=== PATIENT | male | born 1965 | race Caucasian/White ===

== ENCOUNTER 2016-07-26 15:34 | Emergency (ER) | payer OTHER ==
[~2016-07-26] VITALS: Ht 180.3 cm; Wt 83.9 kg
[~2016-07-26 15:34] MED LIST: ASPIRIN EC325 M2 PO; AUGMENTIN 875 M1 TAB PO; CLOPIDOGREL75 MG PO; FLEXERIL10 MG PO; LEVEMIR100 UNIT/1 SC; LIDODERM1 EACH EXT; METFORMIN HCL500 MG PO; MIRALAX119 GM PO; MOTRIN800 MG PO; NICOTINE PATCH1 EAC3 TOP; NOVOLOG100 UNIT/2 SC; OXACILLIN2 GM/50 M1 IV; PERCOCET 5-3251 EACH PO; SENNA PLUS TAB1 EACH PO; TRAMADOL50 MG PO
--- NOTE | 2016-07-26 17:06 | ED GI/GU/ABDOMINAL COMPLAINT ---
History of Present Illness General Chief Complaint: Abdominal Pain/Flank Pain Stated Complaint: "IM HAVING PAINS IN MY LEFT SIDE" Source: patient, family, old records Exam Limitations: no limitations Allergies Coded Allergies: NO KNOWN ALLERGIES (08/09/15) Reconcile Medications Aspirin (Ecotrin*) 325 MG TABLET. 1 TAB PO DAILY HEART/BLOOD (Reported) Ciprofloxacin HCl (Cipro) 500 MG TABLET 1 TAB PO BID PYELO Duloxetine HCl 30 MG CAPSULE.DR 2 CAP PO DAILY NERVE PAIN (Reported) Gabapentin 300 MG CAPSULE 1 CAP PO TID NERVE PAIN (Reported) Insulin Aspart (Novolog) 100 UNIT/1 ML VIAL 0 SC TIDAC/HS DIABTES BEFORE MEALS Blood Insulin Sugar Units <80 0 81-150 4 151-200 6 201-250 8 251-300 10 301-350 12 351-400 14 >400 16 AND Call Doctor AT BEDTIME Blood Insulin Sugar Units <80 0 81-100 0 101-200 0 201-250 0 251-300 3 301-350 4 351-400 5 >400 6 AND Call Doctor Insulin Detemir (Levemir) 100 UNIT/1 ML VIAL 12 UNITS SC BID DIABETES FOLLOW UP WITH DR. AREVALO Oxycodone HCl/Acetaminophen (Percocet 5-325 MG Tablet) 5 MG-325 MG TABLET 1 TAB PO BID PRN BREAKTHROUGH PAIN Triage Note: PT STATES HE HAS PAIN IN HIS LEFT FLANK AREA THAT RADIATES INTO HIS GROIN SINCE WEDNESDAY. Triage Nurses Notes Reviewed? yes Onset: Abrupt Duration: day(s): (3), constant Timing: recent history Quality/Severity: aching, cramping Severity Numbers: 5 Location: left flank Radiation: LLQ Activities at Onset: none Prior Abdominal Problems: similar symptoms No Modifying Factors: none Associated Symptoms: DENIES HPI: This is a 50-year-old male with history of type 2 diabetes SD with cardiac stents in 2009 and recent admission in January of 2016 with left-sided pyelonephritis with perinephric abscess bacteremia requiring drainage and a PICC line presents to the emergency room today complaining of sudden onset for the past 3 days left flank pain that rates the left lower quadrant. He denies any urinary symptoms no dysuria urgency frequency. No nausea no vomiting no change in his bowel movements, denies any fevers or chills. He is not taken anything for his symptoms. The patient denies any penile or scrotal pain there is no pain radiating down his legs no numbness or tingling. (EUGENIA PATEL) Vital Signs & Intake/Output Vital Signs & Intake/Output Vital Signs Date Time Temp Pulse Resp B/P Pulse O2 O2 Flow FiO2 Ox Delivery Rate 07/26 1907 97.6 07/26 1844 84 144/66 07/26 1549 97.4 89 16 138/79 97 Room Air Past History Travel History Traveled to [place] past 21 day No Medical History Any Pertinent Medical History? see below for history Neurological: NONE EENT: NONE Cardiovascular: CAD (status post stents), myocardial infarction Respiratory: NONE Gastrointestinal: NONE Hepatic: NONE Renal: RENAL ABSCESS PYELONEPRHTIS Musculoskeletal: osteoarthritis, CARPAL TUNNEL L SIDE RIB FX rotator cuff injury Psychiatric: NONE Endocrine: diabetes Blood Disorders: NONE Cancer(s): NONE Other Medical Hx: had lower uti with dysuria and frequency treated 4 weeks ago with antibiotic by [place] doctor History of MRSA: No History of VRE: No History of CDIFF: No Surgical History Surgical History: rotator cuff surgery status post balloon angioplasty left leg Psychosocial History Who do you live with Spouse What is your primary language Indian Tobacco Use: Current Daily Use Daily Tobacco Use Amount/Type: => 5 Cigarettes daily ETOH Use: occasional use Illicit Drug Use: denies illicit drug use Family History Hx Contributory? No (EUGENIA PATEL) Review of Systems Review of Systems Constitutional: Reports: see HPI. All Other Systems: Reviewed and Negative Comments Review of systems: See HPI, All other systems negative. Constitutional, no chills no fever, no malaise HEENT: No visual changes no sore throat no congestion, no ear pain Cardiovascular: No chest pain , no palpitation , Skin, no rashes, no change in skin Respiratory: No dyspnea no cough no sputum GI: No nausea no vomiting, no diarrhea, : No dysuria Muscle skeletal: No joint pain, no back pain, no neck pain, Neurologic: No numbness no headache Psych: No stress Heme/endocrine: No bruising no bleeding Immunology: No lymphadenopathy (EUGENIA PATEL) Physical Exam Physical Exam General Appearance: well developed/nourished, no apparent distress, alert, awake Gastrointestinal: normal bowel sounds, soft, non-tender Comments: Well-developed well-nourished person in no acute distress HEENT: Normal EENT exam; PERRL, EOMI, HEAD is atraumatic. moist mucous membranes. Neck: Supple, normal range of motion Back: Nontender. Full range of motion Cardiovascular: Regular rate and rhythms no murmurs rubs Respiratory: No respiratory distress. Patient speaking in full complete sentences. Breath sounds clear to auscultation bilaterally: NO W/R/R Abdomen: Soft, nontender nondistended, no appreciable organomegaly. Normal bowel sounds. No rebound/guarding, No ascites. Extremity: No edema, full range of motion of extremities, Neuro: Alert oriented x3, motor sensory normal Skin: No appreciable rash on exposed skin, skin is warm and dry. Psych: Mood and affect is normal, memory and judgment is normal. Core Measures ACS in differential dx? No Severe Sepsis Present: No Septic Shock Present: No (AMY ALVA,EUGENIA) Progress Differential Diagnosis: bowel obstruction, diverticulitis, inflamm bowel dis, pancreatitis, peptic ulcer, PUD/GERD, perforated viscous, pyelonephritis, SBO, ureterolithiasis, urinary retention, urethritis, UTI/pyelo Diagnostic Imaging: Viewed by Me: CT Scan. Discussed w/RAD: CT Scan. Radiology Impression: PATIENT: THOM JAIME PRESENT AGE: 50 PATIENT ACCOUNT NO: [id number] : 65 LOCATION: [facility] ORDERING PHYSICIAN: EUGENIA ALVA SERVICE DATE: 07/26/16 EXAM TYPE: CAT - CT ABD & PELVIS W IV CONTRAST EXAMINATION: CT ABDOMEN AND PELVIS WITH CONTRAST CLINICAL INFORMATION: Left flank pain. History of renal abscess. COMPARISON: CT abdomen and pelvis 02/05/[address] abdomen 01/27/2016. TECHNIQUE: Multidetector volumetric imaging was performed of the abdomen and pelvis before and after the IV administration of 95 mL of Optiray 320 intravenous contrast. Sagittal and coronal reformatted images were obtained on the technologist's workstation. DLP: 564 mGy-cm. FINDINGS: LUNG BASES: Dependent parenchymal changes bilaterally. LIVER, GALLBLADDER, AND BILIARY TREE: The liver is normal in size, shape, and attenuation. No focal hepatic lesion. Slight biliary ductal prominence which is favored to be within normal limits status post cholecystectomy. Cholecystectomy clips. PANCREAS: Unremarkable. SPLEEN: Unremarkable. ADRENAL GLANDS: Unremarkable. KIDNEYS AND URETERS: No significant perinephric stranding. Bilateral nephrograms are symmetric without hydronephrosis. No convincing pyelonephritis. No renal or ureteral calculi. No suspicious renal mass. No discrete renal abscess. BLADDER: Unremarkable. GASTROINTESTINAL TRACT: Bowel gas pattern is nonobstructive. No evidence of acute bowel inflammation. The appendix is normal. ABDOMINAL WALL: Small umbilical hernia which contains a portion of small bowel; no evidence of local inflammatory change or obstruction. LYMPH NODES: No pathologically enlarged lymph nodes demonstrated. VASCULAR: Scattered atherosclerotic disease. PELVIC VISCERA: Beam hardening artifact from left hip arthroplasty limits optimal evaluation of the pelvis. No free pelvic fluid. Prostate gland and seminal vesicles appear unremarkable. OSSEOUS STRUCTURES: The prosthetic left femoral head is well situated within the acetabular component. Question granuloma formation within the proximal left femur along the lateral aspect of the femoral component (coronal image 69/107). Mild heterotopic ossification about the left hip. Moderate degenerative changes of the right hip with prominent hypertrophic changes. IMPRESSION: 1. No hydronephrosis or CT evidence of pyelonephritis. No renal or ureteral calculi demonstrated. No significant perinephric stranding. 2. No evidence of acute bowel pathology. Small umbilical hernia contains a short segment of nonobstructed small bowel. 3. Mild biliary ductal prominence is suspected to be within normal limits status post cholecystectomy. 4. Question of granuloma formation along the lateral aspect of the left femoral prosthetic component. Please correlate for any clinical symptoms of hardware complication. Moderate degenerative changes at the right hip. DICTATED BY: TYESHA AMBRIZ MD DATE/TIME DICTATED:07/26/161827 MANNEQUIN SANDER AND FINISHER:RADHA DATE/TIME TRANSCRIBED:07/26/161827 CONFIDENTIAL, DO NOT COPY WITHOUT APPROPRIATE AUTHORIZATION. <Electronically signed in Other Vendor System> SIGNED BY: TYESHA AMBRIZ MD 07/26/16 1847 Initial ED EKG: none (EUGENIA PATEL) Plan of Care: Orders Procedure Date/time Status Add-on Test (ER Only) 07/26 1852 Active BLOOD CULTURE 07/26 1831 Active CULTURE,URINE 07/26 1721 Active URINALYSIS 07/26 1706 Complete LIPASE 07/26 170 Complete COMPREHENSIVE METABOLIC PANEL 07/26 1706 Complete CBC WITHOUT DIFFERENTIAL 07/26 170 Complete AMYLASE 07/26 170 Complete Laboratory Tests 07/26/16 1721: Anion Gap 13, Estimated GFR > 60, BUN/Creatinine Ratio 20.0, Glucose 129 H, Calcium 9.6, Total Bilirubin 0.4, AST 14 L, ALT 28, Alkaline Phosphatase 95, Total Protein 7.7, Albumin 4.4, Globulin 3.3, Albumin/Globulin Ratio 1.3, Amylase 35, Lipase 83, CBC w Diff NO MAN DIFF REQ, RBC 4.78, MCV 92.6, MCH 31.2 H, RDW 13.3, MPV 9.6, Gran % 65.4, Lymphocytes % 24.6, Monocytes % 6.4, Eosinophils % 3.3, Basophils % 0.3, Absolute Granulocytes 8.5 H, Absolute Lymphocytes 3.2, Absolute Monocytes 0.8 H, Absolute Eosinophils 0.4, Absolute Basophils 0, PUBS MCHC 33.7, Urinalysis LIGHT H, Urine Color YEL, Urine Clarity CLEAR, Urine pH 6.0, Ur Specific [place] 1.025, Urine Protein TRACE H, Urine Ketones TRACE H, Urine Nitrite NEG, Urine Bilirubin NEG, Urine Urobilinogen 0.2 , Ur Leukocyte Esterase NEG, Ur Microscopic SEDIMENT EXAMINED, Urine RBC 1-3, Urine WBC 3-5 H, Ur Epithelial Cells FEW, Urine Mucus MOD H, Urine Hemoglobin TRACE-INTACT H, Urine Glucose NEG Microbiology 07/26 1830 BLOOD: Blood Culture - RECD 07/26 183 BLOOD: Blood Culture - RECD 07/26 1721 URINE ROUT: Urine Culture - RECD Labs ordered old records reviewed, patient medicated with morphine 6 mg IV IV fluids CAT scan ordered case discussed with Dr. Segovia I discussed with the patient at length all of his lab results today pending CAT scan Please and CAT scan reviewed with Dr. Segovia. Patient medicated with Rocephin 1 g IV, pt is nontoxic appearing, afebrile. as I discussed with family need for close follow-up with his primary care physician tomorrow morning, if he is unable to be seen there advised that he return for repeat checkup, advised he return immediately at anytime sooner however he has worsening pain fever chills. Patient will be sent home with Cipro and Percocet patient clinically appears well he reports his symptoms have improved with the morphine. I answered all her questions they feel comfortable to splint. (AMY ALVA,EUGENIA) Departure Departure Time of Disposition: 1902 Disposition: HOME OR SELF CARE Condition: Stable Clinical Impression Primary Impression: Flank pain Referrals: ADETOLA MD,GADIEL Rodriguez (PCP/Family) Additional Instructions: FOLLOW UP WITH YOUR PMD TOMORROW MORNING FOR REPEAT EVALUATION TOMORROW, IF UNABLE TO BE SEEN COME BACK TO THE EMERGENCY ROOM. RETURN AT ANYTIME SOONER IF SYMPTOMS IF WORSEN, YOU DEVELOP FEVER, CHILLS, NAUSEA VOMITING OR ANY OTHER CONCERNS. CIPRO AND PERCOCET DIRECTED, THESE WERE SENT TO [facility]. Departure Forms: Customer Survey General Discharge Information Prescriptions: Current Visit Scripts Ciprofloxacin HCl (Cipro) 1 TAB PO BID #14 TAB Oxycodone HCl/Acetaminophen (Percocet 5-325 MG Tablet) 1 TAB PO BID PRN BREAKTHROUGH PAIN #12 TAB (EUGENIA PATEL) PA/WATER SYSTEMS ENGINEER Co-Sign Statement Statement: ED Attending supervision documentation- [] I saw and evaluated the patient. I have also reviewed all the pertinent lab results and diagnostic results. I agree with the findings and the plan of care as documented in the PA's/WATER SYSTEMS ENGINEER's documentation. [X] I have reviewed the ED Record and agree with the PA's/WATER SYSTEMS ENGINEER's documentation. Patient will be medicated with Rocephin here in the emergency department. We will recommend that the patient follow up with his primary care physician tomorrow or return to the emergency department for reevaluation. [] Additions or exceptions (if any) to the PAs/WATER SYSTEMS ENGINEER's note and plan are summarized below: [] (CANDACE SIMONS,NICO Owens) ED Attending Observation Initial Observation Note: I have seen and personally examined THOM JAIME on 07/26/16 at 1901. I agree with the current emergency department documentation. The disposition (admission or discharge) is uncertain at this time, he needs a period of observation for the following reason(s): The ED Nurse caring for this patient has been personally informed as to what the patient is being observed for. (EUGENIA PATEL)
[2016-07-26] MEDS ORDERED: DULOXETINE HCL30 MG PO (17:21)
[2016-07-26] MEDS ORDERED: GABAPENTIN300 M2 PO (17:21)
[2016-07-26 17:40] LABS: ABSOLUTE BASOPHIL COUNT 0 /CUMM (0.0-0.2); ABSOLUTE EOSINOPHIL COUNT 0.4 /CUMM (0.0-0.7); ABSOLUTE GRANULOCYTE CT 8.5 /CUMM (1.4-6.5); ABSOLUTE LYMPH COUNT 3.2 /CUMM (1.2-3.4); ABSOLUTE MONOCYTE COUNT 0.8 /CUMM (0.10-0.60); BASOPHIL % 0.3 % (0.0-2.0); EOSINOPHIL % 3.3 % (0-5); GRANULOCYTE % 65.4 % (42.2-75.2); HEMATOCRIT 44.3 % (42-52); MEAN CORPUSCULAR HGB 31.2 PG (27.0-31.0); MEAN CORPUSCULAR HGB CONC 33.7 G/DL (33.0-37.0); MEAN CORPUSCULAR VOLUME 92.6 FL (80.0-94.0); MEAN PLATELET VOLUME 9.6 FL (7.4-10.4); PLATELET COUNT 192 /CUMM (130-400); RBC DISTRIBUTION WIDTH 13.3 % (11.5-14.5); RED BLOOD CELL CT 4.78 /CUMM (4.70-6.10)
[2016-07-26 18:44] VITALS: BP 144/66
--- NOTE | 2016-07-26 18:47 | CT SCAN REPORT ---
EXAMINATION: CT ABDOMEN AND PELVIS WITH CONTRAST CLINICAL INFORMATION: Left flank pain. History of renal abscess. COMPARISON: CT abdomen and pelvis 02/05/[address] abdomen 01/27/2016. TECHNIQUE: Multidetector volumetric imaging was performed of the abdomen and pelvis before and after the IV administration of 95 mL of Optiray 320 intravenous contrast. Sagittal and coronal reformatted images were obtained on the technologist's workstation. DLP: 564 mGy-cm. FINDINGS: LUNG BASES: Dependent parenchymal changes bilaterally. LIVER, GALLBLADDER, AND BILIARY TREE: The liver is normal in size, shape, and attenuation. No focal hepatic lesion. Slight biliary ductal prominence which is favored to be within normal limits status post cholecystectomy. Cholecystectomy clips. PANCREAS: Unremarkable. SPLEEN: Unremarkable. ADRENAL GLANDS: Unremarkable. KIDNEYS AND URETERS: No significant perinephric stranding. Bilateral nephrograms are symmetric without hydronephrosis. No convincing pyelonephritis. No renal or ureteral calculi. No suspicious renal mass. No discrete renal abscess. BLADDER: Unremarkable. GASTROINTESTINAL TRACT: Bowel gas pattern is nonobstructive. No evidence of acute bowel inflammation. The appendix is normal. ABDOMINAL WALL: Small umbilical hernia which contains a portion of small bowel; no evidence of local inflammatory change or obstruction. LYMPH NODES: No pathologically enlarged lymph nodes demonstrated. VASCULAR: Scattered atherosclerotic disease. PELVIC VISCERA: Beam hardening artifact from left hip arthroplasty limits optimal evaluation of the pelvis. No free pelvic fluid. Prostate gland and seminal vesicles appear unremarkable. OSSEOUS STRUCTURES: The prosthetic left femoral head is well situated within the acetabular component. Question granuloma formation within the proximal left femur along the lateral aspect of the femoral component (coronal image 69/107). Mild heterotopic ossification about the left hip. Moderate degenerative changes of the right hip with prominent hypertrophic changes. IMPRESSION: 1. No hydronephrosis or CT evidence of pyelonephritis. No renal or ureteral calculi demonstrated. No significant perinephric stranding. 2. No evidence of acute bowel pathology. Small umbilical hernia contains a short segment of nonobstructed small bowel. 3. Mild biliary ductal prominence is suspected to be within normal limits status post cholecystectomy. 4. Question of granuloma formation along the lateral aspect of the left femoral prosthetic component. Please correlate for any clinical symptoms of hardware complication. Moderate degenerative changes at the right hip.
[2016-07-26] MEDS ORDERED: PERCOCET 5-3251 EACH PO ×2 (19:07→20:37)
[2016-07-26] MEDS ORDERED: CIPRO500 M1 PO ×2 (19:07→20:37)
[2016-07-27] MEDS ORDERED: CYCLOBENZAPRINE5 M2 PO (21:01)
== END 2016-07-26 19:23 ==
LOC: ERH 15:34
PROVIDERS: Physician Assistant Medical
DX: R10.32 Left lower quadrant pain (principal)
CPT/HCPCS: 74177; 81001; 87040; 87086; 96374; 96375; J0696

== ENCOUNTER 2016-07-27 18:49 | Emergency (ER) | payer OTHER ==
[~2016-07-27] VITALS: Ht 180.3 cm; Wt 83.9 kg
[~2016-07-27 18:49] MED LIST changes: +CIPRO500 M1 PO; +DULOXETINE HCL30 MG PO; +GABAPENTIN300 M2 PO
--- NOTE | 2016-07-27 19:59 | ED GI/GU/ABDOMINAL COMPLAINT ---
History of Present Illness General Chief Complaint: Abdominal Pain/Flank Pain Stated Complaint: LEFT SIDED FLANK PAIN Source: patient, family, old records Exam Limitations: no limitations Vital Signs & Intake/Output Vital Signs & Intake/Output Vital Signs Date Time Temp Pulse Resp B/P Pulse O2 O2 Flow FiO2 Ox Delivery Rate 07/27 2104 97.9 72 18 132/78 99 Room Air 07/27 1910 97.5 79 18 143/81 100 Room Air Allergies Coded Allergies: NO KNOWN ALLERGIES (08/09/15) Reconcile Medications Aspirin (Ecotrin*) 325 MG TABLET.DR 1 TAB PO DAILY HEART/BLOOD (Reported) Ciprofloxacin HCl (Cipro) 500 MG TABLET 1 TAB PO BID PYELO Cyclobenzaprine HCl 5 MG TABLET 1 TAB PO TIDPRN PRN pain Duloxetine HCl 30 MG CAPSULE.DR 2 CAP PO DAILY NERVE PAIN (Reported) Gabapentin 300 MG CAPSULE 1 CAP PO TID NERVE PAIN (Reported) Insulin Aspart (Novolog) 100 UNIT/1 ML VIAL 0 SC TIDAC/HS DIABTES BEFORE MEALS Blood Insulin Sugar Units <80 0 81-150 4 151-200 6 201-250 8 251-300 10 301-350 12 351-400 14 >400 16 AND Call Doctor AT BEDTIME Blood Insulin Sugar Units <80 0 81-100 0 101-200 0 201-250 0 251-300 3 301-350 4 351-400 5 >400 6 AND Call Doctor Insulin Detemir (Levemir) 100 UNIT/1 ML VIAL 12 UNITS SC BID DIABETES FOLLOW UP WITH DR. AREVALO Oxycodone HCl/Acetaminophen (Percocet 5-325 MG Tablet) 5 MG-325 MG TABLET 1 TAB PO TID PRN PAIN Triage Note: PT RETURNS TO ED FOR "BLOOD CHECK" WAS SEEN HERE LAST NIGHT FOR LEFT SIDE/LEFT FLANK PAIN. "THEY TOLD ME TO COME BACK IF I COULDN'T FOLLOW UP WITH MY DOCTOR" STATES WBC'S WERE ELEVATED YESTERDAY "THEY WANT TO CHECK IT AGAIN" TOOK PERCOCET LAST NIGHT, LAST TODAY AT 1 PM "IT DIDN'T HELP" DENIES NAUSEA Triage Nurses Notes Reviewed? yes HPI: Is a 50-year-old male who read presents to emergency room for evaluation after being seen here last night with left-sided back pain. His history is significant for type 2 diabetes cardiac stents and was recently admitted over the summer for left-sided pyelonephritis that led to a perinephric abscess and bacteremia. The patient had unremarkable workup last night however sent home with Percocet and Cipro which she's been taking. His last dose of Percocet was at 1 PM this afternoon. He states that the pain persists. There is no numbness or tingling or pain down his legs no abdominal pain nausea vomiting or diarrhea. He denies any fevers or chills. The pain is aching constant nonradiating despite taking the Percocet. No numbness or tingling no penile or scrotal pain. Past History Travel History Traveled to [place] past 21 day No Medical History Any Pertinent Medical History? see below for history Neurological: NONE EENT: NONE Cardiovascular: CAD (status post stents), myocardial infarction Respiratory: NONE Gastrointestinal: NONE Hepatic: NONE Renal: RENAL ABSCESS PYELONEPRHTIS Musculoskeletal: osteoarthritis, CARPAL TUNNEL L SIDE RIB FX rotator cuff injury Psychiatric: NONE Endocrine: diabetes Blood Disorders: NONE Cancer(s): NONE Other Medical Hx: had lower uti with dysuria and frequency treated 4 weeks ago with antibiotic by [place] doctor History of MRSA: No History of VRE: No History of CDIFF: No Surgical History Surgical History: rotator cuff surgery status post balloon angioplasty left leg Psychosocial History Who do you live with Spouse What is your primary language Syriac Tobacco Use: Current Daily Use Daily Tobacco Use Amount/Type: => 5 Cigarettes daily ETOH Use: occasional use Illicit Drug Use: denies illicit drug use Family History Hx Contributory? No Review of Systems Review of Systems Constitutional: Reports: see HPI. All Other Systems: Reviewed and Negative Comments Review of systems: See HPI, All other systems negative. Constitutional, no chills no fever, no malaise HEENT: No visual changes no sore throat no congestion, no ear pain Cardiovascular: No chest pain , no palpitation , Skin, no rashes, no change in skin Respiratory: No dyspnea no cough no sputum GI: No nausea no vomiting, no diarrhea, : No dysuria Muscle skeletal: No joint pain, no back pain, no neck pain, Neurologic: No numbness no headache Psych: No stress Heme/endocrine: No bruising no bleeding Immunology: No lymphadenopathy Physical Exam Physical Exam General Appearance: well developed/nourished, no apparent distress Gastrointestinal: soft, non-tender, no organomegaly Comments: Well-developed well-nourished person in no acute distress HEENT: Normal EENT exam; PERRL, EOMI, HEAD is atraumatic. moist mucous membranes. Neck: Supple, normal range of motion Back: Nontender. Mild left sided paralumbar muscle tenderness to palpation no midline tenderness no ecchymosis Full range of motion Cardiovascular: Regular rate and rhythms no murmurs rubs Respiratory: No respiratory distress. Patient speaking in full complete sentences. Breath sounds clear to auscultation bilaterally: NO W/R/R Abdomen: Soft, nontender nondistended, no appreciable organomegaly. Normal bowel sounds. No rebound/guarding, No ascites. Extremity: No edema, full range of motion of extremities, Neuro: Alert oriented x3, motor sensory normal Skin: No appreciable rash on exposed skin, skin is warm and dry. Psych: Mood and affect is normal, memory and judgment is normal. Core Measures ACS in differential dx? No Severe Sepsis Present: No Septic Shock Present: No Progress Differential Diagnosis: PANCREATITIS ABSCESS PYELONEPHRITIS uti MUSCLE STRAIN HERNIATED DISC Plan of Care: Orders Procedure Date/time Status URINALYSIS 07/27 1957 Complete COMPREHENSIVE METABOLIC PANEL 07/27 1907 Complete CBC WITHOUT DIFFERENTIAL 07/27 1907 Complete Laboratory Tests 07/27/16 2016: Urine Color YEL, Urine Clarity CLEAR, Urine pH 6.0, Ur Specific [place] >= 1.030 , Urine Protein TRACE H, Urine Ketones NEG, Urine Nitrite NEG, Urine Bilirubin NEG, Urine Urobilinogen 0.2, Ur Leukocyte Esterase NEG, Ur Microscopic SEDIMENT EXAMINED, Urine RBC 3-5, Urine WBC RARE, Ur Epithelial Cells FEW, Urine Hemoglobin TRACE-LYSED H, Urine Glucose 100 H 07/27/161946: Anion Gap 10, Estimated GFR > 60, BUN/Creatinine Ratio 23.3, Glucose 145 H, Calcium 9.2, Total Bilirubin 0.5, AST 24, ALT 49, Alkaline Phosphatase 91, Total Protein 7.4, Albumin 4.2, Globulin 3.2, Albumin/Globulin Ratio 1.3, CBC w Diff NO MAN DIFF REQ, RBC 4.63 L, MCV 92.8, MCH 31.1 H, RDW 13.3, MPV 9.4, Gran % 61.1, Lymphocytes % 29.3, Monocytes % 6.0, Eosinophils % 3.3, Basophils % 0.3, Absolute Granulocytes 5.9, Absolute Lymphocytes 2.9, Absolute Monocytes 0.6, Absolute Eosinophils 0.3, Absolute Basophils 0, PUBS MCHC 33.5 labs ordered old records reviewed patient medicated Dilaudid 1 mg IM 07/27/2016 8:38:15 PM patient reports improvement in his pain with the Dilaudid, discussed with him at length all of his lab results today pending UA. The case was once again discussed with Dr. Segovia who I had discussed the case with last night the patient was here and he agrees with the plan, the urine and blood cultures show no growth to date (AMY ALVA,EUGENIA) Initial ED EKG: none Departure Departure Time of Disposition: 2044 Disposition: HOME OR SELF CARE Condition: Stable Clinical Impression Primary Impression: Flank pain Referrals: GARY SIMONS,GADIEL Rodriguez (PCP/Family) Additional Instructions: Continue taking the Cipro as directed. Continue with the Percocet for pain, flexeril as directed. these medications will make you drowsy. Follow-up with your primary care physician this week return at anytime sooner with any concerns. Departure Forms: Customer Survey General Discharge Information Prescriptions: Current Visit Scripts Cyclobenzaprine HCl 1 TAB PO TIDPRN PRN pain #12 TAB
[2016-07-27 20:00] LABS: ABSOLUTE BASOPHIL COUNT 0 /CUMM (0.0-0.2); ABSOLUTE EOSINOPHIL COUNT 0.3 /CUMM (0.0-0.7); ABSOLUTE GRANULOCYTE CT 5.9 /CUMM (1.4-6.5); ABSOLUTE LYMPH COUNT 2.9 /CUMM (1.2-3.4); ABSOLUTE MONOCYTE COUNT 0.6 /CUMM (0.10-0.60); BASOPHIL % 0.3 % (0.0-2.0); EOSINOPHIL % 3.3 % (0-5); GRANULOCYTE % 61.1 % (42.2-75.2); MEAN CORPUSCULAR HGB 31.1 PG (27.0-31.0); MEAN CORPUSCULAR HGB CONC 33.5 G/DL (33.0-37.0); MEAN CORPUSCULAR VOLUME 92.8 FL (80.0-94.0); MEAN PLATELET VOLUME 9.4 FL (7.4-10.4); PLATELET COUNT 182 /CUMM (130-400); RBC DISTRIBUTION WIDTH 13.3 % (11.5-14.5); RED BLOOD CELL CT 4.63 /CUMM (4.70-6.10); WHITE BLOOD CELL COUNT 9.7 /CUMM (4.8-10.8)
[2016-07-27] MEDS ORDERED: CYCLOBENZAPRINE5 M2 PO (21:01)
[2016-07-27 21:05] VITALS: BP 132/78
== END 2016-07-27 21:06 ==
LOC: ERH 18:49
PROVIDERS: Physician Assistant Medical
DX: R10.9 Unspecified abdominal pain (principal)
CPT/HCPCS: 81001; 96372; J1885

== ENCOUNTER 2017-07-26 12:28 | Inpatient (IN) | payer OTHER ==
[~2017-07-26] VITALS: Ht 180.3 cm; Wt 89.8 kg
[~2017-07-26 12:28] MED LIST changes: +ASPIRIN81 M4 PO; +CYCLOBENZAPRINE5 M2 PO; +CYMBALTA60 M1 PO; +HYDROCODON-ACE1 EAC2 PO; +KEFLEX500 M1 PO; +LYRICA100 M1 PO; +METFORMIN HCL500 M3 PO; +METOPROLOL SUCC25 M1 PO; +UNASYN 3 GM VIAL3 GM IV; +VICODIN 5-3001 EACH PO
[2017-07-26 14:06] LABS: ABSOLUTE BASOPHIL COUNT 0.1 /CUMM (0.0-0.2); ABSOLUTE EOSINOPHIL COUNT 0 /CUMM (0.0-0.7); ABSOLUTE GRANULOCYTE CT 11.1 /CUMM (1.4-6.5); ABSOLUTE LYMPH COUNT 1.7 /CUMM (1.2-3.4); ABSOLUTE MONOCYTE COUNT 0.8 /CUMM (0.10-0.60); BASOPHIL % 0.5 % (0.0-2.0); EOSINOPHIL % 0.3 % (0-5); GRANULOCYTE % 80.8 % (42.2-75.2); HEMATOCRIT 39.7 % (42-52); MEAN CORPUSCULAR HGB 29.9 PG (27.0-31.0); MEAN PLATELET VOLUME 9.4 FL (7.4-10.4); PLATELET COUNT 286 /CUMM (130-400); RBC DISTRIBUTION WIDTH 13.8 % (11.5-14.5); RED BLOOD CELL CT 4.51 /CUMM (4.70-6.10); WHITE BLOOD CELL COUNT 13.7 /CUMM (4.8-10.8)
--- NOTE | 2017-07-26 16:29 | ED ANKLE/FOOT INJURY COMPLAINT ---
History of Present Illness General Chief Complaint: General Adult Stated Complaint: ANA LAURA RAMSEY, INFECTED RIGHT FOOT Source: patient, family, old records Exam Limitations: no limitations Vital Signs & Intake/Output Vital Signs & Intake/Output Vital Signs Date Time Temp Pulse Resp B/P B/P Pulse O2 O2 Flow FiO2 Mean Ox Delivery Rate 07/26 1323 98.2 101 17 126/82 100 Room Air Allergies Coded Allergies: No Known Allergies (05/17/17) Reconcile Medications Ampicillin Sodium/Sulbactam Na (Unasyn 3 Gm Vial) 3 GRAM VIAL 1 VIAL IV Q6H OSTEOMYELITIS Aspirin (Aspirin*) 81 MG TAB.CHEW 1 TAB PO DAILY [facility] Duloxetine HCl 30 MG CAPSULE.DR 2 CAP PO DAILY NERVE PAIN (Reported) Insulin Aspart (Novolog) 100 UNIT/1 ML VIAL 0 SC TIDAC/HS DIABTES BEFORE MEALS Blood Insulin Sugar Units <80 0 81-150 4 151-200 6 201-250 8 251-300 10 301-350 12 351-400 14 >400 16 AND Call Doctor AT BEDTIME Blood Insulin Sugar Units <80 0 81-100 0 101-200 0 201-250 0 251-300 3 301-350 4 351-400 5 >400 6 AND Call Doctor Insulin Detemir (Levemir) 100 UNIT/1 ML VIAL 12 UNITS SC BID DIABETES FOLLOW UP WITH DR. AREVALO Metformin HCl 500 MG TABLET 1 TAB PO BID DIABETES (Reported) Metoprolol Succinate 25 MG TAB 6.25 MG PO BID [facility] Oxycodone HCl/Acetaminophen (Percocet 5-325 MG Tablet) 5 MG-325 MG TABLET 1 TAB PO TID PRN PAIN Oxycodone HCl/Acetaminophen (Percocet 5-325 MG Tablet) 5 MG-325 MG TABLET 1 TAB PO Q4-6 PRN PAIN Pregabalin (Lyrica) 100 MG CAPSULE 1 CAP PO BID PAIN CONTROL (Reported) Triage Note: SENT TO ED FROM [facility] DR BROWER FOR EVAL OF INFECTED RIGHT FOOT DIABETIC WOUND. REPORTS WOUND BEGAN IN APR 2017 Triage Nurses Notes Reviewed? yes Duration: week(s):, getting worse Timing: recent history Severity: moderate, severe Pain/Injury Location: Right: Foot. No Modifying Factors: none HPI: 51-year-old male comes into the emergency room for further evaluation of pain and redness to his right foot. 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 Brower. Patient needs to get a partial amputation of the right foot secondary to osteomyelitis and is going to be brought to the OR is what the patient and said. Denies any fever and chills. This wound has been going on for quite some time. For many months. (Eliazar Guerra) Past History Travel History Traveled to [place] past 21 day No Medical History Any Pertinent Medical History? see below for history Neurological: NONE EENT: NONE Cardiovascular: CAD (status post stents), myocardial infarction, PVD Respiratory: NONE Gastrointestinal: NONE Hepatic: NONE Renal: RENAL ABSCESS PYELONEPRHTIS Musculoskeletal: osteoarthritis, CARPAL TUNNEL L SIDE RIB FX rotator cuff injury Psychiatric: NONE Endocrine: diabetes Blood Disorders: NONE Cancer(s): NONE History of MRSA: No History of VRE: No History of CDIFF: No Surgical History Surgical History: rotator cuff surgery with acromioplasty and glenohumeral joint debridement on the left status post balloon angioplasty of the left leg Psychosocial History Who do you live with Spouse What is your primary language Moh[place] Tobacco Use: Current Daily Use Daily Tobacco Use Amount/Type: => 5 Cigarettes daily ETOH Use: denies use Illicit Drug Use: denies illicit drug use Family History Hx Contributory? No (Eliazar Guerra) Review of Systems Review of Systems Constitutional: Reports: no symptoms. EENTM: Reports: no symptoms. Respiratory: Reports: no symptoms. Cardiovascular: Reports: no symptoms. GI: Reports: no symptoms. Genitourinary: Reports: no symptoms. Musculoskeletal: Reports: see HPI. Skin: Reports: see HPI. Neurological/Psychological: Reports: no symptoms. Hematologic/Endocrine: Reports: no symptoms. Immunologic/Allergic: Reports: no symptoms. All Other Systems: Reviewed and Negative (Eliazar Guerra) Physical Exam Physical Exam General Appearance: well developed/nourished, mild distress Head: atraumatic Eyes: Bilateral: normal appearance. Ears, Nose, Throat: normal ENT inspection, hearing grossly normal Neck: normal inspection Cardiovascular/Respiratory: no respiratory distress Back: normal inspection Leg/Knee/Thigh Left: normal inspection Foot Right: OPEN WOUND ON LATERAL ASPECT OF RIGHT FOOT, SOME SURROUNDING ERYTHEMA WARMTH, SOME EDEMA, OPEN WOUND EXTENDS APPROXIMATELY 4 INCHES IN DIAMETER Psychiatric: awake, alert, oriented x 3 Skin: intact, normal color, warm/dry (Sheila Guerranton) Progress Differential Diagnosis: arterial insufficiency, cellulitis, septic arthritis, gout, fracture, OSTEOMYELITIS Plan of Care: Orders Procedure Date/time Status Heart Healthy Diet 07/27 B Active Patient Data 07/26 173 Active ED Holding Orders 07/26 1733 Active Admit to inpatient 07/26 1733 Active Vital Signs 07/26 1733 Active Code Status 07/26 1733 Active Add-on Test (ER Only) 07/26 1629 Active WESTERGREN SED RATE 07/26 1629 Active LACTIC ACID 07/26 1603 Active Add-on Test (ER Only) 07/26 1538 Active LACTIC ACID 07/26 1444 Active C-REACTIVE PROTEIN 07/26 1355 Active BLOOD CULTURE 07/26 1303 Active COMPREHENSIVE METABOLIC PANEL 07/26 1303 Active CBC WITHOUT DIFFERENTIAL 07/26 1303 Complete Laboratory Tests 07/26/17 1721: Lactic Acid Pending, ESR Westergren Pending 07/26/17 1355: Anion Gap 17 H, Estimated GFR > 60, BUN/Creatinine Ratio 18.9, Glucose 163 H, Calcium 10.0, Total Bilirubin 0.6, AST 16 L, ALT 20 L, Alkaline Phosphatase 94 , C-Reactive Prot, Quant Pending, Total Protein 8.3 H, Albumin 4.4, Globulin 3.9, Albumin/Globulin Ratio 1.1, CBC w Diff NO MAN DIFF REQ, RBC 4.51 L, MCV 88.0, MCH 29.9, MCHC 34.0, RDW 13.8, MPV 9.4, Gran % 80.8 H, Lymphocytes % 12.4 L, Monocytes % 6.0, Eosinophils % 0.3, Basophils % 0.5, Absolute Granulocytes 11.1 H, Absolute Lymphocytes 1.7, Absolute Monocytes 0.8 H, Absolute Eosinophils 0, Absolute Basophils 0.1 Microbiology 07/26 1721 BLOOD: Blood Culture - RECD 07/26 1348 BLOOD: Blood Culture - RECD Diagnostic Imaging: Viewed by Me: Radiology Read. Discussed w/RAD: Radiology Read. Radiology Impression: PATIENT: THOM JAIME PRESENT AGE: 51 PATIENT ACCOUNT NO: [id number] : 65 LOCATION: [facility] ORDERING PHYSICIAN: Eliazar ALVA SERVICE DATE: 07/26/17-1627 EXAM TYPE : RAD - XRY-FOOT COMPLETE, R EXAMINATION: XR FOOT, RIGHT CLINICAL INFORMATION: Infection COMPARISON: X-ray right foot dated 07/21/2017 TECHNIQUE: AP, lateral, and oblique views of the right foot. FINDINGS: Status post fifth ray amputation. Bony osteopenia notably involving the fourth metatarsal. Subtle linear appearing lucency noted in the base of the fourth metatarsal. Partial amputation head of the fourth metatarsal. There is overlying soft tissue swelling. No gross evidence of air identified within the soft tissues. Findings appear similar to the prior examination. IMPRESSION: Abnormal soft tissue swelling lateral aspect proximal foot. No evidence of air within the soft tissues. Given the presence of osteopenia, osteomyelitis base of the fourth metatarsal cannot be entirely excluded. Linear lucency also noted in the base of the fourth metatarsal may represent age indeterminate stress fracture in the appropriate clinical setting. The above-mentioned findings can be further assessed with MRI. DICTATED BY: Manny Almeida MD DATE/TIME DICTATED:07/26/171656 HOSPITAL SUPERVISOR:RADHA DATE/ TIME TRANSCRIBED:07/26/171656 CONFIDENTIAL, DO NOT COPY WITHOUT APPROPRIATE AUTHORIZATION. <Electronically signed in Other Vendor System> SIGNED BY: Manny Almeida MD 07/26/17 584 (Eliazar Guerra) Departure Departure Disposition: STILL A PATIENT Condition: Stable Clinical Impression Primary Impression: Osteomyelitis of right foot Referrals: Elijah Quinones MD (PCP/Family) Departure Forms: Customer Survey General Discharge Information Admission Note Spoke With: Michelle Kim MD Documentation of Exam: Documentation of any treatments & extenuating circumstances including Concerns Regarding Discharge (functional status, medication knowledge or non-compliance, living conditions, etc.) that warrant an admission rather than observation: Patient will require IV antibiotics. IV pain control. Patient will require a transmetatarsal amputation. Physical therapy. Infectious disease consultation. Podiatry consultation. Medically not safe for discharge. High risk. (Eliazar Guerra) PA/[employer] SUPERVISOR Co-Sign Statement Statement: ED Attending supervision documentation- [X] I saw and evaluated the patient. I have also reviewed all the pertinent lab results and diagnostic results. I agree with the findings and the plan of care as documented in the PA's/[employer] SUPERVISOR's documentation. [] I have reviewed the ED Record and agree with the PA's/[employer] SUPERVISOR's documentation. [] Additions or exceptions (if any) to the PAs/[employer] SUPERVISOR's note and plan are summarized below: [] (Yadiel Foster DO)
--- NOTE | 2017-07-26 17:07 | RADIOLOGY REPORT ---
EXAMINATION: XR FOOT, RIGHT CLINICAL INFORMATION: Infection COMPARISON: X-ray right foot dated 07/21/2017 TECHNIQUE: AP, lateral, and oblique views of the right foot. FINDINGS: Status post fifth ray amputation. Bony osteopenia notably involving the fourth metatarsal. Subtle linear appearing lucency noted in the base of the fourth metatarsal. Partial amputation head of the fourth metatarsal. There is overlying soft tissue swelling. No gross evidence of air identified within the soft tissues. Findings appear similar to the prior examination. IMPRESSION: Abnormal soft tissue swelling lateral aspect proximal foot. No evidence of air within the soft tissues. Given the presence of osteopenia, osteomyelitis base of the fourth metatarsal cannot be entirely excluded. Linear lucency also noted in the base of the fourth metatarsal may represent age indeterminate stress fracture in the appropriate clinical setting. The above-mentioned findings can be further assessed with MRI.
--- NOTE | 2017-07-26 17:36 | History & Physical ---
Simran Purdy 07/26/17 1733: General Information and HPI MD Statement: I have seen and personally examined THOM CLAROS and documented this H&P. The patient is a 51 year old M who presented with a patient stated chief complaint of [Osteomyelitis]. Source of Information: patient Exam Limitations: no limitations History of Present Illness: Mr. Claros is a 51-year-old male w/ PMH of DM on insulin, DM neuropathy on lyrica, CAD/HI/PVD s/p 2 stents in 2009 on ASA 81, hx of PVD on Plavix, hx of renal abscess complicated by MSSA bacteremia (2015), was sent in to ER by Dr. Berrios for further evaluation of pain and redness to his right foot wound from partial metatasal amputation back in 04/[address] Berrios. Since then, patient received a total of 6-week of Unasyn outpatient with regular woundcare clinic f/u with wound VAC and hyperbaric treatment. During this 6-weeks, patient was complicated with incidental finding of RLE "arterial clog" which he underwent stent + balloon in Dr. Jimenez's office, and started on Plavix. Patient was ambulating at home with a cane and wearing a slipper on his right foot ever since amputation, and he was maintaining minimal weight bearing on R foot. Patient stated that he was doing fine until about 2-3 weeks ago when he felt the pain starting to come back at the chronic ulcer site. Patient saw Dr. Berrios and then was sent in. Patient endorsed some fever/chills prior coming in ER today, however denied cough/SOB/Chest Pain/Palpitation/ abdominal pain, bowel movement/urinary abnormality, or other skin/ musculoskeletal/neurological disorders. Allergies/Medications Allergies: Coded Allergies: No Known Allergies (05/17/17) Home Med list Aspirin (Aspirin*) 81 MG TAB.CHEW 1 TAB PO DAILY [facility] Clopidogrel Bisulfate (Plavix) 75 MG TABLET 1 TAB PO DAILY Hx of DVT ( Reported) Duloxetine HCl 30 MG CAPSULE. 2 CAP PO DAILY NERVE PAIN (Reported) Insulin Aspart (Novolog) 100 UNIT/1 ML VIAL 0 SC TIDAC/HS DIABTES BEFORE MEALS Blood Insulin Sugar Units <80 0 81-150 4 151-200 6 201-250 8 251-300 10 301-350 12 351-400 14 >400 16 AND Call Doctor AT BEDTIME Blood Insulin Sugar Units <80 0 81-100 0 101-200 0 201-250 0 251-300 3 301-350 4 351-400 5 >400 6 AND Call Doctor Insulin Detemir (Levemir) 100 UNIT/1 ML VIAL 24 UNITS SC DAILY Diabetes FOLLOW UP WITH DR. AREVALO Metformin HCl 500 MG TABLET 2 TAB PO BID DIABETES (Reported) Pregabalin (Lyrica) 100 MG CAPSULE 1 CAP PO BID PAIN CONTROL (Reported) Past History Travel History Traveled to [place] past 21 day No Medical History Neurological: NONE EENT: NONE Cardiovascular: CAD (status post stents), myocardial infarction, PVD Respiratory: NONE Gastrointestinal: NONE Hepatic: NONE Renal: RENAL ABSCESS PYELONEPRHTIS Musculoskeletal: osteoarthritis, CARPAL TUNNEL L SIDE RIB FX rotator cuff injury Psychiatric: NONE Endocrine: diabetes Blood Disorders: NONE Cancer(s): NONE History of MRSA: No History of VRE: No History of CDIFF: No Surgical History Surgical History: rotator cuff surgery with acromioplasty and glenohumeral joint debridement on the left status post balloon angioplasty of the left leg Past Family/Social History Psychosocial History Smoking Status: Current Everyday Smoker (5-6 cigs/day) ETOH Use: denies use Illicit Drug Use: denies illicit drug use Functional Ability ADLs Independent: dressing, eating, toileting, bathing. Ambulation: independent IADLs Independent: shopping, housework, finances, food prep, telephone, transportation , medication admin. Review of Systems Review of Systems Constitutional: Reports: see HPI. Exam & Diagnostic Data Last 24 Hrs of Vital Signs/I&O Vital Signs Date Time Temp Pulse Resp B/P B/P Pulse O2 O2 Flow FiO2 Mean Ox Delivery Rate 07/26 1323 98.2 101 17 126/82 100 Room Air Intake & Output 07/26 1600 07/26 0800 07/26 0000 Intake Total Output Total Balance Patient 86.183 kg Weight Weight Reported by Patient Measurement Method Physical Exam General Appearance Alert, Oriented X3, Cooperative, No Acute Distress Skin No Significant Lesion Skin Temp/Moisture Exam: Warm/Dry Sepsis Skin Exam (color): Normal for Ethnicity HEENT Atraumatic, PERRLA Neck Supple, No JVD Cardiovascular Regular Rate Lungs Clear to Auscultation, Normal Air Movement Abdomen Normal Bowel Sounds, Soft, No Tenderness Neurological Normal Speech, Strength at 5/5 X4 Ext Extremities Right foot open wound w/ elevated skin temp, some drainage on dressing, mild tenderness at RLE calf/tendon area upon palpation Body Front and Back (Adult) 1) Chronic wound from previous amputation Last 24 Hrs of Labs/Jose A: Laboratory Tests 07/26/17 1721: Lactic Acid Pending, ESR Westergren Pending 07/26/17 1355: Anion Gap 17 H, Estimated GFR > 60, BUN/Creatinine Ratio 18.9, Glucose 163 H, Calcium 10.0, Total Bilirubin 0.6, AST 16 L, ALT 20 L, Alkaline Phosphatase 94 , C-Reactive Prot, Quant Pending, Total Protein 8.3 H, Albumin 4.4, Globulin 3.9, Albumin/Globulin Ratio 1.1, CBC w Diff NO MAN DIFF REQ, RBC 4.51 L, MCV 88.0, MCH 29.9, MCHC 34.0, RDW 13.8, MPV 9.4, Gran % 80.8 H, Lymphocytes % 12.4 L, Monocytes % 6.0, Eosinophils % 0.3, Basophils % 0.5, Absolute Granulocytes 11.1 H, Absolute Lymphocytes 1.7, Absolute Monocytes 0.8 H, Absolute Eosinophils 0, Absolute Basophils 0.1 Microbiology 07/26 1721 BLOOD: Blood Culture - RECD 07/26 1348 BLOOD: Blood Culture - RECD Assessment/Plan Assessment: Mr. Claros is a 51-year-old male w/ PMH of DM on insulin, DM neuropathy on lyrica, CAD/HI/PVD s/p 2 stents in 2009 on ASA 81, hx of PVD on Plavix, hx of renal abscess complicated by MSSA bacteremia (2015), was sent in to ER by Dr. Berrios for further evaluation of pain and redness to his right foot wound from partial metatasal amputation back in 04/[address] Berrios. Since then, patient received a total of 6-week of Unasyn outpatient with regular woundcare clinic f/u with wound VAC and hyperbaric treatment. During this 6-weeks, patient was complicated with incidental finding of RLE "arterial clog" which he underwent stent + balloon in Dr. Jimenez's office, and started on Plavix. Patient was ambulating at home with a cane and wearing a slipper on his right foot ever since amputation, and he was maintaining minimal weight bearing on R foot. Patient stated that he was doing fine until about 2-3 weeks ago when he felt the pain starting to come back at the chronic ulcer site. Patient saw Dr. Berrios and then was sent in. Patient endorsed some fever/chills prior coming in ER today, however denied cough/SOB/Chest Pain/Palpitation/ abdominal pain, bowel movement/urinary abnormality, or other skin/ musculoskeletal/neurological disorders. On presentation: Vitals: Afebrile, Stable, Pulse 101 -CBC: WBC 13.7, H/H 13.5/39.7, ESR 80, Gran 80.1% -BMP: Unremarkable -Misc: CRP>9.0, Lactic Acid 1.3 -Food x-ray: Abnormal soft tissue swelling lateral aspect proximal foot. No evidence of air within the soft tissues. Given the presence of osteopenia, osteomyelitis base of the fourth metatarsal cannot be entirely excluded. Linear lucency also noted in the base of the fourth metatarsal may represent age indeterminate stress fracture in the appropriate clinical setting. -Interventions in ER: Morphine x 1 Assessment: Mr. Claros is a 51-year-old male w/ PMH of DM on insulin, DM neuropathy on lyrica, CAD/HI/PVD s/p 2 stents in 2009 on ASA 81/Plavix, history of renal abscess complicated by MSSA bacteremia (2015), was sent in to ER by Dr. Berrios for further evaluation of pain and redness to his right foot wound from partial metatasal amputation back in 04/[address] Berrios. Patient's fever/chills in addition to leukocytosis, along with the chronic wound with active drainage and erythema would warrant Cellulitis/Osteomyelitis, with unlikely gangarene from foot x-ray. Patient's previous OR culture grew S. Aureus , S. Coag-ve, Alpha Strep. Problem list #R foot osteomyelitis s/p 5th MCP amputation #Hx of Diabetes & DM Neuropathy #Hx of PVD s/p Stent/balloon, CAD/HI s/p stents, Plan - Admit to gen med - Novolog SS/Novolin SS for NPO/AccuCheck, Continued home med of Levemir 24U qd - Continued home meds including Cymbalta, Duloxetine, Lyrica - Hold ASA, Plavix - Blood culture x 2 - Pre-op EKG - Hold Antibiotics for OR cultures in the AM - Pending Endo consult in the AM for DM DVT prophylaxis ALPS Diabetic Diet/NPO starting midnight Full Code As Ranked By This Provider Problem List: 1. Osteomyelitis of right foot 2. Diabetes mellitus Core Measures/Misc (02/21) Acute Coronary Syndrome ACS Diagnosis: No Congestive Heart Failure Congestive Heart Failure Diagnosis No Cerebrovascular Accident CVA/TIA Diagnosis: No VTE (View Protocol) VTE Risk Factors Age>40 No Mechanical VTE Prophylaxis d/t N/A MechProphylax Ordered No VTE Pharm Prophylaxis d/t NA PharmProphylax ordered Sepsis (View protocol) Sepsis Present: No Brandon Henao MD 07/26/172038: Resident Review Statement Resident Statement: examined this patient, discussed with consumer insights intern, agreed with consumer insights intern, reviewed EMR data (avail), discussed with nursing, discussed with case mgmt, reviewed images, amended to note Other Findings: 51 yo M with pmh of DM on insulin, DM neuropathy on lyrica, CAD/HI/PVD s/p 2 stents in 2009 on ASA 81, hx of PVD on Plavix (not mentioned in initial history) , was sent in by Dr. Ortega/podiatry service, for further evaluation of right foot wound with the suspicion of osteomyelitis. According to patient, he had partial metatarsal amputation of the right foot in April 2017, following which she was following with podiatry service and hyperbaric oxygen therapy regularly, but his wound never healed completely, and today he was seen by Dr. Ortega, who referred him to the ED for further evaluation and management. Patient mentioned some fever, not measured, in the past few days, but denied any chills, cough, shortness of breath, chest pain, palpitation, skin changes. Of note, upon questioning he admitted to right ankle swelling towards knee but not on the left. As an outpatient, he was found to have arterial clots and underwent ? angioplasty with Dr. Jimenez/vascular surgeon. Patient was afebrile, but slightly tachycardic on presentation, leukocytosis 13.7, ESR of 80 with granulocyte percent of 80.1, CRP more than 9, lactic acid 1.3 in the ED. His Right foot x-ray showed abnormal soft tissue swelling on the lateral aspect of proximal foot, but osteomyelitis could not be entirely excluded. Patient is being admitted in the general medical floor for the management of following issues: #Osteomyelitis of Right foot Patient's clinical picture and radiological picture is suggestive of osteomyelitis, and after speaking with Dr. Ortega, and my understanding is that he is going to do surgery tomorrow for debridement of wound, possible transmetatarsal amputation, bone culture, and thus is off antibiotics until then. He will be kept nothing by mouth from midnight for possible procedure tomorrow. Leg elevation, basic wound care. Plavix on hold for now but not sure if he was taking it until recently. This would increase his risk of bleeding significantly during the surgery. ID consultation in AM given his complicated past infectious disease history. #Diabetes mellitus Since patient is diabetic, patient needs to be on IV fluids with D5 half normal saline starting midnight, while being covered with Novolin R insulin every 6 hours. Continue Levemir, but watch closely on blood sugar levels. Endo consultation in AM. Will continue rest of his home medication. Diet: Nothing by mouth from midnight for the surgery tomorrow DVT prophylaxis: ALPS only CODE STATUS: Full code. 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 Ortega for evaluation of chronic nonhealing ulcer of the lateral aspect of right foot. Patient also has severe peripheral vascular disease (CTA done in Apr 2017) and underwent balloon angioplasty with stent placement to right lower extremity by Dr. Jimenez and is currently on plavix for that. Vitals stable except for baseline tachycardia 90-100's. Exam: Right foot open wound to lateral aspect about 5x4, with surrounding edema and erythema with slough and serosanguinous drainage+. Peripheral pulses++ bilateral feet. Labs: WBC 13.7, ESR 80, AG 17, glucose 163, lactic acid 1.3, CRP > 9.0. Troponin pending. LE doppler: no DVT. Right foot Xray: abnormal soft tissue swelling lateral aspect proximal foot. No air within soft tissues. Osteomyelitis of base of fourth metatarsal cannot be excluded. Linear lucency in base of fourth metatarsal may represent age indeterminate stress fracture. EKG: sinus tachycardia, LAFB, Qtc 430. Echo (2016): EF 50-55%. Assessment and plan: 1. Right foot chronic nonhealing ulcer with possible involvement of base of fourth metatarsal 2. Recent osteomyelitis s/p revisional partial fifth ray resection of right foot s/p Wound Vac and hyperbaric therapy 3. Type 2 diabetes mellitus on insulin uncontrolled 4. Peripheral vascular disease s/p stent on plavix 5. H/o CAD - Admit to general medicine - Panculture - NPO after midnight - Plan for OR for ?transmetatarsal amputation and bone cultures - Monitor off antibiotics. - If he spikes a fever, may have to initiate antibiotics Unasyn. - Gentle IV hydration - Accucheks, NPO insulin sliding scale. Hold metformin. - Check HbA1c - Patient takes levemir 24 units daily, will give half dose tonight ( unfortunately patient received 24 units tonight in the ER itself). - Endo consult for diabetes management - Pain management with Percocet and IV morphine as needed - ID consult to help with choice of antibiotics. - Hold aspirin and plavix until surgery resume post surgery if ok by Dr. Ortega. - Please note, patient is not taking the low-dose metoprolol that was initiated for his CAD. - Resume pregabalin and duloxetine - PRN nicotine patch - Check TSH, free T4, INR - Repeat EKG and troponin in AM DVT ppx Alps. Full code. Add on troponin came back positive at 0.28, patient remains asymptomatic. Possibly Type 2 HI vs. NSTEMI. Repeat EKG and troponin ordered with echocardiogram and Cardio consult in AM. Patient transferred to Telemetry.
[2017-07-26] MEDS ORDERED: PLAVIX75 M1 PO (17:57)
[2017-07-26] MEDS ORDERED: LEVEMIR100 UNIT/1 SC (17:58)
[2017-07-26 19:25] VITALS: BP 148/82
--- NOTE | 2017-07-26 20:27 | Admission Certification ---
Admission Certification Certification Statement - As attending physician, I certify that at the time of - admission, based on clinical presentation, severity of - symptoms, need for further diagnostic testing and - therapeutic interventions, and risk of adverse outcomes - without in-hospital treatment, in my clinical assessment, - this patient requires an acute hospital stay for a minimum - of two nights or longer. I have also considered psychsocial - factors such as support system, advanced age, financial - issues, cognitive issues, and failed out-patient treatments, - past re-admission history, safety of patient, and lack of - compliance as applicable. Specific rationale supporting this admission is: Right foot recurrent osteomyelitis, Type 2 DE.
--- NOTE | 2017-07-26 23:00 | ULTRASOUND REPORT ---
EXAMINATION: US TRIPLEX OF LOWER EXTREMITIES, BILATERAL CLINICAL INFORMATION: Pain. COMPARISON: None TECHNIQUE: Color-flow triplex imaging with spectral analysis and compression Doppler were performed on the lower extremities. FINDINGS: Respiratory variation, normal compression and augmented flow are noted throughout the lower extremities. The visualized common femoral vein, superficial femoral vein, profunda femoral vein, popliteal vein and midcalf peroneal and posterior tibial venous segments show no evidence of deep venous thrombosis. There is no Fulton's cyst. IMPRESSION: Normal triplex scan without evidence of deep venous thrombosis involving the lower extremities.
--- NOTE | 2017-07-27 05:08 | Event Note ---
Event Note Event Note: Patient was found to have troponin 0.28 on the lab add-on today sample was drawn at 2 PM. Patient is asymptomatic, sleeping without any complaints, vital signs stable, no EKG changes suggestive of ischemia, another set of troponins and EKG was ordered Stat, patient will be transferred to telemetry for close monitoring, resident Latonia and attendant Flavio Estrada MD were informed
[2017-07-27 05:27] VITALS: BP 130/82
[2017-07-27 05:59] LABS: PT 12.5 SEC (9.4-12.5)
[2017-07-27 06:11] LABS: ABSOLUTE BASOPHIL COUNT 0 /CUMM (0.0-0.2); ABSOLUTE EOSINOPHIL COUNT 0.1 /CUMM (0.0-0.7); MEAN CORPUSCULAR VOLUME 87.7 FL (80.0-94.0); RBC DISTRIBUTION WIDTH 13.7 % (11.5-14.5); RED BLOOD CELL CT 3.93 /CUMM (4.70-6.10)
[2017-07-27 06:25] LABS: ABSOLUTE GRANULOCYTE CT 5.9 /CUMM (1.4-6.5); ABSOLUTE LYMPH COUNT 1.5 /CUMM (1.2-3.4); BASOPHIL % 0.3 % (0.0-2.0); GRANULOCYTE % 69.8 % (42.2-75.2); MEAN CORPUSCULAR HGB 29.5 PG (27.0-31.0); MEAN CORPUSCULAR HGB CONC 33.6 G/DL (33.0-37.0); MEAN PLATELET VOLUME 9.2 FL (7.4-10.4); PLATELET COUNT 248 /CUMM (130-400); WHITE BLOOD CELL COUNT 8.5 /CUMM (4.8-10.8)
[2017-07-27 06:28] LABS: HEMATOCRIT 34.5 % (42-52)
--- NOTE | 2017-07-27 07:38 | PN- Housestaff ---
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 Resting comfortably. On of has no complaints. Patient was transferred to ICU as Tele Hold because of troponins uptrending, and was asymptomatic without any complaints. No EKG changes suggestive of ischemia. He was scheduled for OR for transmetatarsal amputation and bone cultures today. Caridology consult placed Patient denies any fever, chills, chest pain, palpitation, nausea, vomiting, diarrhea he does not have any urinary symptoms. No change in bowel habits. Patient is afebrile without a white count, H/H BEP WNL TSH free T4 WNL Review of Systems Constitutional: Reports: see HPI. Objective Last 24 Hrs of Vital Signs/I&O Vital Signs Date Time Temp Pulse Resp B/P B/P Pulse O2 O2 Flow FiO2 Mean Ox Delivery Rate 07/27 0800 93 07/27 0527 97.8 90 20 130/82 96 Room Air 07/26 1925 99.1 103 20 148/82 96 Room Air 07/26 1851 99.0 95 18 128/80 99 Room Air Room Air 07/26 1630 98.5 105 18 134/82 98 Room Air Room Air 07/26 1323 98.2 101 17 126/82 100 Room Air Intake & Output 07/27 1600 07/27 0800 07/27 0000 Intake Total 490 Output Total Balance 490 Intake, IV 10 Intake, Oral 480 Number 0 Bowel Movements Patient 198 lb Weight Weight Bed scale Measurement Method Physical Exam General Appearance: Alert, Oriented X3, Cooperative, No Acute Distress Skin: No Rashes HEENT: Atraumatic Neck: Supple, No JVD Cardiovascular: Normal S1, Normal S2, No Murmurs Lungs: Clear to Auscultation, Normal Air Movement Abdomen: Normal Bowel Sounds, Soft, No Tenderness Neurological: Normal Speech Orders Miscellaneous Findings: FOOT XRY Abnormal soft tissue swelling lateral aspect proximal foot. No evidence of air within the soft tissues. Given the presence of osteopenia, osteomyelitis base of the fourth metatarsal cannot be entirely excluded. Linear lucency also noted in the base of the fourth metatarsal may represent age indeterminate stress fracture in the appropriate clinical setting. US-EXT BILAT VENOUS DOPPLER Normal triplex scan without evidence of deep venous thrombosis involving the lower extremities. Assessment/Plan Assessment: Mr. Claros is a 51-year-old male w/ PMH of DM on insulin, DM neuropathy on lyrica, CAD/VA/PVD s/p 2 stents in 2009 on ASA 81, hx of PVD on Plavix, hx of renal abscess complicated by MSSA bacteremia (2015), was sent in to ER by Dr. Berrios for further evaluation of pain and redness to his right foot wound from partial metatasal amputation back in 04/[address] Berrios. Sincehis amputation patient received a total of 6-week of Unasyn outpatient with regular woundcare clinic f/u with wound VAC and hyperbaric treatment. During this 6-weeks, patient was complicated with incidental finding of RLE "arterial clog" which he underwent stent + balloon in Dr. Jimenez's office, and started on Plavix. Currently patient is telemetry evans in ICU and he is being treated and evaluated for following conditions #Suspected R foot osteomyelitis in setting of chronic nonhealing ulcer with possible involvement of base of fourth metatarsal He has history of Recent osteomyelitis s/p revisional partial fifth ray resection of right foot s/p Wound Vac and hyperbaric therapy. Patient was afebrile, but slightly tachycardic on presentation, leukocytosis 13.7, ESR of 80 with granulocyte percent of 80.1, CRP more than 9, lactic acid 1.3 in the ED. His Right foot x-ray showed abnormal soft tissue swelling on the lateral aspect of proximal foot, but osteomyelitis could not be entirely excluded. -Monitor fever and WBC curve (afebrile without a white count) -Follow up on cultures no growth so far -Monitor off antibiotics for now -ID consult -Pain management with Percocet and IV morphine as needed -There was a plan for or for transmetatarsal amputation and bone cultures today, which will likely be postponed in setting of elevated troponins until cleared by cardiology. #Type II VA Patient was found to have troponin 0.28 on the lab add-on today sample was drawn at 2 PM. Subsequently pt was transfered from [facility] floor to ICU as TeleHold. However EKG did not show any changes and patient did not complain of chest pain. Likely secondary to ischemia because of demand supply mismatch. -3 sets of troponin 0.28>0.27- Third pending -Echocardiogram -Cardiology consult placed with Dr. grande #Peripheral vascular disease s/p stent on plavix Of note patient also has severe peripheral vascular disease (CTA done in Apr 2017) and underwent balloon angioplasty with stent placement to right lower extremity by Dr. Jimenez and is currently on plavix for that. -Aspirin and Plavix on hold until surgery to be resumed after surgery as per [facility] -Will get cardiology input on that # History of CAD s/p stent Patient was started on labetalol dose metoprolol for coronary artery disease which he has not been compliant with. #Type 2 diabetes mellitus on insulin uncontrolled -Currently nothing by mouth for anticipated surgery. Will ask cardiology whether patient is cleared for surgery if not we will start him on a diet. -Accu-Chek insulin sliding scale oral anti-glycemic agents on hold -HbA1c pending -Last fingersticks 212, 203, 132, 323 -Endo consult for diabetes management -Continue pregabalin -Levemir 24 units. will do half the dose tonight if patient goes to work tomorrow. #History of smoking -Smoking cessation counseling and nicotine patch NPO for now/DVT prophylaxis alps only/FC Problem List: 1. Osteomyelitis of right foot Pain Ratin Pain Location: R foot Pain Goal: Pain 4 or less Pain Plan: prn Tomorrow's Labs & Rationales: cbc bep mg Rishabh SIMONS,Apryl 07/27/17 1203: Attending MD Review Statement Attending Statement Attending MD Statement: examined this patient, discuss w/resident/PA/MASH PREPARATORY OPERATOR, agreed w/resident/PA/MASH PREPARATORY OPERATOR, reviewed EMR data (avail), discussed with nursing, discussed with case mgmt, reviewed images, amended to note Attending Assessment/Plan: Patient seen and examined, feels ok. Denies any chest pain, sob. Patient scheduled to OR with Dr. Berrios. Vital Signs Date Time Temp Pulse Resp B/P B/P Pulse O2 O2 Flow FiO2 Mean Ox Delivery Rate 07/27 0800 93 07/27 0527 97.8 90 20 130/82 96 Room Air 07/26 1925 99.1 103 20 148/82 96 Room Air 07/26 1851 99.0 95 18 128/80 99 Room Air Room Air 07/26 1630 98.5 105 18 134/82 98 Room Air Room Air 07/26 1323 98.2 101 17 126/82 100 Room Air on exam; aox3, nad. cv; s1,s2, rrr resp; clear abd; soft, nt, bs+ ext; no edema. rigfht foot open wounf at the 5th distal metatarsal. Laboratory Tests 07/27 07/27 07/27 1059 0518 0518 Chemistry Sodium (137 - 145 mmol/L) 137 Cancelled Potassium (3.5 - 5.1 mmol/L) 4.2 Cancelled Chloride (98 - 107 mmol/L) 100 Cancelled Carbon Dioxide (22 - 30 mmol/L) 26 Cancelled Anion Gap (5 - 16) 11 Cancelled BUN (9 - 20 mg/dL) 16 Cancelled Creatinine (0.7 - 1.2 mg/dL) 0.8 Cancelled Estimated GFR (>60 ml/min) > 60 BUN/Creatinine Ratio (7 - 25 %) 20.0 Cancelled Hemoglobin A1c (4.2 - 5.8 %) 8.8 H Magnesium (1.6 - 2.3 mg/dL) 1.7 Troponin I (<0.11 ng/ml) Pending 0.27 *H Cancelled TSH (0.270 - 4.200 uIU/mL) 0.832 Free T4 (0.64 - 1.79 ng/dL) 1.11 Coagulation PT (9.4 - 12.5 SEC) 12.5 INR (0.90 - 1.17) 1.19 H Hematology CBC w Diff NO MAN DIFF REQ WBC (4.8 - 10.8 /CUMM) 8.5 RBC (4.70 - 6.10 /CUMM) 3.93 L Hgb (14.0 - 18.0 G/DL) 11.6 L Hct (42 - 52 %) 34.5 L MCV (80.0 - 94.0 FL) 87.7 MCH (27.0 - 31.0 PG) 29.5 MCHC (33.0 - 37.0 G/DL) 33.6 RDW (11.5 - 14.5 %) 13.7 Plt Count (130 - 400 /CUMM) 248 MPV (7.4 - 10.4 FL) 9.2 Gran % (42.2 - 75.2 %) 69.8 Lymphocytes % (20.5 - 51.1 %) 17.7 L Monocytes % (1.7 - 9.3 %) 11.2 H Eosinophils % (0 - 5 %) 1.0 Basophils % (0.0 - 2.0 %) 0.3 Absolute Granulocytes (1.4 - 6.5 /CUMM) 5.9 Absolute Lymphocytes (1.2 - 3.4 /CUMM) 1.5 Absolute Monocytes (0.10 - 0.60 /CUMM) 1.0 H Absolute Eosinophils (0.0 - 0.7 /CUMM) 0.1 Absolute Basophils (0.0 - 0.2 /CUMM) 0 07/26 1721 1355 Chemistry Sodium (137 - 145 mmol/L) 139 Potassium (3.5 - 5.1 mmol/L) 4.7 Chloride (98 - 107 mmol/L) 98 Carbon Dioxide (22 - 30 mmol/L) 24 Anion Gap (5 - 16) 17 H BUN (9 - 20 mg/dL) 17 Creatinine (0.7 - 1.2 mg/dL) 0.9 Estimated GFR (>60 ml/min) > 60 BUN/Creatinine Ratio (7 - 25 %) 18.9 Glucose (65 - 99 mg/dL) 163 H Lactic Acid (0.7 - 2.1 mmol/L) 1.0 1.3 Calcium (8.4 - 10.2 mg/dL) 10.0 Total Bilirubin (0.2 - 1.3 mg/dL) 0.6 AST (17 - 59 U/L) 16 L ALT (21 - 72 U/L) 20 L Alkaline Phosphatase (< 127 U/L) 94 Troponin I (<0.11 ng/ml) 0.28 *H C-Reactive Prot, Quant (<1.0 mg/dL) > 9.0 H Total Protein (6.3 - 8.2 g/dL) 8.3 H Albumin (3.5 - 5.0 g/dL) 4.4 Globulin (1.9 - 4.2 gm/dL) 3.9 Albumin/Globulin Ratio (1.1 - 2.2 %) 1.1 Hematology CBC w Diff NO MAN DIFF REQ WBC (4.8 - 10.8 /CUMM) 13.7 H RBC (4.70 - 6.10 /CUMM) 4.51 L Hgb (14.0 - 18.0 G/DL) 13.5 L Hct (42 - 52 %) 39.7 L MCV (80.0 - 94.0 FL) 88.0 MCH (27.0 - 31.0 PG) 29.9 MCHC (33.0 - 37.0 G/DL) 34.0 RDW (11.5 - 14.5 %) 13.8 Plt Count (130 - 400 /CUMM) 286 MPV (7.4 - 10.4 FL) 9.4 Gran % (42.2 - 75.2 %) 80.8 H Lymphocytes % (20.5 - 51.1 %) 12.4 L Monocytes % (1.7 - 9.3 %) 6.0 Eosinophils % (0 - 5 %) 0.3 Basophils % (0.0 - 2.0 %) 0.5 Absolute Granulocytes (1.4 - 6.5 /CUMM) 11.1 H Absolute Lymphocytes (1.2 - 3.4 /CUMM) 1.7 Absolute Monocytes (0.10 - 0.60 /CUMM) 0.8 H Absolute Eosinophils (0.0 - 0.7 /CUMM) 0 Absolute Basophils (0.0 - 0.2 /CUMM) 0.1 ESR Westergren (0 - 10 MM) 80 H A/P; 51 y/o M with pmh sig for DM on insulin, DM neuropathy on lyrica, CAD/VA/ PVD s/p 2 stents in 2009 on ASA 81, hx of PVD on Plavix, hx of renal abscess complicated by MSSA bacteremia (2016), admitted with right foot open wound which is nonhealing. Enedina has osteomyelitis. Patient also had positive troponins. Had an echocardiogram done and seen by cardiology. Patient is cleared from cardiac standpoint to go to OR. Patient needs debridement of the wound. He will likely also require antibiotics. Please consult infectious disease. Endocrinology will be consulted for the management of his diabetes. Currently patient getting hydrated with IV fluids. Continue the rest of the medications. DVT prophylaxis: Patient should be on pharmacologic DVT prophylaxis.
--- NOTE | 2017-07-27 11:38 | RADIOLOGY REPORT ---
EXAMINATION: CR PORTABLE CHEST CLINICAL INFORMATION: Coarse on respiratory exam. Rule out pneumonia. COMPARISON: Several prior chest x-rays, most recent of which is dated 05/07/2017. TECHNIQUE: Portable AP semierect view of the chest was obtained. FINDINGS: Multiple EKG leads overlie the chest, limiting assessment. Previously seen right subclavian PICC line has been removed. The cardiac mediastinal silhouette is enlarged, likely related to positional factors and technical factors. Low lung volumes are seen without focal pulmonary process. No consolidation, effusion or pneumothorax. No pulmonary edema. Bony structures grossly unremarkable. IMPRESSION: 1. Interval removal of right subclavian PICC line. 2. Low lung volumes without acute pulmonary process.
--- NOTE | 2017-07-27 11:39 | Cons- Cardiology ---
General Information and HPI Consulting Request Date of Consult: 07/27/17 Requested By: Sean SIMONS,Flavio Reason for Consult: Coronary artery disease, positive troponin History of Present Illness: The patient is a 51-year-old male with history of type 2 diabetes mellitus, coronary artery disease status post myocardial infarction in 2009 with stent placement 2 at that time, peripheral arterial disease who is admitted with right foot osteomyelitis, and is planned for surgery. I am consulted for preoperative evaluation. He is noted to a mild troponin elevation. He reports that his CAD has been stable with no recent cardiac events. 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 He had an episode of chest discomfort 1 week ago which was similar to his typical GERD symptoms. He described the pain as a sharp pain in the center of his chest which was an 8 out of 10 in severity and did not radiate. The pain resolved after approximately 10 minutes, and he has not had further chest pain since that time. No recent shortness of breath. No syncope. No orthopnea. No lightheadedness or dizziness. He noted recent fever and chills. He has had a nonhealing wound on his right lower extremity. He recently had a right lower extremity stent placed by . He is planned for debridement of his right lower extremity osteomyelitis with possible transmetatarsal amputation. Allergies/Medications Allergies: Coded Allergies: No Known Allergies (05/17/17) Home Med List: Aspirin (Aspirin*) 81 MG TAB.CHEW 1 TAB PO DAILY [facility] Clopidogrel Bisulfate (Plavix) 75 MG TABLET 1 TAB PO DAILY Hx of DVT ( Reported) Duloxetine HCl 30 MG CAPSULE. 2 CAP PO DAILY NERVE PAIN (Reported) Insulin Aspart (Novolog) 100 UNIT/1 ML VIAL 0 SC TIDAC/HS DIABTES BEFORE MEALS Blood Insulin Sugar Units <80 0 81-150 4 151-200 6 201-250 8 251-300 10 301-350 12 351-400 14 >400 16 AND Call Doctor AT BEDTIME Blood Insulin Sugar Units <80 0 81-100 0 101-200 0 201-250 0 251-300 3 301-350 4 351-400 5 >400 6 AND Call Doctor Insulin Detemir (Levemir) 100 UNIT/1 ML VIAL 24 UNITS SC DAILY Diabetes FOLLOW UP WITH DR. AREVALO Metformin HCl 500 MG TABLET 2 TAB PO BID DIABETES (Reported) Pregabalin (Lyrica) 100 MG CAPSULE 1 CAP PO BID PAIN CONTROL (Reported) Current Medications: Current Medications Sig/Marty Start time Last Medication Dose Route Stop Time Status Admin Acetaminophen 650 MG Q6P PRN 07/26 181 AC PO Aspirin 81 MG DAILY 07/27 0515 AC 07/27 PO 0518 Atorvastatin Calcium 80 MG 1700 07/27 0515 AC 07/27 PO 0518 Dextrose/Sodium 1,000 ML .[id number] 07/27 0000 AC 07/27 Chloride IV 0004 Duloxetine HCl 60 MG DAILY 07/26 1853 AC 07/27 PO 0955 Enoxaparin Sodium 40 MG DAILY 07/27 1000 CAN SC Influenza Virus 0.5 ML ONCE ONE 07/26 194 DC Vaccine IM 07/26 194 Insulin Aspart 0 TIDAC 07/26 181 DC 07/26 SC 07/26 2355 1849 Insulin Detemir 24 UNITS DAILY 07/26 181 AC 07/27 SC 0952 Insulin Human Regular 0 Q6 07/26 2359 AC 07/27 SC 0523 Morphine Sulfate 2 MG Q8P PRN 07/26 1945 AC 07/27 IV 1003 Morphine Sulfate 0 .STK-MED ONE 07/26 1753 DC .ROUTE Morphine Sulfate 2 MG ONCE ONE 07/26 1715 DC 07/26 IV 07/26 1716 1816 Oxycodone/ 1 TAB Q6P PRN 07/26 181 AC 07/27 Acetaminophen PO 1102 Oxycodone/ 2 TAB Q6P PRN 07/26 1815 DC 07/26 Acetaminophen PO 1939 Pregabalin 100 MG BID 07/26 2200 AC 07/27 PO 0951 Review of Systems Review of Systems: No rash. No tremor. No melena. No hemoptysis. No hematemesis. All other systems were reviewed, and were noted to be negative. Past History Travel History Traveled to [place] past 21 day No Medical History Blood Transfusion Hx: No Neurological: NONE EENT: NONE Cardiovascular: CAD (status post stents), myocardial infarction, PVD, STENTS Respiratory: NONE Gastrointestinal: NONE Hepatic: NONE Renal: RENAL ABSCESS PYELONEPRHTIS Musculoskeletal: osteoarthritis, CARPAL TUNNEL L SIDE RIB FX rotator cuff injury Psychiatric: NONE Endocrine: diabetes Blood Disorders: NONE Cancer(s): NONE Surgical History Surgical History: rotator cuff surgery with acromioplasty and glenohumeral joint debridement on the left status post balloon angioplasty of the left leg Family History Relations & Conditions If Any: MOTHER Heart attack Psychosocial History Where Do You Live? Home Services at Home: Nursing Smoking Status: Current Everyday Smoker (5-6 cigs/day) ETOH Use: denies use Illicit Drug Use: denies illicit drug use Functional Ability ADLs Independent: dressing, eating, toileting, bathing. Ambulation: independent IADLs Independent: shopping, housework, finances, food prep, telephone, transportation , medication admin. Exam & Diagnostic Data Physical Exam: Gen: The patient is in no acute distress HEENT: Normal nose, ears, and oropharynx. Pupils equal bilaterally. Conjunctiva normal. Neck: Supple with no JVD, no masses, and no thyromegaly Lungs: Clear to auscultation with normal respiratory effort Heart: RRR, S1, S2, 1 out of 6 systolic murmur. No peripheral edema, 2+ pulses in the lower extremities bilaterally Abdomen: Soft, nontender, no masses. No hepatomegaly. No splenomegaly Extremities: No clubbing or cyanosis. Normal muscle strength in the upper and lower extremities. Right lower extremity dressing is intact. Skin: Normal skin turgor with no skin ulcers or lesions noted. Neuro: Cranial nerves intact. Sensation intact Psych: Alert and oriented - 3 with appropriate affect Labs/Jose A Results: Laboratory Tests 07/27 07/27 07/27 1059 0518 0518 Chemistry Sodium (137 - 145 mmol/L) 137 Cancelled Potassium (3.5 - 5.1 mmol/L) 4.2 Cancelled Chloride (98 - 107 mmol/L) 100 Cancelled Carbon Dioxide (22 - 30 mmol/L) 26 Cancelled Anion Gap (5 - 16) 11 Cancelled BUN (9 - 20 mg/dL) 16 Cancelled Creatinine (0.7 - 1.2 mg/dL) 0.8 Cancelled Estimated GFR (>60 ml/min) > 60 BUN/Creatinine Ratio (7 - 25 %) 20.0 Cancelled Hemoglobin A1c (4.2 - 5.8 %) 8.8 H Magnesium (1.6 - 2.3 mg/dL) Pending Troponin I (<0.11 ng/ml) Pending 0.27 *H Cancelled TSH (0.270 - 4.200 uIU/mL) 0.832 Free T4 (0.64 - 1.79 ng/dL) 1.11 Coagulation PT (9.4 - 12.5 SEC) 12.5 INR (0.90 - 1.17) 1.19 H Hematology CBC w Diff NO MAN DIFF REQ WBC (4.8 - 10.8 /CUMM) 8.5 RBC (4.70 - 6.10 /CUMM) 3.93 L Hgb (14.0 - 18.0 G/DL) 11.6 L Hct (42 - 52 %) 34.5 L MCV (80.0 - 94.0 FL) 87.7 MCH (27.0 - 31.0 PG) 29.5 MCHC (33.0 - 37.0 G/DL) 33.6 RDW (11.5 - 14.5 %) 13.7 Plt Count (130 - 400 /CUMM) 248 MPV (7.4 - 10.4 FL) 9.2 Gran % (42.2 - 75.2 %) 69.8 Lymphocytes % (20.5 - 51.1 %) 17.7 L Monocytes % (1.7 - 9.3 %) 11.2 H Eosinophils % (0 - 5 %) 1.0 Basophils % (0.0 - 2.0 %) 0.3 Absolute Granulocytes (1.4 - 6.5 /CUMM) 5.9 Absolute Lymphocytes (1.2 - 3.4 /CUMM) 1.5 Absolute Monocytes (0.10 - 0.60 /CUMM) 1.0 H Absolute Eosinophils (0.0 - 0.7 /CUMM) 0.1 Absolute Basophils (0.0 - 0.2 /CUMM) 0 07/26 1721 1355 Chemistry Sodium (137 - 145 mmol/L) 139 Potassium (3.5 - 5.1 mmol/L) 4.7 Chloride (98 - 107 mmol/L) 98 Carbon Dioxide (22 - 30 mmol/L) 24 Anion Gap (5 - 16) 17 H BUN (9 - 20 mg/dL) 17 Creatinine (0.7 - 1.2 mg/dL) 0.9 Estimated GFR (>60 ml/min) > 60 BUN/Creatinine Ratio (7 - 25 %) 18.9 Glucose (65 - 99 mg/dL) 163 H Lactic Acid (0.7 - 2.1 mmol/L) 1.0 1.3 Calcium (8.4 - 10.2 mg/dL) 10.0 Total Bilirubin (0.2 - 1.3 mg/dL) 0.6 AST (17 - 59 U/L) 16 L ALT (21 - 72 U/L) 20 L Alkaline Phosphatase (< 127 U/L) 94 Troponin I (<0.11 ng/ml) 0.28 *H C-Reactive Prot, Quant (<1.0 mg/dL) > 9.0 H Total Protein (6.3 - 8.2 g/dL) 8.3 H Albumin (3.5 - 5.0 g/dL) 4.4 Globulin (1.9 - 4.2 gm/dL) 3.9 Albumin/Globulin Ratio (1.1 - 2.2 %) 1.1 Hematology CBC w Diff NO MAN DIFF REQ WBC (4.8 - 10.8 /CUMM) 13.7 H RBC (4.70 - 6.10 /CUMM) 4.51 L Hgb (14.0 - 18.0 G/DL) 13.5 L Hct (42 - 52 %) 39.7 L MCV (80.0 - 94.0 FL) 88.0 MCH (27.0 - 31.0 PG) 29.9 MCHC (33.0 - 37.0 G/DL) 34.0 RDW (11.5 - 14.5 %) 13.8 Plt Count (130 - 400 /CUMM) 286 MPV (7.4 - 10.4 FL) 9.4 Gran % (42.2 - 75.2 %) 80.8 H Lymphocytes % (20.5 - 51.1 %) 12.4 L Monocytes % (1.7 - 9.3 %) 6.0 Eosinophils % (0 - 5 %) 0.3 Basophils % (0.0 - 2.0 %) 0.5 Absolute Granulocytes (1.4 - 6.5 /CUMM) 11.1 H Absolute Lymphocytes (1.2 - 3.4 /CUMM) 1.7 Absolute Monocytes (0.10 - 0.60 /CUMM) 0.8 H Absolute Eosinophils (0.0 - 0.7 /CUMM) 0 Absolute Basophils (0.0 - 0.2 /CUMM) 0.1 ESR Westergren (0 - 10 MM) 80 H Diagnostic Data EKG Results EKG tracing is independently reviewed, revealed normal sinus rhythm 88, left anterior fascicular block, low voltage in the frontal leads, nonspecific T-wave abnormality CXR Results 1. Interval removal of right subclavian PICC line. 2. Low lung volumes without acute pulmonary process. Other Results Echocardiogram 01/20/16: Normal size left ventricle. Mild concentric left ventricular hypertrophy. Low normal left ventricular systolic function. Left ventricular ejection fraction is estimated at 50-55%. Trace mitral regurgitation. Echocardiogram today reveals low normal left ventricular systolic function with LV EF 50-55% and septal hypokinesis. Trace tricuspid regurgitation. No vegetations seen, howerver if clinical suspicion for endocarditis would consider TRISTAN for greater sensitivity. Assessment/Plan Assessment/Plan The patient is a 51-year-old male with history of CAD, status post remote history of stent placement, peripheral arterial disease with recent peripheral stent, and diabetes mellitus who is admitted with osteomyelitis. He is planned for debridement and possible amputation. He had a brief episode of chest discomfort 1 week ago which was atypical, and was consistent with his usual GERD symptoms. He is noted to have a mild troponin elevation of 0.28 during this admission which is trending downward. EKG does not reveal any new ischemic changes. Echocardiogram reveals low normal left ventricular systolic ejection fraction. I am consulted for preoperative evaluation in preparation for surgery. Recommendations: * Mildly elevated but acceptable cardiac risk for surgery. * The patient is cleared from a cardiac standpoint for the planned debridement and possible amputation of the right foot * Continue statin therapy. * Aspirin and Plavix have been held for the surgery, and should be restarted as soon as possible postoperatively. * I recommend starting Toprol-XL 25 mg daily for cardiac protection given the history of CAD. Consult Acknowledgment - Thank you for your consult request.
--- NOTE | 2017-07-27 13:00 | ECHOCARDIOGRAM REPORT ---
THOM JAIME Age: 51 : 1965 Gender: M Exam Date: 07/27/2017 09:23 Exam Location: [facility] Ht (in): 71 Wt (lb): 197 BSA: 2.13 BP: 130 / 82 Ordering Physician: Maximiliano Quezada, Referring Physician: Maximiliano Quezada, Technologist: Saroj De La Torre IGNACIO Room Number: 102-1 Indications: LV FUNCTION AFTER ACS Rhythm: Sinus Technical Quality: Technically difficult study FINDINGS Left Ventricle Normal size left ventricle. Normal left ventricular wall thickness. Low normal left ventricular systolic function. Left ventricular ejection fraction is estimated at 50-55%. Normal left ventricular diastolic filling pattern for age. Right Ventricle Normal right ventricular size and function. Right Atrium Normal right atrial size. Left Atrium Normal left atrial size. Mitral Valve Mitral valve thickened. Aortic Valve Aortic valve mildly thickened. No aortic stenosis. Trace aortic regurgitation. Tricuspid Valve Tricuspid valve not well visualized, grossly normal. Trace tricuspid regurgitation. Pulmonic Valve Pulmonic valve not well visualized, grossly normal. Pericardium No pericardial effusion. Great Vessels Normal size aortic root. CONCLUSIONS Normal size left ventricle. Low normal left ventricular systolic function. Left ventricular ejection fraction is estimated at 50-55%. Trace aortic regurgitation. Trace tricuspid regurgitation. Dwaine Barrera M.D. (Electronically Signed) Final Date: 27 July 2017 12:59 MEASUREMENTS (Male / Female) Normal Values 2D ECHO LV Diastolic Diameter PLAX 4.6 cm 4.2 - 5.9 / 3.9 - 5.3 cm LV Systolic Diameter PLAX 3.3 cm 2.1 - 4.0 cm LV Fractional Shortening PLAX 28.3 % 25 - 46 % LV Ejection Fraction 2D Teich 54.7 % IVS Diastolic Thickness 0.9 cm LVPW Diastolic Thickness 1.0 cm LV Relative Wall Thickness 0.4 LVOT Diameter 2.0 cm Aortic Root Diameter 2.5 cm LA Systolic Diameter LX 3.0 cm 3.0 - 4.0 / 2.7 - 3.8 cm Ascending Aorta Diameter 2.7 cm DOPPLER AV Peak Velocity 119.0 cm/s AV Peak Gradient 5.7 mmHg AV Mean Velocity 76.4 cm/s AV Mean Gradient 3.0 mmHg AV Velocity Time Integral 24.6 cm LVOT Peak Velocity 84.2 cm/s LVOT Peak Gradient 2.8 mmHg LVOT Mean Velocity 52.3 cm/s LVOT Mean Gradient 1.0 mmHg LVOT Velocity Time Integral 18.6 cm LVOT Stroke Volume 58.4 cm AV Area Cont Eq vti 2.4 cm AV Area Cont Eq pk 2.2 cm MV Peak Velocity 99.3 cm/s MV Peak Gradient 3.9 mmHg MV Mean Velocity 54.3 cm/s MV Mean Gradient 1.0 mmHg Mitral E Point Velocity 90.8 cm/s Mitral A Point Velocity 59.2 cm/s Mitral E to A Ratio 1.5 MV PHT Velocity 106.0 cm/s MV Deceleration [place] 457.0 cm/s MV Pressure Half Time 69.6 ms MV Area PHT 3.2 cm MV Deceleration Time 222.0 ms PV Peak Velocity 88.2 cm/s PV Peak Gradient 3.1 mmHg PV Mean Velocity 57.6 cm/s PV Mean Gradient 2.0 mmHg PV Velocity Time Integral 17.6 cm LV E' Lateral Velocity 11.0 cm/s Mitral E to LV E' Lateral Ratio 8.3 LV E' Septal Velocity 7.4 cm/s Mitral E to LV E' Septal Ratio 12.3
--- NOTE | 2017-07-27 14:08 | Cons- Endocrinology ---
General Information and HPI Consulting Request Date of Consult: 07/27/17 Requested By: ICU team Reason for Consult: management of uncontrolled diabetes. 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 Currently he is NPO and receiving D5 1/2 NS at 75 ml/hour. At home, he is on levemir 24 units daily and Novolog coverage before meals ( FSG 80-150, 4 units; 151-200, 6 units, etc). In hospital, he was placed on Levemir 24 units daily and RISS every 6 hours. His FSGs were 132, 323 and 150. In addition, he was found to have positive troponin with peak of troponin of 0.28. Allergies/Medications Allergies: Coded Allergies: No Known Allergies (05/17/17) Home Med List: Aspirin (Aspirin*) 81 MG TAB.CHEW 1 TAB PO DAILY Heart Health Clopidogrel Bisulfate (Plavix) 75 MG TABLET 1 TAB PO DAILY Hx of DVT ( Reported) Duloxetine HCl 30 MG CAPSULE. 2 CAP PO DAILY NERVE PAIN (Reported) Insulin Aspart (Novolog) 100 UNIT/1 ML VIAL 0 SC TIDAC/HS DIABTES BEFORE MEALS Blood Insulin Sugar Units <80 0 81-150 4 151-200 6 201-250 8 251-300 10 301-350 12 351-400 14 >400 16 AND Call Doctor AT BEDTIME Blood Insulin Sugar Units <80 0 81-100 0 101-200 0 201-250 0 251-300 3 301-350 4 351-400 5 >400 6 AND Call Doctor Insulin Detemir (Levemir) 100 UNIT/1 ML VIAL 24 UNITS SC DAILY Diabetes FOLLOW UP WITH DR. AREVALO Metformin HCl 500 MG TABLET 2 TAB PO BID DIABETES (Reported) Pregabalin (Lyrica) 100 MG CAPSULE 1 CAP PO BID PAIN CONTROL (Reported) Review of Systems Review of Systems Constitutional: Reports: see HPI. Cardiovascular: Denies: chest pain. Respiratory: Denies: short of breath. GI: Denies: see HPI. Musculoskeletal: Reports: see HPI. Past History Travel History Traveled to [place] past 21 day No Medical History Blood Transfusion Hx: No Neurological: NONE EENT: NONE Cardiovascular: CAD (status post stents), myocardial infarction, PVD, STENTS Respiratory: NONE Gastrointestinal: NONE Hepatic: NONE Renal: RENAL ABSCESS PYELONEPRHTIS Musculoskeletal: osteoarthritis, CARPAL TUNNEL L SIDE RIB FX rotator cuff injury Psychiatric: NONE Endocrine: diabetes Blood Disorders: NONE Cancer(s): NONE Surgical History Surgical History: rotator cuff surgery with acromioplasty and glenohumeral joint debridement on the left status post balloon angioplasty of the left leg Family History Relations & Conditions If Any: MOTHER Heart attack Psychosocial History Where Do You Live? Home Services at Home: Nursing Smoking Status: Current Everyday Smoker (5-6 cigs/day) ETOH Use: denies use Illicit Drug Use: denies illicit drug use Functional Ability ADLs Independent: dressing, eating, toileting, bathing. Ambulation: independent IADLs Independent: shopping, housework, finances, food prep, telephone, transportation , medication admin. Exam & Diagnostic Data Last 24 Hrs of Vital Signs/I&O Vital Signs Date Time Temp Pulse Resp B/P B/P Pulse O2 O2 Flow FiO2 Mean Ox Delivery Rate 07/27 0800 93 07/27 0527 97.8 90 20 130/82 96 Room Air 07/26 1925 99.1 103 20 148/82 96 Room Air 07/26 1851 99.0 95 18 128/80 99 Room Air Room Air 07/26 1630 98.5 105 18 134/82 98 Room Air Room Air Intake & Output 07/27 1600 07/27 0800 07/27 0000 Intake Total 490 Output Total Balance 490 Intake, IV 10 Intake, Oral 480 Number 0 Bowel Movements Patient 198 lb Weight Weight Bed scale Measurement Method Physical Exam General Appearance: no apparent distress Neck: normal inspection Respiratory: lungs clear Cardiovascular: regular rate/rhythm Gastrointestinal: soft, non-tender Extremities: right foot lesion Labs/Jose A Results: Laboratory Tests 07/27 07/27 07/27 1059 0518 0518 Chemistry Sodium (137 - 145 mmol/L) 137 Cancelled Potassium (3.5 - 5.1 mmol/L) 4.2 Cancelled Chloride (98 - 107 mmol/L) 100 Cancelled Carbon Dioxide (22 - 30 mmol/L) 26 Cancelled Anion Gap (5 - 16) 11 Cancelled BUN (9 - 20 mg/dL) 16 Cancelled Creatinine (0.7 - 1.2 mg/dL) 0.8 Cancelled Estimated GFR (>60 ml/min) > 60 BUN/Creatinine Ratio (7 - 25 %) 20.0 Cancelled Hemoglobin A1c (4.2 - 5.8 %) 8.8 H Magnesium (1.6 - 2.3 mg/dL) 1.7 Troponin I (<0.11 ng/ml) 0.25 *H 0.27 *H Cancelled TSH (0.270 - 4.200 uIU/mL) 0.832 Free T4 (0.64 - 1.79 ng/dL) 1.11 Coagulation PT (9.4 - 12.5 SEC) 12.5 INR (0.90 - 1.17) 1.19 H Hematology CBC w Diff NO MAN DIFF REQ WBC (4.8 - 10.8 /CUMM) 8.5 RBC (4.70 - 6.10 /CUMM) 3.93 L Hgb (14.0 - 18.0 G/DL) 11.6 L Hct (42 - 52 %) 34.5 L MCV (80.0 - 94.0 FL) 87.7 MCH (27.0 - 31.0 PG) 29.5 MCHC (33.0 - 37.0 G/DL) 33.6 RDW (11.5 - 14.5 %) 13.7 Plt Count (130 - 400 /CUMM) 248 MPV (7.4 - 10.4 FL) 9.2 Gran % (42.2 - 75.2 %) 69.8 Lymphocytes % (20.5 - 51.1 %) 17.7 L Monocytes % (1.7 - 9.3 %) 11.2 H Eosinophils % (0 - 5 %) 1.0 Basophils % (0.0 - 2.0 %) 0.3 Absolute Granulocytes (1.4 - 6.5 /CUMM) 5.9 Absolute Lymphocytes (1.2 - 3.4 /CUMM) 1.5 Absolute Monocytes (0.10 - 0.60 /CUMM) 1.0 H Absolute Eosinophils (0.0 - 0.7 /CUMM) 0.1 Absolute Basophils (0.0 - 0.2 /CUMM) 0 07/26 1721 Chemistry Lactic Acid (0.7 - 2.1 mmol/L) 1.0 1.3 Hematology ESR Westergren (0 - 10 MM) 80 H Assessment/Plan Assessment/Plan Patient is a 51-year-old male with past medical history significant for uncontrolled diabetes type 2, history of diabetic neuropathy, CAD status post MD s/p stents placement, history of renal abscess complicated by MSSA bacteremia ( 2016), non healing 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 He is kept NPO and receiving D5 1/2 NS at 75 ml/hour. Plan: 1. continue Levemir 24 units daily; 2, he will be on Novolog coverage every 4 hours while he is NPO and receiving D51/2 NS at 75 ml/hour --- FSG < 100, no coverage; 100-150, 2 units 151-200, 3 units 201-250, 4 units 251-300, 6 units 301-350, 8 units 351-400, 10 units > 400, 12 units 3. after he is back from OR and ready to eat, IVF and Novolog coverage every 4 hours will be discontinued. He will be on Novolog coverage before meals and novolog coverage at bedtime-- detail see the inpatient DM orders. 4. monitor FSGs will follow Inpatient Diabetes Orders Before Each Meal: Bolus Insulin: Novolog < 80 mg/dl: no coverage 80-100 mg/dl: no coverage 101-120 mg/dl: 2 units 121-150 mg/dl: 2 units 151-200 mg/dl: 3 units 201-250 mg/dl: 4 units 251-300 mg/dl: 6 units 301-350 mg/dl: 8 units 351-400 mg/dl: 10 units > 400 mg/dl: 12 units Bedtime: Bolus Insulin: Novolog < 80 mg/dl: no coverage 80-100 mg/dl: no coverage 101-120 mg/dl: no coverage 121-150 mg/dl: no coverage 151-200 mg/dl: no coverage 201-250 mg/dl: 2 units 251-300 mg/dl: 3 units 301-350 mg/dl: 4 units 351-400 mg/dl: 5 units > 400 mg/dl: 6 units Consult Acknowledgment - Thank you for your consult request.
[2017-07-27 16:00] VITALS: BP 110/66
--- NOTE | 2017-07-27 16:04 | Cons- Infect Disease ---
General Information and HPI Consulting Request Date of Consult: 07/27/17 Requested By: Sean SIMONS,Flavio Reason for Consult: Osteomyelitis of the right foot Source of Information: patient, old records History of Present Illness: This is a 51-year-old man with a history of coronary artery disease, status post stents, diabetes and peripheral vascular disease, with a nonhealing wound on the lateral aspect of his right foot over the past 5 months, status post right fifth toe amputation 3 months prior to admission, with the OR culture positive for MSSA, Klebsiella and alpha strep, discharged on Unasyn to be continued for 4 weeks, which was extended for several weeks after requiring further debridement, with excision of the fifth metatarsal stump, status post balloon angioplasty of the right lower extremity several weeks prior to admission and apparently treated with hyperbaric oxygen for the past 5 weeks, admitted on July 26 after he was sent to the emergency room by Podiatry for further management of his nonhealing wound, with increasing pain, erythema and edema of the right foot associated with fevers and chills. On admission he was afebrile. Laboratory data revealed a white blood cell count of 14,000, BUN/creatinine 17 and 0.9, with normal liver enzymes, troponin 0.28. Urinalysis 1-3 RBCs/3-5 WBCs. X-ray of the right foot revealed soft tissue swelling with possible osteomyelitis at the base of the fourth metatarsal. Dopplers of both lower extremities were negative. Chest x-ray revealed no acute process. He was followed off antibiotics and has remained afebrile overnight. He is scheduled for the OR later today for possible right transmetatarsal amputation. At present he does note some discomfort in the right foot. Allergies/Medications Allergies: Coded Allergies: No Known Allergies (05/17/17) Home Med List: Aspirin (Aspirin*) 81 MG TAB.CHEW 1 TAB PO DAILY [facility] Clopidogrel Bisulfate (Plavix) 75 MG TABLET 1 TAB PO DAILY Hx of DVT ( Reported) Duloxetine HCl 30 MG CAPSULE.DR 2 CAP PO DAILY NERVE PAIN (Reported) Insulin Aspart (Novolog) 100 UNIT/1 ML VIAL 0 SC TIDAC/HS DIABTES BEFORE MEALS Blood Insulin Sugar Units <80 0 81-150 4 151-200 6 201-250 8 251-300 10 301-350 12 351-400 14 >400 16 AND Call Doctor AT BEDTIME Blood Insulin Sugar Units <80 0 81-100 0 101-200 0 201-250 0 251-300 3 301-350 4 351-400 5 >400 6 AND Call Doctor Insulin Detemir (Levemir) 100 UNIT/1 ML VIAL 24 UNITS SC DAILY Diabetes FOLLOW UP WITH DR. AREVALO Metformin HCl 500 MG TABLET 2 TAB PO BID DIABETES (Reported) Pregabalin (Lyrica) 100 MG CAPSULE 1 CAP PO BID PAIN CONTROL (Reported) Past History Travel History Traveled to [place] past 21 day No Medical History Blood Transfusion Hx: No Neurological: NONE EENT: NONE Cardiovascular: CAD (status post stents), myocardial infarction, PVD, STENTS Respiratory: NONE Gastrointestinal: NONE Hepatic: NONE Renal: RENAL ABSCESS PYELONEPRHTIS Musculoskeletal: osteoarthritis, CARPAL TUNNEL L SIDE RIB FX rotator cuff injury Psychiatric: NONE Endocrine: diabetes Blood Disorders: NONE Cancer(s): NONE History of MRSA: No History of VRE: No History of CDIFF: No Isolation History: Standard Surgical History Surgical History: rotator cuff surgery with acromioplasty and glenohumeral joint debridement on the left status post balloon angioplasty of the left leg Family History Relations & Conditions If Any: MOTHER Heart attack Psychosocial History Where Do You Live? Home Services at Home: Nursing Smoking Status: Current Everyday Smoker (5-6 cigs/day) ETOH Use: denies use Illicit Drug Use: denies illicit drug use Functional Ability ADLs Independent: dressing, eating, toileting, bathing. Ambulation: independent IADLs Independent: shopping, housework, finances, food prep, telephone, transportation , medication admin. Review of Systems Review of Systems All Other Systems: Reviewed and Negative Exam & Diagnostic Data Last 24 Hrs of Vital Signs/I&O Vital Signs Date Time Temp Pulse Resp B/P B/P Pulse O2 O2 Flow FiO2 Mean Ox Delivery Rate 07/27 0800 93 07/27 0527 97.8 90 20 130/82 96 Room Air 07/26 1925 99.1 103 20 148/82 96 Room Air 07/26 1851 99.0 95 18 128/80 99 Room Air Room Air 07/26 1630 98.5 105 18 134/82 98 Room Air Room Air Intake & Output 07/27 1600 07/27 0800 07/27 0000 Intake Total 1600 490 Output Total 1400 Balance 200 490 Intake, IV 1600 10 Intake, Oral 480 Number 0 Bowel Movements Output, Urine 1400 Patient 198 lb Weight Weight Bed scale Measurement Method Physical Exam Other Physical Findings: Afebrile. He is awake and alert in no acute distress. Skin reveals no rash. HEENT negative. Neck is supple with no adenopathy. Lungs scattered wheezes on the right. Heart regular rhythm with no murmur. Abdomen is soft, nontender with positive bowel sounds. Back no CVA tenderness. Extremities right foot lateral wound with no purulence; edema over the dorsum of the right foot, with minimal erythema and tenderness; pulses 1+ and equal. Neuro is without focality. Last 24 Hours of Lab Results: Laboratory Tests 07/27 07/27 07/27 1059 0518 0518 Chemistry Sodium (137 - 145 mmol/L) 137 Cancelled Potassium (3.5 - 5.1 mmol/L) 4.2 Cancelled Chloride (98 - 107 mmol/L) 100 Cancelled Carbon Dioxide (22 - 30 mmol/L) 26 Cancelled Anion Gap (5 - 16) 11 Cancelled BUN (9 - 20 mg/dL) 16 Cancelled Creatinine (0.7 - 1.2 mg/dL) 0.8 Cancelled Estimated GFR (>60 ml/min) > 60 BUN/Creatinine Ratio (7 - 25 %) 20.0 Cancelled Hemoglobin A1c (4.2 - 5.8 %) 8.8 H Magnesium (1.6 - 2.3 mg/dL) 1.7 Troponin I (<0.11 ng/ml) 0.25 *H 0.27 *H Cancelled TSH (0.270 - 4.200 uIU/mL) 0.832 Free T4 (0.64 - 1.79 ng/dL) 1.11 Coagulation PT (9.4 - 12.5 SEC) 12.5 INR (0.90 - 1.17) 1.19 H Hematology CBC w Diff NO MAN DIFF REQ WBC (4.8 - 10.8 /CUMM) 8.5 RBC (4.70 - 6.10 /CUMM) 3.93 L Hgb (14.0 - 18.0 G/DL) 11.6 L Hct (42 - 52 %) 34.5 L MCV (80.0 - 94.0 FL) 87.7 MCH (27.0 - 31.0 PG) 29.5 MCHC (33.0 - 37.0 G/DL) 33.6 RDW (11.5 - 14.5 %) 13.7 Plt Count (130 - 400 /CUMM) 248 MPV (7.4 - 10.4 FL) 9.2 Gran % (42.2 - 75.2 %) 69.8 Lymphocytes % (20.5 - 51.1 %) 17.7 L Monocytes % (1.7 - 9.3 %) 11.2 H Eosinophils % (0 - 5 %) 1.0 Basophils % (0.0 - 2.0 %) 0.3 Absolute Granulocytes (1.4 - 6.5 /CUMM) 5.9 Absolute Lymphocytes (1.2 - 3.4 /CUMM) 1.5 Absolute Monocytes (0.10 - 0.60 /CUMM) 1.0 H Absolute Eosinophils (0.0 - 0.7 /CUMM) 0.1 Absolute Basophils (0.0 - 0.2 /CUMM) 0 07/26 1721 Chemistry Lactic Acid (0.7 - 2.1 mmol/L) 1.0 1.3 Hematology ESR Westergren (0 - 10 MM) 80 H Last 24 Hours of Jose A Results: Blood cultures 2 July 26 negative Diagnostic Data Recent Imaging Findings: X-ray of the right foot revealed soft tissue swelling with possible osteomyelitis at the base of the fourth metatarsal. Dopplers of both lower extremities were negative. Chest x-ray revealed no acute process. Assessment/Plan Assessment/Plan Impression: This is a 51-year-old man with a history of diabetes and peripheral vascular disease, with a nonhealing wound on the lateral aspect of his right foot over the past 5 months, status post right fifth toe amputation 3 months prior to admission, treated with over 6 weeks of antibiotics for residual osteomyelitis, admitted on July 26 for further management of his nonhealing wound, with increasing pain, erythema and edema of the right foot, associated with fevers and chills, found to be afebrile with a leukocytosis, which has resolved without antibiotics, with an x-ray of the right foot revealing possible osteomyelitis of the fourth metatarsal base. The nonhealing wound suggests residual osteomyelitis and he is apparently scheduled for a right transmetatarsal amputation later today. He may well be left with residual osteomyelitis that will require another prolonged course of antibiotics and will await his OR cultures. He has undergone a recent angioplasty, which will hopefully help heal his TMA. As he is stable, with temperatures and white blood cell count now normal, he can continue to be followed off antibiotics pending preliminary OR cultures. Suggestion: 1. Await OR later today for possible right transmetatarsal amputation 2. Follow-up OR cultures 3. Continue to follow off antibiotics pending above Consult Acknowledgment - Thank you for your consult request.
--- NOTE | 2017-07-27 20:51 | Operative Report ---
Operative/Inv Procedure Report Surgery Date: 07/27/17 Name of Procedure: 1open incision and drainage deep to the deep fascia with exposure of the extensor and flexor tendon and tendon sheath multiple sites right foot 2 closure of nonhealing wound right foot with local random advancement flap 3 excision of fourth ray right foot 4 intraoperative administration of ankle block anesthesia 5 excisional debridement Pre-Operative Diagnosis: 1 open necrotic wound right foot 2 recurrent osteomyelitis right foot 3 diabetic peripheral neuropathy Post-Operative Diagnosis: The same Estimated Blood Loss: less than 50ml Surgeon/Metal Weigher: CONNIE BROWER DPM Anesthesia: moderate sedation, block Operative/Procedure Note Note: After obtaining informed consent the patient was brought to the operating room and placed on the operating table in the supine position. The patient isn't securely fastened to the operating table utilizing safety belt. After administration of IV sedation, 10 mL of 0.5% Marcaine plain was infiltrated about the patient's right ankle. The right foot and ankle within scrubbed prepped and draped in usual aseptic manner. Attention directed lateral aspect the right foot, where a large full-thickness necrotic was identified. A 15 blade visualized sharply revised skin margins. The dissection was then carried down deep to the fashion with exposure of the extensor and flexor tendon and tendon sheath multiple sites right foot. All necrotic, nonviable infected tissue sharply evacuated from the wound bed. The fourth metatarsal was then disarticulated at its base and dissected distally where entire ray including the digit was passed from the operative field. Specimen sent for both microbiologic and pathologic inspection. Nipple was then irrigated with 3 L of normal sterile saline fissure 50,000 units of bacitracin. Following this, the foot was redraped and the surgeon's top was changed clean gloves. Any bleeding vessels identified were cauterized or ligated as encountered. A dorsal medial and plantar medial flap was developed with undermining, mobilization and advancement adjacent tissue centrally. The deep side of the flap was held centrally 2-0 Vicryl. Subtenons tissues reapproximated 3-0 Vicryl and the skin edges reprepped with 2-0 nylon. Incision was then dressed with Xeroform 4 x 4's Kerlix and Yann wrap. The patient is noted tolerate both procedure and anesthesia well and the patient was transported from the operating room to recovery with vital signs stable and fascia status intact to both the dorsal and plantar flaps.
[2017-07-27 22:00] VITALS: BP 128/80
[2017-07-28] VITALS: BP 120/60
[2017-07-28 05:05] LABS: ABSOLUTE BASOPHIL COUNT 0 /CUMM (0.0-0.2); ABSOLUTE EOSINOPHIL COUNT 0.1 /CUMM (0.0-0.7); ABSOLUTE GRANULOCYTE CT 7.2 /CUMM (1.4-6.5); ABSOLUTE LYMPH COUNT 1.5 /CUMM (1.2-3.4); ABSOLUTE MONOCYTE COUNT 0.7 /CUMM (0.10-0.60); BASOPHIL % 0.3 % (0.0-2.0); EOSINOPHIL % 1.2 % (0-5); GRANULOCYTE % 75.7 % (42.2-75.2); HEMATOCRIT 33.9 % (42-52); MEAN CORPUSCULAR HGB 29.8 PG (27.0-31.0); MEAN CORPUSCULAR HGB CONC 33.8 G/DL (33.0-37.0); MEAN CORPUSCULAR VOLUME 88.3 FL (80.0-94.0); MEAN PLATELET VOLUME 9.5 FL (7.4-10.4); PLATELET COUNT 253 /CUMM (130-400); RBC DISTRIBUTION WIDTH 13.7 % (11.5-14.5); RED BLOOD CELL CT 3.84 /CUMM (4.70-6.10); WHITE BLOOD CELL COUNT 9.5 /CUMM (4.8-10.8)
--- NOTE | 2017-07-28 07:24 | PN- Housestaff ---
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 Resting comfortably in the bed. Offers no complaints. Reports some pain in the right foot, in dressing. Status post excisional debridement, post-op day 1. Afebrile without white count. Blood cultures 2 cultures no growth. Bone cultures pending Review of Systems Constitutional: Reports: see HPI. Objective Last 24 Hrs of Vital Signs/I&O Vital Signs Date Time Temp Pulse Resp B/P B/P Pulse O2 O2 Flow FiO2 Mean Ox Delivery Rate 07/28 0000 Room Air 07/28 0000 96.8 83 20 120/60 Room Air 07/27 2200 97.3 80 18 128/80 07/27 1600 97.6 79 18 110/66 96 Room Air Intake & Output 07/28 1600 07/28 0800 07/28 0000 Intake Total 100 900 Output Total 300 Balance -200 900 Intake, IV 700 Intake, Oral 100 200 Output, Urine 300 Physical Exam General Appearance: Alert, Oriented X3, Cooperative Neck: Supple Cardiovascular: Normal S1, Normal S2, No Murmurs Lungs: Clear to Auscultation Abdomen: Normal Bowel Sounds, Soft, No Tenderness Neurological: Normal Speech Extremities: No Edema, R foot in dressing s/p excision debribement Current Medications: Current Medications Sig/Marty Start time Last Medication Dose Route Stop Time Status Admin Acetaminophen 650 MG Q6P PRN 07/26 1815 AC PO Aspirin 81 MG DAILY 07/28 1000 AC PO Aspirin 81 MG DAILY 07/27 0515 DC 07/27 PO 0518 Atorvastatin Calcium 80 MG 1700 07/27 0515 AC 07/27 PO 0518 Clopidogrel Bisulfate 75 MG DAILY 07/27 2200 AC 07/27 PO 2218 Dextrose/Sodium 1,000 ML .[id number] 07/27 0000 DC 07/27 Chloride IV 1308 Duloxetine HCl 60 MG DAILY 07/26 1853 AC 07/27 PO 0955 Fentanyl Citrate 100 MCG .STK-MED ONE 07/27 1940 DC IM 07/27 1941 Hydromorphone HCl 2 MG .STK-MED ONE 07/27 2116 DC IM 02/20 2118 Hydromorphone HCl 2 MG .STK-MED ONE 07/27 2111 DC IM 07/27 2112 Insulin Aspart 0 TIDAC 07/28 0800 CAN SC Insulin Aspart 0 TIDAC/HS 07/28 0800 AC 07/28 SC 0756 Insulin Aspart 0 Q4 07/27 1400 DC 07/27 SC 1555 Insulin Detemir 24 UNITS DAILY 07/26 1813 AC 07/27 SC 0952 Insulin Human Regular 0 Q4 07/27 1400 CAN SC Insulin Human Regular 0 Q6 07/26 2359 DC 07/27 SC 1154 Lidocaine 20 ML .STK-MED ONE 07/27 1422 DC IA 07/27 1423 Magnesium Oxide 400 MG ONE ONE 07/27 1345 DC 07/27 PO 07/27 1346 1548 Metoprolol Succinate 25 MG DAILY 07/28 1000 AC PO Midazolam HCl 2 MG .STK-MED ONE 07/27 1941 DC IM 07/27 194 Morphine Sulfate 10 MG .STK-MED ONE 07/27 2336 DC IM 07/27 2337 Morphine Sulfate 2 MG Q8P PRN 07/26 194 AC 07/28 IV 0755 Oxycodone/ 1 TAB Q6P PRN 07/26 181 AC 07/28 Acetaminophen PO 0335 Pregabalin 100 MG BID 07/26 2199 AC 07/27 PO 220 Last 24 Hrs of Lab/Jose A Results Last 24 Hrs of Labs/Mics: Laboratory Tests 07/28/17 0345: Anion Gap 12, Estimated GFR > 60, BUN/Creatinine Ratio 20.0, Magnesium 1.8, CBC w Diff NO MAN DIFF REQ, RBC 3.84 L, MCV 88.3, MCH 29.8, MCHC 33.8, RDW 13.7, MPV 9.5, Gran % 75.7 H, Lymphocytes % 15.7 L, Monocytes % 7.1, Eosinophils % 1.2, Basophils % 0.3, Absolute Granulocytes 7.2 H, Absolute Lymphocytes 1.5, Absolute Monocytes 0.7 H, Absolute Eosinophils 0.1, Absolute Basophils 0 07/27/17 1059: Troponin I 0.25 *H Microbiology 07/27 2019 EXTREMITIE: Gross Specimen Examination - RECD 07/27 2019 EXTREMITIE: Gram Stain - RECD Assessment/Plan Assessment: Mr. Claros is a 51-year-old male w/ PMH of DM on insulin, DM neuropathy on lyrica, CAD/VT/PVD s/p 2 stents in 2009 on ASA 81, hx of PVD on Plavix, hx of renal abscess complicated by MSSA bacteremia (2015), was sent in to ER by Dr. Berrios for further evaluation of pain and redness to his right foot wound from partial metatasal amputation back in 04/[address] Berrios. Sincehis amputation patient received a total of 6-week of Unasyn outpatient with regular woundcare clinic f/u with wound VAC and hyperbaric treatment. During this 6-weeks, patient was complicated with incidental finding of RLE "arterial clog" which he underwent stent + balloon in Dr. Jimenez's office, and started on Plavix. Currently patient is telemetry hold in ICU and he is being treated and evaluated for following conditions #Suspected R foot osteomyelitis in setting of chronic nonhealing ulcer with possible involvement of base of fourth metatarsal He has history of Recent osteomyelitis s/p revisional partial fifth ray resection of right foot s/p Wound Vac and hyperbaric therapy. Patient was afebrile, but slightly tachycardic on presentation, leukocytosis 13.7, ESR of 80 with granulocyte percent of 80.1, CRP more than 9, lactic acid 1.3 in the ED. His Right foot x-ray showed abnormal soft tissue swelling on the lateral aspect of proximal foot, but osteomyelitis could not be entirely excluded. -Status post excisional debridement of fourth metatarsal. Post op Day 1 -Monitor fever and WBC curve (afebrile without a white count) -Follow up on blood cultures no growth so far -Bone cultures pending -Monitor off antibiotics for now -ID on board -Pain management with Percocet and IV morphine as needed #Type II VT Patient was found to have troponin 0.28 on the lab add-on today sample was drawn at 2 PM. Subsequently pt was transfered from [facility] floor to ICU as TeleHold. However EKG did not show any changes and patient did not complain of chest pain. Likely secondary to ischemia because of demand supply mismatch. -3 sets of troponin 0.28>0.27>0.24 -Echocardiogram -Cradiology on board, Mildly elevated but acceptable cardiac risk for surgery. Was cleared from a cardiac standpoint for surgey -Aspirin and Plavix have been restarted after surgery -Patient has also been started on Toprol-XL 25 mg daily for cardiac protection given the history of CAD. #Peripheral vascular disease s/p stent on plavix Of note patient also has severe peripheral vascular disease (CTA done in Apr 2017) and underwent balloon angioplasty with stent placement to right lower extremity by Dr. Jimenez and is currently on plavix for that. -Aspirin and Plavix have been restarted after surgery # History of CAD s/p stent Patient was started on labetalol dose metoprolol for coronary artery disease which he has not been compliant with. -Continue Aspirin, Plavix, metoprolol #Type 2 diabetes mellitus on insulin uncontrolled -Currently nothing by mouth for anticipated surgery. Will ask cardiology whether patient is cleared for surgery if not we will start him on a diet. -Accu-Chek insulin sliding scale oral anti-glycemic agents on hold -HbA1c 8.8 -Last fingersticks 150, 101, 15, 111, 177 -Endo on board sliding scale adjusted as per the recommendations. -Continue pregabalin -Levemir 24 units daily #History of smoking -Smoking cessation counseling and nicotine patch NPO for now/DVT prophylaxis alps only/FC Problem List: 1. Osteomyelitis of right foot Pain Ratin Pain Location: R foot Pain Goal: Pain 4 or less Pain Plan: prn Tomorrow's Labs & Rationales: mady Keating MD,Apryl 07/28/17 1056: Attending MD Review Statement Attending Statement Attending Statement: examined this patient, discuss w/resident/PA/INDUSTRIAL AUTOMATION SPECIALIST, agreed w/resident/PA/INDUSTRIAL AUTOMATION SPECIALIST, reviewed EMR data (avail), discussed with nursing, discussed with case mgmt, reviewed images, amended to note Attending Assessment/Plan: Patient seen and examined, was complaining of exquisite shooting pain in his right foot. Patient is status post debridement of the right foot performed as well as excision of the fourth ray POD # 1 today. vss. on exam; aox3, nad. cv; s1,s2, rrr resp; clear abd; soft, nt, bs+ ext: right foot wrapped in CHARLI warp Laboratory Tests 07/28 07/27 0345 1059 Chemistry Sodium (137 - 145 mmol/L) 140 Potassium (3.5 - 5.1 mmol/L) 4.2 Chloride (98 - 107 mmol/L) 102 Carbon Dioxide (22 - 30 mmol/L) 26 Anion Gap (5 - 16) 12 BUN (9 - 20 mg/dL) 16 Creatinine (0.7 - 1.2 mg/dL) 0.8 Estimated GFR (>60 ml/min) > 60 BUN/Creatinine Ratio (7 - 25 %) 20.0 Magnesium (1.6 - 2.3 mg/dL) 1.8 Troponin I (<0.11 ng/ml) 0.25 *H Hematology CBC w Diff NO MAN DIFF REQ WBC (4.8 - 10.8 /CUMM) 9.5 RBC (4.70 - 6.10 /CUMM) 3.84 L Hgb (14.0 - 18.0 G/DL) 11.5 L Hct (42 - 52 %) 33.9 L MCV (80.0 - 94.0 FL) 88.3 MCH (27.0 - 31.0 PG) 29.8 MCHC (33.0 - 37.0 G/DL) 33.8 RDW (11.5 - 14.5 %) 13.7 Plt Count (130 - 400 /CUMM) 253 MPV (7.4 - 10.4 FL) 9.5 Gran % (42.2 - 75.2 %) 75.7 H Lymphocytes % (20.5 - 51.1 %) 15.7 L Monocytes % (1.7 - 9.3 %) 7.1 Eosinophils % (0 - 5 %) 1.2 Basophils % (0.0 - 2.0 %) 0.3 Absolute Granulocytes (1.4 - 6.5 /CUMM) 7.2 H Absolute Lymphocytes (1.2 - 3.4 /CUMM) 1.5 Absolute Monocytes (0.10 - 0.60 /CUMM) 0.7 H Absolute Eosinophils (0.0 - 0.7 /CUMM) 0.1 Absolute Basophils (0.0 - 0.2 /CUMM) 0 A/P; 51 y/o M with pmh sig for DM on insulin, DM neuropathy on lyrica, CAD/VT/ PVD s/p 2 stents in 2009 on ASA 81, hx of PVD on Plavix, hx of renal abscess complicated by MSSA bacteremia (2015), admitted with right foot open wound which is nonhealing. Enedina has osteomyelitis. Patient is status post debridement of the right foot performed as well as excision of the fourth ray POD # 1 today. Patient has been watched off of antibiotics. We'll follow-up on the bone cultures. Pain is not managed well. Will increase the dose of morphine. Patient has been followed by cardiology. Echocardiogram results reviewed and they look pretty good. Continue the rest of the medications. Please discuss with cardiology if he can be downgraded to general medicine floor. Please resume pharmacologic DVT prophylaxis.
[2017-07-28 08:00] VITALS: BP 120/70
--- NOTE | 2017-07-28 09:14 | PN- Diabetes ---
Assessment/Plan Diabetes Assessment: Patient is a 51-year-old male with past medical history significant for uncontrolled diabetes type 2, history of diabetic neuropathy, CAD status post [place] s/p stents placement, history of renal abscess complicated by MSSA bacteremia ( 2016), non healing ulcer of the right fifth MCP s/p amputation, was admitted nonhealing right foot infection and he underwent surgical procedure on 2017. He is on Levemir 24 units daily, Novolog coverage before meals and Novolog coverage at bedtime. His FSGs were 105, 111 and 177. Plan: 1. continue Levemir 24 units daily; 2. adjust Novolog coverage before meals; detail see the inpatient DM order; 3. continue the current Novolog coverage at bedtime; 4. monitor FSGs. will follow. Inpatient Diabetes Orders Before Each Meal: Bolus Insulin: Novolog < 80 mg/dl: no coverage 80-100 mg/dl: 4 units 101-120 mg/dl: 4 units 121-150 mg/dl: 4 units 151-200 mg/dl: 5 units 201-250 mg/dl: 6 units 251-300 mg/dl: 8 units 301-350 mg/dl: 10 units 351-400 mg/dl: 12 units > 400 mg/dl: 14 units Subjective Subjective: He feels okay. Objective Last 24 Hrs of Vital Signs/I&O Vital Signs Date Time Temp Pulse Resp B/P B/P Pulse O2 O2 Flow FiO2 Mean Ox Delivery Rate 07/28 0800 98.2 88 20 120/70 97 Room Air 07/28 0000 Room Air 07/28 0000 96.8 83 20 120/60 Room Air 07/27 2200 97.3 80 18 128/80 07/27 1600 97.6 79 18 110/66 96 Room Air Intake & Output 07/28 1600 07/28 0800 07/28 0000 Intake Total 100 900 Output Total 300 Balance -200 900 Intake, IV 700 Intake, Oral 100 200 Output, Urine 300 Findings Pertinent Lab/Jose A Results: Laboratory Tests 07/28 07/27 0345 1059 Chemistry Sodium (137 - 145 mmol/L) 140 Potassium (3.5 - 5.1 mmol/L) 4.2 Chloride (98 - 107 mmol/L) 102 Carbon Dioxide (22 - 30 mmol/L) 26 Anion Gap (5 - 16) 12 BUN (9 - 20 mg/dL) 16 Creatinine (0.7 - 1.2 mg/dL) 0.8 Estimated GFR (>60 ml/min) > 60 BUN/Creatinine Ratio (7 - 25 %) 20.0 Magnesium (1.6 - 2.3 mg/dL) 1.8 Troponin I (<0.11 ng/ml) 0.25 *H Hematology CBC w Diff NO MAN DIFF REQ WBC (4.8 - 10.8 /CUMM) 9.5 RBC (4.70 - 6.10 /CUMM) 3.84 L Hgb (14.0 - 18.0 G/DL) 11.5 L Hct (42 - 52 %) 33.9 L MCV (80.0 - 94.0 FL) 88.3 MCH (27.0 - 31.0 PG) 29.8 MCHC (33.0 - 37.0 G/DL) 33.8 RDW (11.5 - 14.5 %) 13.7 Plt Count (130 - 400 /CUMM) 253 MPV (7.4 - 10.4 FL) 9.5 Gran % (42.2 - 75.2 %) 75.7 H Lymphocytes % (20.5 - 51.1 %) 15.7 L Monocytes % (1.7 - 9.3 %) 7.1 Eosinophils % (0 - 5 %) 1.2 Basophils % (0.0 - 2.0 %) 0.3 Absolute Granulocytes (1.4 - 6.5 /CUMM) 7.2 H Absolute Lymphocytes (1.2 - 3.4 /CUMM) 1.5 Absolute Monocytes (0.10 - 0.60 /CUMM) 0.7 H Absolute Eosinophils (0.0 - 0.7 /CUMM) 0.1 Absolute Basophils (0.0 - 0.2 /CUMM) 0
--- NOTE | 2017-07-28 09:37 | Transfer of Care Summary ---
Hospital Course Course Hospital Course: Mr. Claros is a 51-year-old male w/ PMH of DM on insulin, DM neuropathy on lyrica, CAD/UT/PVD s/p 2 stents in 2009 on ASA 81, hx of PVD on Plavix, hx of renal abscess complicated by MSSA bacteremia (2015), was sent in to ER by Dr. Berrios for further evaluation of pain and redness to his right foot wound from partial metatasal amputation back in 04/[address] Berrios. Since his amputation patient received a total of 6-week of Unasyn outpatient with regular woundcare clinic f/u with wound VAC and hyperbaric treatment. During this 6-weeks, patient was complicated with incidental finding of RLE "arterial clog" which he underwent stent + balloon in Dr. Jimenez's office, and was started on Plavix. -Vitals on admission stable except for baseline tachycardia 90-100's. -Labs: WBC 13.7, ESR 80, AG 17, glucose 163, lactic acid 1.3, CRP > 9.0. Troponin pending. -LE doppler: no DVT. -Right foot Xray: abnormal soft tissue swelling lateral aspect proximal foot. No air within soft tissues. Osteomyelitis of base of fourth metatarsal cannot be excluded. Linear lucency in base of fourth metatarsal may represent age indeterminate stress fracture. -EKG: sinus tachycardia, LAFB, Qtc 430. Echo (2016): EF 50-55%. The patient was transferred to ICU as telemetry hold in setting of demand ischemia and he was being treated and evaluated for following conditions #Suspected R foot osteomyelitis in setting of chronic nonhealing ulcer with possible involvement of base of fourth metatarsal Status post excisional debridement of fourth metatarsal. Post op Day 2 He has history of Recent osteomyelitis s/p revisional partial fifth ray resection of right foot s/p Wound Vac and hyperbaric therapy. Patient was afebrile, but slightly tachycardic on presentation, leukocytosis 13.7, ESR of 80 with granulocyte percent of 80.1, CRP more than 9, lactic acid 1.3 in the ED. His Right foot x-ray showed abnormal soft tissue swelling on the lateral aspect of proximal foot, but osteomyelitis could not be entirely excluded. -Monitoring patient's fever and WBC curve, he remains afebrile without any white count and there is no growth on blood culture so far. -Bone cultures pending, prelim report theobroth positive for GNR and staph -Baseline postoperative right foot x-ray significant for Postoperative changes in the right foot, status post fourth digit resection -Patient is on Unasyn 1.5 every 6h given the presence of necrosis noticed at time of amputation for a residual soft tissue infection. (Day 2) -ID on board -Pain management with Percocet and IV morphine as needed #Type II [place] Patient was found to have troponin 0.28 on the lab add-on sample was drawn at 2 PM. Subsequently pt was transfered from [facility] floor to ICU as TeleHold. However EKG did not show any changes and patient did not complain of chest pain. Likely secondary to ischemia because of demand supply mismatch. Troponin 0.28> 0.27>0.24>0.21 -Echocardiogram WNL -Pt was evaluated by cardiology and was declared to have mildly elevated but acceptable cardiac risk for surgery. -Aspirin and Plavix initially held were restarted after surgery. -Patient has also been started on Toprol-XL 25 mg daily for cardiac protection given the history of CAD. -Patient is stable for general medicine floor from cardiac perspective. #Peripheral vascular disease s/p stent on plavix Of note patient also has severe peripheral vascular disease (CTA done in Apr 2017) and underwent balloon angioplasty with stent placement to right lower extremity by Dr. Jimenez and is currently on plavix for that. -Aspirin and Plavix have been restarted after surgery # History of CAD s/p stent Patient was started on low dose metoprolol for coronary artery disease which he has not been compliant with. -Continue Aspirin, Plavix, metoprolol #Type 2 diabetes mellitus on insulin uncontrolled -Accu-Chek insulin sliding scale oral anti-glycemic agents on hold -HbA1c 8.8 -Last fingersticks Last fingersticks 161, 106, 113 and 172 -Endo on board sliding scale adjusted as per the recommendations. -F/U endo reccs for antidiabetic plan on discharge and provide referral for Dr. Stroud -Continue pregabalin -Levemir 24 units daily #Drop in H&H H/H creeping down to from -Continue to monitor H&H -Guacic all stools #History of smoking -Smoking cessation counseling and nicotine patch #Consistent carbohydrate diet/DVT prophylaxis alps and lovenox/FC Assessment/Plan: see above
--- NOTE | 2017-07-28 11:23 | PN- Infect Dx ---
Subjective Subjective: Afebrile. He does report pain in the right foot. Objective Last 24 Hrs of Vital Signs/I&O Vital Signs Date Time Temp Pulse Resp B/P B/P Pulse O2 O2 Flow FiO2 Mean Ox Delivery Rate 07/28 0915 88 120/70 07/28 0800 98.2 88 20 120/70 97 Room Air 07/28 0000 Room Air 07/28 0000 96.8 83 20 120/60 Room Air 07/27 2200 97.3 80 18 128/80 07/27 1600 97.6 79 18 110/66 96 Room Air Intake & Output 07/28 1600 07/28 0800 07/28 0000 Intake Total 100 900 Output Total 300 Balance -200 900 Intake, IV 700 Intake, Oral 100 200 Output, Urine 300 Physical Exam Other Physical Findings: He appears comfortable in no acute distress Lungs are clear Heart regular rhythm with no murmur Extremities right foot dressing intact Results Last 24 Hours of Lab Results: Laboratory Tests 07/28 0345 Chemistry Sodium (137 - 145 mmol/L) 140 Potassium (3.5 - 5.1 mmol/L) 4.2 Chloride (98 - 107 mmol/L) 102 Carbon Dioxide (22 - 30 mmol/L) 26 Anion Gap (5 - 16) 12 BUN (9 - 20 mg/dL) 16 Creatinine (0.7 - 1.2 mg/dL) 0.8 Estimated GFR (>60 ml/min) > 60 BUN/Creatinine Ratio (7 - 25 %) 20.0 Magnesium (1.6 - 2.3 mg/dL) 1.8 Hematology CBC w Diff NO MAN DIFF REQ WBC (4.8 - 10.8 /CUMM) 9.5 RBC (4.70 - 6.10 /CUMM) 3.84 L Hgb (14.0 - 18.0 G/DL) 11.5 L Hct (42 - 52 %) 33.9 L MCV (80.0 - 94.0 FL) 88.3 MCH (27.0 - 31.0 PG) 29.8 MCHC (33.0 - 37.0 G/DL) 33.8 RDW (11.5 - 14.5 %) 13.7 Plt Count (130 - 400 /CUMM) 253 MPV (7.4 - 10.4 FL) 9.5 Gran % (42.2 - 75.2 %) 75.7 H Lymphocytes % (20.5 - 51.1 %) 15.7 L Monocytes % (1.7 - 9.3 %) 7.1 Eosinophils % (0 - 5 %) 1.2 Basophils % (0.0 - 2.0 %) 0.3 Absolute Granulocytes (1.4 - 6.5 /CUMM) 7.2 H Absolute Lymphocytes (1.2 - 3.4 /CUMM) 1.5 Absolute Monocytes (0.10 - 0.60 /CUMM) 0.7 H Absolute Eosinophils (0.0 - 0.7 /CUMM) 0.1 Absolute Basophils (0.0 - 0.2 /CUMM) 0 Last 24 Hours of Jose A Results: Blood cultures 2 July 26 negative OR culture July 27 labeled right foot bone pending Assessment/Plan ID Impression: Stable status post excision of the right fourth ray for residual osteomyelitis yesterday, with closure of his wound. Have discussed with Podiatry, who does not feel that there is any residual osteomyelitis but, given the presence of necrosis, that he might benefit from antibiotics for a residual soft tissue infection. Suggestion: 1. Follow-up OR culture 2. Would obtain a postoperative baseline x-ray of the right foot 3. Begin Unasyn 1.5 g IV every 6 hours pending above
--- NOTE | 2017-07-28 12:44 | PN- Cardiology ---
Subjective Subjective: the patient appears to be doing well today postoperatively. He denies any cardiac symptoms. Objective Vital Signs and I&Os Vital Signs Date Time Temp Pulse Resp B/P B/P Pulse O2 O2 Flow FiO2 Mean Ox Delivery Rate 07/28 0915 88 120/70 07/28 0800 98.2 88 20 120/70 97 Room Air 07/28 0000 Room Air 07/28 0000 96.8 83 20 120/60 Room Air 07/27 2200 97.3 80 18 128/80 07/27 1600 97.6 79 18 110/66 96 Room Air Intake & Output 07/28 1600 07/28 0800 07/28 0000 07/27 1600 07/27 0800 07/27 0000 Intake Total 021 101 0437 490 Output Total 300 1400 Balance -200 900 200 490 Intake, IV 700 1600 10 Intake, Oral 100 200 480 Number 0 Bowel Movements Output, Urine 300 1400 Patient 198 lb Weight Weight Bed scale Measurement Method Physical Exam: General Appearance Alert, Oriented X3, Cooperative, No Acute Distress Skin normal HEENT Atraumatic, PERRLA Neck Supple, No JVD, carotids normal bilaterally Cardiovascular Regular Rate, normal S1, S2. 1/6 systolic murmur Lungs Clear to Auscultationand percussion bilaterally Abdomen Normal Bowel Sounds, Soft, No Tenderness Neurological Normal Speech, Strength at 5/5 X4 Ext Extremities postop findings noted Current Medications: Current Medications Sig/Marty Start time Last Medication Dose Route Stop Time Status Admin Acetaminophen 650 MG Q6P PRN 07/26 1815 AC PO Ampicillin Sodium/ 1,500 MG Q6 07/28 1200 AC Sulbactam Sodium IV Sodium Chloride 100 ML Aspirin 81 MG DAILY 07/28 1000 AC 07/28 PO 0915 Aspirin 81 MG DAILY 07/27 0515 DC 07/27 PO 0518 Atorvastatin Calcium 80 MG 1700 07/27 0515 AC 07/27 PO 0518 Clopidogrel Bisulfate 75 MG 2200 07/28 2199 AC PO Clopidogrel Bisulfate 75 MG DAILY 07/27 2199 DC 07/27 PO 2218 Dextrose/Sodium 1,000 ML .[id number] 07/27 0000 DC 07/27 Chloride IV 1308 Duloxetine HCl 60 MG DAILY 07/26 1853 AC 07/28 PO 0915 Enoxaparin Sodium 40 MG DAILY 07/28 1121 AC SC Fentanyl Citrate 100 MCG .STK-MED ONE 07/27 1940 DC 07/27 1941 Hydromorphone HCl 0.4 MG Q8 PRN 07/28 1215 AC 07/28 IV 1216 Hydromorphone HCl 2 MG .STK-MED ONE 07/27 2116 DC IM 07/27 2117 Hydromorphone HCl 2 MG .STK-MED ONE 07/27 2110 DC IM 07/27 211 Insulin Aspart 0 TIDAC 07/28 0800 CAN SC Insulin Aspart 0 TIDAC/HS 07/28 0800 AC 07/28 SC 1201 Insulin Aspart 0 Q4 07/27 1400 DC 07/27 SC 1555 Insulin Detemir 24 UNITS DAILY 07/26 1813 AC 07/28 SC 0915 Insulin Human Regular 0 Q4 07/27 1400 CAN SC Insulin Human Regular 0 Q6 07/26 2359 DC 07/27 SC 1154 Lidocaine 20 ML .STK-MED ONE 07/27 1422 DC IA 07/27 1423 Magnesium Oxide 400 MG ONE ONE 07/28 1030 DC 07/28 PO 07/28 1031 1031 Magnesium Oxide 400 MG ONE ONE 07/27 1345 DC 07/27 PO 07/27 1346 1548 Metoprolol Succinate 25 MG DAILY 07/28 1000 AC 07/28 PO 0915 Midazolam HCl 2 MG .STK-MED ONE 07/27 1941 DC IM 07/27 1942 Morphine Sulfate 4 MG Q8P PRN 07/28 1030 DC IV Morphine Sulfate 2 MG ONCE ONE 07/28 1030 DC 07/28 IV 07/28 1031 1030 Morphine Sulfate 10 MG .STK-MED ONE 07/27 2336 DC IM 07/27 2337 Morphine Sulfate 2 MG Q8P PRN 07/26 1945 DC 07/28 IV 0755 Oxycodone/ 1 TAB Q6P PRN 07/26 1815 AC 07/28 Acetaminophen PO 0915 Pregabalin 100 MG BID 07/26 2200 AC 07/28 PO 0916 Results Last 48 Hrs of Labs/Mics: Laboratory Tests 07/28/17 0345: Anion Gap 12, Estimated GFR > 60, BUN/Creatinine Ratio 20.0, Magnesium 1.8, Troponin I Pending, CBC w Diff NO MAN DIFF REQ, RBC 3.84 L, MCV 88.3, MCH 29.8, MCHC 33.8, RDW 13.7, MPV 9.5, Gran % 75.7 H, Lymphocytes % 15.7 L, Monocytes % 7.1, Eosinophils % 1.2, Basophils % 0.3, Absolute Granulocytes 7.2 H, Absolute Lymphocytes 1.5, Absolute Monocytes 0.7 H, Absolute Eosinophils 0.1, Absolute Basophils 0 07/27/17 1059: Troponin I 0.25 *H 07/27/17 0518: Anion Gap 11, Estimated GFR > 60, BUN/Creatinine Ratio 20.0, Hemoglobin A1c 8.8 H, Magnesium 1.7, Troponin I 0.27 *H, TSH 0.832, Free T4 1.11 07/27/17 0518: Sodium Cancelled, Potassium Cancelled, Chloride Cancelled, Carbon Dioxide Cancelled, Anion Gap Cancelled, BUN Cancelled, Creatinine Cancelled, BUN/ Creatinine Ratio Cancelled, Troponin I Cancelled, PT 12.5, INR 1.19 H, CBC w Diff NO MAN DIFF REQ, RBC 3.93 L, MCV 87.7, MCH 29.5, MCHC 33.6, RDW 13.7, MPV 9.2, Gran % 69.8, Lymphocytes % 17.7 L, Monocytes % 11.2 H, Eosinophils % 1.0, Basophils % 0.3, Absolute Granulocytes 5.9, Absolute Lymphocytes 1.5, Absolute Monocytes 1.0 H, Absolute Eosinophils 0.1, Absolute Basophils 0 07/26/17 2005: Lactic Acid 1.0 07/26/17 1721: Lactic Acid 1.3, ESR Westergren 80 H 07/26/17 1355: Anion Gap 17 H, Estimated GFR > 60, BUN/Creatinine Ratio 18.9, Glucose 163 H, Calcium 10.0, Total Bilirubin 0.6, AST 16 L, ALT 20 L, Alkaline Phosphatase 94 , Troponin I 0.28 *H, C-Reactive Prot, Quant > 9.0 H, Total Protein 8.3 H, Albumin 4.4, Globulin 3.9, Albumin/Globulin Ratio 1.1, CBC w Diff NO MAN DIFF REQ, RBC 4.51 L, MCV 88.0, MCH 29.9, MCHC 34.0, RDW 13.8, MPV 9.4, Gran % 80.8 H, Lymphocytes % 12.4 L, Monocytes % 6.0, Eosinophils % 0.3, Basophils % 0.5, Absolute Granulocytes 11.1 H, Absolute Lymphocytes 1.7, Absolute Monocytes 0.8 H, Absolute Eosinophils 0, Absolute Basophils 0.1 Assessment/Plan Assessment/Plan Assessment: 1. Day #1 postop 2. History of coronary artery disease, status post coronary stenting in the distant past 3. Peripheral Rishi disease 4. Diabetes 5. Minimally elevated troponin Accommodations: -Continue current medication regimen -Recheck EKG today to rule out interval change postoperatively -The patient remained stable clinically. If the EKG is unchanged, the patient can be transferred out of the ICU as desired. --the patient will eventually need outpatient follow-up with cardiology. Continue telemetry? No
--- NOTE | 2017-07-28 14:22 | RADIOLOGY REPORT ---
EXAMINATION: XR FOOT, RIGHT CLINICAL INFORMATION: Osteomyelitis, baseline postop image. COMPARISON: Preop image dated 07/26/2017. TECHNIQUE: AP, lateral, and oblique views of the right foot. FINDINGS: Postoperative changes are present with multiple surgical alexei present within the soft tissues in the lateral aspect of the right foot. There has been interval resection of the fourth digit compared to the previous study. Gas within the subcutaneous soft tissues is consistent with the postoperative state. The remaining [place] bony structures do not show any cortical destructive changes. Incidental note is made of bulky calcaneal osteophytes. Generalized mild dorsal soft tissue swelling is present. IMPRESSION: Postoperative changes in the right foot, status post fourth digit resection.
--- NOTE | 2017-07-28 15:14 | Event Note ---
Event Note Event Note: DISCUSSED WITH over the phone, send the ekg picture in complaince with [employer] no pt information was sent he doesnot believe the pt requires tele monitoring there is some peaking of t waves in V2 as per dr. Hurley not concerning as only in 1 lead and not changed as much from previous, Trops trended down to 0.21 Pt is stale for gen med and will be transferred as soon as beds become available as per cardio reccs
[2017-07-28 16:00] VITALS: BP 118/70
[2017-07-28 23:42] VITALS: BP 112/68
[2017-07-29 06:10] LABS: ABSOLUTE BASOPHIL COUNT 0 /CUMM (0.0-0.2); ABSOLUTE EOSINOPHIL COUNT 0.1 /CUMM (0.0-0.7); ABSOLUTE GRANULOCYTE CT 7.3 /CUMM (1.4-6.5); ABSOLUTE LYMPH COUNT 1.4 /CUMM (1.2-3.4); ABSOLUTE MONOCYTE COUNT 0.9 /CUMM (0.10-0.60); BASOPHIL % 0.3 % (0.0-2.0); EOSINOPHIL % 1.1 % (0-5); GRANULOCYTE % 74.6 % (42.2-75.2); HEMATOCRIT 32.8 % (42-52); MEAN CORPUSCULAR HGB 29.2 PG (27.0-31.0); MEAN CORPUSCULAR VOLUME 88.5 FL (80.0-94.0); MEAN PLATELET VOLUME 9.4 FL (7.4-10.4); PLATELET COUNT 240 /CUMM (130-400); RBC DISTRIBUTION WIDTH 13.6 % (11.5-14.5); RED BLOOD CELL CT 3.71 /CUMM (4.70-6.10); WHITE BLOOD CELL COUNT 9.7 /CUMM (4.8-10.8)
--- NOTE | 2017-07-29 07:31 | PN- Housestaff ---
Marco SIMONS,[facility] 07/29/17 0709: Subjective Follow-up For: Elevated troponins R foot osteomyelitis s/p 4th MCP amputation Hx of Diabetes & DM Neuropathy Hx of PVD s/p Stent/balloon, CAD/MT s/p stents, Complaints: pain scale (0-10) Subjective: The patient seen and examined resting comfortably. Offers no complaints except on pain 5 out of 10 much better controlled than before patient's pain medications were changed yesterday 4mg IV morphine Q8 was switched to 0.4 mg of IV Dilaudid Q6. Denies fevers chills, chest pain, palpitations, shortness of breath and urinary symptoms. Review of Systems Constitutional: Reports: see HPI. Objective Last 24 Hrs of Vital Signs/I&O Vital Signs Date Time Temp Pulse Resp B/P B/P Pulse O2 O2 Flow FiO2 Mean Ox Delivery Rate 07/29 0800 98.6 76 20 110/60 97 Room Air 07/28 2342 97.7 88 18 112/68 94 Room Air 07/28 1600 100.2 90 20 118/70 96 Room Air 07/28 0915 88 120/70 Intake & Output 07/29 1600 07/29 0800 07/29 0000 Intake Total 930 680 Output Total 750 275 Balance 180 405 Intake, IV 130 0 Intake, Oral 800 680 Number 0 Bowel Movements Output, Urine 750 275 Physical Exam General Appearance: Alert, Oriented X3, Cooperative HEENT: Atraumatic Neck: Supple, No JVD Cardiovascular: Normal S1, Normal S2 Lungs: Clear to Auscultation, Normal Air Movement Abdomen: Normal Bowel Sounds, Soft, No Tenderness Neurological: Normal Speech Extremities: R foot dressing intact Current Medications: Current Medications Sig/Marty Start time Last Medication Dose Route Stop Time Status Admin Acetaminophen 650 MG Q6P PRN 07/26 1815 AC PO Ampicillin Sodium/ 1,500 MG Q6 07/28 1200 AC 07/29 Sulbactam Sodium IV 0553 Sodium Chloride 100 ML Aspirin 81 MG DAILY 07/28 1000 AC 07/28 PO 0915 Atorvastatin Calcium 80 MG 1700 07/27 0515 AC 07/28 PO 1611 Clopidogrel Bisulfate 75 MG 2200 07/28 2200 AC 07/28 PO 2131 Clopidogrel Bisulfate 75 MG DAILY 07/27 2200 DC 07/27 PO 2218 Duloxetine HCl 60 MG DAILY 07/26 1853 AC 07/28 PO 0915 Enoxaparin Sodium 40 MG DAILY 07/28 1121 07/28 SC 1308 Hydromorphone HCl 0.4 MG Q6P PRN 07/28 1606 07/29 IV 0644 Hydromorphone HCl 0.4 MG Q8 PRN 07/28 1215 DC 07/28 IV 1216 Insulin Aspart 0 TIDAC/HS 07/28 0800 AC 07/29 SC 0757 Insulin Detemir 24 UNITS DAILY 07/26 1813 07/28 SC 0915 Magnesium Oxide 400 MG ONE ONE 07/28 1030 DC 07/28 PO 07/28 1031 1031 Metoprolol Succinate 25 MG DAILY 07/28 1000 AC 07/28 PO 0915 Morphine Sulfate 4 MG Q8P PRN 07/28 1030 DC IV Morphine Sulfate 2 MG ONCE ONE 07/28 1030 DC 07/28 IV 07/28 1031 1030 Morphine Sulfate 2 MG Q8P PRN 07/26 1945 DC 07/28 IV 0755 Nicotine 14 MG DAILY 07/28 2015 07/28 TOP 2129 Oxycodone/ 2 TAB Q4 PRN 07/28 1606 07/29 Acetaminophen PO 0513 Oxycodone/ 1 TAB Q6P PRN 07/26 1815 NH 07/28 Acetaminophen PO 0915 Pregabalin 100 MG BID 07/26 2200 07/28 PO 2130 Last 24 Hrs of Lab/Jose A Results Last 24 Hrs of Labs/Mics: Laboratory Tests 07/29/17 0512: Anion Gap 12, Estimated GFR > 60, BUN/Creatinine Ratio 21.3, CBC w Diff NO MAN DIFF REQ, RBC 3.71 L, MCV 88.5, MCH 29.2, MCHC 33.0, RDW 13.6, MPV 9.4, Gran % 74.6, Lymphocytes % 14.5 L, Monocytes % 9.5 H, Eosinophils % 1.1, Basophils % 0.3, Absolute Granulocytes 7.3 H, Absolute Lymphocytes 1.4, Absolute Monocytes 0.9 H, Absolute Eosinophils 0.1, Absolute Basophils 0 Assessment/Plan Assessment: Mr. Claros is a 51-year-old male w/ PMH of DM on insulin, DM neuropathy on lyrica, CAD/MT/PVD s/p 2 stents in 2009 on ASA 81, hx of PVD on Plavix, hx of renal abscess complicated by MSSA bacteremia (2016), was sent in to ER by Dr. Berrios for further evaluation of pain and redness to his right foot wound from partial metatasal amputation back in 04/[address] Berrios. Since his amputation patient received a total of 6-week of Unasyn outpatient with regular woundcare clinic f/u with wound VAC and hyperbaric treatment. During this 6-weeks, patient was complicated with incidental finding of RLE "arterial clog" which he underwent stent + balloon in Dr. Jimenez's office, and was started on Plavix. The patient was transferred to ICU as telemetry hold in setting of demand ischemia. Since then he has been downgraded to general medicine floor as per cardiology recommendations. He remains in ICU as gen [facility] hold and is being treated and evaluated for following conditions #Suspected R foot osteomyelitis in setting of chronic nonhealing ulcer with possible involvement of base of fourth metatarsal Status post excisional debridement of fourth metatarsal. Post op Day 2 He has history of Recent osteomyelitis s/p revisional partial fifth ray resection of right foot s/p Wound Vac and hyperbaric therapy. Patient was afebrile, but slightly tachycardic on presentation, leukocytosis 13.7, ESR of 80 with granulocyte percent of 80.1, CRP more than 9, lactic acid 1.3 in the ED. His Right foot x-ray showed abnormal soft tissue swelling on the lateral aspect of proximal foot, but osteomyelitis could not be entirely excluded. He was taken to or by Dr. Berrios and is status post excisional debridement of fourth metatarsal -Monitoring patient's fever and WBC curve, he remains afebrile without any white count and there is no growth on blood culture so far. -Bone cultures pending, prelim report theobroth positive for GNR and staph -Baseline postoperative right foot x-ray significant for Postoperative changes in the right foot, status post fourth digit resection. -Pt is on Unasyn 1.5 every 6h given the presence of necrosis noticed at time of amputation for a residual soft tissue infection. -ID on board -Pain management with Percocet and IV Dilaudid as needed #Type II MT Patient was found to have troponin 0.28 on the lab add-on sample was drawn at 2 PM. Subsequently pt was transfered from Gen Med floor to ICU as TeleHold. However EKG did not show any changes and patient did not complain of chest pain. Likely secondary to ischemia because of demand supply mismatch. Troponin 0.28> 0.27>0.24>0.21 -Echocardiogram WNL -Pt was evaluated by cardiology and was declared to have mildly elevated but acceptable cardiac risk for surgery. -Aspirin and Plavix initially held were restarted after surgery. -Patient has also been started on Toprol-XL 25 mg daily for cardiac protection given the history of CAD. -Patient is stable for general medicine floor from cardiac perspective. #Peripheral vascular disease s/p stent on plavix Of note patient also has severe peripheral vascular disease (CTA done in Apr 2017) and underwent balloon angioplasty with stent placement to right lower extremity by Dr. Jimenez and is currently on plavix for that. -Aspirin and Plavix have been restarted after surgery # History of CAD s/p stent Patient was started on low dose metoprolol for coronary artery disease which he has not been compliant with. -Continue Aspirin, Plavix, metoprolol #Type 2 diabetes mellitus on insulin uncontrolled -Accu-Chek insulin sliding scale oral anti-glycemic agents on hold -HbA1c 8.8 -Last fingersticks 161, 106, 113 and 172.h -Endo on board sliding scale adjusted as per the recommendations. -Continue pregabalin -Levemir 24 units daily #Drop in H&H H/H creeping down to from -Continue to monitor H&H -Guacic all stools #History of smoking -Smoking cessation counseling and nicotine patch Consistent carbohydrate diet/DVT prophylaxis alps Lovenox/ Problem List: 1. Osteomyelitis of right foot Pain Ratin Pain Location: R foot Pain Goal: Pain 4 or less Pain Plan: prn Tomorrow's Labs & Rationales: mady Keating MD,Apryl 07/29/17 1204: Attending MD Review Statement Attending Statement Attending MD Statement: examined this patient, discuss w/resident/PA/PRESS MACHINE FEEDER, agreed w/resident/PA/PRESS MACHINE FEEDER, reviewed EMR data (avail), discussed with nursing, discussed with case mgmt, reviewed images, amended to note Attending Assessment/Plan: Patient seen and examined, denies any complaints. Pain is better controlled with Dilaudid. OR cultures growing gram-negative rods and staph aureus. Vital Signs Date Time Temp Pulse Resp B/P B/P Pulse O2 O2 Flow FiO2 Mean Ox Delivery Rate 07/29 0951 80 126/62 07/29 0800 98.6 76 20 110/60 97 Room Air 07/28 2342 97.7 88 18 112/68 94 Room Air 07/28 1600 100.2 90 20 118/70 96 Room Air on exam; aox3, nad. cv; s1,s2, rrr resp; clear abd; soft, nt, bs+ ext: right foot wrapped in CHARLI warp Laboratory Tests 07/29 0512 Chemistry Sodium (137 - 145 mmol/L) 137 Potassium (3.5 - 5.1 mmol/L) 4.3 Chloride (98 - 107 mmol/L) 101 Carbon Dioxide (22 - 30 mmol/L) 25 Anion Gap (5 - 16) 12 BUN (9 - 20 mg/dL) 17 Creatinine (0.7 - 1.2 mg/dL) 0.8 Estimated GFR (>60 ml/min) > 60 BUN/Creatinine Ratio (7 - 25 %) 21.3 Hematology CBC w Diff NO MAN DIFF REQ WBC (4.8 - 10.8 /CUMM) 9.7 RBC (4.70 - 6.10 /CUMM) 3.71 L Hgb (14.0 - 18.0 G/DL) 10.8 L Hct (42 - 52 %) 32.8 L MCV (80.0 - 94.0 FL) 88.5 MCH (27.0 - 31.0 PG) 29.2 MCHC (33.0 - 37.0 G/DL) 33.0 RDW (11.5 - 14.5 %) 13.6 Plt Count (130 - 400 /CUMM) 240 MPV (7.4 - 10.4 FL) 9.4 Gran % (42.2 - 75.2 %) 74.6 Lymphocytes % (20.5 - 51.1 %) 14.5 L Monocytes % (1.7 - 9.3 %) 9.5 H Eosinophils % (0 - 5 %) 1.1 Basophils % (0.0 - 2.0 %) 0.3 Absolute Granulocytes (1.4 - 6.5 /CUMM) 7.3 H Absolute Lymphocytes (1.2 - 3.4 /CUMM) 1.4 Absolute Monocytes (0.10 - 0.60 /CUMM) 0.9 H Absolute Eosinophils (0.0 - 0.7 /CUMM) 0.1 Absolute Basophils (0.0 - 0.2 /CUMM) 0 A/P: 51 y/o M with pmh sig for DM on insulin, DM neuropathy on lyrica, CAD/MT/ PVD s/p 2 stents in 2009 on ASA 81, hx of PVD on Plavix, hx of renal abscess complicated by MSSA bacteremia (2016), admitted with right foot open wound which is nonhealing. [place] has osteomyelitis. Patient is status post debridement of the right foot performed as well as excision of the fourth ray POD # 2 today. Patient with positive troponins likely secondary to demand ischemia. Seen by cardiology and has been downgraded to general medicine floor. Patient has been started on IV Unasyn per infectious disease. Further antibiotics management will be per infectious disease. Pain is well controlled. Continue the rest of the management. DVT px: Lovenox. Please discuss with infectious disease about the duration of ID and a possibility of getting a PICC line if needed. Patient will be transferred to general medicine floor when bed available.
[2017-07-29 08:00] VITALS: BP 110/60
--- NOTE | 2017-07-29 08:20 | PN- Diabetes ---
Assessment/Plan Diabetes Assessment: Patient is a 51-year-old male with past medical history significant for uncontrolled diabetes type 2, history of diabetic neuropathy, CAD status post DE s/p stents placement, history of renal abscess complicated by MSSA bacteremia ( 2016), non healing ulcer of the right fifth MCP s/p amputation, was admitted nonhealing right foot infection and he underwent surgical procedure on 2017. He is on Levemir 24 units daily, Novolog coverage before meals and Novolog coverage at bedtime. His FSGs were 161, 106, 113 and 172. Plan: continue the current insulin regimen for now; monitor FSGs. will follow. Subjective Subjective: He feels okay this morning. Objective Last 24 Hrs of Vital Signs/I&O Vital Signs Date Time Temp Pulse Resp B/P B/P Pulse O2 O2 Flow FiO2 Mean Ox Delivery Rate 07/28 2342 97.7 88 18 112/68 94 Room Air 07/28 1600 100.2 90 20 118/70 96 Room Air 07/28 0915 88 120/70 Intake & Output 07/29 1600 07/29 0800 07/29 0000 Intake Total 930 680 Output Total 750 275 Balance 180 405 Intake, IV 130 0 Intake, Oral 800 680 Number 0 Bowel Movements Output, Urine 750 275 Findings Pertinent Lab/Jose A Results: Laboratory Tests 07/29 0512 Chemistry Sodium (137 - 145 mmol/L) 137 Potassium (3.5 - 5.1 mmol/L) 4.3 Chloride (98 - 107 mmol/L) 101 Carbon Dioxide (22 - 30 mmol/L) 25 Anion Gap (5 - 16) 12 BUN (9 - 20 mg/dL) 17 Creatinine (0.7 - 1.2 mg/dL) 0.8 Estimated GFR (>60 ml/min) > 60 BUN/Creatinine Ratio (7 - 25 %) 21.3 Hematology CBC w Diff NO MAN DIFF REQ WBC (4.8 - 10.8 /CUMM) 9.7 RBC (4.70 - 6.10 /CUMM) 3.71 L Hgb (14.0 - 18.0 G/DL) 10.8 L Hct (42 - 52 %) 32.8 L MCV (80.0 - 94.0 FL) 88.5 MCH (27.0 - 31.0 PG) 29.2 MCHC (33.0 - 37.0 G/DL) 33.0 RDW (11.5 - 14.5 %) 13.6 Plt Count (130 - 400 /CUMM) 240 MPV (7.4 - 10.4 FL) 9.4 Gran % (42.2 - 75.2 %) 74.6 Lymphocytes % (20.5 - 51.1 %) 14.5 L Monocytes % (1.7 - 9.3 %) 9.5 H Eosinophils % (0 - 5 %) 1.1 Basophils % (0.0 - 2.0 %) 0.3 Absolute Granulocytes (1.4 - 6.5 /CUMM) 7.3 H Absolute Lymphocytes (1.2 - 3.4 /CUMM) 1.4 Absolute Monocytes (0.10 - 0.60 /CUMM) 0.9 H Absolute Eosinophils (0.0 - 0.7 /CUMM) 0.1 Absolute Basophils (0.0 - 0.2 /CUMM) 0
--- NOTE | 2017-07-29 10:27 | PN- Cardiology ---
Subjective Subjective: Doing well status post surgery. No chest pain. No palpitations. No shortness of breath. No diaphoresis. No lightheadedness or dizziness. Objective Vital Signs and I&Os Vital Signs Date Time Temp Pulse Resp B/P B/P Pulse O2 O2 Flow FiO2 Mean Ox Delivery Rate 07/29 0951 80 126/62 07/29 0800 98.6 76 20 110/60 97 Room Air 07/28 2342 97.7 88 18 112/68 94 Room Air 07/28 1600 100.2 90 20 118/70 96 Room Air Intake & Output 07/29 1600 07/29 0800 07/29 0000 07/28 1600 07/28 0800 07/28 0000 Intake Total 930 680 710 100 900 Output Total 600 750 275 800 300 Balance -600 180 405 -90 -200 900 Intake, IV 130 0 150 700 Intake, Oral 800 680 560 100 200 Number 0 0 Bowel Movements Output, Urine 600 750 275 800 300 Patient 198 lb Weight Physical Exam: Gen: The patient is in no acute distress HEENT: Normal nose, ears, and oropharynx. Pupils equal bilaterally. Conjunctiva normal. Neck: Supple with no JVD, no masses, and no thyromegaly Lungs: Clear to auscultation with normal respiratory effort Heart: RRR, S1, S2, 1/6 systolic murmur. No peripheral edema, 2+ pulses in the lower extremities bilaterally Abdomen: Soft, nontender, no masses. No hepatomegaly. No splenomegaly Extremities: No clubbing or cyanosis. Normal muscle strength in the upper and lower extremities. Right lower extremity dressing is intact. Skin: Normal skin turgor with no skin ulcers or lesions noted. Neuro: Cranial nerves intact. Sensation intact Current Medications: Current Medications Sig/Marty Start time Last Medication Dose Route Stop Time Status Admin Acetaminophen 650 MG Q6P PRN 07/26 1815 AC PO Ampicillin Sodium/ 1,500 MG Q6 07/28 1200 AC 07/29 Sulbactam Sodium IV 0553 Sodium Chloride 100 ML Aspirin 81 MG DAILY 07/28 1000 AC 07/29 PO 0951 Atorvastatin Calcium 80 MG 1700 07/27 0515 AC 07/28 PO 1611 Clopidogrel Bisulfate 75 MG 2200 07/28 2200 AC 07/28 PO 2131 Clopidogrel Bisulfate 75 MG DAILY 07/27 2200 DC 07/27 PO 2218 Duloxetine HCl 60 MG DAILY 07/26 1853 AC 07/29 PO 0951 Enoxaparin Sodium 40 MG DAILY 07/28 1121 AC 07/29 SC 0951 Hydromorphone HCl 0.4 MG Q6P PRN 07/28 1606 AC 07/29 IV 0644 Hydromorphone HCl 0.4 MG Q8 PRN 07/28 1215 DC 07/28 IV 1216 Insulin Aspart 0 TIDAC/HS 07/28 0800 AC 07/29 SC 0757 Insulin Detemir 24 UNITS DAILY 07/26 1813 07/29 SC 0958 Magnesium Oxide 400 MG ONE ONE 07/28 1030 DC 07/28 PO 07/28 1031 1031 Metoprolol Succinate 25 MG DAILY 07/28 1000 AC 07/29 PO 0951 Morphine Sulfate 4 MG Q8P PRN 07/28 1030 DC IV Morphine Sulfate 2 MG ONCE ONE 07/28 1030 DC 07/28 IV 07/28 1031 1030 Morphine Sulfate 2 MG Q8P PRN 07/26 1945 DC 07/28 IV 0755 Nicotine 14 MG DAILY 07/28 2015 07/29 TOP 0951 Oxycodone/ 2 TAB Q4 PRN 07/28 1606 07/29 Acetaminophen PO 0951 Oxycodone/ 1 TAB Q6P PRN 07/26 1815 DC 07/28 Acetaminophen PO 0915 Polyethylene Glycol 17 GM DAILY 07/29 1000 AC 07/29 PO 1015 Pregabalin 100 MG BID 07/26 2200 AC 07/29 PO 0950 Senna/Docusate Sodium 1 TAB BID 07/29 1000 AC 07/29 PO 1016 Results Last 48 Hrs of Labs/Mics: Laboratory Tests 07/29/17 0512: Anion Gap 12, Estimated GFR > 60, BUN/Creatinine Ratio 21.3, CBC w Diff NO MAN DIFF REQ, RBC 3.71 L, MCV 88.5, MCH 29.2, MCHC 33.0, RDW 13.6, MPV 9.4, Gran % 74.6, Lymphocytes % 14.5 L, Monocytes % 9.5 H, Eosinophils % 1.1, Basophils % 0.3, Absolute Granulocytes 7.3 H, Absolute Lymphocytes 1.4, Absolute Monocytes 0.9 H, Absolute Eosinophils 0.1, Absolute Basophils 0 07/28/17 0345: Anion Gap 12, Estimated GFR > 60, BUN/Creatinine Ratio 20.0, Magnesium 1.8, Troponin I 0.21 *H, CBC w Diff NO MAN DIFF REQ, RBC 3.84 L, MCV 88.3, MCH 29.8, MCHC 33.8, RDW 13.7, MPV 9.5, Gran % 75.7 H, Lymphocytes % 15.7 L, Monocytes % 7.1, Eosinophils % 1.2, Basophils % 0.3, Absolute Granulocytes 7.2 H, Absolute Lymphocytes 1.5, Absolute Monocytes 0.7 H, Absolute Eosinophils 0.1, Absolute Basophils 0 07/27/17 1059: Troponin I 0.25 *H Recent Imaging Studies: EKG 07/28/17: Normal sinus rhythm at 86, left anterior fascicular block, nonspecific T-wave abnormality Assessment/Plan Assessment/Plan Assessment: 1. Day #2 postop 2. History of coronary artery disease, status post coronary stenting in the distant past 3. Peripheral arterial disease 4. Diabetes 5. Minimally elevated troponin, trending downward Plan: * Continue current cardiac medications. * Stable for transfer to general medical floor from cardiac standpoint. Continue telemetry? No
--- NOTE | 2017-07-29 10:57 | PN- Infect Dx ---
Subjective Subjective: MAXIMUM TEMPERATURE 100.2. He still notes some discomfort in the right foot. Objective Last 24 Hrs of Vital Signs/I&O Vital Signs Date Time Temp Pulse Resp B/P B/P Pulse O2 O2 Flow FiO2 Mean Ox Delivery Rate 07/29 0951 80 126/62 07/29 0800 98.6 76 20 110/60 97 Room Air 07/28 2342 97.7 88 18 112/68 94 Room Air 07/28 1600 100.2 90 20 118/70 96 Room Air Intake & Output 07/29 1600 07/29 0800 07/29 0000 Intake Total 930 680 Output Total 600 750 275 Balance -600 180 405 Intake, IV 130 0 Intake, Oral 800 680 Number 0 Bowel Movements Output, Urine 600 750 275 Patient 198 lb Weight Physical Exam Other Physical Findings: He appears comfortable in no acute distress Lungs crackles at the right base Heart regular rhythm with no murmur Extremities right foot dressing intact Results Last 24 Hours of Lab Results: Laboratory Tests 07/29 0512 Chemistry Sodium (137 - 145 mmol/L) 137 Potassium (3.5 - 5.1 mmol/L) 4.3 Chloride (98 - 107 mmol/L) 101 Carbon Dioxide (22 - 30 mmol/L) 25 Anion Gap (5 - 16) 12 BUN (9 - 20 mg/dL) 17 Creatinine (0.7 - 1.2 mg/dL) 0.8 Estimated GFR (>60 ml/min) > 60 BUN/Creatinine Ratio (7 - 25 %) 21.3 Hematology CBC w Diff NO MAN DIFF REQ WBC (4.8 - 10.8 /CUMM) 9.7 RBC (4.70 - 6.10 /CUMM) 3.71 L Hgb (14.0 - 18.0 G/DL) 10.8 L Hct (42 - 52 %) 32.8 L MCV (80.0 - 94.0 FL) 88.5 MCH (27.0 - 31.0 PG) 29.2 MCHC (33.0 - 37.0 G/DL) 33.0 RDW (11.5 - 14.5 %) 13.6 Plt Count (130 - 400 /CUMM) 240 MPV (7.4 - 10.4 FL) 9.4 Gran % (42.2 - 75.2 %) 74.6 Lymphocytes % (20.5 - 51.1 %) 14.5 L Monocytes % (1.7 - 9.3 %) 9.5 H Eosinophils % (0 - 5 %) 1.1 Basophils % (0.0 - 2.0 %) 0.3 Absolute Granulocytes (1.4 - 6.5 /CUMM) 7.3 H Absolute Lymphocytes (1.2 - 3.4 /CUMM) 1.4 Absolute Monocytes (0.10 - 0.60 /CUMM) 0.9 H Absolute Eosinophils (0.0 - 0.7 /CUMM) 0.1 Absolute Basophils (0.0 - 0.2 /CUMM) 0 Last 24 Hours of Jose A Results: OR culture July 27 labeled right foot bone positive for Staph aureus and gram-negative rods Blood cultures 2 July 26 negative Recent Imaging Studies: X-ray of the right foot July 28 reveals postop changes in the right foot status post fourth digit resection Assessment/Plan ID Impression: Stable, with a low-grade fever yesterday but with white blood cell count remaining normal, status post excision of the right fourth ray for residual osteomyelitis 2 days ago, with closure of his wound. He is now on Unasyn for possible residual soft tissue infection, with no residual bone felt to be present per Podiatry. His OR culture is growing multiple organisms and he can be continued on Unasyn pending final cultures. Suggestion: 1. Follow-up final OR cultures 2. Continue Unasyn pending above
[2017-07-29 16:00] VITALS: BP 110/60
[2017-07-30] VITALS: BP 108/20
[2017-07-30 05:35] LABS: ABSOLUTE BASOPHIL COUNT 0 /CUMM (0.0-0.2); ABSOLUTE EOSINOPHIL COUNT 0.2 /CUMM (0.0-0.7); ABSOLUTE GRANULOCYTE CT 6.2 /CUMM (1.4-6.5); ABSOLUTE LYMPH COUNT 1.3 /CUMM (1.2-3.4); ABSOLUTE MONOCYTE COUNT 0.8 /CUMM (0.10-0.60); BASOPHIL % 0.5 % (0.0-2.0); EOSINOPHIL % 2.2 % (0-5); GRANULOCYTE % 72.5 % (42.2-75.2); HEMATOCRIT 31.2 % (42-52); MEAN CORPUSCULAR HGB 29.7 PG (27.0-31.0); MEAN CORPUSCULAR HGB CONC 33.7 G/DL (33.0-37.0); MEAN CORPUSCULAR VOLUME 88.2 FL (80.0-94.0); MEAN PLATELET VOLUME 9.7 FL (7.4-10.4); PLATELET COUNT 231 /CUMM (130-400); RBC DISTRIBUTION WIDTH 13.5 % (11.5-14.5); RED BLOOD CELL CT 3.53 /CUMM (4.70-6.10); WHITE BLOOD CELL COUNT 8.6 /CUMM (4.8-10.8)
--- NOTE | 2017-07-30 07:11 | PN- Housestaff ---
Marco SIMONS,Yadi 07/30/17 0711: Subjective Follow-up For: Elevated troponins R foot osteomyelitis s/p 4th MCP amputation Hx of Diabetes & DM Neuropathy Hx of PVD s/p Stent/balloon, CAD/[place] s/p stents, Complaints: pain scale (0-10) Subjective: Patient seen and examined. Resting comfortably. Denies fevers chills or urinary symptoms, chest pain, palpitations, nvd Review of Systems Constitutional: Reports: see HPI. Objective Last 24 Hrs of Vital Signs/I&O Vital Signs Date Time Temp Pulse Resp B/P B/P Pulse O2 O2 Flow FiO2 Mean Ox Delivery Rate 07/30 0800 96.3 70 18 110/60 97 Room Air 07/30 0000 85 Room Air 07/30 0000 98.2 76 18 108/20 95 Room Air 07/29 1600 97.9 74 20 110/60 99 Room Air Intake & Output 07/30 1600 07/30 0800 07/30 0000 Intake Total 400 500 Output Total 600 900 Balance -200 -400 Intake, IV 200 100 Intake, Oral 200 400 Output, Urine 600 900 Physical Exam General Appearance: Alert, Oriented X3, Cooperative Other Physical Findings: HEENT: Atraumatic Neck: Supple, No JVD Cardiovascular: Normal S1, Normal S2 Lungs: Clear to Auscultation, Normal Air Movement Abdomen: Normal Bowel Sounds, Soft, No Tenderness Neurological: Normal Speech Extremities: R foot dressing intact Current Medications: Current Medications Sig/Marty Start time Last Medication Dose Route Stop Time Status Admin Acetaminophen 650 MG Q6P PRN 07/26 1815 AC PO Ampicillin Sodium/ 1,500 MG Q6 07/28 1200 AC 07/30 Sulbactam Sodium IV 0604 Sodium Chloride 100 ML Aspirin 81 MG DAILY 07/28 1000 AC 07/29 PO 0951 Atorvastatin Calcium 80 MG 1700 07/27 0515 AC 07/29 PO 1754 Clopidogrel Bisulfate 75 MG 2200 07/28 2200 AC 07/29 PO 2136 Duloxetine HCl 60 MG DAILY 07/26 1853 AC 07/29 PO 0951 Enoxaparin Sodium 40 MG DAILY 07/28 1121 AC 07/29 SC 0951 Hydromorphone HCl 0.4 MG Q6P PRN 07/28 1606 AC 07/30 IV 0438 Influenza Virus 0.5 ML .STK-MED ONE 07/29 1003 DC Vaccine IM 07/29 1004 Insulin Aspart 0 TIDAC/HS 07/28 0800 AC 07/30 SC 0805 Insulin Detemir 24 UNITS DAILY 07/26 1813 AC 07/29 SC 0958 Metoprolol Succinate 25 MG DAILY 07/28 1000 AC 07/29 PO 0951 Nicotine 14 MG DAILY 07/28 2014 AC 07/29 TOP 0951 Oxycodone/ 2 TAB Q4 PRN 07/28 1606 AC 07/30 Acetaminophen PO 0747 Polyethylene Glycol 17 GM DAILY 07/29 1000 AC 07/29 PO 1015 Pregabalin 100 MG BID 07/26 2200 AC 07/29 PO 213 Senna/Docusate Sodium 1 TAB BID 07/29 1000 AC 07/29 PO 213 Assessment/Plan Assessment: Mr. Claros is a 51-year-old male w/ PMH of DM on insulin, DM neuropathy on lyrica, CAD/WV/PVD s/p 2 stents in 2009 on ASA 81, hx of PVD on Plavix, hx of renal abscess complicated by MSSA bacteremia (2015), was sent in to ER by Dr. Berrios for further evaluation of pain and redness to his right foot wound from partial metatasal amputation back in 04/[address] Berrios. Since his amputation patient received a total of 6-week of Unasyn outpatient with regular woundcare clinic f/u with wound VAC and hyperbaric treatment. During this 6-weeks, patient was complicated with incidental finding of RLE "arterial clog" which he underwent stent + balloon in Dr. Jimenez's office, and was started on Plavix. The patient was transferred to ICU as telemetry hold in setting of demand ischemia. Since then he has been downgraded to general medicine floor as per cardiology recommendations. He remains in ICU as gen med hold and is being treated and evaluated for following conditions #Suspected osteomyelitis secondary to Chronic nonhealing ulcer with possible involvement of base of fourth metatarsal He underwent excision and debridement of the right fourth ray for residual osteomyelitis with closure of his wound on with Dr. Berrios. He was started on Unasyn, given the presence of necrosis noticed at time of amputation. Dr. Berrios did not feel any evidence of residual osteomyelitis but he does have some evidence of residual soft tissue infection and, given his OR cultures, his antibiotics were adjusted as per ID reccs -He remained afebrile without any white count and no growth on blood culture so far. -Bone cultures positive for Ecoli, MRSA and group A strep -Baseline postoperative right foot x-ray significant for Postoperative changes in the right foot, status post fourth digit resection -Continue BactrimDS BID to finish seven-day course -Local wound care to the right foot, with Xeroform dressing, nonweightbearing status use of crutch -Outpatient follow-up with podiatry #Type II [place] Patient was found to have troponin 0.28 on the lab add-on sample was drawn at 2 PM. Subsequently pt was transfered from [facility] floor to ICU as TeleHold. However EKG did not show any changes and patient did not complain of chest pain. Likely secondary to ischemia because of demand supply mismatch. Troponin 0.28> 0.27>0.24>0.21 -Echocardiogram WNL -Pt was evaluated by cardiology and was declared to have mildly elevated but acceptable cardiac risk for surgery. -Aspirin and Plavix initially held were restarted after surgery. -Patient has also been started on Toprol-XL 25 mg daily for cardiac protection given the history of CAD. -Patient is stable for general medicine floor from cardiac perspective. #Peripheral vascular disease s/p stent on plavix Of note patient also has severe peripheral vascular disease (CTA done in Apr 2017) and underwent balloon angioplasty with stent placement to right lower extremity by Dr. Jimenez and is currently on plavix for that. -Aspirin and Plavix have been restarted after surgery # History of CAD s/p stent Patient was started on low dose metoprolol for coronary artery disease which he has not been compliant with. -Continue Aspirin, Plavix, metoprolol #Uncontrolled Type 2 diabetes mellitus on insulin -Accu-Chek insulin sliding scale oral anti-glycemic agents on hold -HbA1c 8.8 -Last fingersticks 144, 106, 85 and 140 -Endo on board sliding scale adjusted as per the recommendations. -Continue pregabalin -Levemir 24 units daily #Drop in H&H H/H creeping down to 04/06 from -Continue to monitor H&H -Guacic all stools #History of smoking -Smoking cessation counseling and nicotine patch Consistent carbohydrate diet/DVT prophylaxis alps Lovenox/FC Problem List: 1. Osteomyelitis of right foot Pain Ratin Pain Location: R foot Pain Goal: Pain 4 or less Pain Plan: prn Tomorrow's Labs & Rationales: cbc Rishabh SIMONS,Apryl 07/30/17 1212: Attending MD Review Statement Attending Statement Attending MD Statement: examined this patient, discuss w/resident/PA/WORKERS' COMPENSATION CLAIMS SUPERVISOR, agreed w/resident/PA/WORKERS' COMPENSATION CLAIMS SUPERVISOR, reviewed EMR data (avail), reviewed images, amended to note Attending Assessment/Plan: Patient seen and examined, overall doing well. Pain is well controlled. Bone culture growing Escherichia coli and MRSA. Antibiotics have been switched to by mouth Bactrim per Dr. Johnston. Blood sugars are stable. Vital signs are stable. Please have Dr. Bhagat see the patient. After seen by Dr. Ortega and if everything looks good, patient can be discharged today on oral antibiotics. Please confirm with ID about the duration of antibiotics. Continue the rest of home medications.
[2017-07-30 08:00] VITALS: BP 110/60
--- NOTE | 2017-07-30 10:35 | PN- Diabetes ---
Assessment/Plan Diabetes Assessment: Patient is a 51-year-old male with past medical history significant for uncontrolled diabetes type 2, history of diabetic neuropathy, CAD status post AR s/p stents placement, history of renal abscess complicated by MSSA bacteremia ( 2016), non healing ulcer of the right fifth MCP s/p amputation, was admitted nonhealing right foot infection and he underwent surgical procedure on 2017. He is on Levemir 24 units daily, Novolog coverage before meals and Novolog coverage at bedtime. His FSGs were 144, 106 and 85. Plan: continue the current insulin regimen for now; monitor FSGs. will follow. Subjective Subjective: He feels well. Objective Last 24 Hrs of Vital Signs/I&O Vital Signs Date Time Temp Pulse Resp B/P B/P Pulse O2 O2 Flow FiO2 Mean Ox Delivery Rate 07/30 0800 96.3 70 18 110/60 97 Room Air 07/30 0000 85 Room Air 07/30 0000 98.2 76 18 108/20 95 Room Air 07/29 1600 97.9 74 20 110/60 99 Room Air Intake & Output 07/30 1600 07/30 0800 07/30 0000 Intake Total 400 500 Output Total 600 900 Balance -200 -400 Intake, IV 200 100 Intake, Oral 200 400 Output, Urine 600 900 Findings Pertinent Lab/Jose A Results: Laboratory Tests 07/30 0435 Hematology CBC w Diff NO MAN DIFF REQ WBC (4.8 - 10.8 /CUMM) 8.6 RBC (4.70 - 6.10 /CUMM) 3.53 L Hgb (14.0 - 18.0 G/DL) 10.5 L Hct (42 - 52 %) 31.2 L MCV (80.0 - 94.0 FL) 88.2 MCH (27.0 - 31.0 PG) 29.7 MCHC (33.0 - 37.0 G/DL) 33.7 RDW (11.5 - 14.5 %) 13.5 Plt Count (130 - 400 /CUMM) 231 MPV (7.4 - 10.4 FL) 9.7 Gran % (42.2 - 75.2 %) 72.5 Lymphocytes % (20.5 - 51.1 %) 15.6 L Monocytes % (1.7 - 9.3 %) 9.2 Eosinophils % (0 - 5 %) 2.2 Basophils % (0.0 - 2.0 %) 0.5 Absolute Granulocytes (1.4 - 6.5 /CUMM) 6.2 Absolute Lymphocytes (1.2 - 3.4 /CUMM) 1.3 Absolute Monocytes (0.10 - 0.60 /CUMM) 0.8 H Absolute Eosinophils (0.0 - 0.7 /CUMM) 0.2 Absolute Basophils (0.0 - 0.2 /CUMM) 0
--- NOTE | 2017-07-30 11:34 | PN- Infect Dx ---
Subjective Subjective: Afebrile. He continues to have discomfort in the right foot. Objective Last 24 Hrs of Vital Signs/I&O Vital Signs Date Time Temp Pulse Resp B/P B/P Pulse O2 O2 Flow FiO2 Mean Ox Delivery Rate 07/30 0800 96.3 70 18 110/60 97 Room Air 07/30 0000 85 Room Air 07/30 0000 98.2 76 18 108/20 95 Room Air 07/29 1600 97.9 74 20 110/60 99 Room Air Intake & Output 07/30 1600 07/30 0800 07/30 0000 Intake Total 400 500 Output Total 600 900 Balance -200 -400 Intake, IV 200 100 Intake, Oral 200 400 Output, Urine 600 900 Physical Exam Other Physical Findings: He appears comfortable in no acute distress Extremities right foot wound with mild erythema and edema, with some necrotic skin around the incision, mildly tender to palpation Results Last 24 Hours of Lab Results: Laboratory Tests 07/30 0435 Hematology CBC w Diff NO MAN DIFF REQ WBC (4.8 - 10.8 /CUMM) 8.6 RBC (4.70 - 6.10 /CUMM) 3.53 L Hgb (14.0 - 18.0 G/DL) 10.5 L Hct (42 - 52 %) 31.2 L MCV (80.0 - 94.0 FL) 88.2 MCH (27.0 - 31.0 PG) 29.7 MCHC (33.0 - 37.0 G/DL) 33.7 RDW (11.5 - 14.5 %) 13.5 Plt Count (130 - 400 /CUMM) 231 MPV (7.4 - 10.4 FL) 9.7 Gran % (42.2 - 75.2 %) 72.5 Lymphocytes % (20.5 - 51.1 %) 15.6 L Monocytes % (1.7 - 9.3 %) 9.2 Eosinophils % (0 - 5 %) 2.2 Basophils % (0.0 - 2.0 %) 0.5 Absolute Granulocytes (1.4 - 6.5 /CUMM) 6.2 Absolute Lymphocytes (1.2 - 3.4 /CUMM) 1.3 Absolute Monocytes (0.10 - 0.60 /CUMM) 0.8 H Absolute Eosinophils (0.0 - 0.7 /CUMM) 0.2 Absolute Basophils (0.0 - 0.2 /CUMM) 0 Last 24 Hours of Jose A Results: OR culture labeled right foot bone July 27 positive for MRSA, Escherichia coli sensitive to all antibiotics and a beta-hemolytic strep Assessment/Plan ID Impression: Stable, with temperatures and white blood cell count remaining normal, on Unasyn , status post excision of the right fourth ray for residual osteomyelitis 3 days ago, with closure of his wound. There is not felt to be any residual osteomyelitis but he does have some evidence of residual soft tissue infection and, given his OR cultures, his antibiotics will need to be adjusted. Suggestion: 1. Contact isolation for MRSA 2. Local wound care to the right foot, with Xeroform dressing, per Podiatry 3. Discontinue Unasyn 4. Begin Bactrim DS 1 po every 12 hours Ana Aguilar MD will be covering until August 09
[2017-07-30] MEDS ORDERED: ATORVASTATIN CA80 M1 PO ×2 (12:18→13:55)
[2017-07-30] MEDS ORDERED: PERCOCET 5-3251 EACH PO ×7 (12:18→14:32)
[2017-07-30] MEDS ORDERED: TYLENOL325 M1 PO (12:18)
[2017-07-30] MEDS ORDERED: SULFAMETHOXAZO1 EAC1 PO ×3 (12:18→13:56)
--- NOTE | 2017-07-30 12:18 | Discharge Summary ---
Visit Information Visit Dates Admission Date: 07/26/17 Discharge Date: 07/30/17 Hospital Course Course Attending Physician: Apryl Keating MD Primary Care Physician: Elijah Quinones MD Hospital Course: Mr. Claros is a 51-year-old male w/ PMH of DM on insulin, DM neuropathy on lyrica, CAD/DC/PVD s/p 2 stents in 2009 on ASA 81, hx of PVD on Plavix, hx of renal abscess complicated by MSSA bacteremia (2015), was sent in to ER by Dr. Berrios for further evaluation of pain and redness to his right foot wound from partial metatasal amputation back in 04/[address] Berrios. Since his amputation patient received a total of 6-week of Unasyn outpatient with regular woundcare clinic f/u with wound VAC and hyperbaric treatment. During this 6-weeks, patient's course was complicated with incidental finding of RLE "arterial clog" which he underwent stent + balloon in Dr. Jimenez's office, and was started on Plavix. -Vitals on admission stable except for baseline tachycardia 90-100's. -Labs: WBC 13.7, ESR 80, AG 17, glucose 163, lactic acid 1.3, CRP > 9.0. Troponin pending. -LE doppler: no DVT. -Right foot Xray: abnormal soft tissue swelling lateral aspect proximal foot. No air within soft tissues. Osteomyelitis of base of fourth metatarsal cannot be excluded. Linear lucency in base of fourth metatarsal may represent age indeterminate stress fracture. -EKG: sinus tachycardia, LAFB, Qtc 430. Echo (2016): EF 50-55%. The patient was transferred to ICU as telemetry hold in setting of demand ischemia. Later he was downgraded to general medicine for and ended up staying in ICU because of and availability of beds. #Osteomyelitis secondary to Chronic nonhealing ulcer with possible involvement of base of fourth metatarsal s/p amputation with residual soft tissue infection He underwent excision and debridement of the right fourth ray for residual osteomyelitis with closure of his wound on 07/27/[address] Berrios. He was started on Unasyn, given the presence of necrosis noticed at time of amputation. Dr. Berrios did not feel any evidence of residual osteomyelitis after amputation but he did have some evidence of residual soft tissue infection and, given his OR cultures, his antibiotics were adjusted as per ID reccs -He remained afebrile without any white count and no growth on blood culture so far. -Bone cultures positive for Ecoli, MRSA and group A strep -Baseline postoperative right foot x-ray significant for postoperative changes in the right foot, status post fourth digit resection -Continue Bactrim DS BID to finish seven-day course -Local wound care to the right foot, with Xeroform dressing, nonweightbearing status use of crutch -Outpatient follow-up with podiatry #Type II DC Patient was found to have troponin 0.28 on the lab add-on sample of admission labs. Subsequently pt [facility] floor to ICU as TeleHold. However EKG did not show any changes and patient remained asymptomatic. Likely secondary to ischemia because of demand supply mismatch. Troponin 0.28>0.27> 0.24>0.21. Echocardiogram WNL. Pt was evaluated by cardiology before surgery and was declared to have mildly elevated but acceptable cardiac risk for surgery. -Aspirin and Plavix initially held were restarted after surgery. -Patient has also been started on Toprol-XL 25 mg daily for cardiac protection given the history of CAD. #Peripheral vascular disease s/p stent on plavix Of note patient also has severe peripheral vascular disease (CTA done in Apr 2017) and underwent balloon angioplasty with stent placement to right lower extremity by Dr. Jimenez and is currently on plavix for that. -Aspirin and Plavix have been restarted after surgery # History of CAD s/p stent Patient was started on low dose metoprolol for coronary artery disease which he has not been compliant with in the past -Continue Aspirin, Plavix, metoprolol #Type 2 diabetes mellitus on insulin HbA1c 8.8. Patient was started on a sliding scale and metformin was held. He is being discharged on metformin,revised insulin sliding scale and increased dose of Levemir to 24 units daily with instructions to follow-up with endocrinology within 1 week of discharge. #Drop in H&H He had a mild drop in H/H from 13/40 to 10.5/31 -Continue to monitor H&H outpatient #History of smoking -Please continue smoking cessation counseling. He was provided nicotine patch during his stay. He was full code during his stay He was maintained on a consistent carbohydrate diet DVT prophylaxis was achieved with ALPS and lovenox Allergies: Coded Allergies: No Known Allergies (05/17/17) Disposition Summary Disposition Principal Diagnosis: Suspected osteomyelitis secondary to Chronic nonhealing ulcer with possible involvement of base of fourth metatarsal Additional Diagnosis: Type II DC secondary to demand supply mismatch Discharge Disposition: home or self care Discharge Instructions General Discharge Information Code Status: Full Code Patient's Diet: Diabeic Patient's Activity: -Change dressing daily with Xeroform -Use crutch for walking -You are on nonweightbearing status -Keep the wound dry -Follow up with wound center for dressing Follow-Up Instructions/Appts: -please follow up with PCP after discharge -please follow up with Dr. King/ phosphatic fertilizer supervisor after discharge -Please follow-up with your channel cementer outsole machine after discharge -Please follow-up with Dr. Ortega after discharge -please [facility] with [facility] Medications at Discharge Discharge Medications: Stop taking the following medications: Insulin Aspart (Novolog) 100 UNIT/1 ML VIAL Inject into fatty tissue BEFORE MEALS AND AT BEDTIME Days = 30 Ampicillin Sodium/Sulbactam Na (Unasyn 3 Gm Vial) 3 GRAM VIAL INTRAVEN Q6H Qty = 104 Metoprolol Succinate (Metoprolol Succinate) 25 MG TAB ORAL TWICE DAILY Qty = 60 Continue taking these medications: Duloxetine HCl (Duloxetine HCl) 30 MG CAPSULE.DR 2 Capsule ORAL DAILY Qty = 180 Comments: Last Taken:07/30/17 Time: 11:30 AM Metformin HCl (Metformin HCl) 500 MG TABLET 2 Tablet ORAL TWICE DAILY Comments: DID NOT RECEIVE WHILE IN HOSPITAL Pregabalin (Lyrica) 100 MG CAPSULE 1 Capsule ORAL TWICE DAILY Comments: Last Taken:07/30/17 Time: 11:30 AM Aspirin (Aspirin*) 81 MG TAB.CHEW 1 Tablet ORAL DAILY Qty = 30 Comments: Last Taken:07/30/17 Time: 11:30 AM Clopidogrel Bisulfate (Plavix) 75 MG TABLET 1 Tablet ORAL DAILY Comments: Last Taken:07/29/17 Time: 9:30 PM Start taking the following new medications: Bismuth Tribromoph/Petrolatum (Xeroflo Gauze Dressing) 2" X 2" BANDAGE 1 Unit On the skin DIALY Qty = 10 No Refills Instructions: . Comments: Last Taken:07/30/17 Time: 1:15 PM, CHANGED BY DR INOCENTE Finch ([place]itutrhys) 1 EACH EACH 1 Unit OTHER DAILY Qty = 1 No Refills Instructions: . Insulin Aspart (Novolog) 100 UNIT/ML VIAL 0 Inject into fatty tissue BEFORE MEALS AND AT BEDTIME Qty = 1 No Refills Instructions: . Comments: Blood sugars Insulin SS Before Meals >80 none 80-150 4 units 151-200 5 units 201-250 6 units 251-300 8 units 301-350 10 units 351-400 12 units >400 14 units CAll DOCTOR Blood sugar Insulin SS bedtime >80 0 units 80-150 0 units 151-200 0 units 201-250 2 units 251-300 3 units 301-350 4 units 351-400 5 units >400 6 units Call DOCTOR Last Taken:07/30/17 Time: 12:00 PM Metoprolol Succ XL (Toprol XL) 25 MG TAB 1 Tablet ORAL DAILY Qty = 30 No Refills Instructions: . Comments: Last Taken:07/30/17 Time: 11:30 AM Atorvastatin Calcium (Atorvastatin Calcium) 80 MG TABLET 1 Tablet ORAL 5 PM Qty = 30 No Refills Instructions: . Comments: Last Taken:06/28/17 Time: 6:00 PM Sulfamethoxazole/Trimethoprim (Sulfamethoxazole-Tmp Ds Tablet) 800 MG-160 MG TABLET 1 Tablet ORAL EVERY 12 HOURS Qty = 13 No Refills Instructions: . Acetaminophen (Tylenol) 325 MG TABLET 1 Tablet ORAL EVERY SIX HOURS NEEDED as needed for PAIN SCALE 1-3 (MILD) Qty = 30 No Refills Comments: DID NOT RECEIVE WHILE IN HOSPITAL Oxycodone HCl/Acetaminophen (Percocet 5-325 MG Tablet) 5 MG-325 MG TABLET 1 Tablet ORAL EVERY 4-6 HOURS as needed for Pain Qty = 20 No Refills The following medications have been changed: Old: Insulin Detemir (Levemir) 100 UNIT/1 ML VIAL 24 Units Inject into fatty tissue DAILY Qty = 1 New: Insulin Detemir (Levemir) 100 UNIT/1 ML VIAL 24 Units Inject into fatty tissue DAILY Qty = 1 Instructions: FOLLOW UP WITH DR. KING. Comments: Last Taken:07/30/17 Time: 11:30 AM Copies To: Joni SIMONS,Elijah Rodriguez
[2017-07-30] MEDS ORDERED: NOVOLOG100 UNIT/2 SC ×2 (12:37→13:55)
[2017-07-30] MEDS ORDERED: TOPROL XL25 M1 PO ×2 (12:37→13:55)
--- NOTE | 2017-07-30 12:42 | Patient Discharge Instructions ---
Discharge Instructions General Discharge Information You were seen/treated for: Soft tissue infection You had these procedures: Status post excisional debridement of fourth metatarsal Watch for these problems: fever, chills, pain out of proportion, shortness of breath, chest pain Other wound care: -Change dressing daily with Xeroform -Use crutch for walking -You are on nonweightbearing status -Keep the wound dry -Follow up with wound center for dressing Special Instructions: -please follow up with PCP after discharge -please follow up with Dr. King/ chest painting leader after discharge -Please follow-up with your plain clothes police officer after discharge -Please follow-up with Dr. Ortega after discharge -please follow-[facility] with [facility] Diet Continue normal diet: No Recommended Diet: Diabetic Activity Full Activity/No Limits: No Activity Self Limited: Yes Activity Limited to: No weight bearing Acute Coronary Syndrome Inclusion Criteria At DC or during hospital stay patient has or had the following: ACS DIAGNOSIS No Discharge Core Measures Meds if any: Prescribed or Continued at Discharge Meds if any: NOT Prescribed or Continued at Discharge Congestive Heart Failure Inclusion Criteria At DC or during hospital stay patient has or had the following: CHF DIAGNOSIS No Discharge Core Measures Meds if any: Prescribed or Continued at Discharge Meds if any: NOT Prescribed or Continued at Discharge Cerebrovascular accident Inclusion Criteria At DC or during hospital stay patient has or had the following: CVA/TIA Diagnosis No Discharge Core Measures Meds if any: Prescribed or Continued at Discharge Meds if any: NOT Prescribed or Continued at Discharge Venous thromboembolism Inclusion Criteria VTE Diagnosis No VTE Type NONE VTE Confirmed by (Test) NONE Discharge Core Measures - Per Current guidelines, there needs to be overlap - treatment for the first 5 days of Warfarin therapy. - If discharged on Warfarin prior to 5 days of - overlap therapy, the patient will need to be - assessed for post discharge needs including - *Post discharge parental anticoagulation - *Warfarin and/or parental anticoagulation education - *Follow up date to check INR post discharge At least 5 days overlap therapy as Inpatient No Meds if any: Prescribed or Continued at Discharge Note: Overlap Therapy is Warfarin and Anticoagulant Meds if any: NOT Prescribed or Continued at Discharge
[2017-07-30] MEDS ORDERED: CRUTCH1 EACH OTHER ×2 (13:05→13:55)
[2017-07-30] MEDS ORDERED: XEROFLO GAUZE1 EAC1 TOP ×2 (13:05→13:55)
[2017-07-30] MEDS ORDERED: LEVEMIR100 UNIT/1 SC (13:55)
[2017-07-30 15:00] VITALS: BP 116/62
--- NOTE | 2017-07-30 15:47 | PN- Cardiology ---
Subjective Subjective: CLinically the patient is doing fine. NO cardiac issues since the surgical procedure Objective Vital Signs and I&Os Vital Signs Date Time Temp Pulse Resp B/P B/P Pulse O2 O2 Flow FiO2 Mean Ox Delivery Rate 07/30 1500 97.6 70 18 116/62 97 Room Air 07/30 1131 76 120/60 07/30 0800 96.3 70 18 110/60 97 Room Air 07/30 0000 85 Room Air 07/30 0000 98.2 76 18 108/20 95 Room Air 07/29 1600 97.9 74 20 110/60 99 Room Air Intake & Output 07/30 1600 07/30 0800 07/30 0000 07/29 1600 07/29 0800 07/29 0000 Intake Total 560 400 500 710 930 680 Output Total 1025 600 900 900 750 275 Balance -465 -200 -400 -190 180 405 Intake, IV 200 100 150 130 0 Intake, Oral 560 200 400 560 800 680 Number 0 Bowel Movements Output, Urine 1025 600 900 900 750 275 Patient 198 lb Weight Physical Exam: Gen: The patient is in no acute distress HEENT: Normal nose, ears, and oropharynx. Pupils equal bilaterally. Conjunctiva normal. Neck: Supple with no JVD, no masses, and no thyromegaly Lungs: Clear to auscultation with normal respiratory effort Heart: RRR, S1, S2, 1/6 systolic murmur. No peripheral edema, 2+ pulses in the lower extremities bilaterally Abdomen: Soft, nontender, no masses. No hepatomegaly. No splenomegaly Extremities: No clubbing or cyanosis. Normal muscle strength in the upper and lower extremities. Right lower extremity dressing is intact. Skin: Normal skin turgor with no skin ulcers or lesions noted. Neuro: Cranial nerves intact. Sensation intact Current Medications: Current Medications Sig/Marty Start time Last Medication Dose Route Stop Time Status Admin Acetaminophen 650 MG Q6P PRN 07/26 1815 AC PO Ampicillin Sodium/ 1,500 MG Q6 07/28 1200 DC 07/30 Sulbactam Sodium IV 0604 Sodium Chloride 100 ML Aspirin 81 MG DAILY 07/28 1000 AC 07/30 PO 1131 Atorvastatin Calcium 80 MG 1700 07/27 0515 AC 07/29 PO 1754 Clopidogrel Bisulfate 75 MG 2200 07/28 2200 AC 07/29 PO 2136 Duloxetine HCl 60 MG DAILY 07/26 1853 AC 07/30 PO 1131 Enoxaparin Sodium 40 MG DAILY 07/28 1121 AC 07/30 SC 1131 Hydromorphone HCl 0.4 MG Q6P PRN 07/28 1606 AC 07/30 IV 0438 Insulin Aspart 0 TIDAC/HS 07/28 0800 AC 07/30 SC 1200 Insulin Detemir 24 UNITS DAILY 07/26 1813 07/30 SC 1132 Metoprolol Succinate 25 MG DAILY 07/28 1000 AC 07/30 PO 1131 Nicotine 14 MG DAILY 07/28 2014 07/30 TOP 1132 Oxycodone/ 2 TAB Q4 PRN 07/28 1606 AC 07/30 Acetaminophen PO 1159 Polyethylene Glycol 17 GM DAILY 07/29 1000 AC 07/30 PO 1131 Pregabalin 100 MG BID 07/26 220 AC 07/30 PO 1131 Senna/Docusate Sodium 1 TAB BID 07/29 1000 AC 07/30 PO 1131 Trimethoprim/ 1 TAB Q12 07/30 1151 AC 07/30 Sulfamethoxazole PO 1432 Results Last 48 Hrs of Labs/Mics: Laboratory Tests 07/30/17 0435: CBC w Diff NO MAN DIFF REQ, RBC 3.53 L, MCV 88.2, MCH 29.7, MCHC 33.7, RDW 13.5 , MPV 9.7, Gran % 72.5, Lymphocytes % 15.6 L, Monocytes % 9.2, Eosinophils % 2.2, Basophils % 0.5, Absolute Granulocytes 6.2, Absolute Lymphocytes 1.3, Absolute Monocytes 0.8 H, Absolute Eosinophils 0.2, Absolute Basophils 0 07/29/17 0512: Anion Gap 12, Estimated GFR > 60, BUN/Creatinine Ratio 21.3, CBC w Diff NO MAN DIFF REQ, RBC 3.71 L, MCV 88.5, MCH 29.2, MCHC 33.0, RDW 13.6, MPV 9.4, Gran % 74.6, Lymphocytes % 14.5 L, Monocytes % 9.5 H, Eosinophils % 1.1, Basophils % 0.3, Absolute Granulocytes 7.3 H, Absolute Lymphocytes 1.4, Absolute Monocytes 0.9 H, Absolute Eosinophils 0.1, Absolute Basophils 0 Assessment/Plan Assessment/Plan Assessment: 1. Day #3 postop 2. History of coronary artery disease, status post coronary stenting in the distant past 3. Peripheral arterial disease 4. Diabetes 5. Minimally elevated troponin, trending downward Plan: * Continue current cardiac medications. * Stable for transfer to general medical floor from cardiac standpoint. Eventual outpatient followup with Cardiology. Continue telemetry? No
== END 2017-07-30 15:45 | DRG 616 ==
LOC: ERH 12:28 → CRI 17:33 → ERHI 17:33 → ENRESERV 18:20 → ENTRNSPT 18:53 → EDTRNSPT 18:54 → EDTRNSPTSTS 18:57 → EDTRNSPT 18:57 → CRI 19:03 → 2NB 19:04 → CMPTRNSPT 19:10 → CRI 07-27 05:51 → ENTRNSPT 07-27 21:41 → EDTRNSPTSTS 07-27 21:50 → EDTRNSPT 07-27 21:50 → CMPTRNSPT 07-27 22:05 → CRI 07-28 08:31 → ENTRNSPT 07-30 15:27 → CMPTRNSPT 07-30 15:35 → CRI 07-30 15:45
PROVIDERS: Internal Medicine; Physician Assistant; Student in an Organized Health Care Education/Training Program
PROC: 0Y6M0Z7 Detachment at Right Foot, Complete 4th Ray, Open Approach (ICD-10-PCS; principal; 2017-07-27)
PROC: 0JXQ0ZC Transfer Right Foot Subcutaneous Tissue and Fascia with Skin, Subcutaneous Tissue and Fascia, Open Approach (ICD-10-PCS; principal; 2017-07-27)
DX: E11.69 Type 2 diabetes mellitus with other specified complication (principal); I21.A1 Myocardial infarction type 2; M86.8X7 Other osteomyelitis, ankle and foot; E11.51 Type 2 diabetes mellitus with diabetic peripheral angiopathy without gangrene; E11.65 Type 2 diabetes mellitus with hyperglycemia; E11.621 Type 2 diabetes mellitus with foot ulcer; B95.62 Methicillin resistant Staphylococcus aureus infection as the cause of diseases classified elsewhere; B96.20 Unspecified Escherichia coli [E. coli] as the cause of diseases classified elsewhere; I25.2 Old myocardial infarction; K21.9 Gastro-esophageal reflux disease without esophagitis; E11.42 Type 2 diabetes mellitus with diabetic polyneuropathy; I25.10 Atherosclerotic heart disease of native coronary artery without angina pectoris; Z79.4 Long term (current) use of insulin; F17.210 Nicotine dependence, cigarettes, uncomplicated
CPT/HCPCS: 2NSBP; 87070; 87075; 87184; CCU; 36415; 71045; 73630-RT; 82436; 87040; 87147; 93005; 93010; 93306; 93970; 97116-GO; 97161-GP; J1170; J1650; J1815; J2001; J3490; J7042; Q2036

== ENCOUNTER 2017-08-30 13:00 | Inpatient (IN) | payer OTHER ==
[~2017-08-30] VITALS: Ht 177.8 cm; Wt 86.2 kg
[~2017-08-30 13:00] MED LIST changes: +ATORVASTATIN CA80 M1 PO; +CRUTCH1 EACH OTHER; +PLAVIX75 M1 PO; +SULFAMETHOXAZO1 EAC1 PO; +TOPROL XL25 M1 PO; +TYLENOL325 M1 PO; +XEROFLO GAUZE1 EAC1 TOP
--- NOTE | 2017-08-30 13:31 | ED UPPER/LOWER EXTREMITY COMPL ---
History of Present Illness General Chief Complaint: General Adult Stated Complaint: FEVER/PAIN Source: patient Exam Limitations: no limitations Allergies Coded Allergies: sulfamethoxazole (From BACTRIM) (VOMITING 08/30/17) trimethoprim (From BACTRIM) (VOMITING 08/30/17) Reconcile Medications Acetaminophen (Tylenol) 325 MG TABLET 1 TAB PO Q6P PRN PAIN SCALE 1-3 (MILD) Aspirin (Aspirin*) 81 MG TAB.CHEW 1 TAB PO DAILY Heart Health Atorvastatin Calcium 80 MG TABLET 1 TAB PO 1700 HEART . Clopidogrel Bisulfate (Plavix) 75 MG TABLET 1 TAB PO DAILY Hx of DVT ( Reported) Duloxetine HCl 30 MG CAPSULE.DR 2 CAP PO DAILY NERVE PAIN (Reported) Insulin Aspart (Novolog) 100 UNIT/ML VIAL 0 SC TIDAC/HS DM . Insulin Detemir (Levemir) 100 UNIT/1 ML VIAL 24 UNITS SC DAILY Diabetes FOLLOW UP WITH DR. AREVALO. Metformin HCl 500 MG TABLET 2 TAB PO BID DIABETES (Reported) Metoprolol Succ XL (Toprol XL) 25 MG TAB 1 TAB PO DAILY HEART . Oxycodone HCl/Acetaminophen (Percocet 5-325 MG Tablet) 5 MG-325 MG TABLET 1 TAB PO Q4-6 PRN Pain Pregabalin (Lyrica) 100 MG CAPSULE 1 CAP PO BID PAIN CONTROL (Reported) Triage Note: PT SIB DR RAMSEY FOR INFECTED FOOT. S/P TOE AMPUTATED A MONTH AGO. FAILED ONE ROUND OF ORAL ANTIBIOTICS Triage Nurses Notes Reviewed? yes Onset: Gradual Duration: getting worse Timing: recent history Severity: severe Severity Numbers: 7 HPI: Patient is a 51-year-old male with a past medical history of insulin-dependent type 2 diabetes, diabetes neuropathy, CAD status post 2 cardiac stents in 2009 currently on aspirin, PVD on Plavix, renal abscess status with MSSA, patient also has chronic right foot infection with cellulitis and fifth ray amputation along with fourth and fifth phalanges AMPUTATION who is currently being evaluated by Dr. Brower which he evaluated the patient's foot today and advised patient to be admitted for evaluation of osteomyelitis. Patient states the past few days symptoms of pain redness swelling and fevers have worsened. he currently is not on antibiotics (Lea ALVA,Tres) Vital Signs & Intake/Output Vital Signs & Intake/Output Vital Signs Date Time Temp Pulse Resp B/P B/P Pulse O2 O2 Flow FiO2 Mean Ox Delivery Rate 08/30 1538 98.6 101 16 130/63 95 Room Air 08/30 1330 101.0 123 20 131/70 96 Room Air (Juliette SIMONS,Yadiel Mathis) Past History Travel History Traveled to [place] past 21 day No Medical History Any Pertinent Medical History? see below for history Neurological: NONE EENT: NONE Cardiovascular: CAD (status post stents), myocardial infarction, PVD, STENTS Respiratory: NONE Gastrointestinal: NONE Hepatic: NONE Renal: RENAL ABSCESS PYELONEPRHTIS Musculoskeletal: osteoarthritis, CARPAL TUNNEL L SIDE RIB FX rotator cuff injury Psychiatric: NONE Endocrine: diabetes Blood Disorders: NONE Cancer(s): NONE History of MRSA: Yes History of VRE: No History of CDIFF: No Surgical History Surgical History: rotator cuff surgery with acromioplasty and glenohumeral joint debridement on the left status post balloon angioplasty of the left leg Psychosocial History Who do you live with Spouse Services at Home Nursing What is your primary language Colombian Tobacco Use: Current Not Daily Daily Tobacco Use Amount/Type: =< 4 Cigarettes daily ETOH Use: denies use Illicit Drug Use: denies illicit drug use Family History Family History, If Any: MOTHER Heart attack Hx Contributory? No (Tres Briceño) Review of Systems Review of Systems Constitutional: Reports: see HPI, fever. EENTM: Reports: no symptoms. Respiratory: Reports: no symptoms. Cardiovascular: Reports: no symptoms. Gastrointestinal/Abdominal: Reports: no symptoms. Genitourinary: Reports: no symptoms. Musculoskeletal: Reports: see HPI. Skin: Reports: see HPI. Neurological/Psychological: Reports: no symptoms. Hematologic/Endocrine: Reports: no symptoms. Immunological: Reports: no symptoms. All Other Systems: Reviewed and Negative (Tres Briceño) Physical Exam Physical Exam General Appearance: no apparent distress, alert, comfortable Head: atraumatic Eyes: Bilateral: normal appearance. Ears, Nose, Throat: hearing grossly normal Neck: normal inspection Cardiovascular/Respiratory: no respiratory distress, tachycardia Peripheral Pulses: 2+ dorsalis pedis (R) Neurologic/Tendon: normal motor functions, normal tendon functions Diagram Feet Top 1) Noted right lateral deep ulcer with decreased dermatome sensation that is malodorous and weeping discharge 2) Noted erythema and tenderness 3) Noted linear vascular proximal tracking of erythema (Tres Briceño) Progress Differential Diagnosis: arterial insufficiency, cellulitis, compartment syndrome , contusion, dislocation, DVT, fracture, septic arthritis, sprain, tendon injury Diagnostic Imaging: Viewed by Me: MRI. Radiology Impression: acute abnormality Initial ED EKG: normal p-waves, normal QRS complex, normal sinus rhythm, 107 BPM , SINUS TACHYCARDIA Comments: PATIENT: THOM JAIME PRESENT AGE: 51 PATIENT ACCOUNT NO: [id number] : 65 LOCATION: [facility] ORDERING PHYSICIAN: Tres ALVA SERVICE DATE: 08/30/17 EXAM TYPE: MRI - MRI-RT FOOT W/O KRISTI EXAMINATION: MRI OF THE RIGHT FOOT WITHOUT CONTRAST CLINICAL INFORMATION: Right foot cellulitis. Evaluate osteomyelitis. COMPARISON: Radiograph dated 08/23/2017. TECHNIQUE: Multiplanar MR imaging was obtained through the right foot without contrast material on a 1.5 Roseanna magnet. FINDINGS: The 4th and 5th metatarsals and the 4th and 5th toes are surgically absent. There is a soft tissue defect at the expected location of these toes with a defect in the skin measuring approximately 6 x 1.8 cm. The soft tissues deep to this ulceration are markedly edematous. Marrow edema is present throughout the 3rd metatarsal, cuboid, and lateral cuneiform as well as portions of the intermediate and medial cuneiforms and plantar margin of the navicular. There is corresponding loss of T1 marrow signal throughout the 3rd metatarsal, cuboid, and lateral cuneiform, consistent with superimposed osteomyelitis. Signal changes within the medial and intermediate cuneiforms and within the plantar aspect of the navicular are more indeterminant and may be due to degenerative arthritis or areas of avascular necrosis. Early foci of osteomyelitis in the navicular and medial and intermediate cuneiforms are possible. The soft tissues of the foot are diffusely edematous and swollen. There is increased intrasubstance signal within the intrinsic foot musculature. No discrete fluid collections/abscesses are identified. There is a 1.5 x 1.7 x 0.6 cm heterogeneous fluid signal at the plantar margin of the 1st metatarsal head which likely corresponds to adventitious bursitis. There is mild thickening of the plantar fascia at the origin. A trace amount of fluid is present in the flexor digitorum longus and flexor hallucis longus tendon sheath at the master knot of Alphonso. IMPRESSION: Osteomyelitis of the 3rd metatarsal, cuboid, and lateral cuneiform. Signal abnormalities in the medial and intermediate cuneiforms as well as the navicular are more nonspecific and could be due to changes of Charcot arthropathy/degenerative arthritis or early osteomyelitis. DICTATED BY: Renny Cruz MD DATE/TIME DICTATED:08/30/171543 WEIGHTS AND MEASURES INSPECTOR:RADHA DATE/TIME TRANSCRIBED:08/30/171543 (Tres Briceño) Plan of Care: Orders Procedure Date/time Status Nothing by Mouth 08/31 B Active WESTERGREN SED RATE 08/30 UNK Complete Misc Message 08/30 1626 Active ED Holding Orders 08/30 1626 Active Admit to inpatient 08/30 1626 Active Vital Signs 08/30 162 Active Code Status 08/30 1626 Active Patient Data 08/30 1536 Active Intake & Output 08/30 1411 Active EKG 08/30 1333 Active BLOOD CULTURE 08/30 1332 Active LACTIC ACID 08/30 1332 Complete C-REACTIVE PROTEIN 08/30 1332 Complete COMPREHENSIVE METABOLIC PANEL 08/30 1332 Complete CBC WITHOUT DIFFERENTIAL 08/30 1332 Complete Current Medications Sig/Marty Start time Last Medication Dose Stop Time Status Admin Vancomycin HCl 2,000 MG ONCE ONE 08/30 1430 CAN 08/30 1431 Laboratory Tests 08/30/17 1632: Lactic Acid Cancelled 08/30/17 1441: ESR Westergren > 130 H 08/30/17 1407: Anion Gap 15, Estimated GFR > 60, BUN/Creatinine Ratio 20.0, Glucose 272 H, Lactic Acid 1.3, Calcium 8.5, Total Bilirubin 0.9, AST 23, ALT 35, Alkaline Phosphatase 94, C-Reactive Prot, Quant > 9.0 H, Total Protein 6.7, Albumin 3.0 L, Globulin 3.7, Albumin/Globulin Ratio 0.8 L, CBC w Diff NO MAN DIFF REQ, RBC 3.58 L, MCV 85.8, MCH 29.2, MCHC 34.1, RDW 13.9, MPV 9.4, Gran % 95.2 H, Lymphocytes % 2.2 L, Monocytes % 2.4, Eosinophils % 0, Basophils % 0.2, Absolute Granulocytes 11.6 H, Absolute Lymphocytes 0.3 L, Absolute Monocytes 0.3, Absolute Eosinophils 0, Absolute Basophils 0 Microbiology 08/30 1441 BLOOD: Blood Culture - RECD 08/30 1407 BLOOD: Blood Culture - RECD Patient on initial presentation has concerns of cellulitis lymphangitis and concerns for osteomyelitis. DISCUSSED PT WITH DR BROWER WHO ADVISED NOT TO HOLD ABX UPON ADMISSION HIS LAST CX SHOWED SUSCEPTIBILITY WITH CEFAZOLIN AND VANCOMYCIN, HE HAS HX OF MRSA Upon admission to septic shock or severe sepsis. (Tres Briceño) (Juliette SIMONS,Yadiel Mathis) ED Sepsis Exam Date of Focused Sepsis Exam: 08/30/17 Time of Focused Sepsis Exam: 1432 Sepsis Cardiac Exam: Tachycardia Sepsis Resp Exam: CTA Sepsis Cap Refill Exam: <2 Sec Sepsis Peripheral Pulse Exam: Normal Sepsis Peripheral Pulse Location: Dorsalis Pedis Sepsis Skin Color Exam: Normal for Ethnicity Skin Temp/Moisture Exam: Warm/Dry (Tres Briceño) Departure Departure Disposition: STILL A PATIENT Condition: Stable Clinical Impression Primary Impression: Osteomyelitis of right foot Secondary Impressions: Acute lymphangitis of foot, Cellulitis of foot, right, Sepsis Referrals: Joni SIMONS,Elijah Rodriguez (PCP/Family) Departure Forms: Customer Survey General Discharge Information Admission Note Spoke With: Damir Peralta MD Documentation of Exam: Documentation of any treatments & extenuating circumstances including Concerns Regarding Discharge (functional status, medication knowledge or non-compliance, living conditions, etc.) that warrant an admission rather than observation: [ Patient requires IV antibiotics repeat blood work culture is pending and will receive partial or full for amputation of the right foot.] (Tres Briceño) PA/BRAKE REPAIR SUPERVISOR Co-Sign Statement Statement: ED Attending supervision documentation- [X] I saw and evaluated the patient. I have also reviewed all the pertinent lab results and diagnostic results. I agree with the findings and the plan of care as documented in the PA's/BRAKE REPAIR SUPERVISOR's documentation. [] I have reviewed the ED Record and agree with the PA's/BRAKE REPAIR SUPERVISOR's documentation. [] Additions or exceptions (if any) to the PAs/BRAKE REPAIR SUPERVISOR's note and plan are summarized below: [] (Juliette SIMONS,Yadiel Mathis) Critical Care Note Critical Care Note Critical Care Time: 75-104 min (Tres Briceño)
[2017-08-30 14:18] LABS: ABSOLUTE BASOPHIL COUNT 0 /CUMM (0.0-0.2); ABSOLUTE EOSINOPHIL COUNT 0 /CUMM (0.0-0.7); ABSOLUTE GRANULOCYTE CT 11.6 /CUMM (1.4-6.5); ABSOLUTE LYMPH COUNT 0.3 /CUMM (1.2-3.4); ABSOLUTE MONOCYTE COUNT 0.3 /CUMM (0.10-0.60); BASOPHIL % 0.2 % (0.0-2.0); EOSINOPHIL % 0 % (0-5); HEMATOCRIT 30.7 % (42-52); MEAN CORPUSCULAR HGB 29.2 PG (27.0-31.0); MEAN CORPUSCULAR HGB CONC 34.1 G/DL (33.0-37.0); MEAN CORPUSCULAR VOLUME 85.8 FL (80.0-94.0); MEAN PLATELET VOLUME 9.4 FL (7.4-10.4); RBC DISTRIBUTION WIDTH 13.9 % (11.5-14.5); RED BLOOD CELL CT 3.58 /CUMM (4.70-6.10); WHITE BLOOD CELL COUNT 12.1 /CUMM (4.8-10.8)
[2017-08-30 14:31] LABS: GRANULOCYTE % 95.2 % (42.2-75.2); PLATELET COUNT 261 /CUMM (130-400)
--- NOTE | 2017-08-30 16:01 | History & Physical ---
Jackie SIMONS,[place] 08/30/17 1600: General Information and HPI MD Statement: I have seen and personally examined THOM JAIME and documented this H&P. The patient is a 51 year old M who presented with a patient stated chief complaint of [Fever, R foot pain]. Source of Information: patient, family, old records Exam Limitations: no limitations History of Present Illness: Patient is a 51-year-old male with a PMH significant for insulin-dependent diabetes, diabetic neuropathy, CAD status post MD with PCI and 2 stents placed in 2007, PVD, renal abscess, osteomyelitis with recent toe amputation who was referred to the [facility] ED from Dr. Ortega office for suspicion of osteomyelitis. The patient was discharged from [facility] approximately one month ago when he underwent debridement and forthright resection for osteomyelitis cultures were positive for Escherichia coli, MRSA, group B strep. He was discharged on Bactrim however he could not tolerate this medication secondary to nausea and vomiting and it was stopped. He followed up closely with Dr. Ortega is an outpatient however over the last several days he noticed worsening right foot pain and 2 days ago began having fevers, measured at home Tmax of 104, when measured in Dr. Ortega office it was 102. Allergies/Medications Allergies: Coded Allergies: sulfamethoxazole (From BACTRIM) (VOMITING 08/30/17) trimethoprim (From BACTRIM) (VOMITING 08/30/17) Home Med list Acetaminophen (Tylenol) 325 MG TABLET 1 TAB PO Q6P PRN PAIN SCALE 1-3 (MILD) Aspirin (Aspirin*) 81 MG TAB.CHEW 1 TAB PO DAILY Heart Health Atorvastatin Calcium 80 MG TABLET 1 TAB PO 1700 HEART . Clopidogrel Bisulfate (Plavix) 75 MG TABLET 1 TAB PO DAILY Hx of DVT ( Reported) Duloxetine HCl 30 MG CAPSULE. 2 CAP PO DAILY NERVE PAIN (Reported) Insulin Aspart (Novolog) 100 UNIT/ML VIAL 0 SC TIDAC/HS DM . Insulin Detemir (Levemir) 100 UNIT/1 ML VIAL 24 UNITS SC DAILY Diabetes FOLLOW UP WITH DR. AREVALO. Metformin HCl 500 MG TABLET 2 TAB PO BID DIABETES (Reported) Metoprolol Succ XL (Toprol XL) 25 MG TAB 1 TAB PO DAILY HEART . Oxycodone HCl/Acetaminophen (Percocet 5-325 MG Tablet) 5 MG-325 MG TABLET 1 TAB PO Q4-6 PRN Pain Pregabalin (Lyrica) 100 MG CAPSULE 1 CAP PO BID PAIN CONTROL (Reported) Past History Travel History Traveled to [place] past 21 day No Medical History Neurological: NONE EENT: NONE Cardiovascular: CAD (status post stents), myocardial infarction, PVD, STENTS Respiratory: NONE Gastrointestinal: NONE Hepatic: NONE Renal: RENAL ABSCESS PYELONEPRHTIS Musculoskeletal: osteoarthritis, CARPAL TUNNEL L SIDE RIB FX rotator cuff injury Psychiatric: NONE Endocrine: diabetes Blood Disorders: NONE Cancer(s): NONE History of MRSA: Yes History of VRE: No History of CDIFF: No Surgical History Surgical History: rotator cuff surgery with acromioplasty and glenohumeral joint debridement on the left status post balloon angioplasty of the left leg Past Family/Social History Family History Relations & Conditions if any MOTHER Heart attack Psychosocial History Services at Home: Nursing ETOH Use: denies use Illicit Drug Use: denies illicit drug use Functional Ability ADLs Independent: dressing, eating, toileting, bathing. Ambulation: independent IADLs Independent: shopping, housework, finances, food prep, telephone, transportation , medication admin. Review of Systems Review of Systems Constitutional: Reports: chills, fever, malaise. EENTM: Reports: no symptoms. Cardiovascular: Reports: no symptoms. Respiratory: Reports: no symptoms. GI: Reports: no symptoms. Genitourinary: Reports: no symptoms. Musculoskeletal: Reports: see HPI, joint pain. Skin: Reports: lesions. Exam & Diagnostic Data Last 24 Hrs of Vital Signs/I&O Vital Signs Date Time Temp Pulse Resp B/P B/P Pulse O2 O2 Flow FiO2 Mean Ox Delivery Rate 08/30 2255 100.3 120 20 136/68 95 08/30 1930 99.6 118 26 142/74 96 Room Air 08/30 1822 99.1 99 16 126/68 97 Room Air 08/30 1538 98.6 101 16 130/63 95 Room Air 08/30 1330 101.0 123 20 131/70 96 Room Air Intake & Output 08/30 1600 08/30 0800 08/30 0000 Intake Total Output Total Balance Patient 198 lb Weight Weight Reported by Patient Measurement Method Physical Exam General Appearance Alert, Oriented X3, Cooperative, No Acute Distress Skin Temp/Moisture Exam: Warm/Dry Sepsis Skin Exam (color): Normal for Ethnicity HEENT Atraumatic, PERRLA, EOMI, Mucous Membr. moist/pink Cardiovascular Regular Rate, Normal S1, Normal S2 Lungs Clear to Auscultation, Normal Air Movement Abdomen Normal Bowel Sounds, Soft, No Tenderness Neurological Normal Speech, Normal Tone, diminished sensation on the R foot Extremities Large draining wound on the lateral aspect of the R foot, 4th and 5th toes s/p amputation. R foot near wound TTP, cap refil of R toes > 2 seconds Sepsis Peripheral Pulse Location: Radial Sepsis Peripheral Pulse Exam: Normal Sepsis Cap Refill Exam: <2 Sec Body Front and Back (Adult) 1) wound Last 24 Hrs of Labs/Jose A: Laboratory Tests 08/30/17 1632: Lactic Acid Cancelled 08/30/17 1441: ESR Westergren > 130 H 08/30/17 140: Anion Gap 15, Estimated GFR > 60, BUN/Creatinine Ratio 20.0, Glucose 272 H, Lactic Acid 1.3, Calcium 8.5, Total Bilirubin 0.9, AST 23, ALT 35, Alkaline Phosphatase 94, Troponin I 0.03, C-Reactive Prot, Quant > 9.0 H, Total Protein 6.7, Albumin 3.0 L, Globulin 3.7, Albumin/Globulin Ratio 0.8 L, CBC w Diff NO MAN DIFF REQ, RBC 3.58 L, MCV 85.8, MCH 29.2, MCHC 34.1, RDW 13.9, MPV 9.4, Gran % 95.2 H, Lymphocytes % 2.2 L, Monocytes % 2.4, Eosinophils % 0, Basophils % 0.2, Absolute Granulocytes 11.6 H, Absolute Lymphocytes 0.3 L, Absolute Monocytes 0.3, Absolute Eosinophils 0, Absolute Basophils 0 Microbiology 08/30 144 BLOOD: Blood Culture - RECD 08/30 1406 BLOOD: Blood Culture - RECD Diagnostic Data EKG Results sinus tachy, HR [address]-T changes Other Results FINDINGS: The 4th and 5th metatarsals and the 4th and 5th toes are surgically absent. There is a soft tissue defect at the expected location of these toes with a defect in the skin measuring approximately 6 x 1.8 cm. The soft tissues deep to this ulceration are markedly edematous. Marrow edema is present throughout the 3rd metatarsal, cuboid, and lateral cuneiform as well as portions of the intermediate and medial cuneiforms and plantar margin of the navicular. There is corresponding loss of T1 marrow signal throughout the 3rd metatarsal, cuboid, and lateral cuneiform, consistent with superimposed osteomyelitis. Signal changes within the medial and intermediate cuneiforms and within the plantar aspect of the navicular are more indeterminant and may be due to degenerative arthritis or areas of avascular necrosis. Early foci of osteomyelitis in the navicular and medial and intermediate cuneiforms are possible. The soft tissues of the foot are diffusely edematous and swollen. There is increased intrasubstance signal within the intrinsic foot musculature. No discrete fluid collections/abscesses are identified. There is a 1.5 x 1.7 x 0.6 cm heterogeneous fluid signal at the plantar margin of the 1st metatarsal head which likely corresponds to adventitious bursitis. There is mild thickening of the plantar fascia at the origin. A trace amount of fluid is present in the flexor digitorum longus and flexor hallucis longus tendon sheath at the master knot of Alphonso. IMPRESSION: Osteomyelitis of the 3rd metatarsal, cuboid, and lateral cuneiform. Signal abnormalities in the medial and intermediate cuneiforms as well as the navicular are more nonspecific and could be due to changes of Charcot arthropathy/degenerative arthritis or early osteomyelitis. Assessment/Plan Assessment: Patient is a 51-year-old male with a PMH significant for insulin-dependent diabetes, diabetic neuropathy, CAD status post MD with PCI and 2 stents placed in 2007, PVD, renal abscess, osteomyelitis with recent toe amputation who was referred to the [facility] ED from Dr. Ortega office for suspicion of osteomyelitis. MRI confirms diagnosis of osteomyelitis Labs significant for elevated ESR, leukocytosis, mild hyperglycemia Problem list #Osteomyelitis R foot #chronic medical problems Plan -admit to general medicine -Dr. Ortega is aware of thie patient and plans to take him to the OR in the AM - NPO at midnight for OR - hold anticoagulation pending surgery - ID and vascular surgery consults in AM - Continue vancomycin and ceftriaxone as pervious bone cultures were positive for E. Coli and MRSA - Continue home medications - novolog sliding scale Diet: NPO for surgery, then diabetic diet DVT ppx: ALPS, start pharmacologic after surgery Code status: Full code As Ranked By This Provider Problem List: 1. Sepsis 2. Osteomyelitis of right foot Core Measures/Misc (9/17) Acute Coronary Syndrome ACS Diagnosis: No Congestive Heart Failure Congestive Heart Failure Diagnosis No Cerebrovascular Accident CVA/TIA Diagnosis: No VTE (View Protocol) VTE Risk Factors Age>40 No Mechanical VTE Prophylaxis d/t N/A MechProphylax Ordered No VTE Pharm Prophylaxis d/t Surgical Contraindication Sepsis (View protocol) Sepsis Present: No Padmaja Raphael MD 08/30/17 2104: Resident Review Statement Resident Statement: examined this patient, discussed with internal medicine veterinary technician, agreed with internal medicine veterinary technician, reviewed images, amended to note Other Findings: 51-year-old male w/ PMH of DM on insulin, DM neuropathy on lyrica, CAD/MD/PVD s/ p 2 stents in 2009 on ASA 81, hx of PVD on Plavix, hx of renal abscess complicated by MSSA bacteremia (2015) chronic right foot infection with cellulitis with fourth and fifth phalanges amputation who is here with complaints of worsening pain, redness, swelling of the right foot with subjective fevers and purulent drainage from his wound. He was sent in by his modeling analyst Dr. Ortega for evaluation of his worsening right foot infection. MRI Right foot Osteomyelitis of the 3rd metatarsal, cuboid, and lateral cuneiform. Signal abnormalities in the medial and intermediate cuneiforms as well as the navicular are more nonspecific and could be due to changes of Charcot arthropathy/ degenerative arthritis or early osteomyelitis. Problem list 1. Right foot cellulitis rule out osteomyelitis 2. Chronic nonhealing ulcer on the right foot 3. Poorly controlled diabetes mellitus Plan Admit to general medicine floor Watch off antibiotics for now Blood cultures x 2 Patient scheduled for OR in a.m for debridement; Keep n.p.o. after midnight Follow-up for bone cultures for antibiotic determination Fingersticks glucose 3 times daily before meals and at bedtime IV Levemir subcu NovoLog sliding scale ID consult for antibiotic management Vascular surgery consult Adequate pain control Subcutaneous heparin; hold a.m. dose Patient is full code Full attending recommend Resume his important home medications Damir Peralta MD 08/31/17 0644: Attending MD Review Statement Attending Statement Attending MD Statement: examined this patient, discuss w/resident/PA/FAMILY MEDICINE RESIDENT, agreed w/resident/PA/FAMILY MEDICINE RESIDENT, reviewed EMR data (avail), reviewed images, amended to note Attending Assessment/Plan: The patient is a 51 yo male with h/o DM (neuropathy), CAD (s/p MD with 2 stents 2007), h/o renal abscess, h/o osteomyelitis and recent toe amputation who was sent to ED by Dr. Ortega after seeing in office with right foot infection. The patient has been discharged 1 month ago from [facility] after debridement and resection for osteomyelitis. Prior cultures had grown staph, MRSA, Ecl, beta strep in past. He was discharged on Bactrim, however did not tolerate this due to GI symptoms (N/V) and was discontinued by . For 2 days prior to admission the patient has noted increased right foot pain, swelling and fever to 104 at home ([address] office). Presents for admission. Physical Exam: VS: T 101.0 (100.3), P 123-99, R 16, BP 131/70, PO 96% RA HEENT: eyes- PERRLA, EOMI julian- no lesions Neck: no JVD/bruits Chest: diminished BS at bases, clear Cor: tachy, reg, S1, S2 w/o murm Abd: BS+, soft, NT Ext: + swelling right foot, wound draining serous material lateral aspect s/o amputation 4th-5th toes, pulses diminished Neuro: non-focal exam Labs/Tests - as above. Impression/Plan: #Right Foot Osteomyelitis/Infection- MRI showing osteomyelitis 3rd metatarsal, cuboid, and lateral cuneiform. Plan: Admit to general medical service. IV antibiotics based on prior cultures (Vanco/Ancef). Podiatry consult- for surgery in morning. ID consult. Consider vascular consult (Dr. Molina). #SIRS- has fever to 104 as OP, leukocytosis, tachycardia. No hypotension and lactate normal. Does not meet severe sepsis criteria. Plan: Will almonte culture as above- blood, etc. IV Abx as planned. ID consult. #CAD- no cardiac symptoms and troponin negative. Was seen by Cardiology last month. Benefits of surgery outweigh risk based on RCRI. Plan: Will consult Dr. Hurley for evaluation. Continue usual meds (Metoprolol, etc.) #DM- sugars as above. Plan: Hold Metformin- continue insulin- sliding scale. #Neuropathy- on Lyrica & Duloxetine. Plan: Continue Lyrica, Duloxetine and Percocet prn. #Hyperlipidemia- on Atorvastatin. Plan: Continue Atorvastatin.
--- NOTE | 2017-08-30 16:55 | MRI REPORT ---
EXAMINATION: MRI OF THE RIGHT FOOT WITHOUT CONTRAST CLINICAL INFORMATION: Right foot cellulitis. Evaluate osteomyelitis. COMPARISON: Radiograph dated 08/23/2017. TECHNIQUE: Multiplanar MR imaging was obtained through the right foot without contrast material on a 1.5 Roseanna magnet. FINDINGS: The 4th and 5th metatarsals and the 4th and 5th toes are surgically absent. There is a soft tissue defect at the expected location of these toes with a defect in the skin measuring approximately 6 x 1.8 cm. The soft tissues deep to this ulceration are markedly edematous. Marrow edema is present throughout the 3rd metatarsal, cuboid, and lateral cuneiform as well as portions of the intermediate and medial cuneiforms and plantar margin of the navicular. There is corresponding loss of T1 marrow signal throughout the 3rd metatarsal, cuboid, and lateral cuneiform, consistent with superimposed osteomyelitis. Signal changes within the medial and intermediate cuneiforms and within the plantar aspect of the navicular are more indeterminant and may be due to degenerative arthritis or areas of avascular necrosis. Early foci of osteomyelitis in the navicular and medial and intermediate cuneiforms are possible. The soft tissues of the foot are diffusely edematous and swollen. There is increased intrasubstance signal within the intrinsic foot musculature. No discrete fluid collections/abscesses are identified. There is a 1.5 x 1.7 x 0.6 cm heterogeneous fluid signal at the plantar margin of the 1st metatarsal head which likely corresponds to adventitious bursitis. There is mild thickening of the plantar fascia at the origin. A trace amount of fluid is present in the flexor digitorum longus and flexor hallucis longus tendon sheath at the master knot of Alphonso. IMPRESSION: Osteomyelitis of the 3rd metatarsal, cuboid, and lateral cuneiform. Signal abnormalities in the medial and intermediate cuneiforms as well as the navicular are more nonspecific and could be due to changes of Charcot arthropathy/degenerative arthritis or early osteomyelitis.
[2017-08-30 19:30] VITALS: BP 142/74
[2017-08-30 22:55] VITALS: BP 136/68
[2017-08-31 06:24] VITALS: BP 127/66
--- NOTE | 2017-08-31 07:00 | Admission Certification ---
Admission Certification Certification Statement - As attending physician, I certify that at the time of - admission, based on clinical presentation, severity of - symptoms, need for further diagnostic testing and - therapeutic interventions, and risk of adverse outcomes - without in-hospital treatment, in my clinical assessment, - this patient requires an acute hospital stay for a minimum - of two nights or longer. I have also considered psychsocial - factors such as support system, advanced age, financial - issues, cognitive issues, and failed out-patient treatments, - past re-admission history, safety of patient, and lack of - compliance as applicable. Specific rationale supporting this admission is: The patient presents with fever to 104, osteomyelitis right foot (acute). Requires admission for IV antibiotics (Vanco/Ancef), surgical intervention (Dr. Ortega/podiatry), ID consultation. Close monitoring.
--- NOTE | 2017-08-31 07:03 | PN- Housestaff ---
See Addendum Subjective Follow-up For: Osteomyelitis Subjective: Patient seen and examined. Resting comfortably. Tmax 101. Offers no complaints other than the pain. Review of Systems Constitutional: Reports: see HPI. Objective Last 24 Hrs of Vital Signs/I&O Vital Signs Date Time Temp Pulse Resp B/P B/P Pulse O2 O2 Flow FiO2 Mean Ox Delivery Rate 08/31 0900 99 127/66 08/31 0624 98.2 99 20 127/66 97 08/30 2255 100.3 120 20 136/68 95 08/30 1930 99.6 118 26 142/74 96 Room Air 08/30 1822 99.1 99 16 126/68 97 Room Air 08/30 1538 98.6 101 16 130/63 95 Room Air Intake & Output 08/31 1600 08/31 0800 08/31 0000 Intake Total 600 340 Output Total 400 500 225 Balance -400 100 115 Intake, IV 600 Intake, Oral 0 340 Output, Urine 400 500 225 Patient 190 lb Weight Weight Bed scale Measurement Method Physical Exam General Appearance: Alert, Oriented X3 Cardiovascular: Regular Rate, Normal S1, Normal S2 Lungs: Clear to Auscultation, Normal Air Movement Abdomen: Normal Bowel Sounds, Soft Neurological: Normal Speech Other Physical Findings: Extremities right foot lateral wound with some purulent drainage, with mild surrounding erythema and edema, tender to palpation; pulses 1+; no cyanosis, clubbing or edema of the lower extremities Assessment/Plan Assessment: Patient is a 51-year-old male with a PMH significant for insulin-dependent diabetes, diabetic neuropathy, CAD status post CO with PCI and 2 stents placed in 2007, PVD, renal abscess, osteomyelitis with recent toe amputation who was referred to the [facility] ED from Dr. Ortega office for suspicion of osteomyelitis. MRI confirmed diagnosis of osteomyelitis Labs were significant for elevated ESR, leukocytosis, mild hyperglycemia He is being treated evaluate for following conditions #Right Foot Osteomyelitis/Infection- MRI showing osteomyelitis 3rd metatarsal, cuboid, and lateral cuneiform. SIRS fever to 104 as OP, leukocytosis, tachycardia. No hypotension and lactate normal on presentation -Podiatry consult -ID consult -Vascular surgery consult -Monitor fever and WBC curve -Continue Vancomycin 1.25 grams IV every 12 hours -Begin Ceftriaxone 2 g IV every 24 hours -Potential BKA? #CAD- no cardiac symptoms and troponin negative. Was seen by Cardiology last month. Benefits of surgery outweigh risk based on RCRI. -Will consult Dr. Hurley for evaluation. -Continue usual meds (Metoprolol, etc.) #DM -Hold Metformin -continue insulin sliding scale. #Neuropathy -Continue Lyrica, Duloxetine and Percocet prn. #Hyperlipidemia -Continue Atorvastatin. Diet: Diabetic diet DVT ppx: ALPS, start pharmacologic after surgery Code status: Full code Problem List: 1. Osteomyelitis of right foot Pain Ratin Pain Location: R foot Pain Goal: Pain 4 or less Pain Plan: prn Tomorrow's Labs & Rationales: cbc bep
[2017-08-31 08:30] LABS: ABSOLUTE BASOPHIL COUNT 0 /CUMM (0.0-0.2); ABSOLUTE EOSINOPHIL COUNT 0 /CUMM (0.0-0.7); ABSOLUTE LYMPH COUNT 0.5 /CUMM (1.2-3.4); ABSOLUTE MONOCYTE COUNT 0.7 /CUMM (0.10-0.60); BASOPHIL % 0 % (0.0-2.0); EOSINOPHIL % 0.1 % (0-5); GRANULOCYTE % 89.3 % (42.2-75.2); HEMATOCRIT 29.5 % (42-52); MEAN CORPUSCULAR HGB 29.1 PG (27.0-31.0); MEAN CORPUSCULAR HGB CONC 33.4 G/DL (33.0-37.0); MEAN CORPUSCULAR VOLUME 87.3 FL (80.0-94.0); PLATELET COUNT 219 /CUMM (130-400); RED BLOOD CELL CT 3.38 /CUMM (4.70-6.10); WHITE BLOOD CELL COUNT 11.2 /CUMM (4.8-10.8)
--- NOTE | 2017-08-31 11:22 | Cons- Infect Disease ---
General Information and HPI Consulting Request Date of Consult: 08/31/17 Requested By: Damir Peralta MD Reason for Consult: Osteomyelitis of the right foot Source of Information: patient, old records History of Present Illness: This is a 51-year-old man with a history of coronary artery disease, status post stents, diabetes, peripheral vascular disease, with a nonhealing wound on the lateral aspect of his right foot, status post right fifth toe amputation 4 months prior to admission, treated at that time with a 4 week course of Unasyn for a polymicrobial osteomyelitis, which was extended after excision of the fifth metatarsal stump, hospitalized one month prior to admission after a balloon angioplasty of the right leg and hyperbaric oxygen as an outpatient with nonhealing of the wound, status post excision of the right fourth ray for residual osteomyelitis on that admission and discharged on Bactrim for a residual soft tissue infection secondary to Escherichia coli, MRSA and Group A strep, with all the infected bone felt to be removed, admitted on August 30 after he was sent to the emergency room by Podiatry for continued nonhealing of the right foot associated with increasing pain, fevers and chills. On admission he was febrile to 101. Laboratory data revealed a white blood cell count of 12,000 , glucose 272, BUN/creatinine 22 and 1.1, with normal liver enzymes. MRI of the right foot revealed osteomyelitis of the third metatarsal, cuboid and lateral cuneiform, with nonspecific signal abnormalities in the medial and intermediate cuneiforms and the navicular, possibly secondary to Charcot versus degenerative arthritis versus early osteomyelitis. He was given Vancomycin and Cefazolin and then followed off antibiotics. He appears to have defervesced overnight. At present he continues to complain of pain in the right foot. Allergies/Medications Allergies: Coded Allergies: sulfamethoxazole (From BACTRIM) (VOMITING 08/30/17) trimethoprim (From BACTRIM) (VOMITING 08/30/17) Home Med List: Acetaminophen (Tylenol) 325 MG TABLET 1 TAB PO Q6P PRN PAIN SCALE 1-3 (MILD) Aspirin (Aspirin*) 81 MG TAB.CHEW 1 TAB PO DAILY Heart Health Atorvastatin Calcium 80 MG TABLET 1 TAB PO 1700 HEART . Clopidogrel Bisulfate (Plavix) 75 MG TABLET 1 TAB PO DAILY Hx of DVT ( Reported) Duloxetine HCl 30 MG CAPSULE.DR 2 CAP PO DAILY NERVE PAIN (Reported) Insulin Aspart (Novolog) 100 UNIT/ML VIAL 0 SC TIDAC/HS DM . Insulin Detemir (Levemir) 100 UNIT/1 ML VIAL 24 UNITS SC DAILY Diabetes FOLLOW UP WITH DR. AREVALO. Metformin HCl 500 MG TABLET 2 TAB PO BID DIABETES (Reported) Metoprolol Succ XL (Toprol XL) 25 MG TAB 1 TAB PO DAILY HEART . Oxycodone HCl/Acetaminophen (Percocet 5-325 MG Tablet) 5 MG-325 MG TABLET 1 TAB PO Q4-6 PRN Pain Pregabalin (Lyrica) 100 MG CAPSULE 1 CAP PO BID PAIN CONTROL (Reported) Past History Travel History Traveled to [place] past 21 day No Medical History Blood Transfusion Hx: No Neurological: NONE EENT: NONE Cardiovascular: CAD (status post stents), myocardial infarction, PVD Respiratory: NONE Gastrointestinal: NONE Hepatic: NONE Renal: RENAL ABSCESS PYELONEPRHTIS Musculoskeletal: osteoarthritis, CARPAL TUNNEL L SIDE RIB FX rotator cuff injury Psychiatric: NONE Endocrine: diabetes Blood Disorders: NONE Cancer(s): NONE History of MRSA: Yes History of VRE: No History of CDIFF: No Isolation History: Contact Influenza Vaccine: 07/08/17 Surgical History Surgical History: rotator cuff surgery with acromioplasty and glenohumeral joint debridement on the left status post balloon angioplasty of the left leg, s/p amputation of the 4th and 5th toes Family History Relations & Conditions If Any: MOTHER Heart attack Psychosocial History Services at Home: Nursing Smoking Status: Current Everyday Smoker ETOH Use: denies use Illicit Drug Use: denies illicit drug use Functional Ability ADLs Independent: dressing, eating, toileting, bathing. Ambulation: independent IADLs Independent: shopping, housework, finances, food prep, telephone, transportation , medication admin. Review of Systems Review of Systems All Other Systems: Reviewed and Negative Exam & Diagnostic Data Last 24 Hrs of Vital Signs/I&O Vital Signs Date Time Temp Pulse Resp B/P B/P Pulse O2 O2 Flow FiO2 Mean Ox Delivery Rate 08/31 0900 99 127/66 08/31 0624 98.2 99 20 12766 97 08/30 2255 100.3 120 20 136/68 95 08/30 1930 99.6 118 26 142/74 96 Room Air 08/30 1822 99.1 99 16 126/68 97 Room Air 08/30 1538 98.6 101 16 130/63 95 Room Air 08/30 1330 101.0 123 20 131/70 96 Room Air Intake & Output 08/31 1600 08/31 0800 08/31 0000 Intake Total 600 340 Output Total 400 500 225 Balance -400 100 115 Intake, IV 600 Intake, Oral 0 340 Output, Urine 400 500 225 Patient 190 lb Weight Weight Bed scale Measurement Method Physical Exam Other Physical Findings: MAXIMUM TEMPERATURE 101. He is awake and alert in no acute distress. Skin reveals no rash. HEENT negative. Neck is supple with no adenopathy. Lungs are clear. Heart regular rhythm with no murmur. Abdomen is soft, nontender with positive bowel sounds. Back no CVA tenderness. Extremities right foot lateral wound with some purulent drainage, with mild surrounding erythema and edema, tender to palpation; pulses 1+; no cyanosis, clubbing or edema of the lower extremities. Neuro is without focality. Last 24 Hours of Lab Results: Laboratory Tests 08/31 08/30 0719 1632 Chemistry Sodium (137 - 145 mmol/L) 134 L Potassium (3.5 - 5.1 mmol/L) 3.9 Chloride (98 - 107 mmol/L) 101 Carbon Dioxide (22 - 30 mmol/L) 22 Anion Gap (5 - 16) 11 BUN (9 - 20 mg/dL) 16 Creatinine (0.7 - 1.2 mg/dL) 0.8 Estimated GFR (>60 ml/min) > 60 BUN/Creatinine Ratio (7 - 25 %) 20.0 Lactic Acid Cancelled Hematology CBC w Diff MAN DIFF ORDERED WBC (4.8 - 10.8 /CUMM) 11.2 H RBC (4.70 - 6.10 /CUMM) 3.38 L Hgb (14.0 - 18.0 G/DL) 9.9 L Hct (42 - 52 %) 29.5 L MCV (80.0 - 94.0 FL) 87.3 MCH (27.0 - 31.0 PG) 29.1 MCHC (33.0 - 37.0 G/DL) 33.4 RDW (11.5 - 14.5 %) 14.0 Plt Count (130 - 400 /CUMM) 219 MPV (7.4 - 10.4 FL) 10.0 Gran % (42.2 - 75.2 %) 89.3 H Lymphocytes % (20.5 - 51.1 %) 4.1 L Monocytes % (1.7 - 9.3 %) 6.5 Eosinophils % (0 - 5 %) 0.1 Basophils % (0.0 - 2.0 %) 0 Absolute Granulocytes (1.4 - 6.5 /CUMM) 10.0 H Segmented Neutrophils (42.2 - 75.2 %) 78 H Band Neutrophils (0.0 - 5.0 %) 8 H Absolute Lymphocytes (1.2 - 3.4 /CUMM) 0.5 L Lymphocytes (20.5 - 51.1 %) 10 L Monocytes (1.7 - 9.3 %) 4 Absolute Monocytes (0.10 - 0.60 /CUMM) 0.7 H Absolute Eosinophils (0.0 - 0.7 /CUMM) 0 Absolute Basophils (0.0 - 0.2 /CUMM) 0 Platelet Estimate (ADEQUATE) VERIFIED BY SMEAR Normocytic RBCs VERIFIED Normochromic RBCs VERIFIED 08/30 08/30 1441 1407 Chemistry Sodium (137 - 145 mmol/L) 130 L Potassium (3.5 - 5.1 mmol/L) 4.2 Chloride (98 - 107 mmol/L) 94 L Carbon Dioxide (22 - 30 mmol/L) 21 L Anion Gap (5 - 16) 15 BUN (9 - 20 mg/dL) 22 H Creatinine (0.7 - 1.2 mg/dL) 1.1 Estimated GFR (>60 ml/min) > 60 BUN/Creatinine Ratio (7 - 25 %) 20.0 Glucose (65 - 99 mg/dL) 272 H Lactic Acid (0.7 - 2.1 mmol/L) 1.3 Calcium (8.4 - 10.2 mg/dL) 8.5 Total Bilirubin (0.2 - 1.3 mg/dL) 0.9 AST (17 - 59 U/L) 23 ALT (21 - 72 U/L) 35 Alkaline Phosphatase (< 127 U/L) 94 Troponin I (<0.11 ng/ml) 0.03 C-Reactive Prot, Quant (<1.0 mg/dL) > 9.0 H Total Protein (6.3 - 8.2 g/dL) 6.7 Albumin (3.5 - 5.0 g/dL) 3.0 L Globulin (1.9 - 4.2 gm/dL) 3.7 Albumin/Globulin Ratio (1.1 - 2.2 %) 0.8 L Hematology CBC w Diff NO MAN DIFF REQ WBC (4.8 - 10.8 /CUMM) 12.1 H RBC (4.70 - 6.10 /CUMM) 3.58 L Hgb (14.0 - 18.0 G/DL) 10.5 L Hct (42 - 52 %) 30.7 L MCV (80.0 - 94.0 FL) 85.8 MCH (27.0 - 31.0 PG) 29.2 MCHC (33.0 - 37.0 G/DL) 34.1 RDW (11.5 - 14.5 %) 13.9 Plt Count (130 - 400 /CUMM) 261 MPV (7.4 - 10.4 FL) 9.4 Gran % (42.2 - 75.2 %) 95.2 H Lymphocytes % (20.5 - 51.1 %) 2.2 L Monocytes % (1.7 - 9.3 %) 2.4 Eosinophils % (0 - 5 %) 0 Basophils % (0.0 - 2.0 %) 0.2 Absolute Granulocytes (1.4 - 6.5 /CUMM) 11.6 H Absolute Lymphocytes (1.2 - 3.4 /CUMM) 0.3 L Absolute Monocytes (0.10 - 0.60 /CUMM) 0.3 Absolute Eosinophils (0.0 - 0.7 /CUMM) 0 Absolute Basophils (0.0 - 0.2 /CUMM) 0 ESR Westergren (0 - 10 MM) > 130 H Last 24 Hours of Jose A Results: Blood cultures August 30 negative Diagnostic Data Recent Imaging Findings: MRI of the right foot revealed osteomyelitis of the third metatarsal, cuboid and lateral cuneiform, with nonspecific signal abnormalities in the medial and intermediate cuneiforms and the navicular, possibly secondary to Charcot versus degenerative arthritis versus early osteomyelitis. Assessment/Plan Assessment/Plan Impression: This is a 51-year-old man with a history of diabetes, peripheral vascular disease, with a nonhealing wound on the lateral aspect of his right foot despite recent right fourth and fifth toe amputations, treatment with IV antibiotics for osteomyelitis, revascularization and hyperbaric oxygen, admitted on August 30 for further management of his right foot, found to be febrile with a mild leukocytosis and with an MRI revealing osteomyelitis of the third metatarsal, cuboid and lateral cuneiform, with nonspecific signal abnormalities in the medial and intermediate cuneiforms and the navicular, possibly secondary to Charcot versus degenerativ arthritis versus osteomyelitis. It appears that the osteomyelitis of his right foot has progressed and, though some of the MRI findings may be secondary to other processes as noted above, he will likely require further debridement/amputation in order to resolve this infection. Have discussed with Podiatry who feels that a BKA will be necessary and, therefore, has no plans for further debridement. Given his fever and leukocytosis he can be covered with antibiotics, which can be directed against the organisms isolated from his recent OR culture pending decision regarding further surgery. Suggestion: 1. Vascular Surgery evaluation 2. Continue Vancomycin 1.25 grams IV every 12 hours pending above 3. Begin Ceftriaxone 2 g IV every 24 hours pending above Consult Acknowledgment - Thank you for your consult request.
[2017-08-31 14:56] VITALS: BP 138/62
[2017-08-31 21:56] VITALS: BP 112/68
[2017-09-01 07:05] VITALS: BP 142/83
--- NOTE | 2017-09-01 07:24 | PN- Housestaff ---
Marco SIMONS,[facility] 09/01/17 0723: Subjective Follow-up For: Osteomyelitis Subjective: Patient seen and examined. Resting comfortably. Feels not up to his usual self. Temperature maximum of 101. He is going to be evaluated by vascular surgery. Awaiting podiatry recommendations. Review of Systems Constitutional: Reports: see HPI. Objective Last 24 Hrs of Vital Signs/I&O Vital Signs Date Time Temp Pulse Resp B/P B/P Pulse O2 O2 Flow FiO2 Mean Ox Delivery Rate 09/01 1004 142/83 09/01 0705 99.2 107 20 142/83 94 Room Air 08/31 2156 101.0 96 18 112/68 95 08/31 1456 99.6 106 20 138/62 96 Room Air Intake & Output 09/01 1600 09/01 0800 09/01 0000 Intake Total 910 960 Output Total 500 900 Balance 410 60 Intake, IV 850 600 Intake, Oral 60 360 Output, Urine 500 900 Physical Exam General Appearance: Alert, Oriented X3, Cooperative Skin: No Rashes Cardiovascular: Normal S1, Normal S2, No Murmurs Lungs: Clear to Auscultation, Normal Air Movement Abdomen: Normal Bowel Sounds, Soft, No Tenderness Other Physical Findings: Extremities right foot swelling and mild erythema over the dorsum of the right foot, tender to palpation, with an open wound on the lateral aspect Current Medications: Current Medications Sig/Marty Start time Last Medication Dose Route Stop Time Status Admin Acetaminophen 650 MG Q6P PRN 08/30 2114 AC 08/30 PO 2253 Atorvastatin Calcium 80 MG 1700 08/31 1700 AC 08/31 PO 1710 Ceftriaxone Sodium 2,000 MG Q24H 08/31 1445 AC 08/31 IV 1701 Dextrose/Sodium 1,000 ML Q13H 08/30 2315 AC 09/01 Chloride IV 0501 Duloxetine HCl 60 MG DAILY 08/31 2027 AC 09/01 PO 1004 Heparin Sodium 5,000 UNIT Q8 08/30 2199 AC 09/01 (Porcine) SC 1337 Hydrocodone Bitart/ 1 TAB Q6P PRN 08/30 Acetaminophen PO 1005 Insulin Aspart 0 TIDAC 09/01 1700 UNVr SC Insulin Aspart 0 TIDAC 08/31 1700 DC 08/31 SC 1710 Insulin Detemir 12 UNITS BID 08/30 2199 AC 09/01 SC 1010 Insulin Human Regular 0 Q6 09/01 0600 DC 09/01 SC 0542 Insulin Human Regular 0 Q6 08/31 0600 DC 08/31 SC 1204 Metoprolol Succinate 25 MG DAILY 08/31 1000 AC 09/01 PO 1004 Morphine Sulfate 4 MG Q3P PRN 09/01 0915 AC 09/01 IV 1211 Morphine Sulfate 4 MG Q4P PRN 08/30 2215 DC 09/01 IV 0724 Ondansetron HCl 4 MG Q6P PRN 08/31 1215 AC 08/31 IV 1243 Polyethylene Glycol 17 GM AT BEDTIME 08/30 2200 AC PO Pregabalin 100 MG BID 08/30 2200 AC 09/01 PO 1004 Promethazine HCl 12.5 MG ONCE ONE 08/31 1745 DC 08/31 IV 08/31 1746 1800 Senna/Docusate Sodium 2 TAB AT BEDTIME 08/30 2200 AC PO Vancomycin HCl 1,250 MG Q12H 09/01 0500 AC 09/01 Dextrose/Water 250 ML IV 0501 Vancomycin HCl 1,250 MG Q12H 08/31 1500 DC 08/31 Dextrose/Water 250 ML IV 1701 Last 24 Hrs of Lab/Jose A Results Last 24 Hrs of Labs/Mics: Laboratory Tests 09/01/17 0600: Anion Gap 12, Estimated GFR > 60, BUN/Creatinine Ratio 20.0, CBC w Diff MAN DIFF ORDERED, RBC 3.24 L, MCV 87.1, MCH 29.1, MCHC 33.4, RDW 14.3, MPV 10.1, Gran % 87.6 H, Lymphocytes % 6.6 L, Monocytes % 5.5, Eosinophils % 0.2, Basophils % 0.1, Absolute Granulocytes 9.7 H, Segmented Neutrophils 87 H, Band Neutrophils 5, Absolute Lymphocytes 0.7 L, Lymphocytes 5 L, Monocytes 3, Absolute Monocytes 0.6, Absolute Eosinophils 0, Absolute Basophils 0, Platelet Estimate VERIFIED BY SMEAR, Normocytic RBCs VERIFIED, Normochromic RBCs VERIFIED Microbiology 08/31 1502 LOWER RESP: Respiratory Culture - CAN Cancelled: Cancelled via OE: Error 08/31 1502 LOWER RESP: Gram Stain - CAN Cancelled: Cancelled via OE: Error Assessment/Plan Assessment: Patient is a 51-year-old male with a PMH significant for insulin-dependent diabetes, diabetic neuropathy, CAD status post OR with PCI and 2 stents placed in 2007, PVD, renal abscess, osteomyelitis with recent toe amputation who was referred to the [facility] ED from Dr. Ortega office for suspicion of osteomyelitis. MRI confirmed diagnosis of osteomyelitis Labs were significant for elevated ESR, leukocytosis, mild hyperglycemia He is being treated evaluate for following conditions #Right Foot Osteomyelitis/Infection- MRI showing osteomyelitis 3rd metatarsal, cuboid, and lateral cuneiform. SIRS fever to 104 as OP, leukocytosis, tachycardia. No hypotension and lactate normal on presentation -Podiatry consult, awaiting recommendation -ID on board -Vascular surgery consulted we will get arterial ultrasound of right lower extremity -Monitor fever and WBC curve -Continue Vancomycin 1.25 grams IV every 12 hours and Ceftriaxone 2 g IV every 24 hours Day 2 -Potential BKA? -Adequate pain control #CAD- no cardiac symptoms and troponin negative. Was seen by Cardiology last month. Benefits of surgery outweigh risk based on RCRI. -Will consult Dr. Hurley for evaluation. -Continue usual meds (Metoprolol, etc.) -Aspirin and Plavix on hold with the anticipation of surgery #DM -Hold Metformin -continue insulin sliding scale. -Blood sugar running in adequate range #Neuropathy -Continue Lyrica, Duloxetine and Percocet prn. #Hyperlipidemia -Continue Atorvastatin. Diet: Diabetic diet DVT ppx: ALPS, start pharmacologic after surgery Code status: Full code Problem List: 1. Osteomyelitis of right foot Pain Ratin Pain Location: r FOOT Pain Goal: Pain 4 or less Pain Plan: PRN Tomorrow's Labs & Rationales: cbc Laci Chambers MD 09/01/17 1107: Attending MD Review Statement Attending Statement Attending MD Statement: examined this patient, discuss w/resident/PA/[employer]SEM[employer], agreed w/resident/PA/ASSEMBLER KNIFE, reviewed EMR data (avail) Attending Assessment/Plan: 51M PMH DM (neuropathy), CAD (s/p OR with 2 stents 2007), h/o renal abscess, h/o osteomyelitis and recent toe amputation sent in from senior radiation therapist for infection of the right foot with erythema, warmth, and discharge, found on MRI to have acute right foot osteomyelitis, septic upon admission but improved with Vancomycin and Ceftriaxone. No complaints today. Pain is relatively well controlled. 1. Acute osteomyelitis of the right foot 2. Sepsis (resolved) 3. PAD Plan - Continue on general medicine - Continue Vancomycin and Ceftriaxone - Follow cultures - Follow pulmonary and vascular recommendations - Continue home medications - Pain control - DVT PPx
[2017-09-01 08:17] LABS: ABSOLUTE BASOPHIL COUNT 0 /CUMM (0.0-0.2); ABSOLUTE EOSINOPHIL COUNT 0 /CUMM (0.0-0.7); ABSOLUTE GRANULOCYTE CT 9.7 /CUMM (1.4-6.5); ABSOLUTE LYMPH COUNT 0.7 /CUMM (1.2-3.4); ABSOLUTE MONOCYTE COUNT 0.6 /CUMM (0.10-0.60); BASOPHIL % 0.1 % (0.0-2.0); EOSINOPHIL % 0.2 % (0-5); GRANULOCYTE % 87.6 % (42.2-75.2); HEMATOCRIT 28.3 % (42-52); MEAN CORPUSCULAR HGB 29.1 PG (27.0-31.0); MEAN CORPUSCULAR HGB CONC 33.4 G/DL (33.0-37.0); MEAN CORPUSCULAR VOLUME 87.1 FL (80.0-94.0); MEAN PLATELET VOLUME 10.1 FL (7.4-10.4); PLATELET COUNT 223 /CUMM (130-400); RBC DISTRIBUTION WIDTH 14.3 % (11.5-14.5); RED BLOOD CELL CT 3.24 /CUMM (4.70-6.10)
--- NOTE | 2017-09-01 09:59 | Cons- Vascular Surgery ---
General Information and HPI Consulting Request Date of Consult: 09/01/17 Requested By: Laci Chambers MD Reason for Consult: Persistent right foot infection. Source of Information: patient, family, old records Exam Limitations: no limitations History of Present Illness: This is a 51-year-old male with advanced diabetic peripheral arterial disease. He's been treated at the wound center and recently re-presented with a right foot wound. This is been ongoing and improving until the past week when this acutely worsened. He noted erythema and pain in the area. He denies any claudication or rest pain. He had a recent arterial ultrasound June to demonstrate a patent right femoropopliteal stent. He's been now readmitted for IV antibiotics and podiatric foot care. Allergies/Medications Allergies: Coded Allergies: sulfamethoxazole (From BACTRIM) (VOMITING 08/30/17) trimethoprim (From BACTRIM) (VOMITING 08/30/17) Home Med List: Acetaminophen (Tylenol) 325 MG TABLET 1 TAB PO Q6P PRN PAIN SCALE 1-3 (MILD) Aspirin (Aspirin*) 81 MG TAB.CHEW 1 TAB PO DAILY Heart Health Atorvastatin Calcium 80 MG TABLET 1 TAB PO 1700 HEART . Clopidogrel Bisulfate (Plavix) 75 MG TABLET 1 TAB PO DAILY Hx of DVT ( Reported) Duloxetine HCl 30 MG CAPSULE.DR 2 CAP PO DAILY NERVE PAIN (Reported) Insulin Aspart (Novolog) 100 UNIT/ML VIAL 0 SC TIDAC/HS DM . Insulin Detemir (Levemir) 100 UNIT/1 ML VIAL 24 UNITS SC DAILY Diabetes FOLLOW UP WITH DR. RAEVALO. Metformin HCl 500 MG TABLET 2 TAB PO BID DIABETES (Reported) Metoprolol Succ XL (Toprol XL) 25 MG TAB 1 TAB PO DAILY HEART . Oxycodone HCl/Acetaminophen (Percocet 5-325 MG Tablet) 5 MG-325 MG TABLET 1 TAB PO Q4-6 PRN Pain Pregabalin (Lyrica) 100 MG CAPSULE 1 CAP PO BID PAIN CONTROL (Reported) Current Medications: Current Medications Sig/Marty Start time Last Medication Dose Route Stop Time Status Admin Acetaminophen 650 MG Q6P PRN 08/30 2115 AC 08/30 PO 2253 Atorvastatin Calcium 80 MG 1700 08/31 1700 AC 08/31 PO 1710 Ceftriaxone Sodium 2,000 MG Q24H 08/31 1445 AC 08/31 IV 1701 Dextrose/Sodium 1,000 ML Q13H 08/30 2315 AC 09/01 Chloride IV 0501 Duloxetine HCl 60 MG DAILY 08/30 2028 AC 08/31 PO 0900 Heparin Sodium 5,000 UNIT Q8 08/30 2200 AC 08/31 (Porcine) SC 2116 Hydrocodone Bitart/ 1 TAB Q6P PRN 08/30 2115 AC 09/01 Acetaminophen PO 0536 Insulin Aspart 0 TIDAC 08/31 1700 DC 08/31 SC 1710 Insulin Detemir 12 UNITS BID 08/30 2200 AC 08/31 SC 2117 Insulin Human Regular 0 Q6 09/01 0600 AC 09/01 SC 0542 Insulin Human Regular 0 Q6 08/31 0600 DC 08/31 SC 1204 Metoprolol Succinate 25 MG DAILY 08/31 1000 AC 08/31 PO 0900 Morphine Sulfate 4 MG Q3P PRN 09/01 0915 AC IV Morphine Sulfate 4 MG Q4P PRN 08/30 2215 DC 09/01 IV 0724 Ondansetron HCl 4 MG Q6P PRN 08/31 1215 AC 08/31 IV 1243 Polyethylene Glycol 17 GM AT BEDTIME 08/30 2200 AC PO Pregabalin 100 MG BID 08/30 2200 AC 08/31 PO 2118 Promethazine HCl 12.5 MG ONCE ONE 08/31 1745 DC 08/31 IV 08/31 1746 1800 Senna/Docusate Sodium 2 TAB AT BEDTIME 08/30 2200 AC PO Vancomycin HCl 1,250 MG Q12H 09/01 0500 AC 09/01 Dextrose/Water 250 ML IV 0501 Vancomycin HCl 1,250 MG Q12H 08/31 1500 DC 08/31 Dextrose/Water 250 ML IV 1701 Past History Medical History Blood Transfusion Hx: No Neurological: NONE EENT: NONE Cardiovascular: CAD (status post stents), myocardial infarction, PVD Respiratory: NONE Gastrointestinal: NONE Hepatic: NONE Renal: RENAL ABSCESS PYELONEPRHTIS Musculoskeletal: osteoarthritis, CARPAL TUNNEL L SIDE RIB FX rotator cuff injury Psychiatric: NONE Endocrine: diabetes Blood Disorders: NONE Cancer(s): NONE Surgical History Pertinent Surgical History: rotator cuff surgery with acromioplasty and glenohumeral joint debridement on the left status post balloon angioplasty of the left leg s/p amputation of the 4th and 5th toes Family History Relations & Conditions If Any: MOTHER Heart attack Psychosocial History Services at Home: Nursing Smoking Status: Current Everyday Smoker ETOH Use: denies use Illicit Drug Use: denies illicit drug use Functional Ability ADLs Independent: dressing, eating, toileting, bathing. Ambulation: independent IADLs Independent: shopping, housework, finances, food prep, telephone, transportation , medication admin. Review of Systems Review of Systems: Patient complains of right foot pain with pressure. Exam & Diagnostic Data Vital Signs and I&O Vital Signs Date Time Temp Pulse Resp B/P B/P Pulse O2 O2 Flow FiO2 Mean Ox Delivery Rate 09/01 0705 99.2 107 20 142/83 94 Room Air 08/31 2156 101.0 96 18 112/68 95 08/31 1456 99.6 106 20 138/62 96 Room Air Intake & Output 09/01 1600 09/01 0800 09/01 0000 08/31 1600 08/31 0800 08/31 0000 Intake Total 025 866 0434 600 340 Output Total 500 900 400 500 225 Balance 410 60 600 100 115 Intake, IV 850 600 600 600 Intake, Oral 60 360 400 0 340 Output, Urine 500 900 400 500 225 Patient 190 lb Weight Weight Bed scale Measurement Method Physical Exam: Bilateral lower ent nurse's are well-perfused. There is no evidence of acute ischemia. There is periwound erythema around the foot. There is no foul odor. There is no significant discharge that can be expressed. He does have palpable femoral pulses. Both feet are warm. Physical Exam General Appearance: well developed/nourished, no apparent distress, alert, awake Last 24 Hours of Labs: Laboratory Tests 09/01 0600 Chemistry Sodium (137 - 145 mmol/L) 134 L Potassium (3.5 - 5.1 mmol/L) 3.7 Chloride (98 - 107 mmol/L) 100 Carbon Dioxide (22 - 30 mmol/L) 22 Anion Gap (5 - 16) 12 BUN (9 - 20 mg/dL) 14 Creatinine (0.7 - 1.2 mg/dL) 0.7 Estimated GFR (>60 ml/min) > 60 BUN/Creatinine Ratio (7 - 25 %) 20.0 Hematology CBC w Diff MAN DIFF ORDERED WBC (4.8 - 10.8 /CUMM) 11.0 H RBC (4.70 - 6.10 /CUMM) 3.24 L Hgb (14.0 - 18.0 G/DL) 9.4 L Hct (42 - 52 %) 28.3 L MCV (80.0 - 94.0 FL) 87.1 MCH (27.0 - 31.0 PG) 29.1 MCHC (33.0 - 37.0 G/DL) 33.4 RDW (11.5 - 14.5 %) 14.3 Plt Count (130 - 400 /CUMM) 223 MPV (7.4 - 10.4 FL) 10.1 Gran % (42.2 - 75.2 %) 87.6 H Lymphocytes % (20.5 - 51.1 %) 6.6 L Monocytes % (1.7 - 9.3 %) 5.5 Eosinophils % (0 - 5 %) 0.2 Basophils % (0.0 - 2.0 %) 0.1 Absolute Granulocytes (1.4 - 6.5 /CUMM) 9.7 H Segmented Neutrophils (42.2 - 75.2 %) 87 H Band Neutrophils (0.0 - 5.0 %) 5 Absolute Lymphocytes (1.2 - 3.4 /CUMM) 0.7 L Lymphocytes (20.5 - 51.1 %) 5 L Monocytes (1.7 - 9.3 %) 3 Absolute Monocytes (0.10 - 0.60 /CUMM) 0.6 Absolute Eosinophils (0.0 - 0.7 /CUMM) 0 Absolute Basophils (0.0 - 0.2 /CUMM) 0 Platelet Estimate (ADEQUATE) VERIFIED BY SMEAR Normocytic RBCs VERIFIED Normochromic RBCs VERIFIED Assessment/Plan Assessment/Plan 51-year-old male with peripheral arterial disease and diabetic foot infection 1.) Patient had a normal arterial ultrasound in June but would repeat that due to his recent admission 2.) Recommend podiatric evaluation and consultation 3.) Recommend an antibiotic care as per primary team/infectious disease 4.) Will follow 5.) Due to persistent osteomyelitis after podiatric evaluation patient may still benefit from additional 30 treatments of hyperbaric oxygen. May require wound consult reevaluation. Copies To: Les SIMONS,Alvarado Ortega DPM,[facility] Consult Acknowledgment - Thank you for your consult request.
--- NOTE | 2017-09-01 11:30 | PN- Infect Dx ---
Subjective Subjective: MAXIMUM TEMPERATURE 101. He continues to complain of pain in the right foot. Objective Last 24 Hrs of Vital Signs/I&O Vital Signs Date Time Temp Pulse Resp B/P B/P Pulse O2 O2 Flow FiO2 Mean Ox Delivery Rate 09/01 1004 142/83 09/01 0705 99.2 107 20 142/83 94 Room Air 08/31 2156 101.0 96 18 112/68 95 08/31 1456 99.6 106 20 138/62 96 Room Air Intake & Output 09/01 1600 09/01 0800 09/01 0000 Intake Total 910 960 Output Total 500 900 Balance 410 60 Intake, IV 850 600 Intake, Oral 60 360 Output, Urine 500 900 Physical Exam Other Physical Findings: He appears comfortable in no acute distress Extremities right foot swelling and mild erythema over the dorsum of the right foot, tender to palpation, with an open wound on the lateral aspect Results Last 24 Hours of Lab Results: Laboratory Tests 09/01 0600 Chemistry Sodium (137 - 145 mmol/L) 134 L Potassium (3.5 - 5.1 mmol/L) 3.7 Chloride (98 - 107 mmol/L) 100 Carbon Dioxide (22 - 30 mmol/L) 22 Anion Gap (5 - 16) 12 BUN (9 - 20 mg/dL) 14 Creatinine (0.7 - 1.2 mg/dL) 0.7 Estimated GFR (>60 ml/min) > 60 BUN/Creatinine Ratio (7 - 25 %) 20.0 Hematology CBC w Diff MAN DIFF ORDERED WBC (4.8 - 10.8 /CUMM) 11.0 H RBC (4.70 - 6.10 /CUMM) 3.24 L Hgb (14.0 - 18.0 G/DL) 9.4 L Hct (42 - 52 %) 28.3 L MCV (80.0 - 94.0 FL) 87.1 MCH (27.0 - 31.0 PG) 29.1 MCHC (33.0 - 37.0 G/DL) 33.4 RDW (11.5 - 14.5 %) 14.3 Plt Count (130 - 400 /CUMM) 223 MPV (7.4 - 10.4 FL) 10.1 Gran % (42.2 - 75.2 %) 87.6 H Lymphocytes % (20.5 - 51.1 %) 6.6 L Monocytes % (1.7 - 9.3 %) 5.5 Eosinophils % (0 - 5 %) 0.2 Basophils % (0.0 - 2.0 %) 0.1 Absolute Granulocytes (1.4 - 6.5 /CUMM) 9.7 H Segmented Neutrophils (42.2 - 75.2 %) 87 H Band Neutrophils (0.0 - 5.0 %) 5 Absolute Lymphocytes (1.2 - 3.4 /CUMM) 0.7 L Lymphocytes (20.5 - 51.1 %) 5 L Monocytes (1.7 - 9.3 %) 3 Absolute Monocytes (0.10 - 0.60 /CUMM) 0.6 Absolute Eosinophils (0.0 - 0.7 /CUMM) 0 Absolute Basophils (0.0 - 0.2 /CUMM) 0 Platelet Estimate (ADEQUATE) VERIFIED BY SMEAR Normocytic RBCs VERIFIED Normochromic RBCs VERIFIED Last 24 Hours of Jose A Results: Blood cultures August 30 negative Urine strep pneumo antigen and Legionella antigen August 31 negative Assessment/Plan ID Impression: Fevers persist, with a minimal leukocytosis, on Vancomycin and Ceftriaxone Day 2 of treatment for a persistent infection in the right foot, with a nonhealing ulcer on the lateral aspect and with progression of osteomyelitis on the recent MRI. Have discussed with Podiatry who has no plans for further debridement and feels that he requires a BKA. Vascular Surgery evaluation noted, with the recommendation for a repeat arterial ultrasound. He can be continued on antibiotics for now but, if there are no plans for debridement or bone biopsy, they can be discontinued pending further decisions regarding his right foot. Suggestion: 1. Further evaluation and management of his right foot, with possible BKA as recommended by Podiatry, per Vascular Surgery 2. Continue Vancomycin and Ceftriaxone pending above
[2017-09-01 13:57] VITALS: BP 110/70
--- NOTE | 2017-09-01 15:11 | Cons- Cardiology ---
General Information and HPI Consulting Request Date of Consult: 09/01/17 Requested By: Laci Chambers MD Source of Information: patient, old records Allergies/Medications Allergies: Coded Allergies: sulfamethoxazole (From BACTRIM) (VOMITING 08/30/17) trimethoprim (From BACTRIM) (VOMITING 08/30/17) Home Med List: Acetaminophen (Tylenol) 325 MG TABLET 1 TAB PO Q6P PRN PAIN SCALE 1-3 (MILD) Aspirin (Aspirin*) 81 MG TAB.CHEW 1 TAB PO DAILY Heart Health Atorvastatin Calcium 80 MG TABLET 1 TAB PO 1700 HEART . Clopidogrel Bisulfate (Plavix) 75 MG TABLET 1 TAB PO DAILY Hx of DVT ( Reported) Duloxetine HCl 30 MG CAPSULE.DR 2 CAP PO DAILY NERVE PAIN (Reported) Insulin Aspart (Novolog) 100 UNIT/ML VIAL 0 SC TIDAC/HS DM . Insulin Detemir (Levemir) 100 UNIT/1 ML VIAL 24 UNITS SC DAILY Diabetes FOLLOW UP WITH DR. AREVALO. Metformin HCl 500 MG TABLET 2 TAB PO BID DIABETES (Reported) Metoprolol Succ XL (Toprol XL) 25 MG TAB 1 TAB PO DAILY HEART . Oxycodone HCl/Acetaminophen (Percocet 5-325 MG Tablet) 5 MG-325 MG TABLET 1 TAB PO Q4-6 PRN Pain Pregabalin (Lyrica) 100 MG CAPSULE 1 CAP PO BID PAIN CONTROL (Reported) Current Medications: Current Medications Sig/Marty Start time Last Medication Dose Route Stop Time Status Admin Acetaminophen 650 MG Q6P PRN 08/30 2114 AC 08/30 PO 2253 Atorvastatin Calcium 80 MG 1700 08/31 1700 AC 08/31 PO 1710 Ceftriaxone Sodium 2,000 MG Q24H 08/31 1445 AC 08/31 IV 1701 Dextrose/Sodium 1,000 ML Q13H 08/30 2315 AC 09/01 Chloride IV 0501 Duloxetine HCl 60 MG DAILY 08/31 2027 AC 09/01 PO 1004 Heparin Sodium 5,000 UNIT Q8 08/30 2199 AC 09/01 (Porcine) SC 1337 Hydrocodone Bitart/ 1 TAB Q6P PRN 08/30 2114 AC 09/01 Acetaminophen PO 1005 Insulin Aspart 0 TIDAC 09/01 1700 AC SC Insulin Aspart 0 TIDAC 08/31 1700 DC 08/31 SC 1710 Insulin Detemir 12 UNITS BID 08/30 2200 AC 09/01 SC 1010 Insulin Human Regular 0 Q6 09/01 0600 DC 09/01 SC 0542 Metoprolol Succinate 25 MG DAILY 08/31 1000 AC 09/01 PO 1004 Morphine Sulfate 4 MG Q3P PRN 09/01 0915 AC 09/01 IV 1211 Morphine Sulfate 4 MG Q4P PRN 08/30 2215 DC 09/01 IV 0724 Ondansetron HCl 4 MG Q6P PRN 08/31 1215 AC 08/31 IV 1243 Polyethylene Glycol 17 GM AT BEDTIME 08/30 2200 AC PO Pregabalin 100 MG BID 08/30 2200 AC 09/01 PO 1004 Promethazine HCl 12.5 MG ONCE ONE 08/31 1745 DC 08/31 IV 08/31 1746 1800 Senna/Docusate Sodium 2 TAB AT BEDTIME 08/30 220 AC PO Vancomycin HCl 1,250 MG Q12H 09/01 0500 AC 09/01 Dextrose/Water 250 ML IV 0501 Vancomycin HCl 1,250 MG Q12H 08/31 1500 DC 08/31 Dextrose/Water 250 ML IV 1701 Past History Travel History Traveled to [place] past 21 day No Medical History Blood Transfusion Hx: No Neurological: NONE EENT: NONE Cardiovascular: CAD (status post stents), myocardial infarction, PVD Respiratory: NONE Gastrointestinal: NONE Hepatic: NONE Renal: RENAL ABSCESS PYELONEPRHTIS Musculoskeletal: osteoarthritis, CARPAL TUNNEL L SIDE RIB FX rotator cuff injury Psychiatric: NONE Endocrine: diabetes Blood Disorders: NONE Cancer(s): NONE Surgical History Surgical History: rotator cuff surgery with acromioplasty and glenohumeral joint debridement on the left status post balloon angioplasty of the left leg s/p amputation of the 4th and 5th toes Family History Relations & Conditions If Any: MOTHER Heart attack Psychosocial History Services at Home: Nursing Smoking Status: Current Everyday Smoker ETOH Use: denies use Illicit Drug Use: denies illicit drug use Functional Ability ADLs Independent: dressing, eating, toileting, bathing. Ambulation: independent IADLs Independent: shopping, housework, finances, food prep, telephone, transportation , medication admin. Exam & Diagnostic Data Vital Signs and I&O Vital Signs Date Time Temp Pulse Resp B/P B/P Pulse O2 O2 Flow FiO2 Mean Ox Delivery Rate 09/01 1357 98.1 90 20 110/70 97 Room Air 09/01 1004 142/83 09/01 0705 99.2 107 20 142/83 94 Room Air 08/31 2156 101.0 96 18 112/68 95 Intake & Output 09/01 0809/01 0000 08/31 1600 08/31 0800 08/31 0000 Intake Total 354 705 9576 600 340 Output Total 500 900 400 500 225 Balance 410 60 600 100 115 Intake, IV 850 600 600 600 Intake, Oral 60 360 400 0 340 Output, Urine 500 900 400 500 225 Patient 190 lb Weight Weight Bed scale Measurement Method Labs/Jose A Results: Laboratory Tests 09/01 06 Chemistry Sodium (137 - 145 mmol/L) 134 L Potassium (3.5 - 5.1 mmol/L) 3.7 Chloride (98 - 107 mmol/L) 100 Carbon Dioxide (22 - 30 mmol/L) 22 Anion Gap (5 - 16) 12 BUN (9 - 20 mg/dL) 14 Creatinine (0.7 - 1.2 mg/dL) 0.7 Estimated GFR (>60 ml/min) > 60 BUN/Creatinine Ratio (7 - 25 %) 20.0 Hematology CBC w Diff MAN DIFF ORDERED WBC (4.8 - 10.8 /CUMM) 11.0 H RBC (4.70 - 6.10 /CUMM) 3.24 L Hgb (14.0 - 18.0 G/DL) 9.4 L Hct (42 - 52 %) 28.3 L MCV (80.0 - 94.0 FL) 87.1 MCH (27.0 - 31.0 PG) 29.1 MCHC (33.0 - 37.0 G/DL) 33.4 RDW (11.5 - 14.5 %) 14.3 Plt Count (130 - 400 /CUMM) 223 MPV (7.4 - 10.4 FL) 10.1 Gran % (42.2 - 75.2 %) 87.6 H Lymphocytes % (20.5 - 51.1 %) 6.6 L Monocytes % (1.7 - 9.3 %) 5.5 Eosinophils % (0 - 5 %) 0.2 Basophils % (0.0 - 2.0 %) 0.1 Absolute Granulocytes (1.4 - 6.5 /CUMM) 9.7 H Segmented Neutrophils (42.2 - 75.2 %) 87 H Band Neutrophils (0.0 - 5.0 %) 5 Absolute Lymphocytes (1.2 - 3.4 /CUMM) 0.7 L Lymphocytes (20.5 - 51.1 %) 5 L Monocytes (1.7 - 9.3 %) 3 Absolute Monocytes (0.10 - 0.60 /CUMM) 0.6 Absolute Eosinophils (0.0 - 0.7 /CUMM) 0 Absolute Basophils (0.0 - 0.2 /CUMM) 0 Platelet Estimate (ADEQUATE) VERIFIED BY SMEAR Normocytic RBCs VERIFIED Normochromic RBCs VERIFIED 08/31 08/30 0719 1632 Chemistry Sodium (137 - 145 mmol/L) 134 L Potassium (3.5 - 5.1 mmol/L) 3.9 Chloride (98 - 107 mmol/L) 101 Carbon Dioxide (22 - 30 mmol/L) 22 Anion Gap (5 - 16) 11 BUN (9 - 20 mg/dL) 16 Creatinine (0.7 - 1.2 mg/dL) 0.8 Estimated GFR (>60 ml/min) > 60 BUN/Creatinine Ratio (7 - 25 %) 20.0 Lactic Acid Cancelled Hematology CBC w Diff MAN DIFF ORDERED WBC (4.8 - 10.8 /CUMM) 11.2 H RBC (4.70 - 6.10 /CUMM) 3.38 L Hgb (14.0 - 18.0 G/DL) 9.9 L Hct (42 - 52 %) 29.5 L MCV (80.0 - 94.0 FL) 87.3 MCH (27.0 - 31.0 PG) 29.1 MCHC (33.0 - 37.0 G/DL) 33.4 RDW (11.5 - 14.5 %) 14.0 Plt Count (130 - 400 /CUMM) 219 MPV (7.4 - 10.4 FL) 10.0 Gran % (42.2 - 75.2 %) 89.3 H Lymphocytes % (20.5 - 51.1 %) 4.1 L Monocytes % (1.7 - 9.3 %) 6.5 Eosinophils % (0 - 5 %) 0.1 Basophils % (0.0 - 2.0 %) 0 Absolute Granulocytes (1.4 - 6.5 /CUMM) 10.0 H Segmented Neutrophils (42.2 - 75.2 %) 78 H Band Neutrophils (0.0 - 5.0 %) 8 H Absolute Lymphocytes (1.2 - 3.4 /CUMM) 0.5 L Lymphocytes (20.5 - 51.1 %) 10 L Monocytes (1.7 - 9.3 %) 4 Absolute Monocytes (0.10 - 0.60 /CUMM) 0.7 H Absolute Eosinophils (0.0 - 0.7 /CUMM) 0 Absolute Basophils (0.0 - 0.2 /CUMM) 0 Platelet Estimate (ADEQUATE) VERIFIED BY SMEAR Normocytic RBCs VERIFIED Normochromic RBCs VERIFIED Assessment/Plan Assessment/Plan assessment: 1. Right foot cellulitis/rule out osteomyelitis 2. Chronic nonhealing ulcer right foot 3. Diabetes; poorly controlled 4. history of coronary artery disease; prior myocardial infarction 5. anemia Recommendations: -Continue as per the medical team -Continue as per vascular surgery -continue metoprolol -We will follow along with you while the patient is in the hospital. Consult Acknowledgment - Thank you for your consult request.
--- NOTE | 2017-09-01 17:05 | ULTRASOUND REPORT ---
EXAMINATION: NONINVASIVE ASSESSMENT OF THE ARTERIES OF THE RIGHT LOWER EXTREMITY INTERPRETING VASCULAR \T\ INTERVENTIONAL RADIOLOGIST: Orion Turner MD CLINICAL INFORMATION: Osteomyelitis being evaluated for amputation TECHNIQUE: Right lower extremity duplex ultrasound was performed with velocity measurements and waveform analysis in the common femoral arteries, profunda femoris arteries, proximal mid and distal superficial femoral arteries, popliteal arteries and tibial vessels. This study was performed only at rest. COMPARISON: 04/27/2017 FINDINGS: Velocities in cm/sec and phasicity as well as the presence of plaque are reported below. RIGHT LEG: Common Femoral: 157 Profunda Femoris: 200 Proximal SFA: 88 Mid SFA: 59 Distal SFA: 528 Popliteal: 90 Anterior tibial: 58 Peroneal: 34 Posterior tibial: 77 Dorsalis pedis: 45 Biphasic flow is noted in the common femoral artery and profunda femoris artery but usually more unique phasic flow is noted below this level and there is marked velocity elevation in the distal SFA indicative of a stenosis. These velocities have increased significantly since the patient's prior study. IMPRESSION: SFA stenosis.
[2017-09-01 23:40] VITALS: BP 115/67
[2017-09-02 07:14] VITALS: BP 118/68
--- NOTE | 2017-09-02 07:22 | PN- Housestaff ---
See Addendum Subjective Follow-up For: Oseteomylitis Subjective: Patient has been seen and examined. Resting comfortably. Complains of antibiotic 10 pain with Peridot received morphine. Seemed little down, would likely benefit from psychiatric informed. MAXIMUM TEMPERATURE overnight was 101.3. WBC count is trending up to 12.8 despite vancomycin and ceftriaxone day 3 of treatment Review of Systems Constitutional: Reports: see HPI. Objective Last 24 Hrs of Vital Signs/I&O Vital Signs Date Time Temp Pulse Resp B/P B/P Pulse O2 O2 Flow FiO2 Mean Ox Delivery Rate 09/02 0750 118/68 09/02 0714 98.0 87 20 118/68 96 Room Air 09/02 0010 98.8 09/01 2340 99.4 96 20 115/67 94 Room Air 09/01 2100 101.3 09/01 1357 98.1 90 20 110/70 97 Room Air Intake & Output 09/02 1600 09/02 0800 09/02 0000 Intake Total 600 735 Output Total 900 Balance -300 735 Intake, IV 600 495 Intake, Oral 0 240 Number 0 0 Bowel Movements Output, Urine 900 Physical Exam General Appearance: Alert, Oriented X3, Cooperative Skin: No Rashes Cardiovascular: Normal S1, Normal S2, No Murmurs Lungs: Clear to Auscultation Abdomen: Normal Bowel Sounds, Soft Neurological: Normal Speech Other Physical Findings: Extremities right foot swelling and mild erythema over the dorsum of the right foot, tender to palpation, with an open wound on the lateral aspect Current Medications: Current Medications Sig/Marty Start time Last Medication Dose Route Stop Time Status Admin Acetaminophen 650 MG ONCE ONE 09/01 2014 DC 09/01 PO 09/02 2015 2100 Acetaminophen 650 MG Q6P PRN 08/30 2114 AC 08/30 PO 2253 Atorvastatin Calcium 80 MG 1700 08/31 1700 AC 09/01 PO 1654 Ceftriaxone Sodium 2,000 MG Q24H 08/31 1445 AC 09/01 IV 1600 Dextrose/Sodium 1,000 ML Q13H 08/30 2315 AC 09/02 Chloride IV 0551 Duloxetine HCl 60 MG DAILY 08/31 2027 AC 09/02 PO 0750 Heparin Sodium 5,000 UNIT Q8 08/30 2200 AC 09/02 (Porcine) SC 0551 Hydrocodone Bitart/ 1 TAB Q6P PRN 08/30 2114 AC 09/02 Acetaminophen PO 0556 Insulin Aspart 0 TIDAC 09/01 1700 DC 09/01 SC 1726 Insulin Detemir 12 UNITS BID 08/30 2200 AC 09/02 SC 0751 Insulin Human Regular 0 Q6 09/02 0600 AC 09/02 SC 0644 Insulin Human Regular 0 Q6 09/01 0600 DC 09/01 SC 0542 Metoprolol Succinate 25 MG DAILY 08/31 1000 AC 09/02 PO 0750 Morphine Sulfate 4 MG Q3P PRN 09/01 0915 AC 09/02 IV 0750 Ondansetron HCl 4 MG Q6P PRN 08/31 1215 AC 08/31 IV 1243 Polyethylene Glycol 17 GM AT BEDTIME 08/30 2199 AC PO Pregabalin 100 MG BID 08/30 220 AC 09/02 PO 0751 Senna/Docusate Sodium 2 TAB AT BEDTIME 08/30 220 AC 09/01 PO 2100 Vancomycin HCl 1,250 MG Q12H 09/01 0500 AC 09/02 Dextrose/Water 250 ML IV 0551 Last 24 Hrs of Lab/Jose A Results Last 24 Hrs of Labs/Mics: Laboratory Tests 09/02/17 0645: CBC w Diff NO MAN DIFF REQ, RBC 3.19 L, MCV 86.6, MCH 29.0, MCHC 33.5, RDW 14.2 , MPV 9.8, Gran % 82.7 H, Lymphocytes % 7.2 L, Monocytes % 9.5 H, Eosinophils % 0.5, Basophils % 0.1, Absolute Granulocytes 10.6 H, Absolute Lymphocytes 0.9 L, Absolute Monocytes 1.2 H, Absolute Eosinophils 0.1, Absolute Basophils 0 Microbiology 09/01 2024 BLOOD: Blood Culture - RECD 09/01 2014 BLOOD: Blood Culture - RECD Assessment/Plan Assessment: Patient is a 51-year-old male with a PMH significant for insulin-dependent diabetes, diabetic neuropathy, CAD status post CA with PCI and 2 stents placed in 2007, PVD, renal abscess, osteomyelitis with recent toe amputation who was referred [facility] ED from Dr. Ortega office for suspicion of osteomyelitis. MRI confirmed diagnosis of osteomyelitis Labs were significant for elevated ESR, leukocytosis, mild hyperglycemia He is being treated evaluate for following conditions #Right Foot Osteomyelitis. MRI showed osteomyelitis 3rd metatarsal, cuboid, and lateral cuneiform. SIRS fever to 104 as OP, leukocytosis, tachycardia. No hypotension and lactate normal on presentation -Podiatry consult, awaiting recommendation -ID on board -Vascular surgery consulted -arterial ultrasound of right lower extremity showed SFA stenosis increased significantly compared to the previous study of April 2017 -Monitor fever and WBC curve, tmax 99, WBC count trending up to 12.8 -Continue Vancomycin IV 1.25g Q12 and Ceftriaxone 2g IV Q24 Day 3 -Potential BKA?? -Adequate pain control #CAD- no cardiac symptoms and troponin negative. Was seen by Cardiology last month. Benefits of surgery outweigh risk based on RCRI. -Will consult Dr. Hurley for evaluation. -Continue usual meds (Metoprolol, etc.) -Aspirin and Plavix on hold with the anticipation of surgery #DM -Hold Metformin -continue insulin sliding scale. -Blood sugar running in adequate range #Neuropathy -Continue Lyrica, Duloxetine and Percocet prn. #Hyperlipidemia -Continue Atorvastatin. Diabetic diet/ALPS, start pharmacologic after surgery/ Full code Problem List: 1. Osteomyelitis of right foot Pain Ratin Pain Location: R foot Pain Goal: Pain 4 or less Pain Plan: prn Tomorrow's Labs & Rationales: cbc
[2017-09-02 08:26] LABS: ABSOLUTE BASOPHIL COUNT 0 /CUMM (0.0-0.2); ABSOLUTE EOSINOPHIL COUNT 0.1 /CUMM (0.0-0.7); ABSOLUTE GRANULOCYTE CT 10.6 /CUMM (1.4-6.5); ABSOLUTE LYMPH COUNT 0.9 /CUMM (1.2-3.4); ABSOLUTE MONOCYTE COUNT 1.2 /CUMM (0.10-0.60); BASOPHIL % 0.1 % (0.0-2.0); EOSINOPHIL % 0.5 % (0-5); GRANULOCYTE % 82.7 % (42.2-75.2); HEMATOCRIT 27.6 % (42-52); MEAN CORPUSCULAR HGB CONC 33.5 G/DL (33.0-37.0); MEAN CORPUSCULAR VOLUME 86.6 FL (80.0-94.0); MEAN PLATELET VOLUME 9.8 FL (7.4-10.4); PLATELET COUNT 232 /CUMM (130-400); RBC DISTRIBUTION WIDTH 14.2 % (11.5-14.5); RED BLOOD CELL CT 3.19 /CUMM (4.70-6.10); WHITE BLOOD CELL COUNT 12.8 /CUMM (4.8-10.8)
--- NOTE | 2017-09-02 10:20 | Cons- Psychiatry ---
Psychiatric Consult Date of Consult: 09/02/17 Reason for Consult: "severe depression with possible leg amputation and chronic illness" History of Present Illness: 51 , domiciled, male SIB Dr. Ortega for infected foot 08/30/17 @ 1330. He has had two toes amputated on his right foot, s/p amputation one month ago. He has failed one round of PO abx. The patient was admitted for osteomyelitis and cellulitis. He is awaiting notification from the surgeon today, whether an amputation will be scheduled. Allergies: Coded Allergies: sulfamethoxazole (From BACTRIM) (VOMITING 08/30/17) trimethoprim (From BACTRIM) (VOMITING 08/30/17) Current Medications: Current Medications Sig/Marty Start time Last Medication Dose Route Stop Time Status Admin Acetaminophen 650 MG ONCE ONE 09/01 2014 DC 09/01 PO 09/02 2015 2100 Acetaminophen 650 MG Q6P PRN 08/30 2115 AC 08/30 PO 2253 Atorvastatin Calcium 80 MG 1700 08/31 1700 AC 09/01 PO 1654 Ceftriaxone Sodium 2,000 MG Q24H 08/31 1445 AC 09/01 IV 1600 Dextrose/Sodium 1,000 ML Q13H 08/30 2315 AC 09/02 Chloride IV 0551 Duloxetine HCl 60 MG DAILY 08/31 2027 AC 09/02 PO 0750 Heparin Sodium 5,000 UNIT Q8 08/30 2199 AC 09/02 (Porcine) SC 0551 Hydrocodone Bitart/ 1 TAB Q6P PRN 08/30 2115 AC 09/02 Acetaminophen PO 0556 Insulin Aspart 0 TIDAC 09/01 1700 DC 09/01 SC 1726 Insulin Detemir 12 UNITS BID 08/30 2200 AC 09/02 SC 0751 Insulin Human Regular 0 Q6 09/02 0600 AC 09/02 SC 0644 Insulin Human Regular 0 Q6 09/01 0600 DC 09/01 SC 0542 Metoprolol Succinate 25 MG DAILY 08/31 1000 AC 09/02 PO 0750 Morphine Sulfate 4 MG Q3P PRN 09/01 0915 AC 09/02 IV 0750 Ondansetron HCl 4 MG Q6P PRN 08/31 1215 AC 08/31 IV 1243 Polyethylene Glycol 17 GM AT BEDTIME 08/30 2199 AC PO Pregabalin 100 MG BID 08/30 220 AC 03/29 PO 0751 Senna/Docusate Sodium 2 TAB AT BEDTIME 08/30 2200 AC 09/01 PO 2100 Vancomycin HCl 1,250 MG Q12H 09/01 0500 AC 09/02 Dextrose/Water 250 ML IV 0551 Past History Past Medical History Neurological: NONE EENT: NONE Cardiovascular: CAD (status post stents), myocardial infarction, PVD Respiratory: NONE Gastrointestinal: NONE Hepatic: NONE Renal: RENAL ABSCESS PYELONEPRHTIS Musculoskeletal: osteoarthritis, CARPAL TUNNEL L SIDE RIB FX rotator cuff injury Psychiatric: NONE Endocrine: diabetes Blood Disorders: NONE Cancer(s): NONE Past Surgical History Surgical History: rotator cuff surgery with acromioplasty and glenohumeral joint debridement on the left status post balloon angioplasty of the left leg s/p amputation of the 4th and 5th toes Psychosocial History Strengths/Capabilities: Motivated for treatment, supportive family Physical Limitations (Interventions): Difficulty with ambulation. Psychiatric Treatment History Psych Treatment Psychiatric Treatment No (denies) Diagnosis: Adjustment disorder major depressive disorder, single, moderate Risk Factors: chronic/serious med cond., male Substance Use/Abuse History Drug Use/Abuse Substances Used/Abused No (denies) Substance Abuse Treatment Substance Abuse Treatment Past Substance Abuse [place] No Assessment/Plan Mental Status Orientation: Person, Place, Situation Affect: Appropriate Speech: WNL Neuro-vegetative: Sleep Disturbance Mental Status Exam: The patient is sitting calmly in his chair, he is alert, cooperative and oriented to person, place, day, month, year and off by one date. He denies current VH, but reports that he has had some occurences recently. We note that his sleep is poor and he has an infective process being treated. He denies AH, and presents no kacie delusions. He denies SI or HI, and denies any history of suicide attempt. He denies psychiatric diagnosis, treatment or hospitalization. Depressive feelings 5-6/10, 10 is the worst. He denies hopelessness, and helplessness. He endorses worthlessness and feelings of guilt. Anxiety 5-6/10. He denies any current or history of panic events. He denies any family psychiatric history. He denies any use of alcohol or drugs. He denies any history of trauma or abuse. The patient reports that his sleep is very poor and not restful. He generally sleeps 3-4 hours a night, an additional 6-7 hours during the day. He has tried melatonin, which made him dizzy. Lab Results: Laboratory Tests 09/02 0645 Hematology CBC w Diff NO MAN DIFF REQ WBC (4.8 - 10.8 /CUMM) 12.8 H RBC (4.70 - 6.10 /CUMM) 3.19 L Hgb (14.0 - 18.0 G/DL) 9.2 L Hct (42 - 52 %) 27.6 L MCV (80.0 - 94.0 FL) 86.6 MCH (27.0 - 31.0 PG) 29.0 MCHC (33.0 - 37.0 G/DL) 33.5 RDW (11.5 - 14.5 %) 14.2 Plt Count (130 - 400 /CUMM) 232 MPV (7.4 - 10.4 FL) 9.8 Gran % (42.2 - 75.2 %) 82.7 H Lymphocytes % (20.5 - 51.1 %) 7.2 L Monocytes % (1.7 - 9.3 %) 9.5 H Eosinophils % (0 - 5 %) 0.5 Basophils % (0.0 - 2.0 %) 0.1 Absolute Granulocytes (1.4 - 6.5 /CUMM) 10.6 H Absolute Lymphocytes (1.2 - 3.4 /CUMM) 0.9 L Absolute Monocytes (0.10 - 0.60 /CUMM) 1.2 H Absolute Eosinophils (0.0 - 0.7 /CUMM) 0.1 Absolute Basophils (0.0 - 0.2 /CUMM) 0 Diffential Diagnosis: Adjustment disorder major depressive disorder, single, moderate, with anxious features Impression: Patient understands and has known for some time, that the potential for amputation of his right foot is a possibility. He anticipates learning more about the surgeon's recommendations today, and is mildly apprehensive. We discussed an alternative to the possible surgery, namely not having the surgery. He verbalizes understanding that not to surgically corrected the the infection, might lead to further disability and possibly . The patient indicates that he wishes to live, and knows that in amputation will be a life-changing event. We discussed some of the challenges he will face getting around in his home, including 3 steps into the house, and 14 steps to his bedroom. He is moderately depressed, with understandable anxiety before the news about his surgery. From discussions with him, his depression is not new, and he is interested in seeking treatment. I outlined the usual treatments and outpatient psychiatry including talk therapy and medication. We discussed the risks, benefits and side effects of 2 medications which might be considered, escitalopram or sertraline. I have left the patient up-to-date patient information handouts on both these medications. He would like to review these information sheets with his supportive . If the patient chooses to begin either escitalopram or sertraline, then he will need assured follow-up, which in this case we hope will be [facility] outpatient psychiatry, for which he will need an intake appointment. If he elects to begin one of these medications, we would suggest escitalopram 5 mg by mouth daily or sertraline 25 mg by mouth daily. For both medications please get baseline EKG and electrolytes, as either one can lead to QTc prolongation or hyponatremia. Provisional Treatment Plan: 1. The patient is considering starting either escitalopram/Lexapro or sertraline/Zoloft, and wishes to discuss it with his . Risks, benefits and side effects were reviewed, and patient information sheets on these medications were left with the patient. 2. He will also need an intake appointment at [facility] outpatient psychiatry, whether he chooses to begin the medication or not. If he will be going to a short-term rehabilitation, please ask on the [address] 10 for that facility to contact us to make an intake appointment when his discharge is not on. [facility] is located at [address] [place] [address], . We will continue to follow along, and will expect to visit the patient again after the weekend. If any psychiatric matters arise, or you have questions about starting the medications mentioned above, please contact on-call psychiatry, which can be reached through the crisis office [phone]. [phone] or through Inpatient Psychiatry X. [phone]. Thank you for this consult.
--- NOTE | 2017-09-02 12:30 | PN- Infect Dx ---
Subjective Subjective: MAXIMUM TEMPERATURE 101.3. He continues to complain of pain in the right foot. Objective Last 24 Hrs of Vital Signs/I&O Vital Signs Date Time Temp Pulse Resp B/P B/P Pulse O2 O2 Flow FiO2 Mean Ox Delivery Rate 09/02 0750 118/68 09/02 0714 98.0 87 20 118/68 96 Room Air 09/02 0010 98.8 09/01 2340 99.4 96 20 115/67 94 Room Air 09/01 2100 101.3 09/01 1357 98.1 90 20 110/70 97 Room Air Intake & Output 09/02 1600 09/02 0800 09/02 0000 Intake Total 600 735 Output Total 1200 Balance -600 735 Intake, IV 600 495 Intake, Oral 0 240 Number 0 0 Bowel Movements Output, Urine 1200 Physical Exam Other Physical Findings: He appears comfortable in no acute distress Extremities right foot swelling, erythema and tenderness persist over the dorsum of the foot, with an open, nonhealing wound on the lateral aspect Results Last 24 Hours of Lab Results: Laboratory Tests 09/02 0645 Hematology CBC w Diff NO MAN DIFF REQ WBC (4.8 - 10.8 /CUMM) 12.8 H RBC (4.70 - 6.10 /CUMM) 3.19 L Hgb (14.0 - 18.0 G/DL) 9.2 L Hct (42 - 52 %) 27.6 L MCV (80.0 - 94.0 FL) 86.6 MCH (27.0 - 31.0 PG) 29.0 MCHC (33.0 - 37.0 G/DL) 33.5 RDW (11.5 - 14.5 %) 14.2 Plt Count (130 - 400 /CUMM) 232 MPV (7.4 - 10.4 FL) 9.8 Gran % (42.2 - 75.2 %) 82.7 H Lymphocytes % (20.5 - 51.1 %) 7.2 L Monocytes % (1.7 - 9.3 %) 9.5 H Eosinophils % (0 - 5 %) 0.5 Basophils % (0.0 - 2.0 %) 0.1 Absolute Granulocytes (1.4 - 6.5 /CUMM) 10.6 H Absolute Lymphocytes (1.2 - 3.4 /CUMM) 0.9 L Absolute Monocytes (0.10 - 0.60 /CUMM) 1.2 H Absolute Eosinophils (0.0 - 0.7 /CUMM) 0.1 Absolute Basophils (0.0 - 0.2 /CUMM) 0 Last 24 Hours of Jose A Results: Blood cultures August 30 negative Blood cultures September 01 negative Recent Imaging Studies: Arterial Doppler of the right leg September 01 reveals marked velocity elevation in the distal SFA, indicative of stenosis, increased significantly compared to the previous study of April 2017 Assessment/Plan ID Impression: Persistent fevers with his white blood cell count increased despite now 3 days of Vancomycin and Ceftriaxone, begun empirically (based on his OR cultures from his recent admission) for a persistent infection in the right foot secondary to a nonhealing ulcer on the lateral aspect, with evidence of cellulitis/abscess on exam and with progression of osteomyelitis on the MRI. He will require some form of surgical intervention and will await Vascular surgery follow-up for possible BKA, which has been recommended by Podiatry. Suggestion: 1. Await Vascular surgery follow-up regarding possible BKA 2. Podiatry input for further surgical intervention if no plans for BKA 3. Vancomycin trough level with his next dose 4. Continue Vancomycin and Ceftriaxone pending above Ana Aguilar MD will be covering until September 06
[2017-09-02 15:01] VITALS: BP 114/58
[2017-09-02 17:39] VITALS: BP 128/74
[2017-09-02 22:12] VITALS: BP 132/74
[2017-09-03 05:51] VITALS: BP 108/52
--- NOTE | 2017-09-03 07:19 | PN- Housestaff ---
Marco SIMONS,[facility] 09/03/17 0719: Subjective Follow-up For: Osteomyelitis Subjective: Patient seen and examined easily arousable resting comfortably. On yesterday patient and his wanted to be updated abt the plan. We have tried to get in touch with patient's buffet attendant Dr. Bhagat. I talked to Dr. Jimenez vascular surgeon yesterday evening over the phone who recommended doing an angiogram on Wednesday morning, to see how much of the limb is salvageable. Had a detailed discussion with the patient about the plan. He will be staying over the weekend and will get angiogram on the Wednesday and consideration for potential BKA will be made after that. Afebrile for 24 hours vancomycin and ceftriaxone day 4. Vanc trough 13.5 Patient states that his pain is mainly managed at present but is always there. UPDATE: Patient's works and [facility] was called to update about patient's current status. She came up to the floor. The plan was discussed and she was relieved that there is angiogram planned on Wednesday. She also notified that patient will like to be started on Zoloft, of note he was evaluated by psychiatry yesterday and the various options were discussed. It was confirmed from the patient and we will start him on Zoloft. Review of Systems Constitutional: Reports: see HPI. Objective Last 24 Hrs of Vital Signs/I&O Vital Signs Date Time Temp Pulse Resp B/P B/P Pulse O2 O2 Flow FiO2 Mean Ox Delivery Rate 09/03 0551 98.2 86 20 108/52 98 Room Air 09/02 2212 98.6 96 18 132/74 95 Room Air 09/02 1739 99.0 84 18 128/74 100 Room Air 09/02 1501 98.4 80 20 114/58 99 Room Air Intake & Output 09/03 1600 09/03 0800 09/03 0000 Intake Total 545 1360 Output Total 300 800 Balance 245 560 Intake, IV 545 280 Intake, Oral 0 1080 Number 0 0 Bowel Movements Output, Urine 300 800 Physical Exam General Appearance: Alert, Oriented X3, Cooperative Skin: No Rashes HEENT: Atraumatic Lungs: Clear to Auscultation, Normal Air Movement Abdomen: Normal Bowel Sounds, Soft, No Tenderness Neurological: Normal Speech Current Medications: Current Medications Sig/Marty Start time Last Medication Dose Route Stop Time Status Admin Acetaminophen 650 MG Q6P PRN 08/30 2115 AC 08/30 PO 2253 Atorvastatin Calcium 80 MG 1700 08/31 1700 AC 09/02 PO 1659 Ceftriaxone Sodium 2,000 MG Q24H 08/31 1445 AC 09/02 IV 1322 Dextrose/Sodium 1,000 ML Q20H 09/02 2355 AC 09/03 Chloride IV 0108 Dextrose/Sodium 1,000 ML Q13H 08/30 2315 DC 09/02 Chloride IV 0551 Docusate Sodium 100 MG BID 09/02 1523 AC 09/02 PO 2134 Duloxetine HCl 60 MG DAILY 08/30 2028 AC 09/02 PO 0750 Heparin Sodium 5,000 UNIT Q8 08/30 2200 AC 09/03 (Porcine) SC 0601 Hydrocodone Bitart/ 1 TAB Q6P PRN 08/30 211 AC 09/03 Acetaminophen PO 0601 Insulin Aspart 0 TIDAC 09/02 1700 DC ID 09/02 2355 Insulin Detemir 12 UNITS BID 08/30 2200 AC 09/02 SC 2134 Insulin Human Regular 0 Q6 09/02 2359 09/03 SC 0600 Insulin Human Regular 0 Q6 09/02 0600 DC 09/02 SC 1156 Metoprolol Succinate 25 MG DAILY 08/31 1000 AC 09/02 PO 0750 Morphine Sulfate 4 MG Q3P PRN 09/01 0915 AC 09/03 IV 0112 Ondansetron HCl 4 MG Q6P PRN 08/31 1215 AC 08/31 IV 1243 Polyethylene Glycol 17 GM DAILY 09/02 1523 09/02 PO 1700 Polyethylene Glycol 17 GM AT BEDTIME 08/30 2200 AC PO Pregabalin 100 MG BID 08/30 2200 AC 09/02 PO 2134 Senna/Docusate Sodium 2 TAB AT BEDTIME 08/30 2200 AC 09/02 PO 2134 Vancomycin HCl 1,250 MG Q12H 09/01 0500 AC 09/03 Dextrose/Water 250 ML IV 0512 Last 24 Hrs of Lab/Jose A Results Last 24 Hrs of Labs/Mics: Laboratory Tests 09/03/17 0635: CBC w Diff Pending, WBC Pending, RBC Pending, Hgb Pending, Hct Pending, MCV Pending, MCH Pending, MCHC Pending, RDW Pending, Plt Count Pending, MPV Pending 09/02/17 1645: Vancomycin Trough 13.5 Assessment/Plan Assessment: Patient is a 51-year-old male with a PMH significant for insulin-dependent diabetes, diabetic neuropathy, CAD status post MS with PCI and 2 stents placed in 2007, PVD, renal abscess, osteomyelitis with recent toe amputation who was referred to the [facility] ED from Dr. Ortega office for suspicion of osteomyelitis. MRI confirmed diagnosis of osteomyelitis Labs were significant for elevated ESR, leukocytosis, mild hyperglycemia He is being treated evaluate for following conditions #Right Foot Osteomyelitis. MRI showed osteomyelitis 3rd metatarsal, cuboid, and lateral cuneiform. SIRS fever to 104 as OP, leukocytosis, tachycardia. No hypotension and lactate normal on presentation -Podiatry consult, awaiting recommendation -ID on board, vascular surgery on board -Arterial ultrasound of right lower extremity showed SFA stenosis increased significantly compared to the previous study of April 2017 -Angiogram on Wednesday, consideration for potential BKA will be made after that -Monitor fever and WBC curve -Continue Vancomycin IV 1.25g Q12 and Ceftriaxone 2g IV Q24 Day 4 -Adequate pain control #CAD- no cardiac symptoms and troponin negative. Was seen by Cardiology last month. Benefits of surgery outweigh risk based on RCRI. -Will consult Dr. Hurley for evaluation. -Continue usual meds (Metoprolol, etc.) -Aspirin and Plavix on hold with the anticipation of surgery #DM -Hold Metformin -continue insulin sliding scale. -Blood sugar running in adequate range #Neuropathy -Continue Lyrica, Duloxetine and Percocet prn. #Hyperlipidemia -Continue Atorvastatin. Diabetic diet/ALPS, start pharmacologic after surgery/ Full code Problem List: 1. Osteomyelitis of right foot Pain Ratin Pain Location: Right foot Pain Goal: Pain 4 or less Pain Plan: prn Tomorrow's Labs & Rationales: Laci Giordano MD 09/03/17 1051: Attending MD Review Statement Attending Statement Attending MD Statement: examined this patient, discuss w/resident/PA/LITIGATION COORDINATOR, agreed w/resident/PA/LITIGATION COORDINATOR, reviewed EMR data (avail) Attending Assessment/Plan: 51M PMH DM (neuropathy), CAD (s/p MS with 2 stents 2007), h/o renal abscess, h/o osteomyelitis and recent toe amputation sent in from buffet attendant for infection of the right foot with erythema, warmth, and discharge, found on MRI to have acute right foot osteomyelitis, septic upon admission but improved with Vancomycin and Ceftriaxone. No complaints today. Pain is relatively well controlled. 1. Acute osteomyelitis of the right foot 2. Sepsis (resolved) 3. PAD Plan - Continue on general medicine - Will go for angiogram on 09/06 - Will obtain PICC - Continue Vancomycin and Ceftriaxone - Follow cultures - Follow pulmonary and vascular recommendations - Continue home medications - Pain control - DVT PPx
[2017-09-03 08:01] LABS: ABSOLUTE BASOPHIL COUNT 0 /CUMM (0.0-0.2); ABSOLUTE EOSINOPHIL COUNT 0.1 /CUMM (0.0-0.7); ABSOLUTE GRANULOCYTE CT 10.3 /CUMM (1.4-6.5); ABSOLUTE LYMPH COUNT 1.2 /CUMM (1.2-3.4); ABSOLUTE MONOCYTE COUNT 0.9 /CUMM (0.10-0.60); BASOPHIL % 0.2 % (0.0-2.0); EOSINOPHIL % 0.6 % (0-5); GRANULOCYTE % 82.5 % (42.2-75.2); HEMATOCRIT 27.2 % (42-52); MEAN CORPUSCULAR HGB 29.3 PG (27.0-31.0); MEAN CORPUSCULAR HGB CONC 33.9 G/DL (33.0-37.0); MEAN CORPUSCULAR VOLUME 86.3 FL (80.0-94.0); PLATELET COUNT 282 /CUMM (130-400); RBC DISTRIBUTION WIDTH 14.5 % (11.5-14.5); RED BLOOD CELL CT 3.15 /CUMM (4.70-6.10); WHITE BLOOD CELL COUNT 12.5 /CUMM (4.8-10.8)
--- NOTE | 2017-09-03 12:36 | PN- Infect Dx ---
Subjective Subjective: No fever. c/o R foot pain. GERD sx. Review of Systems Comments: 12 points reviewed per HPI. Objective Last 24 Hrs of Vital Signs/I&O Vital Signs Date Time Temp Pulse Resp B/P B/P Pulse O2 O2 Flow FiO2 Mean Ox Delivery Rate 09/03 1024 108/52 09/03 0551 98.2 86 20 108/52 98 Room Air 09/02 2212 98.6 96 18 132/74 95 Room Air 09/02 1739 99.0 84 18 128/74 100 Room Air 09/02 1501 98.4 80 20 114/58 99 Room Air Intake & Output 09/03 1600 09/03 0800 09/03 0000 Intake Total 545 1360 Output Total 300 800 Balance 245 560 Intake, IV 545 280 Intake, Oral 0 1080 Number 0 0 Bowel Movements Output, Urine 300 800 Physical Exam Other Physical Findings: General Appearance: Alert, Oriented X3, Cooperative HEENT AT/NC Neck no JVD Heart S1 S2 present Lungs: Clear to Auscultation, Normal Air Movement Abdomen: Normal Bowel Sounds, Soft, No Tenderness Neurological: Normal Speech Extremities right foot swelling, erythema and tenderness persist over the dorsum of the foot, with an open, nonhealing wound on the lateral aspect Results Last 24 Hours of Lab Results: Laboratory Tests 09/03 09/02 0635 1645 Hematology CBC w Diff NO MAN DIFF REQ WBC (4.8 - 10.8 /CUMM) 12.5 H RBC (4.70 - 6.10 /CUMM) 3.15 L Hgb (14.0 - 18.0 G/DL) 9.2 L Hct (42 - 52 %) 27.2 L MCV (80.0 - 94.0 FL) 86.3 MCH (27.0 - 31.0 PG) 29.3 MCHC (33.0 - 37.0 G/DL) 33.9 RDW (11.5 - 14.5 %) 14.5 Plt Count (130 - 400 /CUMM) 282 MPV (7.4 - 10.4 FL) 10.0 Gran % (42.2 - 75.2 %) 82.5 H Lymphocytes % (20.5 - 51.1 %) 9.9 L Monocytes % (1.7 - 9.3 %) 6.8 Eosinophils % (0 - 5 %) 0.6 Basophils % (0.0 - 2.0 %) 0.2 Absolute Granulocytes (1.4 - 6.5 /CUMM) 10.3 H Absolute Lymphocytes (1.2 - 3.4 /CUMM) 1.2 Absolute Monocytes (0.10 - 0.60 /CUMM) 0.9 H Absolute Eosinophils (0.0 - 0.7 /CUMM) 0.1 Absolute Basophils (0.0 - 0.2 /CUMM) 0 Toxicology Vancomycin Trough (10.0 - 20.0 ug/mL) 13.5 Last 24 Hours of Jose A Results: SPEC #: [id number] JENNIFER: 09/01/17 STATUS: RES RECD: 09/01/[address]: Orville Mejia MD SOURCE: BLOOD ENTR: 09/01/[address]: Joni SIMONS,Elijah Rodriguez SPDESC: 1ST/VENOUS Reyes SIMONS,Laci Peralta MD,Damir ORDERED: BLOOD CULTURE Procedure Result > BLOOD CULTURE REPORT Preliminary 09/02/17 No growth after 1 day incubation. Specimen is examined continuously for 5 days before final report unless culture becomes positive. Recent Imaging Studies: MRI R foot There is a 1.5 x 1.7 x 0.6 cm heterogeneous fluid signal at the plantar margin of the 1st metatarsal head which likely corresponds to adventitious bursitis. There is mild thickening of the plantar fascia at the origin. A trace amount of fluid is present in the flexor digitorum longus and flexor hallucis longus tendon sheath at the master knot of [place]. IMPRESSION: Osteomyelitis of the 3rd metatarsal, cuboid, and lateral cuneiform. Signal abnormalities in the medial and intermediate cuneiforms as well as the navicular are more nonspecific and could be due to changes of Charcot arthropathy/degenerative arthritis or early osteomyelitis. DICTATED BY: Renny Cruz MD DATE/TIME DICTATED:08/30/17 1544 Assessment/Plan ID Impression: 51-year-old male with a PMH significant for insulin-dependent diabetes, diabetic neuropathy, CAD status post [place] with PCI and 2 stents placed in 2007, PVD, renal abscess, osteomyelitis with recent toe amputation who was referred to the [facility] ED on 08/[address] Ortega office for suspicion of osteomyelitis. Fever curve trending down; mild leukocytosis; while treated w/ D #4 Vancomycin and Ceftriaxone, begun empirically (based on his OR cultures from his recent admission) for a persistent infection in the right foot secondary to a nonhealing ulcer on the lateral aspect, with evidence of cellulitis/abscess on exam and with progression of osteomyelitis on the MRI. R LE angiogram planned. Suggestion: 1. F/u Vascular surgery recom 2. Cont to trend CBC, BMP. ESR weekly. 3. Repeat Vancomycin trough Wednesday 30 min before the due dose. 4. Continue Vancomycin and Ceftriaxone;
--- NOTE | 2017-09-03 14:34 | PN- Vascular Surgery ---
Surgical Brief Attending Note Brief Attending Note: VASCULAR ATTENDING NOTE: Long discussion (20 min) held with patient and regarding further limb salvage vs. BKA. Pt. states that as long as theres a chance he does not "want to lose his leg". Will plan for angiogtram on Wednesday and possible podiatric intervention.
[2017-09-03 15:25] VITALS: BP 120/60
--- NOTE | 2017-09-03 18:40 | Incdntl Nt Psy ---
Incidental Note Notation: I spoke briefly with pt who has chosen and started his antidepressant. He states there is no SI AH VH or HI. VERONICA
[2017-09-03 22:05] VITALS: BP 112/60
--- NOTE | 2017-09-04 06:56 | PN- Housestaff ---
See Addendum Subjective Follow-up For: Osteomyelitis Subjective: Patient seen and examined. Resting comfortably. Afebrile over 24 hours. On vancomycin and ceftriaxone day 4 vancomycin 13.1 plan angiogram on Wednesday. Patient will be nothing by mouth on Wednesday midnight for anticipated procedure. Overall patient is doing better. He was offered an option to go home with the PICC and come back for angiogram on Wednesday but opted to stay in the hospital. No chest palpitations chest pain nausea vomiting Review of Systems Constitutional: Reports: see HPI. Objective Last 24 Hrs of Vital Signs/I&O Vital Signs Date Time Temp Pulse Resp B/P B/P Pulse O2 O2 Flow FiO2 Mean Ox Delivery Rate 09/04 0707 98.5 74 18 124/69 95 09/03 2205 98.5 78 20 112/60 94 Room Air 09/03 1525 98.5 71 18 120/60 95 09/03 1024 108/52 Intake & Output 09/04 0800 09/04 0000 09/03 1600 Intake Total 400 Output Total 250 900 Balance 150 -900 Intake, Oral 400 Number Bowel Movements Output, Urine 250 900 Patient 190 lb Weight Physical Exam General Appearance: Alert, Oriented X3 Other Physical Findings: Skin: No Rashes Cardiovascular: Normal S1, Normal S2, No Murmurs Lungs: Clear to Auscultation Abdomen: Normal Bowel Sounds, Soft Neurological: Normal Speech Other Physical Findings: Extremities right foot swelling and mild erythema over the dorsum of the right foot, tender to palpation, with an open wound on the lateral as Current Medications: Current Medications Sig/Marty Start time Last Medication Dose Route Stop Time Status Admin Acetaminophen 650 MG Q6P PRN 08/30 211 AC 08/30 PO 2253 Atorvastatin Calcium 80 MG 1700 08/31 1700 AC 09/03 PO 1534 Ceftriaxone Sodium 2,000 MG Q24H 08/31 1445 AC 09/03 IV 1323 Dextrose/Sodium 1,000 ML Q20H 09/02 2355 DC 09/03 Chloride IV 0108 Docusate Sodium 100 MG BID 09/02 1523 AC 09/03 PO 2132 Duloxetine HCl 60 MG DAILY 08/30 2028 AC 09/03 PO 0756 Famotidine 20 MG DAILY 09/03 1341 AC 09/03 PO 1533 Heparin Sodium 5,000 UNIT Q8 08/30 2200 AC 09/04 (Porcine) SC 0550 Hydrocodone Bitart/ 1 TAB Q6P PRN 08/30 2115 AC 09/04 Acetaminophen PO 0550 Insulin Aspart 0 TIDAC 09/03 1200 AC SC Insulin Detemir 12 UNITS BID 08/30 2200 AC 09/03 SC 2130 Insulin Human Regular 0 Q6 09/02 2359 DC 09/03 SC 0600 Metoprolol Succinate 25 MG DAILY 08/31 1000 AC 09/03 PO 1024 Morphine Sulfate 4 MG Q3P PRN 09/01 0915 AC 09/04 IV 0318 Ondansetron HCl 4 MG Q6P PRN 08/31 1215 AC 08/31 IV 1243 Polyethylene Glycol 17 GM DAILY 09/02 1523 AC 09/03 PO 0800 Polyethylene Glycol 17 GM AT BEDTIME 08/30 2200 AC 09/03 PO 2132 Pregabalin 100 MG BID 08/30 2200 AC 09/03 PO 2139 Senna/Docusate Sodium 2 TAB AT BEDTIME 08/30 2200 AC 09/03 PO 2132 Sertraline HCl 25 MG DAILY 09/03 1033 AC 09/03 PO 1218 Vancomycin HCl 1,250 MG Q12H 09/01 0500 AC 09/04 Dextrose/Water 250 ML IV 0550 Last 24 Hrs of Lab/Jose A Results Last 24 Hrs of Labs/Mics: Laboratory Tests 09/04/17 0642: Sodium Pending, Potassium Pending, Chloride Pending, Carbon Dioxide Pending, Anion Gap Pending, BUN Pending, Creatinine Pending, BUN/Creatinine Ratio Pending , CBC w Diff Pending, WBC Pending, RBC Pending, Hgb Pending, Hct Pending, MCV Pending, MCH Pending, MCHC Pending, RDW Pending, Plt Count Pending, MPV Pending, ESR Westergren Pending 09/03/17 1630: Vancomycin Trough 13.1 Assessment/Plan Assessment: Patient is a 51-year-old male with a PMH significant for insulin-dependent diabetes, diabetic neuropathy, CAD status post [place] with PCI and 2 stents placed in 2007, PVD, renal abscess, osteomyelitis with recent toe amputation who was referred to the [facility] ED from Dr. Ortega office for suspicion of osteomyelitis. MRI confirmed diagnosis of osteomyelitis Labs were significant for elevated ESR, leukocytosis, mild hyperglycemia He is being treated evaluate for following conditions #Right Foot Osteomyelitis. MRI showed osteomyelitis 3rd metatarsal, cuboid, and lateral cuneiform. SIRS fever to 104 as OP, leukocytosis, tachycardia. No hypotension and lactate normal on presentation -Podiatry consult, awaiting recommendation -ID on board, vascular surgery on board -Arterial ultrasound of right lower extremity showed SFA stenosis increased significantly compared to the previous study of April 2017 -Angiogram on Wednesday, consideration for potential BKA will be made after that, patient will be nothing by mouth Wednesday night -Monitor fever and WBC curve -Continue Vancomycin IV 1.25g Q12 and Ceftriaxone 2g IV Q24 Day 5 -Adequate pain control -Repeat Vancomycin trough Wednesday 30 min before the due dose. #CAD- no cardiac symptoms and troponin negative. Was seen by Cardiology last month. Benefits of surgery outweigh risk based on RCRI. -Will consult Dr. Hurley for evaluation. -Continue usual meds (Metoprolol, etc.) -Aspirin and Plavix on hold with the anticipation of surgery #DM -Hold Metformin -continue insulin sliding scale. -Blood sugar running in adequate range #Neuropathy -Continue Lyrica, Duloxetine and Percocet prn. #Hyperlipidemia -Continue Atorvastatin. Diabetic diet/ALPS and heparin subcutaneous/ Full code Problem List: 1. Osteomyelitis of right foot Pain Ratin Pain Location: r foot Pain Goal: Pain 4 or less Pain Plan: prn Tomorrow's Labs & Rationales: cbc bep
[2017-09-04 07:07] VITALS: BP 124/69
[2017-09-04 08:32] LABS: ABSOLUTE BASOPHIL COUNT 0 /CUMM (0.0-0.2); ABSOLUTE EOSINOPHIL COUNT 0.1 /CUMM (0.0-0.7); ABSOLUTE GRANULOCYTE CT 7.6 /CUMM (1.4-6.5); ABSOLUTE LYMPH COUNT 1.2 /CUMM (1.2-3.4); BASOPHIL % 0.4 % (0.0-2.0); EOSINOPHIL % 0.9 % (0-5); GRANULOCYTE % 76.4 % (42.2-75.2); HEMATOCRIT 27.6 % (42-52); MEAN CORPUSCULAR HGB 28.7 PG (27.0-31.0); MEAN CORPUSCULAR HGB CONC 33.4 G/DL (33.0-37.0); MEAN CORPUSCULAR VOLUME 86.1 FL (80.0-94.0); MEAN PLATELET VOLUME 9.7 FL (7.4-10.4); PLATELET COUNT 329 /CUMM (130-400); RBC DISTRIBUTION WIDTH 14.6 % (11.5-14.5); WHITE BLOOD CELL COUNT 9.9 /CUMM (4.8-10.8)
--- NOTE | 2017-09-04 12:30 | PN- Infect Dx ---
Subjective Subjective: Decreased discomfort R foot; no fever. Improved redness. Review of Systems Comments: 12 points reviewed as noted, otherwise negative. Objective Last 24 Hrs of Vital Signs/I&O Vital Signs Date Time Temp Pulse Resp B/P B/P Pulse O2 O2 Flow FiO2 Mean Ox Delivery Rate 09/04 1055 98.5 74 18 124/69 09/04 0707 98.5 74 18 124/69 95 09/03 2205 98.5 78 20 112/60 94 Room Air 09/03 1525 98.5 71 18 120/60 95 Intake & Output 09/04 1600 09/04 0800 09/04 0000 Intake Total 390 400 Output Total 400 900 250 Balance -400 -510 150 Intake, IV 270 Intake, Oral 120 400 Number 0 Bowel Movements Output, Urine 400 900 250 Patient 190 lb Weight Physical Exam Other Physical Findings: General Appearance: Alert, Oriented X3, Cooperative HEENT AT/NC Neck no JVD Heart S1 S2 present Lungs: Clear to Auscultation, Normal Air Movement Abdomen: Normal Bowel Sounds, Soft, No Tenderness Neurological: Normal Speech Extremities persistent right midfoot swelling, small blood blister, significantly improved erythema R foot; tenderness persist over the dorsum of the foot, with an open, open wound with good granulation tissue; no slough Results Last 24 Hours of Lab Results: Laboratory Tests 09/04 09/03 0642 1630 Chemistry Sodium (137 - 145 mmol/L) 138 Potassium (3.5 - 5.1 mmol/L) 3.4 L Chloride (98 - 107 mmol/L) 99 Carbon Dioxide (22 - 30 mmol/L) 29 Anion Gap (5 - 16) 11 BUN (9 - 20 mg/dL) 9 Creatinine (0.7 - 1.2 mg/dL) 0.8 Estimated GFR (>60 ml/min) > 60 BUN/Creatinine Ratio (7 - 25 %) 11.3 Hematology CBC w Diff NO MAN DIFF REQ WBC (4.8 - 10.8 /CUMM) 9.9 RBC (4.70 - 6.10 /CUMM) 3.20 L Hgb (14.0 - 18.0 G/DL) 9.2 L Hct (42 - 52 %) 27.6 L MCV (80.0 - 94.0 FL) 86.1 MCH (27.0 - 31.0 PG) 28.7 MCHC (33.0 - 37.0 G/DL) 33.4 RDW (11.5 - 14.5 %) 14.6 H Plt Count (130 - 400 /CUMM) 329 MPV (7.4 - 10.4 FL) 9.7 Gran % (42.2 - 75.2 %) 76.4 H Lymphocytes % (20.5 - 51.1 %) 12.2 L Monocytes % (1.7 - 9.3 %) 10.1 H Eosinophils % (0 - 5 %) 0.9 Basophils % (0.0 - 2.0 %) 0.4 Absolute Granulocytes (1.4 - 6.5 /CUMM) 7.6 H Absolute Lymphocytes (1.2 - 3.4 /CUMM) 1.2 Absolute Monocytes (0.10 - 0.60 /CUMM) 1.0 H Absolute Eosinophils (0.0 - 0.7 /CUMM) 0.1 Absolute Basophils (0.0 - 0.2 /CUMM) 0 ESR Westergren (0 - 10 MM) 127 H Toxicology Vancomycin Trough (10.0 - 20.0 ug/mL) 13.1 Last 24 Hours of Jose A Results: SPEC #: [id number] JENNIFER: 09/01/17 STATUS: RES RECD: 09/01/[address] [facility] DR: Jackie SIMONS,[place] SOURCE: BLOOD ENTR: 09/01/17-[address] [facility] [address]: Elijah Quinones MD SPDESC: 2ND/VENOUS Reyes SIMONS,Damir Goss MD ORDERED: BLOOD CULTURE Procedure Result > BLOOD CULTURE REPORT Preliminary 09/02/17 No growth after 1 day incubation. Specimen is examined continuously for 5 days before final report unless culture becomes positive. Recent Imaging Studies: MRI R foot IMPRESSION: Osteomyelitis of the 3rd metatarsal, cuboid, and lateral cuneiform. Signal abnormalities in the medial and intermediate cuneiforms as well as the navicular are more nonspecific and could be due to changes of Charcot arthropathy/degenerative arthritis or early osteomyelitis. DICTATED BY: Renny Cruz MD DATE/TIME DICTATED:08/30/171543 CLINICAL COURIER:RADHA DATE/TIME TRANSCRIBED:08/30/171543 Assessment/Plan ID Impression: 51-year-old male with a PMH significant for insulin-dependent diabetes, diabetic neuropathy, CAD status post [place] with PCI and 2 stents placed in 2007, PVD, renal abscess, osteomyelitis with recent toe amputation who was referred to the [facility] ED on 08/30 w/ R foot OM/ cellulitis; clinically improved. Fever resolved; mild leukocytosis on admission; WBC currently wnl; while treated w/ D #5 Vancomycin and Ceftriaxone, begun empirically (based on his OR cultures from his recent admission) for a persistent infection in the right foot secondary to a nonhealing ulcer on the lateral aspect, with evidence of cellulitis/abscess on exam and with progression of osteomyelitis on the MRI. R LE angiogram planned early next week. Suggestion: 1. Local wound care. 2. Cont to trend CBC, BMP. ESR weekly. 3. Repeat Vancomycin trough Wednesday 30 min before the due dose; if level above 20 hold vancomycin; goal trough 15-20. 4. Continue Vancomycin and Ceftriaxone;
[2017-09-04 16:00] VITALS: BP 128/80
[2017-09-04 22:54] VITALS: BP 113/69
[2017-09-05 07:06] VITALS: BP 118/64
[2017-09-05 08:13] LABS: ABSOLUTE GRANULOCYTE CT 8.9 /CUMM (1.4-6.5); ABSOLUTE LYMPH COUNT 1.5 /CUMM (1.2-3.4); ABSOLUTE MONOCYTE COUNT 0.9 /CUMM (0.10-0.60); HEMATOCRIT 28.2 % (42-52); MEAN CORPUSCULAR HGB 28.5 PG (27.0-31.0); MEAN CORPUSCULAR HGB CONC 32.9 G/DL (33.0-37.0); MEAN CORPUSCULAR VOLUME 86.6 FL (80.0-94.0); PLATELET COUNT 341 /CUMM (130-400); RBC DISTRIBUTION WIDTH 14.5 % (11.5-14.5); RED BLOOD CELL CT 3.26 /CUMM (4.70-6.10); WHITE BLOOD CELL COUNT 11.4 /CUMM (4.8-10.8)
--- NOTE | 2017-09-05 08:23 | PN- Housestaff ---
Grazyna Mattson 09/05/17 0823: Subjective Follow-up For: Osteomyelitis Subjective: Patient reports R foot pain that subsided with pain meds. No acute events overnight. Review of Systems Constitutional: Reports: see HPI. Objective Last 24 Hrs of Vital Signs/I&O Vital Signs Date Time Temp Pulse Resp B/P B/P Pulse O2 O2 Flow FiO2 Mean Ox Delivery Rate 09/05 0706 98.0 70 18 118/64 98 Room Air 09/04 2254 99.3 68 20 113/69 95 Room Air 09/04 1600 98.0 78 14 128/80 96 Room Air 09/04 1055 98.5 74 18 124/69 Intake & Output 09/05 1600 09/05 0800 09/05 0000 Intake Total 780 1240 Output Total 850 350 Balance -70 890 Intake, IV 300 280 Intake, Oral 480 960 Number 0 1 Bowel Movements Output, Urine 850 350 Physical Exam General Appearance: Alert, Oriented X3 Cardiovascular: Normal S1, Normal S2, No Murmurs Lungs: Clear to Auscultation, Normal Air Movement Abdomen: Normal Bowel Sounds, Soft, No Tenderness Extremities: R foot ulcer with minimal yellowish drainage, tender to palpation Current Medications: Current Medications Sig/Marty Start time Last Medication Dose Route Stop Time Status Admin Acetaminophen 650 MG Q6P PRN 08/30 2114 DC 08/30 PO 2253 Atorvastatin Calcium 80 MG 1700 08/31 1700 AC 09/04 PO 1732 Bisacodyl 10 MG ONCE ONE 09/04 1830 DC 09/04 IA 09/04 1831 1932 Ceftriaxone Sodium 2,000 MG Q24H 08/31 1445 AC 09/04 IV 1422 Docusate Sodium 100 MG BID 09/02 1523 AC 09/04 PO 2113 Duloxetine HCl 60 MG DAILY 08/30 202 AC 09/04 PO 1053 Famotidine 20 MG DAILY 09/03 1341 AC 09/04 PO 1053 Heparin Sodium 5,000 UNIT Q8 08/30 2199 AC 09/05 (Porcine) SC 0543 Hydrocodone Bitart/ 1 TAB Q6P PRN 08/30 211 DC 09/04 Acetaminophen PO 1336 Insulin Aspart 0 TIDAC 09/03 1200 AC 09/04 SC 1335 Insulin Detemir 12 UNITS BID 08/30 220 AC 09/04 SC 2149 Metoprolol Succinate 25 MG DAILY 08/31 1000 AC 09/04 PO 1055 Morphine Sulfate 4 MG Q3P PRN 09/01 0915 AC 09/05 IV 0319 Ondansetron HCl 4 MG Q6P PRN 08/31 1215 AC 08/31 IV 1243 Oxycodone/ 2 TAB Q6P PRN 09/04 1845 AC 09/05 Acetaminophen PO 0543 Oxycodone/ 1 TAB Q6P PRN 09/04 1830 AC Acetaminophen PO Oxycodone/ 1 TAB Q6P PRN 09/04 1830 DC Acetaminophen PO Polyethylene Glycol 17 GM DAILY 09/02 1523 AC 09/04 PO 1053 Polyethylene Glycol 17 GM AT BEDTIME 08/30 2200 AC 09/03 PO 2132 Pregabalin 100 MG BID 08/30 220 AC 09/04 PO 2113 Senna/Docusate Sodium 2 TAB AT BEDTIME 08/30 2200 AC 09/04 PO 2112 Sertraline HCl 25 MG DAILY 09/03 1033 AC 09/04 PO 1053 Vancomycin HCl 1,250 MG Q12H 09/01 0500 AC 09/05 Dextrose/Water 250 ML IV 0433 Last 24 Hrs of Lab/Jose A Results Last 24 Hrs of Labs/Mics: Laboratory Tests 09/05/17 0640: CBC w Diff Pending, WBC Pending, RBC Pending, Hgb Pending, Hct Pending, MCV Pending, MCH Pending, MCHC Pending, RDW Pending, Plt Count Pending, MPV Pending 09/05/17 0423: Vancomycin Trough 16.0 Assessment/Plan Assessment: Ms. Claros is a 51-year-old male with a PMH significant for insulin-dependent diabetes, diabetic neuropathy, CAD status post [place] with PCI and 2 stents placed in 2007, PVD, renal abscess, osteomyelitis with recent toe amputation who was referred to the [facility] ED from Dr. Ortega office for suspicion of osteomyelitis. Problem list: Right Foot Osteomyelitis Plan: Continue Vancomycin and Ceftriaxone Obtain Vanc trough 4/3 before dose, hold if >20 Continue Lyrica, Duloxetine and Percocet Continue Atorvastatin Aspirin and Plavix on hold with the anticipation of surgery Angiogram on Wednesday, consideration for potential BKA will be made after that, patient will be nothing by mouth tonight Cascular, ID, Podiatry and Cardio recommendations appreciated Diet: Diabetic DVT ppx: sc Heparin Code: Full Problem List: 1. Osteomyelitis of right foot Pain Ratin Pain Location: R foot Pain Goal: Pain 4 or less Pain Plan: Morphine Tomorrow's Labs & Rationales: BEP, FOSTER Almeida MD,[place] 09/05/17 1214: Attending MD Review Statement Attending Statement Attending MD Statement: examined this patient, discuss w/resident/PA/CRAB BACKER, agreed w/resident/PA/CRAB BACKER, discussed with family, discussed with nursing, discussed with case mgmt, reviewed images, amended to note Attending Assessment/Plan: 51-year-old male with past medical history significant for diabetes mellitus complicated by neuropathy, coronary artery disEASE, [place] status post PCI in 2007, renal abscess, history of osteomyelitis status post recent toe amputation has been admitted to the floor by the rolfer for infection of the right foot with erythema, discharge, with an MRI showing acute right foot osteomyelitis, septic on admission but improved with vancomycin and ceftriaxone. Patient was seen and examined on the bedside, and no active issues and currently waiting for an angiogram with partial foot amputation on Wednesday, patient to be nothing by mouth from midnight, ID on board, will continue on antibiotics and follow recommendations from ID, rolfer and vascular surgeon
--- NOTE | 2017-09-05 08:40 | PN- Infect Dx ---
Subjective Subjective: No fever. R foot discomfort. Fair appetite. Nl BM previous day; no diarrhea. Review of Systems Comments: 12 points reviewed as noted, otherwise negative. Objective Last 24 Hrs of Vital Signs/I&O Vital Signs Date Time Temp Pulse Resp B/P B/P Pulse O2 O2 Flow FiO2 Mean Ox Delivery Rate 09/05 0706 98.0 70 18 118/64 98 Room Air 09/04 2254 99.3 68 20 113/69 95 Room Air 09/04 1600 98.0 78 14 128/80 96 Room Air 09/04 1055 98.5 74 18 124/69 Intake & Output 09/05 1600 09/05 0800 09/05 0000 Intake Total 780 1240 Output Total 850 350 Balance -70 890 Intake, IV 300 280 Intake, Oral 480 960 Number 0 1 Bowel Movements Output, Urine 850 350 Physical Exam Other Physical Findings: General Appearance: Alert, Oriented X3, Cooperative HEENT AT/NC Neck no JVD Heart S1 S2 present Lungs: Clear to Auscultation, Normal Air Movement Abdomen: Normal Bowel Sounds, Soft, No Tenderness Neurological: Normal Speech Extremities persistent right midfoot swelling, small blood blister, significantly improved erythema R foot; tenderness persist over the dorsum of the foot, with an open, open wound with good granulation tissue; no slough Results Last 24 Hours of Lab Results: Laboratory Tests 09/05 09/05 0640 0423 Hematology CBC w Diff Pending WBC Pending RBC Pending Hgb Pending Hct Pending MCV Pending MCH Pending MCHC Pending RDW Pending Plt Count Pending MPV Pending Toxicology Vancomycin Trough (10.0 - 20.0 ug/mL) 16.0 Last 24 Hours of Jose A Results: Reviwed Recent Imaging Studies: reviewed Assessment/Plan ID Impression: 51-year-old male with a PMH significant for insulin-dependent diabetes, diabetic neuropathy, CAD status post [place] with PCI and 2 stents placed in 2007, PVD, renal abscess, osteomyelitis with recent toe amputation who was referred to the [facility] ED on 08/30 w/ R foot OM/ cellulitis; clinically improved. Fever resolved; mild leukocytosis on admission; WBC currently wnl; while treated w/ D #6 Vancomycin and Ceftriaxone, begun empirically (based on his OR cultures from his recent admission) for a persistent infection in the right foot secondary to a nonhealing ulcer on the lateral aspect, with evidence of cellulitis/abscess on exam and with progression of osteomyelitis on the MRI. R LE angiogram planned early next week. Suggestion: 1. Local wound care. 2. Cont to trend CBC, BMP. ESR weekly. 3. Vancomycin trough therapeutic; next trough 4/3 30 min before the due dose; if level above 20 hold vancomycin; goal trough 15-20. 4. Continue present abx (Vancomycin and Ceftriaxone).
[2017-09-05 09:04] LABS: ABSOLUTE BASOPHIL COUNT 0 /CUMM (0.0-0.2); ABSOLUTE EOSINOPHIL COUNT 0.1 /CUMM (0.0-0.7); BASOPHIL % 0.4 % (0.0-2.0); EOSINOPHIL % 1.2 % (0-5); GRANULOCYTE % 77.7 % (42.2-75.2)
[2017-09-05 14:37] VITALS: BP 109/63
[2017-09-05 20:36] VITALS: BP 90/56
[2017-09-05 21:26] VITALS: BP 90/56
[2017-09-06 00:01] VITALS: BP 122/64
[2017-09-06 06:06] VITALS: BP 112/64
--- NOTE | 2017-09-06 07:38 | PN- Housestaff ---
See Addendum Subjective Follow-up For: Osteomyelitis Subjective: Patient seen and examined. Resting comfortably. Easily arousable.On NO complaint other than pain in right foot, as per patient pain medications however. He is presently nothing by mouth for scheduled angiogram of the right lower extremity. He denies any fevers and chills he was afebrile overnight. No nausea vomiting or any urinary symptoms Was notified pt will require 20 gauge for contrast, talked to nurse Shae, will be chnaged today before procefure Review of Systems Constitutional: Reports: see HPI. Objective Last 24 Hrs of Vital Signs/I&O Vital Signs Date Time Temp Pulse Resp B/P B/P Pulse O2 O2 Flow FiO2 Mean Ox Delivery Rate 09/06 0820 66 118/68 09/06 0606 98.5 64 20 112/64 94 09/06 0001 98.0 74 20 122/64 95 09/05 2126 99.8 75 18 90/56 93 Room Air 09/05 2036 99.8 75 18 90/56 93 Room Air 09/05 1437 98.3 66 20 109/63 99 Room Air Intake & Output 09/06 1600 09/06 0800 09/06 0000 Intake Total 660 950 Output Total 350 500 Balance 310 450 Intake, IV 600 250 Intake, Oral 60 700 Output, Urine 350 500 Physical Exam General Appearance: Alert, Oriented X3, Cooperative Skin: No Rashes Lungs: Clear to Auscultation Abdomen: Normal Bowel Sounds, Soft, No Tenderness Neurological: Normal Speech Extremities: R foot wrapped in bandage Current Medications: Current Medications Sig/Marty Start time Last Medication Dose Route Stop Time Status Admin Atorvastatin Calcium 80 MG 1700 08/31 1700 AC 09/05 PO 1650 Ceftriaxone Sodium 2,000 MG Q24H 08/31 1445 AC 09/05 IV 1503 Dextrose/Sodium 1,000 ML Q13H 09/05 2100 AC 09/05 Chloride IV 2116 Docusate Sodium 100 MG BID 09/02 1523 AC 09/06 PO 0820 Duloxetine HCl 60 MG DAILY 08/31 2027 AC 09/06 PO 0820 Famotidine 20 MG DAILY 09/03 1341 AC 09/06 PO 0820 Heparin Sodium 5,000 UNIT Q8 08/30 2200 AC 09/06 (Porcine) SC 0651 Insulin Aspart 0 TIDAC 09/03 1200 DC 09/05 SC 09/06 0000 1239 Insulin Detemir 6 UNITS ONCE ONE 09/06 0830 DC 09/06 SC 09/06 0831 0912 Insulin Detemir 12 UNITS BID 08/30 2200 AC 09/05 SC 202 Insulin Human Regular 4 UNITS .STK-MED ONE 09/06 0003 DC IV 09/06 0004 Insulin Human Regular 0 Q6 09/05 2359 AC 09/06 SC 0652 Metoprolol Succinate 25 MG DAILY 08/31 1000 AC 09/06 PO 0820 Morphine Sulfate 4 MG Q3P PRN 09/01 0915 AC 09/06 IV 0822 Ondansetron HCl 4 MG Q6P PRN 08/31 1215 AC 08/31 IV 1243 Oxycodone/ 2 TAB Q6P PRN 09/04 1845 AC 09/06 Acetaminophen PO 0516 Oxycodone/ 1 TAB Q6P PRN 09/04 1830 AC Acetaminophen PO Polyethylene Glycol 17 GM DAILY 09/02 1523 AC 09/05 PO 0853 Polyethylene Glycol 17 GM AT BEDTIME 08/30 2200 AC 09/03 PO 2132 Pregabalin 100 MG BID 08/30 2200 AC 09/06 PO 0821 Senna/Docusate Sodium 2 TAB AT BEDTIME 08/30 2200 AC 09/05 PO 2027 Sertraline HCl 25 MG DAILY 09/03 1033 AC 09/06 PO 0821 Vancomycin HCl 1,250 MG Q12H 09/01 0500 AC 09/06 Dextrose/Water 250 ML IV 0514 Last 24 Hrs of Lab/Jose A Results Last 24 Hrs of Labs/Mics: Laboratory Tests 09/06/17 0730: Anion Gap 10, Estimated GFR > 60, BUN/Creatinine Ratio 12.2, CBC w Diff NO MAN DIFF REQ, RBC 3.19 L, MCV 87.4, MCH 28.4, MCHC 32.5 L, RDW 14.5, MPV 9.6, Gran % 80.2 H, Lymphocytes % 11.6 L, Monocytes % 6.5, Eosinophils % 1.4, Basophils % 0.3, Absolute Granulocytes 8.8 H, Absolute Lymphocytes 1.3, Absolute Monocytes 0.7 H, Absolute Eosinophils 0.2, Absolute Basophils 0 Assessment/Plan Assessment: Patient is a 51-year-old male with a PMH significant for insulin-dependent diabetes, diabetic neuropathy, CAD status post [place] with PCI and 2 stents placed in 2007, PVD, renal abscess, osteomyelitis with recent toe amputation who was referred to the [facility] ED from Dr. Ortega office for suspicion of osteomyelitis. MRI confirmed diagnosis of osteomyelitis Labs were significant for elevated ESR, leukocytosis, mild hyperglycemia He is being treated evaluate for following conditions #Right Foot Osteomyelitis. MRI showed osteomyelitis 3rd metatarsal, cuboid, and lateral cuneiform. SIRS postive fever 104 as OP, leukocytosis, tachycardia. No hypotension and lactate normal on presentation -Podiatry consult, awaiting recommendation -ID on board, vascular surgery on board -Arterial ultrasound of right lower extremity showed SFA stenosis increased significantly compared to the previous study of April 2017 -CT Angiogram of right lower extremity is planned for today at OR with -Monitor fever and WBC curve -Continue Vancomycin IV 1.25g Q12 and Ceftriaxone 2g IV Q24 Day 5 -Adequate pain control -Repeat Vancomycin trough / min before the due dose. Most recent vanc trough is 16 on 09/05 #CAD- no cardiac symptoms and troponin negative. Was seen by Cardiology last month. Benefits of surgery outweigh risk based on RCRI. -Dr. Hurley on board -Continue usual meds (Metoprolol, etc.) -Aspirin and Plavix on hold with the anticipation of surgery #DM -Hold Metformin, continue insulin sliding scale. -Blood sugar running in adequate range #Neuropathy -Continue Lyrica, Duloxetine and Percocet prn. #Hyperlipidemia -Continue Atorvastatin. NPO/ALPS and heparin subcutaneous/ Full code Advance diet after the procedure Problem List: 1. Osteomyelitis of right foot Pain Ratin Pain Location: R foot Pain Goal: Pain 4 or less Pain Plan: prn Tomorrow's Labs & Rationales: cbc
[2017-09-06 08:14] LABS: ABSOLUTE BASOPHIL COUNT 0 /CUMM (0.0-0.2); ABSOLUTE EOSINOPHIL COUNT 0.2 /CUMM (0.0-0.7); ABSOLUTE GRANULOCYTE CT 8.8 /CUMM (1.4-6.5); ABSOLUTE LYMPH COUNT 1.3 /CUMM (1.2-3.4); ABSOLUTE MONOCYTE COUNT 0.7 /CUMM (0.10-0.60); BASOPHIL % 0.3 % (0.0-2.0); EOSINOPHIL % 1.4 % (0-5); GRANULOCYTE % 80.2 % (42.2-75.2); HEMATOCRIT 27.9 % (42-52); MEAN CORPUSCULAR HGB 28.4 PG (27.0-31.0); MEAN CORPUSCULAR HGB CONC 32.5 G/DL (33.0-37.0); MEAN CORPUSCULAR VOLUME 87.4 FL (80.0-94.0); MEAN PLATELET VOLUME 9.6 FL (7.4-10.4); PLATELET COUNT 376 /CUMM (130-400); RBC DISTRIBUTION WIDTH 14.5 % (11.5-14.5); RED BLOOD CELL CT 3.19 /CUMM (4.70-6.10)
[2017-09-06 11:33] VITALS: BP 114/62
--- NOTE | 2017-09-06 11:47 | PN- Psychiatry ---
See Addendum Assessment/Plan Impression: The patient is tolerating his new medication, sertraline 25 mg by mouth daily, which after our discussion with him of risks, benefits and side effects, he agreed to start for his depression and anxiety. This dosing can be titrated as an outpatient, or at short-term rehabilitation. He started the medication on . The patient has been on duloxetine 60 mg by mouth daily, for neuropathic pain. It isn't serotonergic medication, and is probably assisting the patient with a portion of his depression and anxiety. We suggest slow titration of the new medication, sertraline, in order to avoid serotonin syndrome. He is apprehensive about his possible surgery, and his vascular evaluation today , which she does not believe will result in surgery. Suggestion: 1. Continue sertraline 25 mg by mouth daily for depression and anxiety. 2. Monitor for serotonin syndrome, and discontinue sertraline if this occurs. 3. The patient indicates an interest in coming to [facility] outpatient psychiatry. We asked that the receiving short-term rehabilitation make an appointment for him at our office, . We will continue to follow along with you. Subjective Subjective: The patient is sitting up in bed, is calm, cooperative, and oriented to person, place, day, date, month, year. He denies auditory or visual hallucinations, and presents no kacie delusions. His affect is depressed. He reports that he is going for vascular evaluation today, but is unsure if this means surgery. He denies suicidal or homicidal ideation. Review of Systems Neurological/Psychological: Reports: anxiety, depressed. Objective Last 24 Hrs of Vital Signs/I&O Vital Signs Date Time Temp Pulse Resp B/P B/P Pulse O2 O2 Flow FiO2 Mean Ox Delivery Rate 09/06 1133 98.3 75 20 114/62 95 Room Air 09/06 0820 66 118/68 09/06 0606 98.5 64 20 112/64 94 04/ 0001 98.0 74 20 122/64 95 09/05 2126 99.8 75 18 90/56 93 Room Air 09/06 2035 99.8 75 18 90/56 93 Room Air 09/05 1437 98.3 66 20 109/63 99 Room Air Intake & Output 09/06 1600 09/06 0800 09/06 0000 Intake Total 660 950 Output Total 350 500 Balance 310 450 Intake, IV 600 250 Intake, Oral 60 700 Output, Urine 350 500 Physical Exam: Not performed Physical Exam General Appearance: alert, awake, anxious Neurologic/Psychiatric: awake, alert, oriented x 3 Current Medications: Current Medications Sig/Marty Start time Last Medication Dose Route Stop Time Status Admin Atorvastatin Calcium 80 MG 1700 08/31 1700 AC 09/05 PO 1650 Ceftriaxone Sodium 2,000 MG Q24H 08/31 1445 09/05 IV 1503 Dextrose/Sodium 1,000 ML Q13H 09/05 2100 AC 09/06 Chloride IV 1102 Docusate Sodium 100 MG BID 09/02 1523 09/06 PO 0820 Duloxetine HCl 60 MG DAILY 08/30 2028 AC 09/06 PO 0820 Famotidine 20 MG DAILY 09/03 1341 09/06 PO 0820 Heparin Sodium 5,000 UNIT Q8 08/30 2200 AC 09/06 (Porcine) SC 0651 Insulin Aspart 0 TIDAC 09/03 1200 SC 09/05 SC 09/06 0000 1239 Insulin Detemir 6 UNITS ONCE ONE 09/06 0830 DC 09/06 SC 09/06 0831 0912 Insulin Detemir 12 UNITS BID 08/30 2200 09/05 SC 2028 Insulin Human Regular 4 UNITS .STK-MED ONE 09/06 0003 DC IV 09/06 0004 Insulin Human Regular 0 Q6 09/05 2359 09/06 SC 1130 Metoprolol Succinate 25 MG DAILY 08/31 1000 09/06 PO 0820 Morphine Sulfate 4 MG Q3P PRN 09/01 0915 09/06 IV 1130 Ondansetron HCl 4 MG Q6P PRN 08/31 1215 08/31 IV 1243 Oxycodone/ 2 TAB Q6P PRN 09/04 1845 AC 09/06 Acetaminophen PO 0516 Oxycodone/ 1 TAB Q6P PRN 09/04 1830 AC Acetaminophen PO Polyethylene Glycol 17 GM DAILY 09/02 1523 09/05 PO 0853 Polyethylene Glycol 17 GM AT BEDTIME 08/30 2200 AC 09/03 PO 2132 Pregabalin 100 MG BID 08/30 2200 AC 09/06 PO 0821 Senna/Docusate Sodium 2 TAB AT BEDTIME 08/30 2200 AC 09/05 PO 202 Sertraline HCl 25 MG DAILY 09/03 1033 AC 09/06 PO 0821 Vancomycin HCl 1,250 MG Q12H 09/01 0500 AC 09/06 Dextrose/Water 250 ML IV 0514 Results Last 24 Hrs of Labs/Mics: He'll Laboratory Tests 09/06 07 Chemistry Sodium (137 - 145 mmol/L) 138 Potassium (3.5 - 5.1 mmol/L) 3.9 Chloride (98 - 107 mmol/L) 101 Carbon Dioxide (22 - 30 mmol/L) 27 Anion Gap (5 - 16) 10 BUN (9 - 20 mg/dL) 11 Creatinine (0.7 - 1.2 mg/dL) 0.9 Estimated GFR (>60 ml/min) > 60 BUN/Creatinine Ratio (7 - 25 %) 12.2 Hematology CBC w Diff NO MAN DIFF REQ WBC (4.8 - 10.8 /CUMM) 11.0 H RBC (4.70 - 6.10 /CUMM) 3.19 L Hgb (14.0 - 18.0 G/DL) 9.1 L Hct (42 - 52 %) 27.9 L MCV (80.0 - 94.0 FL) 87.4 MCH (27.0 - 31.0 PG) 28.4 MCHC (33.0 - 37.0 G/DL) 32.5 L RDW (11.5 - 14.5 %) 14.5 Plt Count (130 - 400 /CUMM) 376 MPV (7.4 - 10.4 FL) 9.6 Gran % (42.2 - 75.2 %) 80.2 H Lymphocytes % (20.5 - 51.1 %) 11.6 L Monocytes % (1.7 - 9.3 %) 6.5 Eosinophils % (0 - 5 %) 1.4 Basophils % (0.0 - 2.0 %) 0.3 Absolute Granulocytes (1.4 - 6.5 /CUMM) 8.8 H Absolute Lymphocytes (1.2 - 3.4 /CUMM) 1.3 Absolute Monocytes (0.10 - 0.60 /CUMM) 0.7 H Absolute Eosinophils (0.0 - 0.7 /CUMM) 0.2 Absolute Basophils (0.0 - 0.2 /CUMM) 0
[2017-09-06 16:30] VITALS: BP 110/60
--- NOTE | 2017-09-06 16:30 | Operative Report ---
Operative/Inv Procedure Report Surgery Date: 09/06/17 Name of Procedure: US guidance for vasc. access, aortogram, right lower extremity diagnostic angiogram, right femoropopliteal angioplasty and stent, 7 x 40 mm Cordis SMART stent, drug coated Lutonix angioplasty balloon, 3 mm FIBER DESIGN ENGINEER of the proximal anterior tibial artery, 3 mm angioplasty of the tibioperoneal trunk and proximal posterior tibial artery, Exoseal closure device Pre-Operative Diagnosis: Diabetic foot infection with peripheral arterial disease Post-Operative Diagnosis: Same Estimated Blood Loss: less than 50ml Surgeon/Glass Finisher: SLAVA SIMONS, M.A. Anesthesia: local monitored anesthesi Monitors: No Complications: None Condition: Stable to PACU Operative Indication: 51-year-old male with advanced diabetic peripheral arterial disease and diabetic foot infection. He has had an ongoing wound training and recent ultrasound demonstrates restenosis. Risks benefits and alternatives were explained to the patient including bleeding infection pain scar limb loss and . He decided proceed with intervention. Of note the patient understands that he has severe infection and eventually may end up with a proximal amputation. However he wishes to attempt efforts at limb salvage. He understands that there may be only a 10% possibility and wishes to take that chance. Operative/Procedure Note Note: Patient was brought to the operating room and laid supine on the operating table. After adequate anesthesia, IV lines, a timeout was held in accordance with [facility] policy. Using and ultrasound guidance for vascular access and image was stored in the left femoral artery was punctured. This was exchanged for a 5 Czech coaxial dilator system and a 5 Czech sheath. Through this a wire was placed and an aortogram and right lower extremity diagnostic angiogram was performed. This was necessary because his status and foot wounds have worsened. Aortography demonstrates a patent aorta. The renal arteries appear patent. The common external and common femoral arteries are patent. The catheter was then advanced over the bifurcation to the right external iliac artery and a right femoral and lower extremity management was performed. The catheter was positioned in the popliteal artery for infrapopliteal imaging. Right lower extremity exam demonstrates a patent SFA and profunda femoris. The common from artery is patent. There is a proximal SFA stent which is widely patent. In the mid to distal SFA there is a moderate to severe stenosis. The above and below-knee popliteal artery are patent. At the takeoff of the anterior tibial artery that demonstrates a moderate stenosis. The tibial peroneal trunk demonstrates a moderate stenosis. The peroneal artery is diminutive. There is 2 vessel runoff to the patient's foot. The patient was then bolused with 4000 units of heparin. A 6 Czech sheath was placed over the bifurcation to the right iliac system. The distal SFA lesion was then treated with a 7 x 40 mm Cordis SMART stent. This was started with a 7 mm balloon and predilated with a 6 mm loop tonics drug-coated balloon. Completion angiography demonstrates good in-line flow through this segment. Attention was then turned to the infrapopliteal segment. The anterior tibial, tibioperoneal trunk, and posterior tibial artery proximally were all treated with 3 mm angioplasty. There was some spasm in the posterior tibial artery or small dissection that resolved with angioplasty. Completion angiography demonstrates in-line flow into two-vessel runoff to the foot. The catheter/ wire systems were then removed and a 6 Czech Exoseal closure device was used to seal the artery. The patient tolerated the procedure well. Findings: as above CC: Feliciano Ortega DPM, MD,Joseph Gallagher
--- NOTE | 2017-09-06 18:24 | RADIOLOGY REPORT ---
EXAMINATION: CR RIGHT LEG/INTRAOPERATIVE FLUOROSCOPY CLINICAL INDICATION: Right leg arteriogram, angioplasty and stent insertion COMPARISON: None TECHNIQUE/FINDINGS: Fluoroscopic equipment was dedicated to the operating room for the performance of an intraoperative procedure. Several (27) fluoroscopy runs were acquired and are archived in PACS. Please refer to operative notes for procedural detail. FLUOROSCOPY TIME: 16 minutes and 11 seconds. IMPRESSION: Administrative dictation for intraoperative fluoroscopy and image archiving in PACS. Please refer to operative notes for details.
--- NOTE | 2017-09-06 18:26 | PN- Infect Dx ---
Subjective Subjective: Afebrile. He still notes pain in the right foot. Objective Last 24 Hrs of Vital Signs/I&O Vital Signs Date Time Temp Pulse Resp B/P B/P Pulse O2 O2 Flow FiO2 Mean Ox Delivery Rate 09/06 1630 98.0 70 18 110/60 96 Room Air Room Air 09/06 1133 98.3 75 20 114/62 95 Room Air 09/06 0820 66 118/68 09/06 0606 98.5 64 20 112/64 94 09/06 0001 98.0 74 20 122/64 95 09/05 2126 99.8 75 18 90/56 93 Room Air 09/05 2036 99.8 75 18 90/56 93 Room Air Intake & Output 09/06 1600 09/06 0800 09/06 0000 Intake Total 330 660 950 Output Total 950 350 500 Balance -620 310 450 Intake, IV 300 600 250 Intake, Oral 30 60 700 Output, Urine 950 350 500 Physical Exam Other Physical Findings: He appears comfortable in no acute distress Extremities right foot dressing intact Results Last 24 Hours of Lab Results: Laboratory Tests 09/06 0730 Chemistry Sodium (137 - 145 mmol/L) 138 Potassium (3.5 - 5.1 mmol/L) 3.9 Chloride (98 - 107 mmol/L) 101 Carbon Dioxide (22 - 30 mmol/L) 27 Anion Gap (5 - 16) 10 BUN (9 - 20 mg/dL) 11 Creatinine (0.7 - 1.2 mg/dL) 0.9 Estimated GFR (>60 ml/min) > 60 BUN/Creatinine Ratio (7 - 25 %) 12.2 Hematology CBC w Diff NO MAN DIFF REQ WBC (4.8 - 10.8 /CUMM) 11.0 H RBC (4.70 - 6.10 /CUMM) 3.19 L Hgb (14.0 - 18.0 G/DL) 9.1 L Hct (42 - 52 %) 27.9 L MCV (80.0 - 94.0 FL) 87.4 MCH (27.0 - 31.0 PG) 28.4 MCHC (33.0 - 37.0 G/DL) 32.5 L RDW (11.5 - 14.5 %) 14.5 Plt Count (130 - 400 /CUMM) 376 MPV (7.4 - 10.4 FL) 9.6 Gran % (42.2 - 75.2 %) 80.2 H Lymphocytes % (20.5 - 51.1 %) 11.6 L Monocytes % (1.7 - 9.3 %) 6.5 Eosinophils % (0 - 5 %) 1.4 Basophils % (0.0 - 2.0 %) 0.3 Absolute Granulocytes (1.4 - 6.5 /CUMM) 8.8 H Absolute Lymphocytes (1.2 - 3.4 /CUMM) 1.3 Absolute Monocytes (0.10 - 0.60 /CUMM) 0.7 H Absolute Eosinophils (0.0 - 0.7 /CUMM) 0.2 Absolute Basophils (0.0 - 0.2 /CUMM) 0 Last 24 Hours of Jose A Results: No new cultures Assessment/Plan ID Impression: Stable, with temperatures now normal and with his white blood cell count only minimally elevated, on Vancomycin and Ceftriaxone (based on his OR cultures from his recent admission, which grew MRSA, Group A strep and Escherichia coli) now Day 7 of treatment for a right foot infection/presumed osteomyelitis secondary to a nonhealing ulcer on the lateral aspect of the foot with evidence on his recent MRI of progression of osteomyelitis. He underwent a right leg angioplasty and stent placement earlier today, and he is apparently scheduled for debridement of the foot in the a.m., after which he could be treated with another 4 week course of IV antibiotics but, as Podiatry has recommended a BKA, it is unlikely that his foot will heal without that. Suggestion: 1. Await debridement of the right foot in the a.m. per Podiatry 2. Continue Vancomycin and Ceftriaxone pending OR cultures
--- NOTE | 2017-09-06 21:54 | PN- Vascular Surgery ---
Subjective Subjective: Post-procedure check feeling "better", minimal foot pain, some left groin soreness. no other complaints Objective Vital Signs and I&Os Vital Signs Date Time Temp Pulse Resp B/P B/P Pulse O2 O2 Flow FiO2 Mean Ox Delivery Rate 09/06 1630 98.0 70 18 110/60 96 Room Air Room Air 09/06 1133 98.3 75 20 114/62 95 Room Air 09/06 0820 66 118/68 09/06 0606 98.5 64 20 112/64 94 09/06 0001 98.0 74 20 122/64 95 Intake & Output 09/06 1600 09/06 0800 09/06 0000 09/05 1600 09/05 0800 09/05 0000 Intake Total 330 660 950 270 034 2686 Output Total 950 350 500 350 850 350 Balance -620 310 450 130 -70 890 Intake, IV 300 600 250 300 280 Intake, Oral 30 60 700 480 480 960 Number 0 1 Bowel Movements Output, Urine 950 350 500 350 850 350 Physical Exam: gen- nad ext- left groin with cdi dressing, soft, no eccymosis, no drainage/bleeding, minimal ttp. right foot dressed. gross motor intact bl feet/toes. +bl dp signal. +left pt signal. calves soft nt bl Assessment/Plan Assessment/Plan A- POD0 sp RLE angioplasty/stenting, with +dp signal and left groin soreness without hematoma, stable. P- oob as tolerated in am asa/plavix daily (given today in pacu) foot care per podiatry prn pain meds will dw attending
[2017-09-06 21:56] VITALS: BP 110/60
[2017-09-07 05:38] VITALS: BP 110/62
--- NOTE | 2017-09-07 07:25 | PN- Housestaff ---
See Addendum Subjective Follow-up For: Osteomyelitis Subjective: -Patient seen and examined resting comfortably in the bed. -He complained of 8 out of 10 pain in the right foot. Otherwise review of system was negative denies any fevers chills nausea vomiting or urinary symptoms. Last BM on was on 09/05. -Yesterday evening/overnight events patient underwent CT angiogram with angioplasty and stent placement in the distal SFA -The plan for today is to keep patient nothing by mouth he is going to go to the OR with Dr. Ortega for debridement. Tentative time is noon -He will require PICC line placement and the course of 4 weeks for treatment of osteomyelitis -He understands that he might end up with proximal amputation in the future but presently wants to continue efforts at limb salvage Review of Systems Constitutional: Reports: see HPI. Objective Last 24 Hrs of Vital Signs/I&O Vital Signs Date Time Temp Pulse Resp B/P B/P Pulse O2 O2 Flow FiO2 Mean Ox Delivery Rate 09/07 0753 66 118/68 09/07 0538 98.0 60 20 110/62 96 Room Air 09/06 2156 98.1 69 18 110/60 97 Room Air / 1630 98.0 70 18 110/60 96 Room Air Room Air 09/06 1133 98.3 75 20 114/62 95 Room Air / 0820 66 118/68 Intake & Output 09/07 1600 09/07 0800 04 0000 Intake Total 600 1330 Output Total 700 400 Balance -100 930 Intake, IV 600 850 Intake, Oral 480 Output, Urine 700 400 Physical Exam General Appearance: Alert, Oriented X3, No Acute Distress HEENT: Atraumatic Cardiovascular: Normal S1, Normal S2, No Murmurs Lungs: Clear to Auscultation, Normal Air Movement Abdomen: Normal Bowel Sounds, Soft, No Tenderness Neurological: Normal Speech Other Physical Findings: Extremities right foot dressing intact Current Medications: Current Medications Sig/Marty Start time Last Medication Dose Route Stop Time Status Admin Acetaminophen 1,000 MG .STK-MED ONE 09/06 1140 DC IV 09/06 1141 Aspirin 325 MG .STK-MED ONE 09/06 1512 DC PO 09/06 1513 Aspirin Buffered 325 MG DAILY 09/07 1000 AC PO Aspirin Buffered 325 MG ONCE ONE 09/06 1530 DC PO 09/06 1531 Atorvastatin Calcium 80 MG 1700 08/31 1700 AC 09/06 PO 1639 Ceftriaxone Sodium 2,000 MG Q24H 08/31 1445 AC 09/06 IV 1638 Clopidogrel Bisulfate 75 MG DAILY 09/07 1000 AC PO Clopidogrel Bisulfate 75 MG ONCE ONE 09/06 1530 DC PO 09/06 1531 Dextrose/Sodium 1,000 ML Q13H 09/05 2100 AC 09/06 Chloride IV 2346 Docusate Sodium 100 MG BID 09/02 1523 AC 09/07 PO 0752 Duloxetine HCl 60 MG DAILY 08/30 2028 AC 09/07 PO 0752 Famotidine 20 MG DAILY 09/03 1341 AC 09/07 PO 0752 Fentanyl Citrate 200 MCG .STK-MED ONE 09/06 1140 DC IM 09/06 1141 Heparin Sodium 5,000 UNIT Q8 08/30 2200 AC 09/07 (Porcine) SC 0608 Insulin Aspart 0 TIDAC 09/07 0000 CAN SC Insulin Aspart 0 TIDAC 09/06 1700 DC SC 09/07 0000 Insulin Detemir 6 UNITS ONCE ONE 09/06 0830 DC 09/06 SC 09/06 0831 0912 Insulin Detemir 12 UNITS BID 08/30 2200 AC 09/06 SC 2117 Insulin Human Regular 0 Q6 09/06 2359 AC 09/07 SC 0601 Insulin Human Regular 0 Q6 09/05 2359 DC 09/06 SC 1130 Metoprolol Succinate 25 MG DAILY 08/31 1000 AC 09/07 PO 0753 Midazolam HCl 2 MG .STK-MED ONE 09/06 1140 DC IM 09/06 1141 Morphine Sulfate 4 MG .STK-MED ONE 09/06 1517 DC IM 09/06 1518 Morphine Sulfate 4 MG Q3P PRN 09/01 0915 AC 09/07 IV 0602 Ondansetron HCl 4 MG Q6P PRN 08/31 1215 AC 08/31 IV 1243 Oxycodone/ 2 TAB Q6P PRN 09/04 1845 AC 09/07 Acetaminophen PO 0753 Oxycodone/ 1 TAB Q6P PRN 09/04 1830 AC Acetaminophen PO Polyethylene Glycol 17 GM DAILY 09/02 1523 AC 09/05 PO 0853 Polyethylene Glycol 17 GM AT BEDTIME 08/30 2200 AC 09/03 PO 2132 Pregabalin 100 MG BID 08/30 2200 AC 09/07 PO 0753 Senna/Docusate Sodium 2 TAB AT BEDTIME 08/30 2200 AC 09/06 PO 2118 Sertraline HCl 25 MG DAILY 09/03 1033 AC 09/07 PO 0753 Vancomycin HCl 1,250 MG Q12H 09/01 0500 AC 09/07 Dextrose/Water 250 ML IV 0602 Last 24 Hrs of Lab/Jose A Results Last 24 Hrs of Labs/Mics: Laboratory Tests 09/07/17 0715: Sodium Pending, Potassium Pending, Chloride Pending, Carbon Dioxide Pending, Anion Gap Pending, BUN Pending, Creatinine Pending, BUN/Creatinine Ratio Pending , CBC w Diff Pending, WBC Pending, RBC Pending, Hgb Pending, Hct Pending, MCV Pending, MCH Pending, MCHC Pending, RDW Pending, Plt Count Pending, MPV Pending 09/07/17 0450: Vancomycin Trough 17.5 Assessment/Plan Assessment: Patient is a 51-year-old male with a PMH significant for insulin-dependent diabetes, diabetic neuropathy, CAD status post MO with PCI and 2 stents placed in 2007, PVD, renal abscess, osteomyelitis with recent toe amputation who was referred to the [facility] ED from Dr. Ortega office for suspicion of osteomyelitis. MRI confirmed diagnosis of osteomyelitis Labs were significant for elevated ESR, leukocytosis, mild hyperglycemia He is being treated evaluate for following conditions #Right Foot Osteomyelitis. MRI showed osteomyelitis 3rd metatarsal, cuboid, and lateral cuneiform. SIRS postive fever 104 as OP, leukocytosis, tachycardia. No hypotension and lactate normal on presentation. -ID, vascular surgery, podiatry on board -Monitor fever and WBC curve afebrile with persistently elevated WBC count -Continue Vancomycin IV 1.25g Q12 and Ceftriaxone 2g IV Q24 Day 8 today -Most recent Van trough is 17.5 -Adequate pain control -Arterial ultrasound of right lower extremity showed SFA stenosis increased significantly compared to the previous study of April 2017 -He underwent CT angiogram of right lower extremity with with angioplasty and stent placement in the distal SFA yesterday -He is planning to go to Dr. Ortega for possible debridement and is currently nothing by mouth -He will require a PICC line to complete four-week course of antibiotics -It is very likely that patient might end up with BKA if above treatment isn't effective #CAD- no cardiac symptoms and troponin negative. Was seen by Cardiology last month. Benefits of surgery outweigh risk based on RCRI. -Dr. Hurley on board -Continue usual meds (Metoprolol, etc.) -Aspirin and Plavix were given in PACU yesterday, we are going to hold for now until he comes back from and give later in the evening #DM -Hold Metformin, continue insulin sliding scale. -Blood sugar running in adequate range #Neuropathy -Continue Lyrica, Duloxetine and Percocet prn. #Hyperlipidemia -Continue Atorvastatin. NPO/ALPS and heparin subcutaneous/ Full code Advance diet after the procedure Problem List: 1. Osteomyelitis of right foot Pain Ratin Pain Location: R foot Pain Goal: Pain 4 or less Pain Plan: prn Tomorrow's Labs & Rationales: cbc
[2017-09-07 08:17] LABS: ABSOLUTE BASOPHIL COUNT 0 /CUMM (0.0-0.2); ABSOLUTE EOSINOPHIL COUNT 0.1 /CUMM (0.0-0.7); ABSOLUTE GRANULOCYTE CT 7.8 /CUMM (1.4-6.5); ABSOLUTE LYMPH COUNT 1.4 /CUMM (1.2-3.4); ABSOLUTE MONOCYTE COUNT 0.7 /CUMM (0.10-0.60); BASOPHIL % 0.3 % (0.0-2.0); EOSINOPHIL % 1.4 % (0-5); GRANULOCYTE % 77.6 % (42.2-75.2); HEMATOCRIT 26.2 % (42-52); MEAN CORPUSCULAR HGB 28.9 PG (27.0-31.0); MEAN CORPUSCULAR HGB CONC 33.2 G/DL (33.0-37.0); MEAN CORPUSCULAR VOLUME 87.2 FL (80.0-94.0); MEAN PLATELET VOLUME 9.3 FL (7.4-10.4); PLATELET COUNT 378 /CUMM (130-400); RBC DISTRIBUTION WIDTH 14.4 % (11.5-14.5); RED BLOOD CELL CT 3.01 /CUMM (4.70-6.10)
[2017-09-07 08:50] VITALS: BP 118/68
--- NOTE | 2017-09-07 11:06 | RADIOLOGY REPORT ---
EXAMINATION: XR CHEST CLINICAL INFORMATION: Desaturation. Shortness of breath COMPARISON: 07/27/2017 TECHNIQUE: 2 views of the chest were obtained. FINDINGS: Lung volumes are improved from the prior study. Mild diffuse interstitial prominence. No focal consolidation or mass. No pleural effusion or pneumothorax. Cardiomediastinal silhouette unchanged. IMPRESSION: Low lung volumes. No focal consolidation to suggest pneumonia. Mild diffuse interstitial prominence, favor pulmonary vascular congestion over bronchitis or interstitial pneumonitis.
--- NOTE | 2017-09-07 12:31 | PN- Psychiatry ---
Assessment/Plan Impression: The patient is tolerating well his new medicine, an SSRI, for depression and anxiety, sertraline/Zoloft 25 mg by mouth daily, initiated on 09/03/2017. He has also been on another medication used for depression and anxiety, and SNRI , duloxetine/Cymbalta, at a moderate dose of 60 mg by mouth daily. When considering the addition of an SSRI, we offered a choice of a escitalopram or sertraline, both first-line agents used for depression and anxiety. After consultation with his spouse, the patient elected to start sertraline. We have some concern that the patient's duloxetine might be increased to control pain, possibly resulting in an overabundance of serotonin, in the setting of titration of sertraline. To prevent this probably unlikely occurrence, and to simplify the patient's medication regimen. We suggest stopping the sertraline, and increasing the duloxetine. The patient indicated that he is agreeable to the change, and asked that we consult his spouse, Fay, a senior pharmacy technician. With his verbal permission, we discussed the proposed change with Fay, who is in agreement with stopping the sertraline, and increasing the duloxetine. Suggestion: Suggestion: 1. I have stopped sertraline 25 mg by mouth daily for depression and anxiety. 2. I have increased duloxetine from 60 mg PO daily to 90 mg PO daily. 3. Continue to monitor for serotonin syndrome, hold duloxetine and notify us if this occurs. 4. The patient indicates an interest in coming to [facility] outpatient psychiatry. We asked that the receiving short-term rehabilitation make an appointment for him at our office, . We will continue to follow along with you. Subjective Subjective: The patient is alert, lying in bed, calm and cooperative. He had some difficulty with breathing earlier this morning, and is now on oxygen via NC. He is not in any apparent distress. He is oriented to person, place, day, month and year. He denies hopelessness, helplessness, worthlessness. He denies AH, VH and presents no kacie delusions. He denies SI or HI. Sleep was OK. Review of Systems Neurological/Psychological: Reports: anxiety, depressed. Objective Last 24 Hrs of Vital Signs/I&O Vital Signs Date Time Temp Pulse Resp B/P B/P Pulse O2 O2 Flow FiO2 Mean Ox Delivery Rate 04/ 0850 98.0 72 18 118/68 92 Nasal 2.0L Cannula / 0753 66 118/68 04/03 0538 98.0 60 20 110/62 96 Room Air 04/ 2156 98.1 69 18 110/60 97 Room Air 04/ 1630 98.0 70 18 110/60 96 Room Air Room Air Intake & Output / 1600 09/07 0800 04/ 0000 Intake Total 600 1330 Output Total 700 400 Balance -100 930 Intake, IV 600 850 Intake, Oral 480 Output, Urine 700 400 Physical Exam: Not performed Physical Exam General Appearance: no apparent distress, alert, awake Neurologic/Psychiatric: awake, alert, oriented x 3 Current Medications: Current Medications Sig/Marty Start time Last Medication Dose Route Stop Time Status Admin Aspirin 325 MG .STK-MED ONE 09/06 1512 DC PO 09/06 1513 Aspirin Buffered 325 MG DAILY 09/07 1000 DC PO Aspirin Buffered 325 MG ONCE ONE 09/06 1530 DC PO 09/06 1531 Atorvastatin Calcium 80 MG 1700 08/31 1700 AC 09/06 PO 1639 Ceftriaxone Sodium 2,000 MG Q24H 08/31 1445 AC 09/06 IV 1638 Clopidogrel Bisulfate 75 MG DAILY 09/07 1000 AC PO Clopidogrel Bisulfate 75 MG ONCE ONE 09/06 1530 DC PO 09/06 1531 Dextrose/Sodium 1,000 ML Q13H 09/05 2100 DC 09/06 Chloride IV 2346 Docusate Sodium 100 MG BID 09/02 1523 AC 09/07 PO 0752 Duloxetine HCl 60 MG DAILY 08/30 2028 AC 09/07 PO 0752 Famotidine 20 MG DAILY 09/03 1341 AC 09/07 PO 0752 Furosemide 20 MG ONCE ONE 09/07 1145 DC IV 09/07 1146 Heparin Sodium 5,000 UNIT Q8 08/30 2200 AC 09/07 (Porcine) SC 0608 Insulin Aspart 0 TIDAC 09/07 1200 AC SC Insulin Aspart 0 TIDAC 09/07 0000 CAN SC Insulin Aspart 0 TIDAC 09/06 1700 DC SC 09/07 0000 Insulin Detemir 6 UNITS ONCE ONE 09/07 1000 DC 09/07 SC 09/07 1001 1105 Insulin Detemir 6 UNITS ONCE ONE 09/07 0830 DC 09/07 SC 04/03 0831 0829 Insulin Detemir 12 UNITS BID 08/30 2200 AC 09/06 SC 2117 Insulin Human Regular 0 Q6 09/06 2359 DC 09/07 SC 0601 Insulin Human Regular 0 Q6 09/05 2359 DC 09/06 SC 1130 Metoprolol Succinate 25 MG DAILY 08/31 1000 AC 09/07 PO 0753 Morphine Sulfate 4 MG .STK-MED ONE 09/06 1517 DC IM 09/06 1518 Morphine Sulfate 4 MG Q3P PRN 09/01 0915 AC 09/07 IV 1105 Ondansetron HCl 4 MG Q6P PRN 08/31 1215 AC 08/31 IV 1243 Oxycodone/ 2 TAB Q6P PRN 09/04 1845 AC 09/07 Acetaminophen PO 0753 Oxycodone/ 1 TAB Q6P PRN 09/04 1830 AC Acetaminophen PO Polyethylene Glycol 17 GM DAILY 09/02 1523 AC 09/07 PO 1105 Polyethylene Glycol 17 GM AT BEDTIME 08/30 2200 AC 09/03 PO 2132 Pregabalin 100 MG BID 08/30 2200 AC 09/07 PO 0753 Senna/Docusate Sodium 2 TAB AT BEDTIME 08/30 2200 AC 09/06 PO 2118 Sertraline HCl 25 MG DAILY 09/03 1033 AC 09/07 PO 0753 Vancomycin HCl 1,250 MG Q12H 09/01 0500 AC 09/07 Dextrose/Water 250 ML IV 0602 Results Last 24 Hrs of Labs/Mics: Laboratory Tests 09/07 09/07 09/07 0910 0715 0450 Chemistry Sodium (137 - 145 mmol/L) 139 Potassium (3.5 - 5.1 mmol/L) 4.0 Chloride (98 - 107 mmol/L) 103 Carbon Dioxide (22 - 30 mmol/L) 25 Anion Gap (5 - 16) 11 BUN (9 - 20 mg/dL) 9 Creatinine (0.7 - 1.2 mg/dL) 0.9 Estimated GFR (>60 ml/min) > 60 BUN/Creatinine Ratio (7 - 25 %) 10.0 Troponin I (<0.11 ng/ml) 0.01 Coagulation D-Dimer High Sensitivty (0 - 243 ng/ml) 2733 H Hematology CBC w Diff NO MAN DIFF REQ WBC (4.8 - 10.8 /CUMM) 10.0 RBC (4.70 - 6.10 /CUMM) 3.01 L Hgb (14.0 - 18.0 G/DL) 8.7 L Hct (42 - 52 %) 26.2 L MCV (80.0 - 94.0 FL) 87.2 MCH (27.0 - 31.0 PG) 28.9 MCHC (33.0 - 37.0 G/DL) 33.2 RDW (11.5 - 14.5 %) 14.4 Plt Count (130 - 400 /CUMM) 378 MPV (7.4 - 10.4 FL) 9.3 Gran % (42.2 - 75.2 %) 77.6 H Lymphocytes % (20.5 - 51.1 %) 13.8 L Monocytes % (1.7 - 9.3 %) 6.9 Eosinophils % (0 - 5 %) 1.4 Basophils % (0.0 - 2.0 %) 0.3 Absolute Granulocytes (1.4 - 6.5 /CUMM) 7.8 H Absolute Lymphocytes (1.2 - 3.4 /CUMM) 1.4 Absolute Monocytes (0.10 - 0.60 /CUMM) 0.7 H Absolute Eosinophils (0.0 - 0.7 /CUMM) 0.1 Absolute Basophils (0.0 - 0.2 /CUMM) 0 Toxicology Vancomycin Trough (10.0 - 20.0 ug/mL) 17.5
--- NOTE | 2017-09-07 12:35 | PN- Infect Dx ---
Subjective Subjective: Afebrile. He complained of increased shortness of breath this morning, with an O2 sat down to 84% on room air, now improved on 2 L of nasal oxygen. He denies any chest pain but does note a slight cough. He also notes continued discomfort in the right foot, particularly in the medial aspect at the site of the recent debridement. Objective Last 24 Hrs of Vital Signs/I&O Vital Signs Date Time Temp Pulse Resp B/P B/P Pulse O2 O2 Flow FiO2 Mean Ox Delivery Rate 09/07 0850 98.0 72 18 118/68 92 Nasal 2.0L Cannula 09/07 08 93 Room Air Room Air 09/07 0753 66 118/68 09/07 0538 98.0 60 20 110/62 96 Room Air 09/06 2156 98.1 69 18 110/60 97 Room Air 09/06 1630 98.0 70 18 110/60 96 Room Air Room Air Intake & Output 09/07 1600 09/07 0800 09/07 0000 Intake Total 600 1330 Output Total 700 400 Balance -100 930 Intake, IV 600 850 Intake, Oral 480 Output, Urine 700 400 Physical Exam Other Physical Findings: He appears comfortable in no acute distress Lungs are clear Heart regular rhythm with no murmur Extremities right foot medial ulcers with purulent drainage, with erythema, edema and tenderness; lateral wound with decreased surrounding erythema and edema Results Last 24 Hours of Lab Results: Laboratory Tests 09/07 09/07 09/07 0910 0715 0450 Chemistry Sodium (137 - 145 mmol/L) 139 Potassium (3.5 - 5.1 mmol/L) 4.0 Chloride (98 - 107 mmol/L) 103 Carbon Dioxide (22 - 30 mmol/L) 25 Anion Gap (5 - 16) 11 BUN (9 - 20 mg/dL) 9 Creatinine (0.7 - 1.2 mg/dL) 0.9 Estimated GFR (>60 ml/min) > 60 BUN/Creatinine Ratio (7 - 25 %) 10.0 Troponin I (<0.11 ng/ml) 0.01 Coagulation D-Dimer High Sensitivty (0 - 243 ng/ml) 2733 H Hematology CBC w Diff NO MAN DIFF REQ WBC (4.8 - 10.8 /CUMM) 10.0 RBC (4.70 - 6.10 /CUMM) 3.01 L Hgb (14.0 - 18.0 G/DL) 8.7 L Hct (42 - 52 %) 26.2 L MCV (80.0 - 94.0 FL) 87.2 MCH (27.0 - 31.0 PG) 28.9 MCHC (33.0 - 37.0 G/DL) 33.2 RDW (11.5 - 14.5 %) 14.4 Plt Count (130 - 400 /CUMM) 378 MPV (7.4 - 10.4 FL) 9.3 Gran % (42.2 - 75.2 %) 77.6 H Lymphocytes % (20.5 - 51.1 %) 13.8 L Monocytes % (1.7 - 9.3 %) 6.9 Eosinophils % (0 - 5 %) 1.4 Basophils % (0.0 - 2.0 %) 0.3 Absolute Granulocytes (1.4 - 6.5 /CUMM) 7.8 H Absolute Lymphocytes (1.2 - 3.4 /CUMM) 1.4 Absolute Monocytes (0.10 - 0.60 /CUMM) 0.7 H Absolute Eosinophils (0.0 - 0.7 /CUMM) 0.1 Absolute Basophils (0.0 - 0.2 /CUMM) 0 Toxicology Vancomycin Trough (10.0 - 20.0 ug/mL) 17.5 Last 24 Hours of Jose A Results: No new cultures Recent Imaging Studies: Chest x-ray September 07 mild diffuse interstitial prominence Assessment/Plan ID Impression: Recent hypoxia of concern and, with the elevated d-dimer, raises concern for a pulmonary embolism. His chest x-ray does suggest mild interstitial prominence; therefore there may be an element of fluid overload. He remains afebrile with his white blood cell count normal on Vancomycin and Ceftriaxone (based on his OR cultures from his recent admission, which grew MRSA, Group A strep and Escherichia coli) now Day 8 of treatment for a right foot infection/presumed osteomyelitis, with evidence of progression of osteomyelitis on the recent MRI. He underwent a right leg angioplasty and stent placement yesterday and was scheduled for debridement of the foot today, but this is being deferred due to his respiratory issues. Based on Podiatry recommendations for a BKA it is unlikely, however, that debridement without amputation, even with another prolonged course of antibiotics, will resolve his infection. Suggestion: 1. Would pursue a CTA of the chest 2. Further evaluation and management of his hypoxia based on above 3. Await debridement of the right foot per Podiatry 4. Continue Vancomycin and Ceftriaxone pending above
--- NOTE | 2017-09-07 14:16 | CT SCAN REPORT ---
EXAMINATION: CT ANGIOGRAM OF THE CHEST WITH CONTRAST (CT PULMONARY ANGIOGRAM FOR PE) CLINICAL INFORMATION: Acute desaturation. Evaluate for pulmonary embolism. COMPARISON: CT chest from 01/20/2016. TECHNIQUE: Prior to contrast administration, noncontrast localization images were obtained. Subsequently, multidetector volumetric imaging was performed from the thoracic inlet to below the diaphragms following the administration of 67 mL Optiray 320 intravenous contrast. No contrast reaction reported. Sagittal, coronal, and MIP oblique sagittal reformatted images were obtained on the CT workstation, uploaded to PACS, and reviewed. DLP: Total exam dose-length product 528 mGy-cm FINDINGS: QUALITY OF STUDY/CONTRAST BOLUS: Satisfactory. PULMONARY ARTERIES: Pulmonary arteries are normal in size. No embolic filling defects are identified within the main, lobar or segmental vessels. THORACIC AORTA: Mild atherosclerosis of the thoracic aorta without aneurysm or dissection. LUNGS AND PLEURA: Trachea and central airways are widely patent and normal in caliber. Mild centrilobular and paraseptal emphysema. Peribronchial interstitium is thickened. Also, there is interlobular septal thickening within lower lung zones from mild interstitial edema. There are patchy areas of groundglass opacity within each upper lobe, likely representing areas of edema, as well. Small bilateral pleural effusions are present. Associated compressive atelectasis within lower lobes. Subpleural linear opacity in posterior right upper lobe, suggestive of focal scarring at site of a previously noted 1.8 cm nodule (image 171, series 2). No interval development of a suspicious nodule or mass. CARDIOVASCULAR: The heart size is normal. There is three-vessel coronary artery atherosclerotic calcification, most severely affecting the left anterior descending coronary artery. No pericardial effusion.. MEDIASTINUM: The esophagus has normal wall thickness. The visualized portion of the thyroid gland is unremarkable. No mediastinal mass. LYMPHATICS: No pathologic sized axillary, hilar or mediastinal lymph nodes. UPPER ABDOMEN: Adrenal glands are unremarkable. Gallbladder surgically absent. No reflux of contrast into the IVC. OSSEOUS STRUCTURES: No aggressive osseous lesions. IMPRESSION: 1. No pulmonary embolism. 2. Atherosclerotic disease of coronary arteries. 3. Mild interstitial pulmonary edema, small bilateral pleural effusions and compressive atelectasis within lower lobes. 4. Mild centrilobular and paraseptal emphysema.
[2017-09-07 14:40] VITALS: BP 142/6
[2017-09-07 21:18] VITALS: BP 112/60
[2017-09-08 06:47] VITALS: BP 104/60
--- NOTE | 2017-09-08 07:28 | PN- Housestaff ---
Marco SIMONS,Yadi 09/08/17 0727: Subjective Follow-up For: Osteomyelitis status post CT angiogram and stent placement Subjective: Patient seen and examined the resting comfortably. Easily arousable. continues to be on 2 L of nasal cannula. Thinks that he is ready to come off nasal cannula and did not have any respiratory symptoms so far he denies any shortness of breath and cough. Patient has been afebrile overnight. White cell count continues to trend up, he is on vancomycin and ceftazidime day 9 of therapy. Currently patient is nothing by mouth and is scheduled to go to OR for debridement we will pursue a PICC line placement after that after consulting ID. D/c oxygen NC satting 99% on RA -Update we were informed by Kirk Ortega DPM that he won't be taking the patient today and he will be scheduled Wednesday for possible debridement -Patient is extremely frustrated with changing schedule of OR. -We are also going to discontinue the antibiotics today as per ID recommendation Review of Systems Constitutional: Reports: see HPI. Objective Last 24 Hrs of Vital Signs/I&O Vital Signs Date Time Temp Pulse Resp B/P B/P Pulse O2 O2 Flow FiO2 Mean Ox Delivery Rate 09/08 0647 98.1 69 20 104/60 96 Nasal 3.0L Cannula 09/08 0000 Nasal 2.0L Cannula 09/078 98.8 77 20 112/60 100 09/07 1600 Nasal 2.0L Cannula 09/07 1440 98.7 75 20 142/6 100 Nasal 2.0L Cannula Intake & Output 09/08 1600 09/08 0800 09/08 0000 Intake Total 120 1250 Output Total 1000 800 Balance -880 450 Intake, IV 250 Intake, Oral 120 1000 Output, Urine 1000 800 Physical Exam General Appearance: Alert, Oriented X3, Cooperative HEENT: Atraumatic Cardiovascular: Normal S1, Normal S2, No Murmurs Lungs: DECREASED AIR MOVEMENT Abdomen: Normal Bowel Sounds, Soft Neurological: Normal Speech Extremities: R FOOT IN BANDAGE Current Medications: Current Medications Sig/Marty Start time Last Medication Dose Route Stop Time Status Admin Aspirin Buffered 325 MG DAILY 09/07 1000 DC PO Atorvastatin Calcium 80 MG 1700 08/31 1700 AC 09/07 PO 1704 Ceftriaxone Sodium 2,000 MG Q24H 08/31 1445 AC 09/07 IV 1407 Clopidogrel Bisulfate 75 MG DAILY 09/07 1000 AC 09/07 PO 1330 Dextrose/Sodium 1,000 ML Q20H 09/08 0600 AC 09/08 Chloride IV 0522 Dextrose/Sodium 1,000 ML Q20H 09/07 2355 DC Chloride IV Dextrose/Sodium 1,000 ML Q13H 09/07 1415 DC Chloride IV 09/08 0314 Dextrose/Sodium 1,000 ML Q13H 09/05 2100 DC 09/06 Chloride IV 2346 Docusate Sodium 100 MG BID 09/02 1523 AC 09/07 PO 2116 Duloxetine HCl 90 MG DAILY 09/08 1000 AC PO Duloxetine HCl 60 MG DAILY 08/30 2028 DC 09/07 PO 0752 Famotidine 20 MG DAILY 09/03 1341 AC 09/07 PO 0752 Furosemide 20 MG ONCE ONE 09/07 1145 DC 09/07 IV 09/07 1146 1332 Heparin Sodium 5,000 UNIT Q8 08/30 2200 AC 09/07 (Porcine) SC 211 Insulin Aspart 0 TIDAC 09/07 1200 DC SC 09/08 2300 Insulin Detemir 6 UNITS ONCE ONE 09/07 1000 DC 09/07 SC 09/07 1001 1105 Insulin Detemir 12 UNITS BID 08/30 2200 AC 09/07 SC 2117 Insulin Human Regular 2 UNITS .STK-MED ONE 09/08 0001 DC IV 09/08 0002 Insulin Human Regular 0 Q6 09/07 2359 AC 09/08 SC 0624 Insulin Human Regular 0 Q6 09/06 2359 DC 09/07 SC 0601 Metoprolol Succinate 25 MG DAILY 08/31 1000 AC 09/07 PO 0753 Morphine Sulfate 4 MG Q3P PRN 09/01 0915 AC 09/08 IV 0521 Ondansetron HCl 4 MG Q6P PRN 08/31 1215 AC 08/31 IV 1243 Oxycodone/ 2 TAB Q6P PRN 09/04 1845 AC 09/08 Acetaminophen PO 0337 Oxycodone/ 1 TAB Q6P PRN 09/04 1830 AC Acetaminophen PO Polyethylene Glycol 17 GM DAILY 09/02 1523 AC 09/07 PO 1105 Polyethylene Glycol 17 GM AT BEDTIME 08/30 2200 AC 09/03 PO 2132 Pregabalin 100 MG BID 08/30 2200 AC 09/07 PO 2116 Senna/Docusate Sodium 2 TAB AT BEDTIME 08/30 2200 AC 09/07 PO 2116 Sertraline HCl 25 MG DAILY 09/03 1033 DC 09/07 PO 0753 Vancomycin HCl 1,250 MG Q12H 09/01 0500 AC 09/08 Dextrose/Water 250 ML IV 0521 Last 24 Hrs of Lab/Jose A Results Last 24 Hrs of Labs/Mics: Laboratory Tests 09/08/17 0623: CBC w Diff Pending, WBC Pending, RBC Pending, Hgb Pending, Hct Pending, MCV Pending, MCH Pending, MCHC Pending, RDW Pending, Plt Count Pending, MPV Pending, Gran % Pending, Lymphocytes % Pending, Monocytes % Pending, Eosinophils % Pending, Basophils % Pending, Absolute Granulocytes Pending, Absolute Lymphocytes Pending, Absolute Monocytes Pending, Absolute Eosinophils Pending, Absolute Basophils Pending 09/07/17 0910: Troponin I 0.01, D-Dimer High Sensitivty 2733 H Assessment/Plan Assessment: Patient is a 51-year-old male with a PMH significant for insulin-dependent diabetes, diabetic neuropathy, CAD status post NM with PCI and 2 stents placed in 2007, PVD, renal abscess, osteomyelitis with recent toe amputation who was referred to the [facility] ED from Dr. Ortega office for suspicion of osteomyelitis. MRI confirmed diagnosis of osteomyelitis Labs were significant for elevated ESR, leukocytosis, mild hyperglycemia Arterial ultrasound of right lower extremity showed SFA stenosis increased significantly compared to the previous study of April 2017 He is being treated evaluate for following conditions #Right Foot Osteomyelitis. Status post CT angiogram of right lower extremity with angioplasty and stent placement in distal SFA -ID, vascular surgery, podiatry on board -Monitor fever and WBC curve afebrile with persistently elevated WBC count -Discontinue vancomycin and ceftriaxone -Adequate pain control -Plan for OR on Wednesday -If patient undergoes amputation he will not require further IV antibiotics #Acute respiratory failure; resolved. Patient had episode of shortness of breath and desaturation to 84% he was put on 2 L and has been titrated down to room air now. CTA was negative for PE chest x -ray showed pulmonary congestion he is status post 20 mg of IV Lasix #CAD- no cardiac symptoms and troponin negative. Was seen by Cardiology last month. Benefits of surgery outweigh risk based on RCRI. -Dr. Hurley on board -Continue usual meds (Metoprolol, etc.) -Continue Aspirin and Plavix -We'll hold DVT prophylaxis and aspirin a on day of OR #DM -Hold Metformin, continue insulin sliding scale. -Blood sugar running in adequate range #Neuropathy -Continue Lyrica, Duloxetine and Percocet prn. #Hyperlipidemia -Continue Atorvastatin. Diabetic diet/ALPS and heparin subcutaneous/ Full code Problem List: 1. Osteomyelitis of right foot Pain Ratin Pain Location: r FOOT Pain Goal: Pain 4 or less Pain Plan: PRN Tomorrow's Labs & Rationales: Jamia Miranda MD 09/08/17 1337: Attending MD Review Statement Attending Statement Attending MD Statement: examined this patient, discuss w/resident/PA/SHANK SCOURER, agreed w/resident/PA/SHANK SCOURER, reviewed EMR data (avail), discussed with nursing, discussed with case mgmt, amended to note Attending Assessment/Plan: Patient seen and examined. He was scheduled to go to the operating room with the podiatry service yesterday however this was different on account of development of acute respiratory failure requiring oxygen supplementation. CT angiogram showed no evidence of pulmonary embolism. It did show some suggestion of volume overload. He did receive diuretic therapy yesterday. He reports feeling much better today. Denies any shortness of breath. He was saturating 99% on 3 L of oxygen when evaluated this morning. Oxygen therapy was taken off during rounds and he maintained Saturation at 90-99%. On examination he has no jugular venous distention. Heart sounds are regular. Lungs are clear to auscultation bilaterally. He has no peripheral edema today and he has intact dressing over the right foot. Problems: 1. Acute respiratory failure; resolved. 2. Right foot osteomyelitis with underlying diabetic neuropathy and peripheral arterial disease. 3. Chronic diastolic heart failure. 4. Insulin-dependent diabetes mellitus. 5. Depression. Plan: -ID service is recommending amputation. Patient was evaluated by the vascular surgery service and declined this. Awaiting reevaluation in the OR by the podiatry service. Procedure was deferred yesterday on account of development of respiratory insufficiency. Respiratory status has not improved. -ID recommendations regarding antibiotic therapy noted. White cell count is trending upwards today. Will follow closely. If patient undergoes amputation he will not need further intravenous antibiotic therapy. -On account of his history of chronic diastolic dysfunction will use caution with IV hydration. When patient is n.p.o. for surgery recommend beginning hydration the morning of the procedure and not overnight. -Continue current insulin regimen.
[2017-09-08 07:58] LABS: ABSOLUTE BASOPHIL COUNT 0.1 /CUMM (0.0-0.2); ABSOLUTE EOSINOPHIL COUNT 0.2 /CUMM (0.0-0.7); ABSOLUTE GRANULOCYTE CT 11.5 /CUMM (1.4-6.5); ABSOLUTE LYMPH COUNT 1.7 /CUMM (1.2-3.4); ABSOLUTE MONOCYTE COUNT 0.6 /CUMM (0.10-0.60); BASOPHIL % 0.4 % (0.0-2.0); EOSINOPHIL % 1.5 % (0-5); GRANULOCYTE % 81.8 % (42.2-75.2); MEAN CORPUSCULAR HGB 28.4 PG (27.0-31.0); MEAN CORPUSCULAR HGB CONC 32.9 G/DL (33.0-37.0); MEAN CORPUSCULAR VOLUME 86.3 FL (80.0-94.0); MEAN PLATELET VOLUME 10.1 FL (7.4-10.4); PLATELET COUNT 319 /CUMM (130-400); RED BLOOD CELL CT 3.13 /CUMM (4.70-6.10); WHITE BLOOD CELL COUNT 14.1 /CUMM (4.8-10.8)
[2017-09-08] MEDS ORDERED: DOCUSATE SODIU100 M3 PO (11:08)
[2017-09-08] MEDS ORDERED: DULOXETINE HCL30 MG PO (11:08)
[2017-09-08] MEDS ORDERED: ZOFRAN4 M2 PO (11:08)
[2017-09-08] MEDS ORDERED: MIRALAX119 GM PO (11:08)
[2017-09-08] MEDS ORDERED: CEFTRIAXONE2 G2 IV (11:08)
[2017-09-08] MEDS ORDERED: FAMOTIDINE20 M1 PO (11:08)
--- NOTE | 2017-09-08 11:09 | Patient Discharge Instructions ---
Discharge Instructions General Discharge Information You were seen/treated for: Right foot osteomyelitis You had these procedures: You underwent below knee amputation Watch for these problems: Fever, chills, pain at surgical site, bleeding from the surgical site, Other wound care: Please follow-up vascular surgery surgery for wound care Special Instructions: -Please follow-up with your primary care doctor after discharge -Please follow-up with vascular surgery after discharge. You will need an ultrasound of your left leg which will be done by Dr. Jimenez -Intake appointment at Outpatient Psychiatry at [address] [place] [address], on October 27, at 5:15 PM with Genevieve. Diet Recommended Diet: Diabetic Activity Activity Self Limited: Yes Acute Coronary Syndrome Inclusion Criteria At DC or during hospital stay patient has or had the following: ACS DIAGNOSIS No Discharge Core Measures Meds if any: Prescribed or Continued at Discharge Meds if any: NOT Prescribed or Continued at Discharge Congestive Heart Failure Inclusion Criteria At DC or during hospital stay patient has or had the following: CHF DIAGNOSIS No Discharge Core Measures Meds if any: Prescribed or Continued at Discharge Meds if any: NOT Prescribed or Continued at Discharge Cerebrovascular accident Inclusion Criteria At DC or during hospital stay patient has or had the following: CVA/TIA Diagnosis No Discharge Core Measures Meds if any: Prescribed or Continued at Discharge Meds if any: NOT Prescribed or Continued at Discharge Venous thromboembolism Inclusion Criteria VTE Diagnosis No VTE Type NONE VTE Confirmed by (Test) NONE Discharge Core Measures - Per Current guidelines, there needs to be overlap - treatment for the first 5 days of Warfarin therapy. - If discharged on Warfarin prior to 5 days of - overlap therapy, the patient will need to be - assessed for post discharge needs including - *Post discharge parental anticoagulation - *Warfarin and/or parental anticoagulation education - *Follow up date to check INR post discharge At least 5 days overlap therapy as Inpatient No Meds if any: Prescribed or Continued at Discharge Note: Overlap Therapy is Warfarin and Anticoagulant Meds if any: NOT Prescribed or Continued at Discharge
--- NOTE | 2017-09-08 13:35 | PN- Infect Dx ---
Subjective Subjective: Afebrile. He still complains of pain in the right foot. His has no further shortness of breath and denies any chest pain though he still notes a mild cough. Objective Last 24 Hrs of Vital Signs/I&O Vital Signs Date Time Temp Pulse Resp B/P B/P Pulse O2 O2 Flow FiO2 Mean Ox Delivery Rate 09/08 1119 72 124/70 09/08 0647 98.1 69 20 104/60 96 Nasal 3.0L Cannula 09/08 0000 Nasal 2.0L Cannula 09/07 2118 98.8 77 20 112/60 100 09/07 1600 Nasal 2.0L Cannula 09/07 1440 98.7 75 20 142/6 100 Nasal 2.0L Cannula Intake & Output 09/08 1600 09/08 0800 09/08 0000 Intake Total 120 1250 Output Total 1000 800 Balance -880 450 Intake, IV 250 Intake, Oral 120 1000 Output, Urine 1000 800 Physical Exam Other Physical Findings: He appears comfortable in no acute distress Extremities right foot lateral wound unchanged, with no active drainage but tender to palpation; medial aspect of the right foot with tenderness and mild induration Results Last 24 Hours of Lab Results: Laboratory Tests 09/08 622 Hematology CBC w Diff NO MAN DIFF REQ WBC (4.8 - 10.8 /CUMM) 14.1 H RBC (4.70 - 6.10 /CUMM) 3.13 L Hgb (14.0 - 18.0 G/DL) 8.9 L Hct (42 - 52 %) 27.0 L MCV (80.0 - 94.0 FL) 86.3 MCH (27.0 - 31.0 PG) 28.4 MCHC (33.0 - 37.0 G/DL) 32.9 L RDW (11.5 - 14.5 %) 15.0 H Plt Count (130 - 400 /CUMM) 319 MPV (7.4 - 10.4 FL) 10.1 Gran % (42.2 - 75.2 %) 81.8 H Lymphocytes % (20.5 - 51.1 %) 11.8 L Monocytes % (1.7 - 9.3 %) 4.5 Eosinophils % (0 - 5 %) 1.5 Basophils % (0.0 - 2.0 %) 0.4 Absolute Granulocytes (1.4 - 6.5 /CUMM) 11.5 H Absolute Lymphocytes (1.2 - 3.4 /CUMM) 1.7 Absolute Monocytes (0.10 - 0.60 /CUMM) 0.6 Absolute Eosinophils (0.0 - 0.7 /CUMM) 0.2 Absolute Basophils (0.0 - 0.2 /CUMM) 0.1 Last 24 Hours of Jose A Results: No new cultures Recent Imaging Studies: CTA of the chest September 07 reveals mild interstitial pulmonary edema, with small bilateral pleural effusions and compressive atelectasis, with no pulmonary embolism Assessment/Plan ID Impression: Stable, with improvement in his respiratory status, perhaps secondary to diuresis from one dose of Lasix given yesterday, with no evidence for pneumonia or pulmonary embolism on the recent CT of the chest. He remains afebrile but his white blood cell count has increased despite now 9 days of Vancomycin and Ceftriaxone (based on his OR cultures from his recent admission, which grew MRSA , Group A strep and Escherichia coli) for a right foot osteomyelitis, with evidence of progression of osteomyelitis on the recent MRI, now 2 days status post right leg angioplasty and stent placement. He was initially scheduled for debridement of the foot yesterday, and this has now apparently been deferred until September 10, but Podiatry has recommended a BKA and suspect that any debridement, without amputation, even with another course of antibiotics, will unlikely resolve his infection. As his surgery is being postponed it would be best to follow him off antibiotics to optimize the results of the cultures sent from the OR. Suggestion: 1. Further management of his right foot per Podiatry 2. Discontinue Vancomycin and Ceftriaxone and follow off antibiotics pending above
[2017-09-08 13:58] VITALS: BP 124/64
[2017-09-08 21:35] VITALS: BP 100/54
[2017-09-09 06:38] VITALS: BP 112/58
--- NOTE | 2017-09-09 07:21 | PN- Housestaff ---
Marco SIMONS,[facility] 09/09/17 0721: Subjective Follow-up For: Osteomyelitis of right foot status post angiogram and stent placement in distal SFA Subjective: Patient seen and examined. A resting comfortably. Easily arousable. Offers no complaints. Awaiting OR on Wednesday. Patient afebrile overnight white count normal- antibiotics discontinued yesterday The patient had a bowel movement on Wednesday start him on a bowel regimen Pain Been being managed with medication Review of Systems Constitutional: Reports: see HPI. Objective Last 24 Hrs of Vital Signs/I&O Vital Signs Date Time Temp Pulse Resp B/P B/P Pulse O2 O2 Flow FiO2 Mean Ox Delivery Rate 09/09 0638 97.8 77 20 112/58 92 09/08 2135 98.2 68 20 100/54 97 09/08 1358 98.6 72 20 124/64 97 Room Air 09/08 1119 72 124/70 Intake & Output 09/09 1600 09/09 0800 09/09 0000 Intake Total 240 240 Output Total 650 Balance -410 240 Intake, Oral 240 240 Output, Urine 650 Physical Exam General Appearance: Alert, Oriented X3, Cooperative, No Acute Distress Cardiovascular: Normal S1, Normal S2 Lungs: Clear to Auscultation Abdomen: Normal Bowel Sounds, Soft, No Tenderness Neurological: Normal Speech Extremities: R foot bandaged Current Medications: Current Medications Sig/Marty Start time Last Medication Dose Route Stop Time Status Admin Atorvastatin Calcium 80 MG 1700 08/31 1700 AC 09/08 PO 1628 Ceftriaxone Sodium 2,000 MG Q24H 08/31 1445 DC 09/07 IV 1407 Clopidogrel Bisulfate 75 MG DAILY 09/07 1000 AC 09/08 PO 1105 Dextrose/Sodium 1,000 ML Q20H 09/08 0600 DC 09/08 Chloride IV 0522 Docusate Sodium 100 MG BID 09/02 1523 AC 09/08 PO 2113 Duloxetine HCl 90 MG DAILY 09/08 1000 AC 09/08 PO 1056 Famotidine 20 MG DAILY 09/03 1341 AC 09/08 PO 1105 Heparin Sodium 5,000 UNIT Q8 08/30 2200 AC 09/09 (Porcine) SC 0538 Insulin Aspart 0 TIDAC 09/08 1700 AC 09/09 SC 0825 Insulin Aspart 0 TIDAC 09/08 1200 CAN SC Insulin Detemir 12 UNITS BID 08/30 2200 AC 09/08 SC 211 Insulin Human Regular 0 Q6 09/08 1200 DC 09/08 SC 1245 Insulin Human Regular 0 Q6 09/07 2359 DC 09/08 SC 0624 Metoprolol Succinate 25 MG DAILY 08/31 1000 AC 09/08 PO 1119 Morphine Sulfate 4 MG Q3P PRN 09/01 0915 AC 09/09 IV 0900 Ondansetron HCl 4 MG Q6P PRN 08/31 1215 AC 08/31 IV 1243 Oxycodone/ 2 TAB Q6P PRN 09/04 1845 AC 09/09 Acetaminophen PO 0539 Oxycodone/ 1 TAB Q6P PRN 09/04 1830 AC Acetaminophen PO Polyethylene Glycol 17 GM DAILY 09/02 1523 AC 09/08 PO 1053 Polyethylene Glycol 17 GM AT BEDTIME 08/30 2200 AC 09/08 PO 211 Pregabalin 100 MG BID 08/30 220 AC 09/08 PO 211 Senna/Docusate Sodium 2 TAB AT BEDTIME 08/30 2200 AC 09/08 PO 2113 Vancomycin HCl 1,250 MG Q12H 09/01 0500 DC 09/08 Dextrose/Water 250 ML IV 0521 Last 24 Hrs of Lab/Jose A Results Last 24 Hrs of Labs/Mics: Laboratory Tests 09/09/17 0710: CBC w Diff NO MAN DIFF REQ, RBC 3.12 L, MCV 86.2, MCH 28.9, MCHC 33.5, RDW 14.8 H, MPV 9.1, Gran % 76.8 H, Lymphocytes % 15.0 L, Monocytes % 6.7, Eosinophils % 1.0, Basophils % 0.5, Absolute Granulocytes 8.1 H, Absolute Lymphocytes 1.6, Absolute Monocytes 0.7 H, Absolute Eosinophils 0.1, Absolute Basophils 0 Assessment/Plan Assessment: Patient is a 51-year-old male with a PMH significant for insulin-dependent diabetes, diabetic neuropathy, CAD status post [place] with PCI and 2 stents placed in 2007, PVD, renal abscess, osteomyelitis with recent toe amputation who was referred to the [facility] ED from Dr. Ortega office for suspicion of osteomyelitis. MRI confirmed diagnosis of osteomyelitis Labs were significant for elevated ESR, leukocytosis, mild hyperglycemia Arterial ultrasound of right lower extremity showed SFA stenosis increased significantly compared to the previous study of April 2017 He is being treated evaluate for following conditions #Right Foot Osteomyelitis. Status post CT angiogram of right lower extremity with angioplasty and stent placement in distal SFA -ID, vascular surgery, podiatry on board -Patient remained afebrile without white count antibiotics were discontinued yesterday -Adequate pain control -Plan for OR on Wednesday -If patient undergoes amputation he will not require further IV antibiotics #Acute respiratory failure; resolved. Patient had episode of shortness of breath on 09/07 and desaturation to 84% he was put on 2 L and has been titrated down to room air now. CTA was negative for PE chest x-ray showed pulmonary congestion he is status post 20 mg of IV Lasix #CAD- no cardiac symptoms and troponin negative. Was seen by Cardiology last month. Benefits of surgery outweigh risk based on RCRI. -Dr. Hurley on board -Continue usual meds (Metoprolol, etc.) -Continue Plavix -We will continue aspirin after OR #DM -Hold Metformin, continue insulin sliding scale. -Blood sugar running in adequate range #Neuropathy -Continue Lyrica, Duloxetine and Percocet prn. #Hyperlipidemia -Continue Atorvastatin. Diabetic diet/ALPS and heparin subcutaneous/ Full code Problem List: 1. Osteomyelitis of right foot Pain Ratin Pain Location: R foot Pain Goal: Pain 4 or less Pain Plan: prn Tomorrow's Labs & Rationales: inr cbc Heath SIMONS,Jamia 09/09/17 1126: Attending MD Review Statement Attending Statement Attending MD Statement: examined this patient, discuss w/resident/PA/GEOLOGICAL ENGINEER, agreed w/resident/PA/GEOLOGICAL ENGINEER, reviewed EMR data (avail), discussed with nursing, discussed with case mgmt, amended to note Attending Assessment/Plan: Patient seen and examined. Resting comfortably not in any acute distress. No changes in his clinical condition overnight. Continues to maintain saturation on room air. Denies shortness of breath or cough. He remains afebrile and hemodynamically stable. Leukocytosis has resolved today. We are currently awaiting evaluation by his welder boilermaker Kirk Ortega DPM was scheduled the patient for the operating room tomorrow. Dr. Ortega has been contacted regarding the patient and he will be making further recommendations regarding patient's plan of care. In the meantime the ID service is recommending monitoring patient off antibiotic therapy. Consent was reviewed by the ID service regarding poor likelihood of resolution of his infection without amputation noted. We are currently awaiting evaluation by the patient's welder boilermaker Dr. Kirk Ortega regarding extent of surgery that patient will be undergoing tomorrow.
[2017-09-09 08:19] LABS: ABSOLUTE BASOPHIL COUNT 0 /CUMM (0.0-0.2); ABSOLUTE EOSINOPHIL COUNT 0.1 /CUMM (0.0-0.7); ABSOLUTE GRANULOCYTE CT 8.1 /CUMM (1.4-6.5); ABSOLUTE LYMPH COUNT 1.6 /CUMM (1.2-3.4); ABSOLUTE MONOCYTE COUNT 0.7 /CUMM (0.10-0.60); BASOPHIL % 0.5 % (0.0-2.0); GRANULOCYTE % 76.8 % (42.2-75.2); HEMATOCRIT 26.9 % (42-52); MEAN CORPUSCULAR HGB 28.9 PG (27.0-31.0); MEAN CORPUSCULAR HGB CONC 33.5 G/DL (33.0-37.0); MEAN CORPUSCULAR VOLUME 86.2 FL (80.0-94.0); MEAN PLATELET VOLUME 9.1 FL (7.4-10.4); PLATELET COUNT 373 /CUMM (130-400); RBC DISTRIBUTION WIDTH 14.8 % (11.5-14.5); RED BLOOD CELL CT 3.12 /CUMM (4.70-6.10); WHITE BLOOD CELL COUNT 10.5 /CUMM (4.8-10.8)
[2017-09-09 14:36] VITALS: BP 130/66
[2017-09-09 19:33] VITALS: BP 124/60
[2017-09-10 06:50] VITALS: BP 126/64
--- NOTE | 2017-09-10 07:20 | PN- Housestaff ---
Marco SIMONS,Yadi 09/10/17 0720: Subjective Follow-up For: Osteomyelitis right foot status post CT angiogram and stent placement Uncontrolled diabetes mellitus Subjective: Patient seen and examined. He came back from the OR. He is concerned that wound VAC was not placed on, and what exact procedure was done. He was explained that he underwent wound debridement and bone culture was drawn. He is complaining of pain postprocedure 10 out of 10, have asked the nurse to give him pain medication Has remained afebrile overnight and his white count within normal limits. Will talk to ID about need of antibiotics Review of Systems Constitutional: Reports: see HPI. Objective Last 24 Hrs of Vital Signs/I&O Vital Signs Date Time Temp Pulse Resp B/P B/P Pulse O2 O2 Flow FiO2 Mean Ox Delivery Rate 09/10 0650 97.9 68 18 126/64 98 09/09 1933 98.8 68 18 124/60 94 Room Air / 1436 98.5 70 20 130/66 98 Room Air Intake & Output 09/10 1600 09/10 0800 09/10 0000 Intake Total 240 Output Total 1190 550 Balance -1190 -310 Intake, Oral 240 Number 0 Bowel Movements Output, Urine 1190 550 Physical Exam General Appearance: Alert, Oriented X3, Cooperative Lungs: Clear to Auscultation Abdomen: Normal Bowel Sounds, Soft, No Tenderness Extremities: R FOOT WRAPPED IN BANDAGE Current Medications: Current Medications Sig/Marty Start time Last Medication Dose Route Stop Time Status Admin Aspirin 81 MG DAILY 09/10 1000 CAN PO Aspirin 325 MG DAILY 09/10 1000 AC PO Atorvastatin Calcium 80 MG 1700 08/31 1700 AC 09/09 PO 1740 Bisacodyl 10 MG ONCE ONE 09/10 0915 DC VA 09/10 0916 Clopidogrel Bisulfate 75 MG DAILY 09/07 1000 AC 09/09 PO 0905 Dextrose/Sodium 1,000 ML Q20H 09/10 0600 DC 09/10 Chloride IV 0600 Docusate Sodium 100 MG BID 09/02 1523 AC 09/09 PO 2158 Duloxetine HCl 90 MG DAILY 09/08 1000 AC / PO 0905 Famotidine 20 MG DAILY 09/03 1341 AC 04/ PO 0905 Heparin Sodium 5,000 UNIT Q8 08/30 2200 AC 09/09 (Porcine) SC 2157 Insulin Aspart 0 TIDAC 09/10 1200 AC SC Insulin Aspart 0 TIDAC 09/08 1700 DC 09/09 SC 09/09 2355 1741 Insulin Detemir 12 UNITS BID 08/30 220 AC 09/09 SC 2158 Insulin Human Regular 0 Q6 09/09 2359 DC 09/10 SC 0611 Metoprolol Succinate 25 MG DAILY 08/31 1000 AC 09/09 PO 0905 Morphine Sulfate 4 MG Q3P PRN 09/01 0915 AC 09/10 IV 0558 Ondansetron HCl 4 MG Q6P PRN 08/31 1215 AC 08/31 IV 1243 Oxycodone/ 2 TAB Q6P PRN 09/04 1845 AC 09/09 Acetaminophen PO 2218 Oxycodone/ 1 TAB Q6P PRN 09/04 1830 AC Acetaminophen PO Polyethylene Glycol 17 GM DAILY 09/02 1523 AC 09/09 PO 0904 Polyethylene Glycol 17 GM AT BEDTIME 08/30 2200 AC 09/09 PO 2159 Pregabalin 100 MG BID 08/30 220 AC 09/09 PO 2158 Senna/Docusate Sodium 2 TAB AT BEDTIME 08/30 2200 AC 09/09 PO 2158 Last 24 Hrs of Lab/Jose A Results Last 24 Hrs of Labs/Mics: Laboratory Tests 09/10/17 0630: CBC w Diff NO MAN DIFF REQ, RBC 3.37 L, MCV 87.2, MCH 28.6, MCHC 32.8 L, RDW 15.0 H, MPV 9.5, Gran % 76.1 H, Lymphocytes % 17.6 L, Monocytes % 4.7, Eosinophils % 1.3, Basophils % 0.3, Absolute Granulocytes 7.5 H, Absolute Lymphocytes 1.7, Absolute Monocytes 0.5, Absolute Eosinophils 0.1, Absolute Basophils 0 Microbiology 09/11 807 EXTREMITIE: Gross Specimen Examination - RECD 09/11 807 EXTREMITIE: Gram Stain - RECD 09/10 804 EXTREMITIE: Culture & Sensitivity - CAN Cancelled: DITTO MACHINE OPERATOR ERROR OR 09/10 804 EXTREMITIE: Gram Stain - CAN Cancelled: DITTO MACHINE OPERATOR ERROR OR Assessment/Plan Assessment: Patient is a 51-year-old male with a PMH significant for insulin-dependent diabetes, diabetic neuropathy, CAD status post [place] with PCI and 2 stents placed in 2007, PVD, renal abscess, osteomyelitis with recent toe amputation who was referred to the [facility] ED from Dr. Ortega office for suspicion of osteomyelitis. MRI confirmed diagnosis of osteomyelitis Labs were significant for elevated ESR, leukocytosis, mild hyperglycemia Arterial ultrasound of right lower extremity showed SFA stenosis increased significantly compared to the previous study of April 2017 He is being treated evaluate for following conditions #Right Foot Osteomyelitis. Status post CT angiogram of right lower extremity with angioplasty and stent placement in distal SFA -Status post wound debridement and bone culture today -ID, vascular surgery, podiatry on board -Patient remained afebrile without white count -Antibiotics have been discontinued yesterday -Adequate pain control -There is question for infectious disease service for to put the patient on antibiotics are not? -picc line? #Acute respiratory failure; resolved. Patient had episode of shortness of breath on 09/07 and desaturation to 84% he was put on 2 L and has been titrated down to room air now. CTA was negative for PE chest x-ray showed pulmonary congestion he is status post 20 mg of IV Lasix #CAD- no cardiac symptoms and troponin negative. Was seen by Cardiology last month. Benefits of surgery outweigh risk based on RCRI. -Dr. Hurley on board -Continue usual meds (Metoprolol, etc.) -Continue Plavix and Plavix #DM -Hold Metformin, continue insulin sliding scale. -Blood sugar running in adequate range #Neuropathy -Continue Lyrica, Duloxetine and Percocet prn. #Hyperlipidemia -Continue Atorvastatin. Diabetic diet/ALPS and heparin subcutaneous/ Full code Problem List: 1. Osteomyelitis of right foot Pain Ratin Pain Location: R FOOT Pain Goal: Pain 4 or less Pain Plan: prn Tomorrow's Labs & Rationales: mady Joe MD,Jamia 09/10/17 1520: Attending MD Review Statement Attending Statement Attending MD Statement: examined this patient, discuss w/resident/PA/WINDOWS DESKTOP ENGINEER, agreed w/resident/PA/WINDOWS DESKTOP ENGINEER, reviewed EMR data (avail), discussed with nursing, discussed with case mgmt, amended to note Attending Assessment/Plan: Patient seen and examined. He underwent wound debridement today by Dr. Ortega. Currently afebrile hemodynamically stable. No new complaints today. Respiratory status remained stable. He has no respiratory complaints. Denies chest pain or shortness of breath. Denies cough. Problems: 1. Right foot osteomyelitis. 2. Acute respiratory failure; resolved. 3. Peripheral arterial disease. 4. Coronary artery disease. 5. Uit-rmrcsuy-antabknnh diabetes mellitus Plan: -I did have an extended conversation with the patient's treating engineer Kirk Ortega DPM. He is recommendation is for patient to undergo below-knee amputation. It is his impression that patient has a very low likelihood of resolving his current osteomyelitis without undergoing a below-knee amputation. On account of this a vascular surgery consultation was placed last week. Patient however has refused and continues to refuse undergo a below-knee amputation. Dr. Ortega has performed wound debridement today however he has very low expectation that this will result in complete healing. -Antibiotic therapy has resumed by the ID service. Fortunately patient is currently afebrile and hemodynamically stable. -The ID service is recommending monitoring the patient through the weekend in the hospital and not discharging him home in order to determine response to antibiotic therapy. It is noted that patient has failed antibiotic therapy in the past.
[2017-09-10 07:59] LABS: ABSOLUTE BASOPHIL COUNT 0 /CUMM (0.0-0.2); ABSOLUTE EOSINOPHIL COUNT 0.1 /CUMM (0.0-0.7); ABSOLUTE GRANULOCYTE CT 7.5 /CUMM (1.4-6.5); ABSOLUTE LYMPH COUNT 1.7 /CUMM (1.2-3.4); ABSOLUTE MONOCYTE COUNT 0.5 /CUMM (0.10-0.60); BASOPHIL % 0.3 % (0.0-2.0); EOSINOPHIL % 1.3 % (0-5); GRANULOCYTE % 76.1 % (42.2-75.2); HEMATOCRIT 29.4 % (42-52); MEAN CORPUSCULAR HGB 28.6 PG (27.0-31.0); MEAN CORPUSCULAR HGB CONC 32.8 G/DL (33.0-37.0); MEAN CORPUSCULAR VOLUME 87.2 FL (80.0-94.0); MEAN PLATELET VOLUME 9.5 FL (7.4-10.4); PLATELET COUNT 399 /CUMM (130-400); RED BLOOD CELL CT 3.37 /CUMM (4.70-6.10); WHITE BLOOD CELL COUNT 9.9 /CUMM (4.8-10.8)
--- NOTE | 2017-09-10 08:04 | Discharge Summary ---
Visit Information Visit Dates Admission Date: 08/30/17 Discharge Date: 09/17/17 Hospital Course Course Attending Physician: Jamia Joe MD Primary Care Physician: Elijah Quinones MD Hospital Course: The patient is a 51-year-old male with a PMH significant for insulin-dependent diabetes, diabetic neuropathy, CAD status post NM with PCI and 2 stents placed in 2007, PVD and renal abscess. He has complicated history of nonhealing wound on the lateral aspect of his right foot for which he underwent right fifth toe amputation on April 2017 and was treated with a 4 week course of Unasyn for a polymicrobial osteomyelitis. He later underwent excision of the fifth metatarsal stump and the course of Unsyn was extended to 6weeks. In May 2017 underwent balloon angioplasty with stent placement of the right leg. Later he was admitted again for residual osteomyelitis in Jul 2017. During that admission he underwent excision of the right fourth ray and was discharged on Bactrim for a residual soft tissue infection. He was sent to the ED by Podiatry for continued nonhealing of the right foot associated with increasing pain, fevers and chills. On admission he was febrile to 101 with Laboratory data revealeing a white blood cell count of 12,000. MRI of the right foot revealed osteomyelitis of the third metatarsal, cuboid and lateral cuneiform, with nonspecific signal abnormalities in the medial and intermediate cuneiforms and the navicular, possibly secondary to Charcot versus degenerative arthritis versus early osteomyelitis. The patient was admitted to general medicine floor for evaluation and treatement of right foot osteomyelitis. He was evaluated by podiatry Dr. Kirk Ortega, vascular surgery Dr. Nicko Jimenez and ID Joseph Johnston. He was started on IV antibiotics Vancomycin and ceftraixone based on previous cultures. It was recommended by podiatry that patient will ultimately require below-knee amputation. However patient was but resistant to the idea so he underwent R leg CT angiogram with stent placement on 09/06 with . He later underwent debridement with bone cultures with podiatry 09/10. On patient's request we took a second opinion about BKA with Dr. Antelmo Mittal, who also recommended BKA as an end point. Hence patient underwent BKA on 09/14/2017. His antibiotics were discontinued before the procedure. He has been evaluated by ID after BKA and there is no need to continue antibiotic therapy. His white count and platelet count were elevated, postop most likely reactive after surgery. There was an episode of desaturation to 88%. CTA ruled out pulmonary embolism. Chest x-ray showed pulmonary congestion and patient was given IV Lasix 20 mg and started on nasal cannula. However the next day patient's oxygen requirement was down to baseline on room air, he was counselled extensively on the use of incentive spirometry. Patient was evaluated by psychiatry for feeling anxious/depressed. He was started on low-dose sertraline however later it was discontinued and his Cymbalta dose was increased from 60 mg to 90 mg. His aspirin and Plavix were held on multiple occasions for possible procedures and later restarted again. His diabetes was managed with insulin sliding scale and his blood pressure sugars remained in acceptable range. The dressing was changed by vascular surgery service on 09/17 patient is going to need home health services on discharge - Patient will require follow-up with vascular surgery status post BKA. He has history of PVD with his left lower extremity also very pale and cool to touch. Patient will require a left lower extremity ultrasound, Vascular surgery aware, will be done outpatient. -He will also benefit with follow-up with psychiatry -Postoperative prosthetic via vascular surgery. Patient had 18 day stay in the hospital with decision being to and forth between BKA versus conservative management. He was full code during his stay Allergies: Coded Allergies: sulfamethoxazole (From BACTRIM) (VOMITING 08/30/17) trimethoprim (From BACTRIM) (VOMITING 08/30/17) Disposition Summary Disposition Principal Diagnosis: Right foot osteomyelitis Additional Diagnosis: PVD, DM Discharge Disposition: home health services Discharge Instructions General Discharge Information Code Status: Full Code Patient's Diet: Diabetic diet Patient's Activity: Has tolerated Follow-Up Instructions/Appts: Please follow-up with primary care doctor for discharge Please work with physical therapy Please follow-up with vascular surgery after discharge Intake appointment at Outpatient Psychiatry at [address] [place], [place] [address], on Wednesday, October 27, at 5:15 PM with Genevieve. Medications at Discharge Discharge Medications: Stop taking the following medications: Oxycodone HCl/Acetaminophen (Percocet 5-325 MG Tablet) 5 MG-325 MG TABLET ORAL EVERY 4-6 HOURS as needed for Pain Qty = 20 Continue taking these medications: Metformin HCl (Metformin HCl) 500 MG TABLET 2 Tablet ORAL TWICE DAILY Comments: DID NOT RECEIVE WHILE IN HOSPITAL Pregabalin (Lyrica) 100 MG CAPSULE 1 Capsule ORAL TWICE DAILY Comments: Last Taken: 09/17/17 Time: 0845 am Aspirin (Aspirin*) 81 MG TAB.CHEW 1 Tablet ORAL DAILY Qty = 30 Comments: Last Taken: 09/17/17 Time: 0845 am Clopidogrel Bisulfate (Plavix) 75 MG TABLET 1 Tablet ORAL DAILY Comments: Last Taken: 09/17/17 Time: 0845 am Acetaminophen (Tylenol) 325 MG TABLET 1 Tablet ORAL EVERY SIX HOURS NEEDED as needed for PAIN SCALE 1-3 (MILD) Qty = 30 Comments: DID NOT RECEIVE WHILE IN HOSPITAL Insulin Detemir (Levemir) 100 UNIT/1 ML VIAL 24 Units Inject into fatty tissue DAILY Qty = 1 Instructions: FOLLOW UP WITH DR. AREVALO. Comments: Last Taken: 09/17/17 Time: 0845 am Insulin Aspart (Novolog) 100 UNIT/ML VIAL 0 Inject into fatty tissue BEFORE MEALS AND AT BEDTIME Qty = 1 Instructions: . Comments: Blood sugars Insulin SS Before Meals >80 none 80-150 4 units 151-200 5 units 201-250 6 units 251-300 8 units 301-350 10 units 351-400 12 units >400 14 units CAll DOCTOR Blood sugar Insulin SS bedtime >80 0 units 80-150 0 units 151-200 0 units 201-250 2 units 251-300 3 units 301-350 4 units 351-400 5 units >400 6 units Call DOCTOR Last Taken: 09/16/17 Time: 12:00 pm Metoprolol Succ XL (Toprol XL) 25 MG TAB 1 Tablet ORAL DAILY Qty = 30 Instructions: . Comments: Last Taken: 09/17/17 Time: 0845 am Atorvastatin Calcium (Atorvastatin Calcium) 80 MG TABLET 1 Tablet ORAL 5 PM Qty = 30 Instructions: . Comments: Last Taken: 09/16/17 Time: 4:00 pm Start taking the following new medications: Oxycodone HCl (Oxycontin) 10 MG TAB.ER.12H 1 Tablet ORAL EVERY 12 HOURS as needed for pain control long acting Qty = 10 No Refills Instructions: . Comments: Last Taken: 09/17/17 Time: 0500 am Oxycodone HCl (Oxycodone HCl) 10 MG TABLET 10 Milligram ORAL EVERY SIX HOURS as needed for PAIN SCALE 7-10 (SEVERE) Qty = 20 No Refills Instructions: . Comments: Last Taken: 09/17/17 Time: 12:00 pm Tramadol HCl (Tramadol HCl) 50 MG TABLET 1 Tablet ORAL EVERY SIX HOURS NEEDED as needed for PAIN SCALE 4-6 ( MODERATE) Qty = 20 No Refills Instructions: . Comments: Last Taken: 09/17/17 Time: 0845 am (100 mg given ) Duloxetine Hydrochloride (Cymbalta) 30 MG CAPSULE.DR 3 Tablet ORAL DAILY Qty = 30 No Refills Instructions: . Comments: Last Taken: 09/17/17 Time: 0845 am Docusate Sodium (Docusate Sodium) 100 MG CAPSULE 1 Capsule ORAL TWICE DAILY as needed for CONSTIPATION Qty = 10 No Refills Instructions: . Comments: Last Taken: 09/17/17 Time: 0845 am Polyethylene Glycol 3350 (Miralax) 17 GRAM/DOSE POWDER 17 Gram ORAL AT BEDTIME as needed for CONSTIPATION Qty = 1 No Refills Instructions: . Comments: Last Taken: 09/16/17 Time: 0950 am Sennosides/Docusate Sodium (Senna Plus Tablet) 8.6 MG-50 MG TABLET 2 Tablet ORAL AT BEDTIME as needed for constipation Qty = 30 No Refills Instructions: . Comments: Last Taken: 09/16/17 Time: 9:00 pm Famotidine (Famotidine) 20 MG TABLET 1 Tablet ORAL DAILY as needed for HEARTBURN Qty = 10 No Refills Instructions: . Comments: Last Taken: 09/17/17 Time: 0845 am Copies To: Joni SIMONS,Elijah Rodriguez; Shannon CARDONA,Kirk; Tony SIMONS,Nicko Nathan MD Review Statement Documenting Attending: Jamia Jeo MD Other Findings: Patient is medically stable to be discharged today.
--- NOTE | 2017-09-10 08:19 | Operative Report ---
Operative/Inv Procedure Report Surgery Date: 09/10/17 Name of Procedure: 1 open incision and drainage deep to the deep fascia with exposure of the extensor and flexor tendon and tendon sheath multiple sites right foot 2 debridement of necrotic bone right foot 3 intraoperative administration of ankle block anesthesia 4 excisional debridement Pre-Operative Diagnosis: 1 open, necrotic wound right foot 2 osteomyelitis right foot 3 diabetic peripheral neuropathy 4 peripheral arterial disease Post-Operative Diagnosis: The same Estimated Blood Loss: less than 50ml Surgeon/Machine Stemmer: CONNEI BROWER DPM Anesthesia: moderate sedation, block Operative/Procedure Note Note: After obtaining informed consent the patient was brought to the operating room and placed on the operating table in the supine position. The patient was then securely fastened to the operating table utilizing safety belt. After administration of IV sedation, 10 mL of 0 point percent percent Marcaine plain was infiltrated about the patient's right ankle. The right foot and ankle within scrubbed prepped and draped in usual aseptic manner. Attention directed to the lateral aspect of the right foot, where a necrotic was identified. Incision extending proximally over the cuboid was deepened down to the deep fascia. We periosteum overlying the cuboid was incised reflected. A rongeur was utilized to harvest bone from the cuboid and specimen sent for both microbiologic and pathologic inspection. The dissection was then bluntly down from lateral to medial, exposing extensor and flexor tendon and tendon sheath multiple sites, both proximally and distally. All necrotic, nonviable infected tissue sharply evacuated from the wound bed. Nipple was then irrigated with 3 L of normal sterile saline infused with 50,000 units of bacitracin. Following this, the foot was redraped and the surgeon's top gloves were changed clean gloves. Any bleeding vessels identified were cauterized or ligated as encountered. The wound was then dressed with 4 x 4's EBD pads Kerlix and Yann wrap. The patient was noted tolerate both procedure and anesthesia well and the patient was transported from the operating room to recovery with vital signs stable.
[2017-09-10 09:29] VITALS: BP 128/60
--- NOTE | 2017-09-10 11:59 | PN- Infect Dx ---
Subjective Subjective: Afebrile. He notes pain in the right foot. Objective Last 24 Hrs of Vital Signs/I&O Vital Signs Date Time Temp Pulse Resp B/P B/P Pulse O2 O2 Flow FiO2 Mean Ox Delivery Rate 09/10 1022 68 128/60 09/10 0929 98.2 68 18 128/60 96 Room Air Room Air 09/10 0650 97.9 68 18 126/64 98 09/09 1933 98.8 68 18 124/60 94 Room Air 09/09 1436 98.5 70 20 130/66 98 Room Air Intake & Output 09/10 1600 09/10 0800 09/10 0000 Intake Total 240 Output Total 1190 550 Balance -1190 -310 Intake, Oral 240 Number 0 Bowel Movements Output, Urine 1190 550 Physical Exam Other Physical Findings: He is mildly uncomfortable status post surgery earlier today Extremities right foot dressing intact Results Last 24 Hours of Lab Results: Laboratory Tests 09/10 06 Hematology CBC w Diff NO MAN DIFF REQ WBC (4.8 - 10.8 /CUMM) 9.9 RBC (4.70 - 6.10 /CUMM) 3.37 L Hgb (14.0 - 18.0 G/DL) 9.6 L Hct (42 - 52 %) 29.4 L MCV (80.0 - 94.0 FL) 87.2 MCH (27.0 - 31.0 PG) 28.6 MCHC (33.0 - 37.0 G/DL) 32.8 L RDW (11.5 - 14.5 %) 15.0 H Plt Count (130 - 400 /CUMM) 399 MPV (7.4 - 10.4 FL) 9.5 Gran % (42.2 - 75.2 %) 76.1 H Lymphocytes % (20.5 - 51.1 %) 17.6 L Monocytes % (1.7 - 9.3 %) 4.7 Eosinophils % (0 - 5 %) 1.3 Basophils % (0.0 - 2.0 %) 0.3 Absolute Granulocytes (1.4 - 6.5 /CUMM) 7.5 H Absolute Lymphocytes (1.2 - 3.4 /CUMM) 1.7 Absolute Monocytes (0.10 - 0.60 /CUMM) 0.5 Absolute Eosinophils (0.0 - 0.7 /CUMM) 0.1 Absolute Basophils (0.0 - 0.2 /CUMM) 0 Last 24 Hours of Jose A Results: OR culture September 10 labeled right foot bone pending Assessment/Plan ID Impression: Stable, status post I&D of his right foot earlier today for osteomyelitis, which has progressed on MRI and have again discussed with Podiatry, who feels that a BKA will be necessary, as the debridement that he would require would not leave him with a functional foot. He can be treated with another course of antibiotics but it seems unlikely that this will provide any benefit, without the appropriate debridement, despite the right leg angioplasty and stent placement 4 days ago. Suggestion: 1. Repeat ESR 2. Follow-up OR cultures from today 3. Can restart Vancomycin 1250 mg IV every 12 hours and Ceftriaxone 2 g IV every 24 hours pending above
--- NOTE | 2017-09-10 14:27 | PN- Psychiatry ---
Assessment/Plan Impression: The patient had an I&D with Dr. Ortega from podiatry this morning, and is resting calmly in bed. He is anxious about possible future surgeries, which may include amputation of a portion of his right foot or leg. He will continue on vancomycin. The patient reports difficulty sleeping last night, and thinks it may be related to worry about the procedure today. He has used melatonin at home, which may be a reasonable choice, if he continues to have insomnia. I also discussed trazodone with him, which he is agreeable to; I did not explored risks and side effects with him, which should be done before this is initiated. If melatonin is not effective, consider trazodone 50 mg PO before bedtime, PRN, for insomnia; may repeat once after one hour, PRN, if insomnia presists. Suggestion: 1. Continue duloxetine 90 mg PO daily for depression and anxiety. 2. Continue to monitor for serotonin syndrome. If this occurs, hold duloxetine and notify us. 3. The patient indicates an interest in coming to [facility] outpatient psychiatry. We asked that the receiving short-term rehabilitation make an appointment for him at our office, [phone]. 4. Please consider starting melatonin 5 mg PO before bedtime as needed for insomnia. We will continue to follow along with you. Subjective Subjective: Alert and oriented except for date. Sitting in his bed and is calm and cooperative. He denies AH, VH, and presents no kacie delusions. He denies SI or HI. He denies SI or HI. Review of Systems Neurological/Psychological: Reports: anxiety, depressed. Objective Last 24 Hrs of Vital Signs/I&O Vital Signs Date Time Temp Pulse Resp B/P B/P Pulse O2 O2 Flow FiO2 Mean Ox Delivery Rate 09/10 1022 68 128/60 04/ 0929 98.2 68 18 128/60 96 Room Air Room Air 04/06 0650 97.9 68 18 126/64 98 04/ 1933 98.8 68 18 124/60 94 Room Air / 1436 98.5 70 20 130/66 98 Room Air Intake & Output 09/10 1600 09/10 0800 04/ 0000 Intake Total 950 240 Output Total 600 1190 550 Balance 350 -1190 -310 Intake, IV 150 Intake, Oral 800 240 Number 1 0 Bowel Movements Output, Urine 600 1190 550 Physical Exam: Not performed Physical Exam General Appearance: no apparent distress, alert, awake Neurologic/Psychiatric: awake, alert, oriented x 3, abnormal gait Current Medications: Current Medications Sig/Marty Start time Last Medication Dose Route Stop Time Status Admin Aspirin 81 MG DAILY 09/10 1000 CAN PO Aspirin 325 MG DAILY 09/10 1000 AC 09/10 PO 1018 Atorvastatin Calcium 80 MG 1700 08/31 1700 AC 09/09 PO 1740 Bisacodyl 10 MG ONCE ONE 09/10 0915 DC 09/10 TN 09/10 0916 1018 Ceftriaxone Sodium 2,000 MG Q24H 09/10 1300 AC 09/10 IV 1412 Clopidogrel Bisulfate 75 MG DAILY 09/07 1000 AC 09/10 PO 1021 Dextrose/Sodium 1,000 ML Q20H 09/10 0600 DC 09/10 Chloride IV 0600 Docusate Sodium 100 MG BID 09/02 1523 AC 09/10 PO 1018 Duloxetine HCl 90 MG DAILY 09/08 1000 AC 09/10 PO 1018 Famotidine 20 MG DAILY 09/03 1341 AC 09/10 PO 1021 Heparin Sodium 5,000 UNIT Q8 08/30 2200 AC 09/10 (Porcine) SC 1328 Insulin Aspart 0 TIDAC 09/10 1200 AC SC Insulin Aspart 0 TIDAC 09/08 1700 DC 09/09 SC 09/09 2355 1741 Insulin Detemir 12 UNITS BID 08/30 2200 AC 09/10 SC 1019 Insulin Human Regular 0 Q6 09/09 2359 DC 09/10 SC 0611 Metoprolol Succinate 25 MG DAILY 08/31 1000 AC 09/10 PO 1022 Morphine Sulfate 4 MG Q3P PRN 09/01 0915 AC 09/10 IV 1329 Ondansetron HCl 4 MG Q6P PRN 08/31 1215 AC 08/31 IV 1243 Oxycodone/ 2 TAB Q6P PRN 09/04 1845 AC 09/10 Acetaminophen PO 1024 Oxycodone/ 1 TAB Q6P PRN 09/04 1830 AC Acetaminophen PO Polyethylene Glycol 17 GM DAILY 09/02 1523 AC 09/10 PO 1021 Polyethylene Glycol 17 GM AT BEDTIME 08/30 2200 AC 09/09 PO 2159 Pregabalin 100 MG BID 08/30 2200 AC 09/10 PO 1021 Senna/Docusate Sodium 2 TAB AT BEDTIME 08/30 2200 AC 09/09 PO 2158 Vancomycin HCl 1,250 MG Q12H 09/10 1300 AC 09/10 Sodium Chloride 250 ML IV 1412 Results Last 24 Hrs of Labs/Mics: Laboratory Tests 09/10 09/10 1326 0630 Hematology CBC w Diff NO MAN DIFF REQ WBC (4.8 - 10.8 /CUMM) 9.9 RBC (4.70 - 6.10 /CUMM) 3.37 L Hgb (14.0 - 18.0 G/DL) 9.6 L Hct (42 - 52 %) 29.4 L MCV (80.0 - 94.0 FL) 87.2 MCH (27.0 - 31.0 PG) 28.6 MCHC (33.0 - 37.0 G/DL) 32.8 L RDW (11.5 - 14.5 %) 15.0 H Plt Count (130 - 400 /CUMM) 399 MPV (7.4 - 10.4 FL) 9.5 Gran % (42.2 - 75.2 %) 76.1 H Lymphocytes % (20.5 - 51.1 %) 17.6 L Monocytes % (1.7 - 9.3 %) 4.7 Eosinophils % (0 - 5 %) 1.3 Basophils % (0.0 - 2.0 %) 0.3 Absolute Granulocytes (1.4 - 6.5 /CUMM) 7.5 H Absolute Lymphocytes (1.2 - 3.4 /CUMM) 1.7 Absolute Monocytes (0.10 - 0.60 /CUMM) 0.5 Absolute Eosinophils (0.0 - 0.7 /CUMM) 0.1 Absolute Basophils (0.0 - 0.2 /CUMM) 0 ESR Westergren Pending
[2017-09-10 14:43] VITALS: BP 108/56
[2017-09-10 22:22] VITALS: BP 108/80
[2017-09-11 06:58] VITALS: BP 100/60
[2017-09-11 08:59] LABS: ABSOLUTE BASOPHIL COUNT 0.1 /CUMM (0.0-0.2); ABSOLUTE EOSINOPHIL COUNT 0.1 /CUMM (0.0-0.7); ABSOLUTE GRANULOCYTE CT 6.6 /CUMM (1.4-6.5); ABSOLUTE LYMPH COUNT 1.7 /CUMM (1.2-3.4); ABSOLUTE MONOCYTE COUNT 0.5 /CUMM (0.10-0.60); BASOPHIL % 0.7 % (0.0-2.0); EOSINOPHIL % 1.6 % (0-5); GRANULOCYTE % 73.4 % (42.2-75.2); HEMATOCRIT 28.1 % (42-52); MEAN CORPUSCULAR HGB 28.8 PG (27.0-31.0); MEAN CORPUSCULAR HGB CONC 33.3 G/DL (33.0-37.0); MEAN CORPUSCULAR VOLUME 86.6 FL (80.0-94.0); MEAN PLATELET VOLUME 9.5 FL (7.4-10.4); PLATELET COUNT 355 /CUMM (130-400); RBC DISTRIBUTION WIDTH 15.5 % (11.5-14.5); RED BLOOD CELL CT 3.24 /CUMM (4.70-6.10)
--- NOTE | 2017-09-11 10:25 | PN- Housestaff ---
See Addendum Subjective Follow-up For: Right foot osteomyelitis Subjective: Patient seen and examined. Resting comfortably. Family at bedside. more preceptive to idea of below-knee amputation today, afebrile white count within normal limits Review of Systems Constitutional: Reports: see HPI. Objective Last 24 Hrs of Vital Signs/I&O Vital Signs Date Time Temp Pulse Resp B/P B/P Pulse O2 O2 Flow FiO2 Mean Ox Delivery Rate 09/11 0934 66 112/68 09/11 0658 98.1 65 18 100/60 96 Room Air 09/10 2222 98.2 66 20 108/80 95 Room Air 09/10 1443 98.3 65 20 108/56 95 Room Air Intake & Output 09/11 1600 09/11 0800 09/11 0000 Intake Total 300 740 Output Total 650 300 Balance -350 440 Intake, IV 300 260 Intake, Oral 480 Output, Urine 650 300 Physical Exam General Appearance: Alert, Oriented X3, Cooperative Lungs: Clear to Auscultation Abdomen: Normal Bowel Sounds Neurological: Normal Speech Current Medications: Current Medications Sig/Marty Start time Last Medication Dose Route Stop Time Status Admin Aspirin 325 MG DAILY 09/10 1000 AC 09/11 PO 0932 Atorvastatin Calcium 80 MG 1700 08/31 1700 AC 09/10 PO 1607 Ceftriaxone Sodium 2,000 MG Q24H 09/10 1300 AC 09/10 IV 1412 Clopidogrel Bisulfate 75 MG DAILY 09/07 1000 AC 09/11 PO 0932 Docusate Sodium 100 MG BID 09/02 1523 AC 09/11 PO 0932 Duloxetine HCl 90 MG DAILY 09/08 1000 AC 09/11 PO 0932 Famotidine 20 MG DAILY 09/03 1341 AC 09/11 PO 0932 Heparin Sodium 5,000 UNIT Q8 08/30 2200 AC 09/11 (Porcine) SC 0548 Insulin Aspart 0 TIDAC 09/10 1200 AC 09/11 SC 1210 Insulin Detemir 12 UNITS BID 08/30 2200 AC 09/11 SC 0958 Melatonin 5 MG AT BEDTIME 09/10 2200 AC 09/10 PO 2155 Metoprolol Succinate 25 MG DAILY 08/31 1000 AC 09/11 PO 0934 Morphine Sulfate 4 MG Q3P PRN 09/01 0915 AC 09/11 IV 0930 Ondansetron HCl 4 MG Q6P PRN 08/31 1215 AC 08/31 IV 1243 Oxycodone/ 2 TAB Q6P PRN 09/04 1845 AC 09/11 Acetaminophen PO 0958 Oxycodone/ 1 TAB Q6P PRN 09/04 1830 AC Acetaminophen PO Polyethylene Glycol 17 GM DAILY 09/02 1523 AC 09/11 PO 0935 Polyethylene Glycol 17 GM AT BEDTIME 08/30 2199 AC 09/09 PO 2159 Pregabalin 100 MG BID 08/30 2199 AC 09/11 PO 0958 Senna/Docusate Sodium 2 TAB AT BEDTIME 08/30 2199 AC 09/10 PO 2155 Vancomycin HCl 1,250 MG Q12H 09/10 1300 AC 09/11 Sodium Chloride 250 ML IV 0112 Last 24 Hrs of Lab/Jose A Results Last 24 Hrs of Labs/Mics: Laboratory Tests 09/11/17 0607: Anion Gap 11, Estimated GFR > 60, BUN/Creatinine Ratio 15.0, CBC w Diff NO MAN DIFF REQ, RBC 3.24 L, MCV 86.6, MCH 28.8, MCHC 33.3, RDW 15.5 H, MPV 9.5, Gran % 73.4, Lymphocytes % 18.3 L, Monocytes % 6.0, Eosinophils % 1.6, Basophils % 0.7, Absolute Granulocytes 6.6 H, Absolute Lymphocytes 1.7, Absolute Monocytes 0.5, Absolute Eosinophils 0.1, Absolute Basophils 0.1 Assessment/Plan Assessment: Patient is a 51-year-old male with a PMH significant for insulin-dependent diabetes, diabetic neuropathy, CAD status post AL with PCI and 2 stents placed in 2007, PVD, renal abscess, osteomyelitis with recent toe amputation who was referred to the [facility] ED from Dr. Ortega office for suspicion of osteomyelitis. MRI confirmed diagnosis of osteomyelitis Labs were significant for elevated ESR, leukocytosis, mild hyperglycemia Arterial ultrasound of right lower extremity showed SFA stenosis increased significantly compared to the previous study of April 2017 He is being treated evaluate for following conditions #Right Foot Osteomyelitis. Status post CT angiogram of right lower extremity with angioplasty and stent placement in distal SFA -Status post wound debridement POD1 and bone culture no growth so f -ID, vascular surgery, podiatry on board -Patient remained afebrile without white count -Ultimately patient will require below-knee amputation -After discussion with ID with him to continue him on vancomycin and ceftriaxone for now -Adequate pain control #Acute respiratory failure; resolved. Patient had episode of shortness of breath on 09/07 and desaturation to 84% he was put on 2 L and has been titrated down to room air now. CTA was negative for PE chest x-ray showed pulmonary congestion he is status post 20 mg of IV Lasix #CAD- no cardiac symptoms and troponin negative. Was seen by Cardiology last month. Benefits of surgery outweigh risk based on RCRI. -Dr. Hurley on board -Continue usual meds (Metoprolol, etc.) -Continue Plavix and Asprin #DM -Hold Metformin, continue insulin sliding scale. -Blood sugar running in adequate range #Neuropathy -Continue Lyrica, Duloxetine and Percocet prn. #Hyperlipidemia -Continue Atorvastatin. Diabetic diet/ALPS and heparin subcutaneous/ Full code Problem List: 1. Osteomyelitis of right foot Pain Ratin Pain Location: r foot Pain Goal: Pain 4 or less Pain Plan: prn Tomorrow's Labs & Rationales: cbc
--- NOTE | 2017-09-11 14:17 | PN- Infect Dx ---
Subjective Subjective: Afebrile without new complaints. He is now considering a right BKA Objective Last 24 Hrs of Vital Signs/I&O Vital Signs Date Time Temp Pulse Resp B/P B/P Pulse O2 O2 Flow FiO2 Mean Ox Delivery Rate 09/11 0934 66 112/68 09/11 0658 98.1 65 18 100/60 96 Room Air 09/10 2222 98.2 66 20 108/80 95 Room Air 09/10 1443 98.3 65 20 108/56 95 Room Air Intake & Output 09/11 1600 09/11 0800 09/11 0000 Intake Total 300 740 Output Total 650 300 Balance -350 440 Intake, IV 300 260 Intake, Oral 480 Output, Urine 650 300 Physical Exam Other Physical Findings: He appears comfortable in no acute distress Extremities right foot dressing intact Results Last 24 Hours of Lab Results: Laboratory Tests 09/11 06 Chemistry Sodium (137 - 145 mmol/L) 137 Potassium (3.5 - 5.1 mmol/L) 4.5 Chloride (98 - 107 mmol/L) 99 Carbon Dioxide (22 - 30 mmol/L) 27 Anion Gap (5 - 16) 11 BUN (9 - 20 mg/dL) 15 Creatinine (0.7 - 1.2 mg/dL) 1.0 Estimated GFR (>60 ml/min) > 60 BUN/Creatinine Ratio (7 - 25 %) 15.0 Hematology CBC w Diff NO MAN DIFF REQ WBC (4.8 - 10.8 /CUMM) 9.0 RBC (4.70 - 6.10 /CUMM) 3.24 L Hgb (14.0 - 18.0 G/DL) 9.4 L Hct (42 - 52 %) 28.1 L MCV (80.0 - 94.0 FL) 86.6 MCH (27.0 - 31.0 PG) 28.8 MCHC (33.0 - 37.0 G/DL) 33.3 RDW (11.5 - 14.5 %) 15.5 H Plt Count (130 - 400 /CUMM) 355 MPV (7.4 - 10.4 FL) 9.5 Gran % (42.2 - 75.2 %) 73.4 Lymphocytes % (20.5 - 51.1 %) 18.3 L Monocytes % (1.7 - 9.3 %) 6.0 Eosinophils % (0 - 5 %) 1.6 Basophils % (0.0 - 2.0 %) 0.7 Absolute Granulocytes (1.4 - 6.5 /CUMM) 6.6 H Absolute Lymphocytes (1.2 - 3.4 /CUMM) 1.7 Absolute Monocytes (0.10 - 0.60 /CUMM) 0.5 Absolute Eosinophils (0.0 - 0.7 /CUMM) 0.1 Absolute Basophils (0.0 - 0.2 /CUMM) 0.1 Last 24 Hours of Jose A Results: OR culture September 10 labeled right foot bone no growth after one day Assessment/Plan ID Impression: Stable, with his temperatures and white blood cell count remaining normal, now back on Vancomycin and Ceftriaxone status post I&D of his right foot yesterday for osteomyelitis, which has progressed on MRI. He is now amenable to a right BKA, which has been suggested by Podiatry, and will await Vascular Surgery reevaluation. Suggestion: 1. Vascular Surgery reevaluation 2. Follow-up recent OR culture 3. Continue Vancomycin and Ceftriaxone pending above
[2017-09-11 14:41] VITALS: BP 110/60
[2017-09-11 23:12] VITALS: BP 105/60
[2017-09-12 06:32] VITALS: BP 106/60
--- NOTE | 2017-09-12 08:06 | PN- Housestaff ---
See Addendum Subjective Follow-up For: Right foot Osteo Subjective: Afebrile without new complaints. He is now considering a right BKA. No overnight acute events no chills shortness of breath or palpitations last bowel movement was on Wednesday Review of Systems Constitutional: Reports: see HPI. Objective Last 24 Hrs of Vital Signs/I&O Vital Signs Date Time Temp Pulse Resp B/P B/P Pulse O2 O2 Flow FiO2 Mean Ox Delivery Rate 09/12 0532 98.2 59 18 106/60 97 Room Air 09/11 2312 97.9 67 18 105/60 98 Room Air 09/11 1441 98.1 63 18 110/60 96 Room Air Intake & Output 09/12 1600 09/12 0800 09/12 0000 Intake Total 300 Output Total 1100 700 Balance -800 -700 Intake, IV 300 Output, Urine 1100 700 Physical Exam General Appearance: Alert, Oriented X3, Cooperative Abdomen: Normal Bowel Sounds, Soft Other Physical Findings: Extremities right foot dressing intact Current Medications: Current Medications Sig/Marty Start time Last Medication Dose Route Stop Time Status Admin Aspirin 325 MG DAILY 09/10 1000 AC 09/12 PO 0938 Atorvastatin Calcium 80 MG 1700 08/31 1700 AC 09/11 PO 1724 Ceftriaxone Sodium 2,000 MG Q24H 09/10 1300 AC 09/11 IV 1337 Clopidogrel Bisulfate 75 MG DAILY 09/07 1000 AC 09/12 PO 0940 Docusate Sodium 100 MG BID 09/02 1523 AC 09/12 PO 0938 Duloxetine HCl 90 MG DAILY 09/08 1000 AC 09/12 PO 0939 Famotidine 20 MG DAILY 09/03 1341 AC 09/12 PO 0940 Heparin Sodium 5,000 UNIT Q8 08/30 2200 AC 09/12 (Porcine) SC 0421 Insulin Aspart 0 TIDAC 09/10 1200 AC 09/11 SC 1210 Insulin Detemir 12 UNITS BID 08/30 2200 AC 09/12 SC 0938 Melatonin 5 MG AT BEDTIME 09/10 2200 AC 09/11 PO 2154 Metoprolol Succinate 25 MG DAILY 08/31 1000 AC 09/12 PO 0940 Morphine Sulfate 4 MG Q3P PRN 09/01 0915 AC 09/12 IV 0938 Ondansetron HCl 4 MG Q6P PRN 08/31 1215 AC 08/31 IV 1243 Oxycodone/ 2 TAB Q6P PRN 09/04 1845 AC 09/12 Acetaminophen PO 1049 Oxycodone/ 1 TAB Q6P PRN 09/04 1830 AC Acetaminophen PO Polyethylene Glycol 17 GM DAILY 09/02 1523 AC 09/12 PO 0939 Polyethylene Glycol 17 GM AT BEDTIME 08/30 2199 AC 09/09 PO 2159 Pregabalin 100 MG BID 08/30 2199 AC 09/12 PO 1049 Senna/Docusate Sodium 2 TAB AT BEDTIME 08/30 2199 AC 09/11 PO 2154 Vancomycin HCl 1,250 MG Q12H 09/10 1300 AC 09/12 Sodium Chloride 250 ML IV 0146 Last 24 Hrs of Lab/Jose A Results Last 24 Hrs of Labs/Mics: Laboratory Tests 09/12/17 07: CBC w Diff NO MAN DIFF REQ, RBC 3.15 L, MCV 86.5, MCH 29.0, MCHC 33.5, RDW 15.4 H, MPV 9.0, Gran % 67.7, Lymphocytes % 22.9, Monocytes % 6.6, Eosinophils % 2.2 , Basophils % 0.6, Absolute Granulocytes 5.7, Absolute Lymphocytes 1.9, Absolute Monocytes 0.6, Absolute Eosinophils 0.2, Absolute Basophils 0 Assessment/Plan Assessment: Patient is a 51-year-old male with a PMH significant for insulin-dependent diabetes, diabetic neuropathy, CAD status post NH with PCI and 2 stents placed in 2007, PVD, renal abscess, osteomyelitis with recent toe amputation who was referred to the [facility] ED from Dr. Ortega office for suspicion of osteomyelitis. MRI confirmed diagnosis of osteomyelitis Labs were significant for elevated ESR, leukocytosis, mild hyperglycemia Arterial ultrasound of right lower extremity showed SFA stenosis increased significantly compared to the previous study of April 2017 He is being treated evaluate for following conditions #Right Foot Osteomyelitis. Status post CT angiogram of right lower extremity with angioplasty and stent placement in distal SFA -Status post wound debridement POD2 and bone culture no growth so far -ID, vascular surgery, podiatry on board -Patient remained afebrile without white count -Ultimately patient will require below-knee amputation, patient will be evaluated by vascular surgery on Wednesday, we'll make him nothing by mouth in case he needs to go OR -After discussion with ID, continue him on vancomycin and ceftriaxone for now -Adequate pain control #Acute respiratory failure; resolved. Patient had episode of shortness of breath on 09/07 and desaturation to 84% he was put on 2 L and has been titrated down to room air now. CTA was negative for PE chest x-ray showed pulmonary congestion he is status post 20 mg of IV Lasix #CAD- no cardiac symptoms and troponin negative. Was seen by Cardiology last month. Benefits of surgery outweigh risk based on RCRI. -Dr. Hurley on board -Continue usual meds (Metoprolol, etc.) -Continue Plavix and Asprin #DM -Hold Metformin, continue insulin sliding scale. -Blood sugar running in adequate range #Neuropathy -Continue Lyrica, Duloxetine and Percocet prn. #Hyperlipidemia -Continue Atorvastatin. Diabetic diet/ALPS and heparin subcutaneous/ Full code Problem List: 1. Osteomyelitis of right foot Pain Ratin Pain Location: R foot Pain Goal: Pain 4 or less Pain Plan: prn Tomorrow's Labs & Rationales: cbc
[2017-09-12 08:13] LABS: ABSOLUTE BASOPHIL COUNT 0 /CUMM (0.0-0.2); ABSOLUTE EOSINOPHIL COUNT 0.2 /CUMM (0.0-0.7); ABSOLUTE GRANULOCYTE CT 5.7 /CUMM (1.4-6.5); ABSOLUTE LYMPH COUNT 1.9 /CUMM (1.2-3.4); ABSOLUTE MONOCYTE COUNT 0.6 /CUMM (0.10-0.60); BASOPHIL % 0.6 % (0.0-2.0); EOSINOPHIL % 2.2 % (0-5); GRANULOCYTE % 67.7 % (42.2-75.2); HEMATOCRIT 27.2 % (42-52); MEAN CORPUSCULAR HGB CONC 33.5 G/DL (33.0-37.0); MEAN CORPUSCULAR VOLUME 86.5 FL (80.0-94.0); PLATELET COUNT 363 /CUMM (130-400); RBC DISTRIBUTION WIDTH 15.4 % (11.5-14.5); RED BLOOD CELL CT 3.15 /CUMM (4.70-6.10); WHITE BLOOD CELL COUNT 8.4 /CUMM (4.8-10.8)
[2017-09-12 13:46] VITALS: BP 117/70
[2017-09-12 21:42] VITALS: BP 104/48
[2017-09-13 06:30] VITALS: BP 128/70
[2017-09-13 08:57] LABS: PT 12.9 SEC (9.4-12.5)
[2017-09-13 09:33] LABS: ABSOLUTE BASOPHIL COUNT 0 /CUMM (0.0-0.2); ABSOLUTE EOSINOPHIL COUNT 0.1 /CUMM (0.0-0.7); ABSOLUTE GRANULOCYTE CT 6.3 /CUMM (1.4-6.5); ABSOLUTE LYMPH COUNT 1.6 /CUMM (1.2-3.4); ABSOLUTE MONOCYTE COUNT 0.4 /CUMM (0.10-0.60); BASOPHIL % 0.6 % (0.0-2.0); EOSINOPHIL % 1.2 % (0-5); GRANULOCYTE % 74.3 % (42.2-75.2); HEMATOCRIT 29.5 % (42-52); MEAN CORPUSCULAR HGB 28.7 PG (27.0-31.0); MEAN CORPUSCULAR VOLUME 86.9 FL (80.0-94.0); MEAN PLATELET VOLUME 9.5 FL (7.4-10.4); PLATELET COUNT 367 /CUMM (130-400); RBC DISTRIBUTION WIDTH 15.9 % (11.5-14.5); RED BLOOD CELL CT 3.39 /CUMM (4.70-6.10); WHITE BLOOD CELL COUNT 8.5 /CUMM (4.8-10.8)
--- NOTE | 2017-09-13 11:51 | PN- Housestaff ---
Marco SIMONS,[facility] 09/13/17 1151: Subjective Follow-up For: Right foot osteomyelitis Subjective: Seen and examined. Resting comfortably. There is a question for potential BKA that does not seenm to resolved. Vascular services have been reconsulted. They want a second opinion from a different machinist linotype. On Dr. Antelmo Hinton has been consulted. Meanwhile patient is hemodynamically stable and afebrile without white count on IV antibiotics. Does not have any complaints however does not feel like himself and is frustrated with his long hospital stay. Review of Systems Constitutional: Reports: see HPI. Objective Last 24 Hrs of Vital Signs/I&O Vital Signs Date Time Temp Pulse Resp B/P B/P Pulse O2 O2 Flow FiO2 Mean Ox Delivery Rate 09/13 1336 98.1 69 20 100/56 100 Room Air 09/13 1056 60 106/54 09/13 0630 98.0 79 20 128/70 95 Room Air 09/12 2142 98.3 76 18 104/48 95 Room Air Intake & Output 09/13 1600 09/13 0800 09/13 0000 Intake Total 275 240 Output Total 650 250 Balance -375 -10 Intake, IV 275 Intake, Oral 0 240 Output, Urine 650 250 Physical Exam General Appearance: Alert, Oriented X3, Cooperative Cardiovascular: Normal S1, Normal S2 Lungs: Clear to Auscultation Abdomen: Normal Bowel Sounds, Soft Neurological: Normal Speech Current Medications: Current Medications Sig/Marty Start time Last Medication Dose Route Stop Time Status Admin Aspirin 325 MG DAILY 09/10 1000 AC 09/13 PO 1054 Atorvastatin Calcium 80 MG 1700 08/31 1700 AC 09/12 PO 1713 Ceftriaxone Sodium 2,000 MG Q24H 09/10 1300 AC 09/13 IV 1339 Clopidogrel Bisulfate 75 MG DAILY 09/07 1000 AC 09/13 PO 1053 Docusate Sodium 100 MG BID 09/02 1523 AC 09/13 PO 1054 Duloxetine HCl 90 MG DAILY 09/08 1000 AC 09/13 PO 1053 Famotidine 20 MG DAILY 09/03 1341 AC 09/13 PO 1053 Heparin Sodium 5,000 UNIT Q8 08/30 2200 AC 09/13 (Porcine) SC 1355 Insulin Aspart 0 TIDAC 09/13 1200 AC SC Insulin Aspart 0 TIDAC 09/10 1200 DC 09/11 SC 1210 Insulin Detemir 12 UNITS BID 08/30 220 AC 09/13 SC 1052 Melatonin 5 MG AT BEDTIME 09/10 2200 AC 09/12 PO 2210 Metoprolol Succinate 25 MG DAILY 08/31 1000 AC 09/12 PO 0940 Morphine Sulfate 4 MG Q3P PRN 09/01 0915 AC 09/13 IV 1356 Ondansetron HCl 4 MG Q6P PRN 08/31 1215 AC 08/31 IV 1243 Oxycodone/ 2 TAB Q6P PRN 09/04 1845 AC 09/13 Acetaminophen PO 1154 Oxycodone/ 1 TAB Q6P PRN 09/04 1830 AC Acetaminophen PO Polyethylene Glycol 17 GM DAILY 09/02 1523 AC 09/13 PO 1052 Polyethylene Glycol 17 GM AT BEDTIME 08/30 220 AC 09/12 PO 2210 Pregabalin 100 MG BID 08/30 2200 AC 09/13 PO 1053 Senna/Docusate Sodium 2 TAB AT BEDTIME 08/30 220 AC 09/12 PO 2210 Vancomycin HCl 1,250 MG Q12H 09/10 1300 AC 09/13 Sodium Chloride 250 ML IV 1339 Last 24 Hrs of Lab/Jose A Results Last 24 Hrs of Labs/Mics: Laboratory Tests 09/13/17 0800: PT 12.9 H, INR 1.18 H, CBC w Diff NO MAN DIFF REQ, RBC 3.39 L, MCV 86.9, MCH 28.7, MCHC 33.0, RDW 15.9 H, MPV 9.5, Gran % 74.3, Lymphocytes % 18.9 L, Monocytes % 5.0, Eosinophils % 1.2, Basophils % 0.6, Absolute Granulocytes 6.3, Absolute Lymphocytes 1.6, Absolute Monocytes 0.4, Absolute Eosinophils 0.1, Absolute Basophils 0 Assessment/Plan Assessment: Patient is a 51-year-old male with a PMH significant for insulin-dependent diabetes, diabetic neuropathy, CAD status post [place] with PCI and 2 stents placed in 2007, PVD, renal abscess, osteomyelitis with recent toe amputation who was referred to the ED from Dr. Ortega office for suspicion of osteomyelitis. MRI confirmed diagnosis of osteomyelitis Labs were significant for elevated ESR, leukocytosis, mild hyperglycemia Arterial ultrasound of right lower extremity showed SFA stenosis increased significantly compared to the previous study of April 2017 He is being treated evaluate for following conditions #Right Foot Osteomyelitis. Status post CT angiogram of right lower extremity with angioplasty and stent placement in distal SFA -Wound culture Staphylococcus coagulase-negative likely contaminant. -ID, vascular surgery, podiatry on board -Patient remained afebrile without white count -Continue him on vancomycin and ceftriaxone for now -Adequate pain control -Second opinion by podiatry involved implantation of antibiotic beads locally with external fixation, attention, considering proximal limb amputation near future, meanwhile continue IV antibiotics #Acute respiratory failure; resolved. Patient had episode of shortness of breath on 09/07 and desaturation to 84% he was put on 2 L and has been titrated down to room air now. CTA was negative for PE chest x-ray showed pulmonary congestion he is status post 20 mg of IV Lasix #CAD- no cardiac symptoms and troponin negative. Was seen by Cardiology last month. Benefits of surgery outweigh risk based on RCRI. -Dr. Hurley on board -Continue usual meds (Metoprolol, etc.) -Continue Plavix and Asprin #DM -Hold Metformin, continue insulin sliding scale. -Blood sugar running in adequate range #Chronic medical conditions Neuropathy, hyperlipidemia Continue Lyrica, Duloxetine and Percocet prn, Atorvastatin. Diabetic diet/ALPS and heparin subcutaneous/ Full code Problem List: 1. Osteomyelitis of right foot Pain Ratin Pain Location: R foot Pain Goal: Pain 4 or less Pain Plan: prn Tomorrow's Labs & Rationales: none Heath SIMONS,Jamia 09/13/17 1359: Attending MD Review Statement Attending Statement Attending MD Statement: examined this patient, discuss w/resident/PA/DELICATESSEN MANAGER, agreed w/resident/PA/DELICATESSEN MANAGER, reviewed EMR data (avail), discussed with nursing, discussed with case mgmt, amended to note Attending Assessment/Plan: Patient seen and examined. He is understandably anxious about long-term care regarding his right foot infection due to osteomyelitis secondary to a nonhealing ulcer on the lateral aspect of the foot. Patient was hospitalized on the request of his machinist linotype Kirk Ortega DPM to undergo a below-knee amputation due to failed therapy for his infection which has included recent fourth and fifth toe amputations, treatment with IV antibiotics, revascularization and hyperbaric oxygen therapy. On admission he was found to be febrile with an elevated white count. MRI imaging showed progression of osteomyelitis. Patient was evaluated by the vascular surgery service earlier during this admission but apparently patient refused to undergo a BKA. He underwent lower extremity angiogram with stent placement following this. His machinist linotype Kirk Ortega DPM continue to recommend a below-knee amputation which patient continues to refuse. Apparently over the weekend patient had another discussion with his machinist linotype Kirk Ortega DPM who convinced the patient to undergo a BKA. There is however has no documentation regarding this noted in the medical records. The vascular surgery service was contacted today however according to the surgical service, there is no vascular indication for patient to undergo a below-knee amputation for now. Patient did request a second opinion and was seen by the machinist linotype Dr. Antelmo Mittal. Dr. Mittal has offered the patient the options of implantation of antibiotic beads locally with excellent fixation for stability and offloading of the foot in an effort to pursue further limb salvage. Dr. Mittal is also indicated to the patient that he is at high risk for progression of ulceration and infection in the midfoot with associated need at that time for proximal amputation. Patient has indicated to Dr. Mittal and is unwilling to pursue further salvage options at this time I will likely consider proximal amputation in the near future. It is not clear when this will be. Dr. Mittal has recommended continuing culture directed antibiotic therapy. Or cultures are currently growing coagulase-negative staph. Recommendations: -Antibiotic therapy as directed by the infectious disease service. -I would recommend setting up the goals of care discussion regarding further intervention for the patient's lower extremity infection with the podiatry and infectious disease service. Patient is understandably hesitant to pursue an aggressive procedure such as a below knee amputation. The medical service will continue to manage the patient's other comorbidities which are currently stable.
--- NOTE | 2017-09-13 12:51 | Cons- Podiatry ---
General Information and HPI Consulting Request Date of Consult: 09/13/17 Requested By: Jamia Joe MD Reason for Consult: Osteomyelitis right foot Source of Information: patient Exam Limitations: no limitations History of Present Illness: This is a 51-year-old diabetic male with history of chronic progressive ulceration right midfoot in setting of peripheral vascular disease and Charcot arthritis. Patient seen bedside in no acute distress accompanied by his . Patient reports that he initially developed a wound on the right foot in February 2017. He relates that progressive ulceration and infection ensued with resultant amputation of the fourth and fifth toes. He states that the surgical site again became infected with surgical debridement performed [address] Ortega as well as recent debridement again by Dr. Ortega on 11/2017. Treatment has included culture directed antibiotics therapy, hyperbaric oxygen therapy and vascular intervention by Dr. Jimenez to improve perfusion to the right lower extremity. The patient and his indicate that they would like a second opinion regarding continuing treatment options for his right foot wound and infection. He currently denies constitutional complaints and offers no other pedal complaints. He states that his diabetes control has been poor in the past but has recently improved. Allergies/Medications Allergies: Coded Allergies: sulfamethoxazole (From BACTRIM) (VOMITING 08/30/17) trimethoprim (From BACTRIM) (VOMITING 08/30/17) Home Med List: Acetaminophen (Tylenol) 325 MG TABLET 1 TAB PO Q6P PRN PAIN SCALE 1-3 (MILD) Aspirin (Aspirin*) 81 MG TAB.CHEW 1 TAB PO DAILY [facility] Atorvastatin Calcium 80 MG TABLET 1 TAB PO 1700 HEART . Ceftriaxone Sodium (Ceftriaxone) 2 GRAM VIAL 1 VIAL IV Q24H BONE INFECTION Clopidogrel Bisulfate (Plavix) 75 MG TABLET 1 TAB PO DAILY Hx of DVT ( Reported) Docusate Sodium 100 MG CAPSULE 1 CAP PO BID PRN CONSTIPATION Duloxetine HCl 30 MG CAPSULE.DR 3 CAP PO DAILY NERVE PAIN Famotidine 20 MG TABLET 1 TAB PO DAILY PRN HEARTBURN Insulin Aspart (Novolog) 100 UNIT/ML VIAL 0 SC TIDAC/HS DM . Insulin Detemir (Levemir) 100 UNIT/1 ML VIAL 24 UNITS SC DAILY Diabetes FOLLOW UP WITH DR. AREVALO. Metformin HCl 500 MG TABLET 2 TAB PO BID DIABETES (Reported) Metoprolol Succ XL (Toprol XL) 25 MG TAB 1 TAB PO DAILY HEART . Ondansetron HCl (Zofran) 4 MG TABLET 1 TAB PO Q12 PRN NAUSEA Oxycodone HCl/Acetaminophen (Percocet 5-325 MG Tablet) 5 MG-325 MG TABLET 1 TAB PO Q4-6 PRN Pain Polyethylene Glycol 3350 (Miralax) 17 GRAM/DOSE POWDER 17 GM PO AT BEDTIME PRN CONSTIPATION Pregabalin (Lyrica) 100 MG CAPSULE 1 CAP PO BID PAIN CONTROL (Reported) Current Medications: Current Medications Sig/Marty Start time Last Medication Dose Route Stop Time Status Admin Aspirin 325 MG DAILY 09/10 1000 AC 09/13 PO 1054 Atorvastatin Calcium 80 MG 1700 08/31 1700 AC 09/12 PO 1713 Ceftriaxone Sodium 2,000 MG Q24H 09/10 1300 AC 09/12 IV 1224 Clopidogrel Bisulfate 75 MG DAILY 09/07 1000 AC 09/13 PO 1053 Docusate Sodium 100 MG BID 09/02 1523 AC 09/13 PO 1054 Duloxetine HCl 90 MG DAILY 09/08 1000 AC 09/13 PO 1053 Famotidine 20 MG DAILY 09/03 1341 AC 09/13 PO 1053 Heparin Sodium 5,000 UNIT Q8 08/30 2200 AC 09/13 (Porcine) SC 0532 Insulin Aspart 0 TIDAC 09/13 1200 AC SC Insulin Aspart 0 TIDAC 09/10 1200 DC 09/11 SC 1210 Insulin Detemir 12 UNITS BID 08/30 2200 AC 09/13 SC 1052 Melatonin 5 MG AT BEDTIME 09/10 2200 AC 09/12 PO 2210 Metoprolol Succinate 25 MG DAILY 08/31 1000 AC 09/12 PO 0940 Morphine Sulfate 4 MG Q3P PRN 09/01 0915 AC 09/13 IV 0839 Ondansetron HCl 4 MG Q6P PRN 08/31 1215 AC 08/31 IV 1243 Oxycodone/ 2 TAB Q6P PRN 09/04 1845 AC 09/13 Acetaminophen PO 1154 Oxycodone/ 1 TAB Q6P PRN 09/04 1830 AC Acetaminophen PO Polyethylene Glycol 17 GM DAILY 09/02 1523 AC 09/13 PO 1052 Polyethylene Glycol 17 GM AT BEDTIME 08/30 2200 AC 09/12 PO 2210 Pregabalin 100 MG BID 08/30 2200 AC 09/13 PO 1053 Senna/Docusate Sodium 2 TAB AT BEDTIME 08/30 2200 AC 09/12 PO 2210 Vancomycin HCl 1,250 MG Q12H 09/10 1300 AC 09/13 Sodium Chloride 250 ML IV 0045 Past History Medical History Blood Transfusion Hx: No Neurological: NONE EENT: NONE Cardiovascular: CAD (status post stents), myocardial infarction, PVD Respiratory: NONE Gastrointestinal: NONE Hepatic: NONE Renal: RENAL ABSCESS PYELONEPRHTIS Musculoskeletal: osteoarthritis, CARPAL TUNNEL L SIDE RIB FX rotator cuff injury Psychiatric: NONE Endocrine: diabetes Blood Disorders: NONE Cancer(s): NONE Surgical History Pertinent Surgical History: rotator cuff surgery with acromioplasty and glenohumeral joint debridement on the left status post balloon angioplasty of the left leg s/p amputation of the 4th and 5th toes Family History Relations & Conditions If Any: MOTHER Heart attack Psychosocial History Services at Home: Nursing Smoking Status: Current Everyday Smoker ETOH Use: denies use Illicit Drug Use: denies illicit drug use Functional Ability ADLs Independent: dressing, eating, toileting, bathing. Ambulation: independent IADLs Independent: shopping, housework, finances, food prep, telephone, transportation , medication admin. Exam & Diagnostic Data Vital Signs and I&O Vital Signs Date Time Temp Pulse Resp B/P B/P Pulse O2 O2 Flow FiO2 Mean Ox Delivery Rate 09/13 1056 60 106/54 09/13 0630 98.0 79 20 128/70 95 Room Air 09/12 2142 98.3 76 18 104/48 95 Room Air 09/12 1346 98.4 65 16 117/70 96 Room Air Room Air Intake & Output 09/13 1600 09/13 0000 09/12 1600 09/12 0809/12 0000 Intake Total 562 454 1742 300 Output Total 326 643 4709 700 Balance -375 -10 1800 -800 -700 Intake, IV 275 300 300 Intake, Oral 0 240 1500 Number 0 Bowel Movements Output, Urine 999 978 9905 700 Physical Exam: Patient is alert and oriented and in no acute distress. Dressing is clean dry and intact to the right foot. Pedal pulses are diminished bilaterally with prompt capillary refill at the remaining digits. Temperature gradient is within normal limits bilaterally with atrophic changes to the pedal and pretibial integument. Motor function is intact at the level of foot and ankle. Plantar response within normal limits. Light touch diminished. Musculoskeletal exam reveals the patient be status post right foot fourth and fifth ray amputation. Dermatologic exam of the right foot reveals full thickness wound on the medial and lateral midfoot communicating with underlying osseous structures of the midfoot. Sanguinous discharge is noted with no purulence. No ascending cellulitis is detected Assessment/Plan Assessment/Plan 51-year-old diabetic male with right mid foot ulcerations in setting of osteomyelitis and Charcot arthritis complicated by peripheral vascular disease. Patient evaluated and chart reviewed. Detailed discussion undertaken with the patient and his regarding the pathophysiology of his condition treatment options. Radiographic evaluation of the right foot as well as bone pathology and microbiology demonstrate findings consistent with osteomyelitis. Previous cultures have demonstrated presence of MRSA with recent cultures revealing coagulase-negative staph. Patient indicates that he is quite frustrated with ongoing treatment of the right foot and associated limitations with regard to his lifestyle and need for multiple hospitalizations. I've indicated to him that he is at high risk for progression of ulceration and infection in the midfoot with associated need for proximal amputation. Treatment options at this time could include implantation of antibiotic beads locally with external fixation for stabilization and offloading of the foot in an effort to pursue limb salvage. Patient indicates that is most likely unwilling to pursue further limb salvage options at this time and will likely consider proximal amputation in the near future. Continue culture directed antibiotic therapy, offloading and local wound care in the interim. Thank you for the courtesy of this consultation Consult Acknowledgment - Thank you for your consult request.
[2017-09-13 13:36] VITALS: BP 100/56
--- NOTE | 2017-09-13 15:16 | PN- Infect Dx ---
Subjective Subjective: Afebrile without complaints. He has resigned himself to a BKA but Vascular Surgery apparently remains reluctant to consider this and has suggested a second Podiatry opinion. Have requested this of Dr. Antelmo Mittal, who saw the patient early this afternoon. Objective Last 24 Hrs of Vital Signs/I&O Vital Signs Date Time Temp Pulse Resp B/P B/P Pulse O2 O2 Flow FiO2 Mean Ox Delivery Rate 09/13 1336 98.1 69 20 100/56 100 Room Air 09/13 1056 60 106/54 09/13 0630 98.0 79 20 128/70 95 Room Air 09/12 2142 98.3 76 18 104/48 95 Room Air Intake & Output 09/13 1600 09/13 0800 09/13 0000 Intake Total 275 240 Output Total 650 250 Balance -375 -10 Intake, IV 275 Intake, Oral 0 240 Output, Urine 650 250 Physical Exam Other Physical Findings: He appears comfortable in no acute distress Extremities right foot dressing intact Results Last 24 Hours of Lab Results: Laboratory Tests 09/13 0800 Coagulation PT (9.4 - 12.5 SEC) 12.9 H INR (0.90 - 1.17) 1.18 H Hematology CBC w Diff NO MAN DIFF REQ WBC (4.8 - 10.8 /CUMM) 8.5 RBC (4.70 - 6.10 /CUMM) 3.39 L Hgb (14.0 - 18.0 G/DL) 9.7 L Hct (42 - 52 %) 29.5 L MCV (80.0 - 94.0 FL) 86.9 MCH (27.0 - 31.0 PG) 28.7 MCHC (33.0 - 37.0 G/DL) 33.0 RDW (11.5 - 14.5 %) 15.9 H Plt Count (130 - 400 /CUMM) 367 MPV (7.4 - 10.4 FL) 9.5 Gran % (42.2 - 75.2 %) 74.3 Lymphocytes % (20.5 - 51.1 %) 18.9 L Monocytes % (1.7 - 9.3 %) 5.0 Eosinophils % (0 - 5 %) 1.2 Basophils % (0.0 - 2.0 %) 0.6 Absolute Granulocytes (1.4 - 6.5 /CUMM) 6.3 Absolute Lymphocytes (1.2 - 3.4 /CUMM) 1.6 Absolute Monocytes (0.10 - 0.60 /CUMM) 0.4 Absolute Eosinophils (0.0 - 0.7 /CUMM) 0.1 Absolute Basophils (0.0 - 0.2 /CUMM) 0 Last 24 Hours of Jose A Results: OR culture September 10 labeled right foot bone positive for coag-negative Staph Assessment/Plan ID Impression: Stable, with his temperatures and white blood cell count remaining normal, on Vancomycin and Ceftriaxone, restarted 3 days ago after an I&D of his right foot for osteomyelitis, which has progressed on MRI. Have spoken with Dr. Mittal who feels that he will ultimately require a BKA and will await Vascular surgery follow-up. Suggestion: 1. Await Vascular surgery follow-up 2. Discontinue Vancomycin and Ceftriaxone and follow off antibiotics pending above
[2017-09-13 22:07] VITALS: BP 110/66
--- NOTE | 2017-09-13 23:59 | Event Note ---
Event Note Event Note: Possible OR 09/14/17 with vascular surgery for BKA. NPO p MN, IVF, am labs, T&S now. Dr. Jimenez to discuss with pt in am.
[2017-09-14 06:09] LABS: ABSOLUTE BASOPHIL COUNT 0.1 /CUMM (0.0-0.2); ABSOLUTE EOSINOPHIL COUNT 0.1 /CUMM (0.0-0.7); ABSOLUTE GRANULOCYTE CT 4.5 /CUMM (1.4-6.5); ABSOLUTE LYMPH COUNT 2.1 /CUMM (1.2-3.4); ABSOLUTE MONOCYTE COUNT 0.5 /CUMM (0.10-0.60); BASOPHIL % 0.9 % (0.0-2.0); EOSINOPHIL % 1.5 % (0-5); GRANULOCYTE % 62.4 % (42.2-75.2); HEMATOCRIT 29.9 % (42-52); MEAN CORPUSCULAR HGB 28.8 PG (27.0-31.0); MEAN CORPUSCULAR VOLUME 87.3 FL (80.0-94.0); MEAN PLATELET VOLUME 9.4 FL (7.4-10.4); PLATELET COUNT 380 /CUMM (130-400); RBC DISTRIBUTION WIDTH 15.2 % (11.5-14.5); RED BLOOD CELL CT 3.42 /CUMM (4.70-6.10); WHITE BLOOD CELL COUNT 7.3 /CUMM (4.8-10.8)
[2017-09-14 06:45] VITALS: BP 100/60
--- NOTE | 2017-09-14 10:08 | PN- Housestaff ---
See Addendum Subjective Follow-up For: right foot osteomyelitis Subjective: Patient seen and examined. Resting comfortably. Currently nothing by mouth. On OR schedule at 10 AM for BKA. The antibiotics have been discontinued if patient undergoes below-knee amputation he might not require antibiotic. Will get in touch with ID. Patient was very emotional about undergoing BKA in the morning. Later during MDR patient was being transported to OR, at side Review of Systems Constitutional: Reports: see HPI. EENTM: Reports: see HPI. Objective Last 24 Hrs of Vital Signs/I&O Vital Signs Date Time Temp Pulse Resp B/P B/P Pulse O2 O2 Flow FiO2 Mean Ox Delivery Rate 09/14 0914 66 100/60 09/14 0645 98.1 66 20 100/60 100 Room Air 09/13 2207 98.7 79 20 110/66 97 Room Air 09/13 1336 98.1 69 20 100/56 100 Room Air 09/13 1056 60 106/54 Intake & Output 09/14 1600 09/14 0800 09/14 0000 Intake Total 600 490 Output Total 650 Balance -50 490 Intake, IV 600 10 Intake, Oral 0 480 Number 0 0 Bowel Movements Output, Urine 650 Physical Exam General Appearance: Alert, Oriented X3, Cooperative, upst, anxious Cardiovascular: Normal S1, Normal S2 Lungs: Clear to Auscultation Abdomen: Soft, No Tenderness Neurological: Normal Speech Current Medications: Current Medications Sig/Marty Start time Last Medication Dose Route Stop Time Status Admin Aspirin 325 MG DAILY 09/10 1000 AC 09/13 PO 1054 Atorvastatin Calcium 80 MG 1700 08/31 1700 AC 09/13 PO 1823 Ceftriaxone Sodium 2,000 MG Q24H 09/10 1300 DC 09/13 IV 1339 Clopidogrel Bisulfate 75 MG DAILY 09/07 1000 AC 09/14 PO 0917 Dextrose/Sodium 1,000 ML Q13H 09/13 2215 AC 09/13 Chloride IV 2306 Docusate Sodium 100 MG BID 09/02 1523 AC 09/13 PO 2214 Duloxetine HCl 90 MG DAILY 09/08 1000 AC 09/14 PO 0914 Famotidine 20 MG DAILY 09/03 1341 AC 09/14 PO 0914 Heparin Sodium 5,000 UNIT Q8 08/30 2200 AC 09/13 (Porcine) SC 2216 Insulin Aspart 0 TIDAC 09/13 1200 DC SC Insulin Detemir 12 UNITS BID 08/30 2199 AC 09/13 SC 221 Insulin Human Regular 0 Q6 09/14 0600 AC 09/14 SC 0552 Melatonin 5 MG AT BEDTIME 09/10 2199 AC 09/13 PO 221 Metoprolol Succinate 25 MG DAILY 08/31 1000 AC 09/14 PO 0914 Morphine Sulfate 4 MG Q3P PRN 09/01 0915 AC 09/14 IV 0553 Ondansetron HCl 4 MG Q6P PRN 08/31 1215 AC 08/31 IV 1243 Oxycodone/ 2 TAB Q6P PRN 09/04 1845 AC 09/14 Acetaminophen PO 0732 Oxycodone/ 1 TAB Q6P PRN 09/04 1830 AC Acetaminophen PO Polyethylene Glycol 17 GM DAILY 09/02 1523 AC 09/13 PO 1052 Polyethylene Glycol 17 GM AT BEDTIME 08/30 220 AC 09/13 PO 2214 Pregabalin 100 MG BID 08/30 220 AC 09/14 PO 0921 Senna/Docusate Sodium 2 TAB AT BEDTIME 08/30 220 AC 09/13 PO 2214 Vancomycin HCl 1,250 MG Q12H 09/10 1300 DC 09/13 Sodium Chloride 250 ML IV 1339 Last 24 Hrs of Lab/Jose A Results Last 24 Hrs of Labs/Mics: Laboratory Tests 09/14/17 0530: Anion Gap 12, Estimated GFR > 60, BUN/Creatinine Ratio 21.0, CBC w Diff NO MAN DIFF REQ, RBC 3.42 L, MCV 87.3, MCH 28.8, MCHC 33.0, RDW 15.2 H, MPV 9.4, Gran % 62.4, Lymphocytes % 28.4, Monocytes % 6.8, Eosinophils % 1.5, Basophils % 0.9, Absolute Granulocytes 4.5, Absolute Lymphocytes 2.1, Absolute Monocytes 0.5, Absolute Eosinophils 0.1, Absolute Basophils 0.1 Assessment/Plan Assessment: Patient is a 51-year-old male with a PMH significant for insulin-dependent diabetes, diabetic neuropathy, CAD status post UT with PCI and 2 stents placed in 2007, PVD, renal abscess, osteomyelitis with recent toe amputation who was referred to the [facility] ED from Dr. Ortega office for suspicion of osteomyelitis. MRI confirmed diagnosis of osteomyelitis Labs were significant for elevated ESR, leukocytosis, mild hyperglycemia Arterial ultrasound of right lower extremity showed SFA stenosis increased significantly compared to the previous study of April 2017 He is being treated evaluate for following conditions #Right Foot Osteomyelitis. Status post CT angiogram of right lower extremity with angioplasty and stent placement in distal SFA s/p right foot debridement -Wound culture Staphylococcus coagulase-negative likely contaminant. -ID, vascular surgery, podiatry on board -Antibiotics discontinued,Adequate pain control -Scheduled for below-knee amputation today with #Acute respiratory failure; resolved. Patient had episode of shortness of breath on 09/07 and desaturation to 84% he was put on 2 L and has been titrated down to room air now. CTA was negative for PE chest x-ray showed pulmonary congestion he received 20 mg of IV Lasix #CAD- no cardiac symptoms and troponin negative. Was seen by Cardiology last month. Benefits of surgery outweigh risk based on RCRI. -Dr. Hurley on board -Continue usual meds (Metoprolol, etc.) -Continue Plavix and Asprin #DM -Hold Metformin, continue insulin sliding scale. -Blood sugar running in adequate range #Chronic medical conditions Neuropathy, hyperlipidemia Continue Lyrica, Duloxetine and Percocet prn, Atorvastatin. Problem List: 1. Osteomyelitis of right foot Pain Ratin Pain Location: R foot Pain Goal: Pain 4 or less Pain Plan: prn Tomorrow's Labs & Rationales: cbc bep
[2017-09-14] MEDS ORDERED: CYMBALTA30 M1 PO (10:24)
--- NOTE | 2017-09-14 14:58 | PN- Vascular Surgery ---
Subjective Subjective: Transferred from PACU without incident. Pain not well controlled. Denies nausea. Has not voided, has not had any po intake. Understands that he will discharge to rehab. Objective Vital Signs and I&Os Vital Signs Date Time Temp Pulse Resp B/P B/P Pulse O2 O2 Flow FiO2 Mean Ox Delivery Rate 09/14 0814 66 100/60 09/14 0645 98.1 66 20 100/60 100 Room Air 09/13 2207 98.7 79 20 110/66 97 Room Air Intake & Output 09/14 0800 09/14 0000 09/13 1600 09/13 0809/13 0000 Intake Total 600 490 275 240 Output Total 300 650 650 250 Balance -300 -50 490 -375 -10 Intake, IV 600 10 275 Intake, Oral 0 480 0 240 Number 0 0 Bowel Movements Output, Urine 300 650 650 250 Physical Exam: General: [id number] x 3, NAD Lungs: Normal work of breathing Extremities: Postoperative dressing to right residual limb clean, dry, intact, CHARLI wrap in place. Right thigh soft, warm and well perfused. Current Medications: Current Medications Sig/Marty Start time Last Medication Dose Route Stop Time Status Admin Aspirin 325 MG DAILY 09/15 1000 AC PO Aspirin 325 MG DAILY 09/10 1000 DC 09/13 PO 1054 Atorvastatin Calcium 80 MG 1700 09/14 1700 AC PO Atorvastatin Calcium 80 MG 1700 08/31 1700 DC 09/13 PO 1823 Ceftriaxone Sodium 1,000 MG DAILY 09/15 1600 AC IV 09/15 1601 Ceftriaxone Sodium 2,000 MG Q24H 09/10 1300 DC 09/13 IV 1339 Clopidogrel Bisulfate 75 MG DAILY 09/15 1000 AC PO Clopidogrel Bisulfate 75 MG DAILY 09/07 1000 DC 09/14 PO 0917 Dextrose/Sodium 1,000 ML Q13H 09/15 0015 CAN Chloride IV Dextrose/Sodium 1,000 ML Q13H 09/13 2215 DC 09/13 Chloride IV 09/15 0014 2306 Docusate Sodium 100 MG BID 09/14 2200 AC PO Docusate Sodium 100 MG BID 09/02 1523 DC 09/13 PO 2214 Duloxetine HCl 90 MG DAILY 09/15 1000 AC PO Duloxetine HCl 90 MG DAILY 09/08 1000 DC 09/14 PO 0914 Famotidine 20 MG DAILY 09/15 1000 AC PO Famotidine 20 MG DAILY 09/03 1341 DC 09/14 PO 0914 Heparin Sodium 5,000 UNIT Q8 09/14 1400 AC 09/14 (Porcine) SC 1459 Heparin Sodium 5,000 UNIT Q8 08/30 220 DC 09/13 (Porcine) SC 221 Insulin Aspart 0 TIDAC 09/13 1200 DC SC Insulin Detemir 12 UNITS BID 09/14 2199 AC SC Insulin Detemir 12 UNITS BID 08/30 220 DC 09/13 SC 2215 Insulin Human Regular 0 Q6 09/14 1800 AC SC Insulin Human Regular 0 Q6 09/14 0600 DC 09/14 SC 0552 Melatonin 5 MG AT BEDTIME 09/14 2199 AC PO Melatonin 5 MG AT BEDTIME 09/10 220 DC 09/13 PO 2215 Metoprolol Succinate 25 MG DAILY 09/15 1000 AC PO Metoprolol Succinate 25 MG DAILY 08/31 1000 DC 09/14 PO 0914 Morphine Sulfate 4 MG Q3P PRN 09/14 1400 AC 09/14 IV 1459 Morphine Sulfate 4 MG Q3P PRN 09/01 0915 DC 09/14 IV 0553 Ondansetron HCl 4 MG Q6P PRN 09/14 1400 AC IV Ondansetron HCl 4 MG Q6P PRN 08/31 1215 DC 08/31 IV 1243 Oxycodone/ 1 TAB Q4P PRN 09/14 1515 UNVr Acetaminophen PO Oxycodone/ 2 TAB Q5 PRN 09/14 1500 UNVr Acetaminophen PO Oxycodone/ 1 TAB Q6P PRN 09/14 1400 DC Acetaminophen PO Oxycodone/ 2 TAB Q6P PRN 09/14 1400 DC Acetaminophen PO Oxycodone/ 2 TAB Q6P PRN 09/04 1845 DC 09/14 Acetaminophen PO 0732 Oxycodone/ 1 TAB Q6P PRN 09/04 1830 DC Acetaminophen PO Polyethylene Glycol 17 GM DAILY 09/15 1000 AC PO Polyethylene Glycol 17 GM AT BEDTIME 09/14 2199 AC PO Polyethylene Glycol 17 GM DAILY 09/02 1523 DC 09/13 PO 1052 Polyethylene Glycol 17 GM AT BEDTIME 08/30 220 DC 09/13 PO 2214 Pregabalin 100 MG BID 09/14 2199 AC PO Pregabalin 100 MG BID 08/30 220 DC 09/14 PO 0921 Senna/Docusate Sodium 2 TAB AT BEDTIME 04/10 2200 AC PO Senna/Docusate Sodium 2 TAB AT BEDTIME 08/30 220 DC 09/13 PO 2214 Vancomycin HCl 1,250 MG Q12 09/14 1600 CAN IV 09/15 0401 Vancomycin HCl 1,250 MG Q12H 09/14 1600 AC Sodium Chloride 250 ML IV 09/15 0459 Vancomycin HCl 1,250 MG Q12H 09/10 1300 DC 09/13 Sodium Chloride 250 ML IV 1339 Results Last 48 Hours of Labs: Laboratory Tests 09/14 09/13 0530 0800 Chemistry Sodium (137 - 145 mmol/L) 140 Potassium (3.5 - 5.1 mmol/L) 4.4 Chloride (98 - 107 mmol/L) 101 Carbon Dioxide (22 - 30 mmol/L) 27 Anion Gap (5 - 16) 12 BUN (9 - 20 mg/dL) 21 H Creatinine (0.7 - 1.2 mg/dL) 1.0 Estimated GFR (>60 ml/min) > 60 BUN/Creatinine Ratio (7 - 25 %) 21.0 Coagulation PT (9.4 - 12.5 SEC) 12.9 H INR (0.90 - 1.17) 1.18 H Hematology CBC w Diff NO MAN DIFF REQ NO MAN DIFF REQ WBC (4.8 - 10.8 /CUMM) 7.3 8.5 RBC (4.70 - 6.10 /CUMM) 3.42 L 3.39 L Hgb (14.0 - 18.0 G/DL) 9.9 L 9.7 L Hct (42 - 52 %) 29.9 L 29.5 L MCV (80.0 - 94.0 FL) 87.3 86.9 MCH (27.0 - 31.0 PG) 28.8 28.7 MCHC (33.0 - 37.0 G/DL) 33.0 33.0 RDW (11.5 - 14.5 %) 15.2 H 15.9 H Plt Count (130 - 400 /CUMM) 380 367 MPV (7.4 - 10.4 FL) 9.4 9.5 Gran % (42.2 - 75.2 %) 62.4 74.3 Lymphocytes % (20.5 - 51.1 %) 28.4 18.9 L Monocytes % (1.7 - 9.3 %) 6.8 5.0 Eosinophils % (0 - 5 %) 1.5 1.2 Basophils % (0.0 - 2.0 %) 0.9 0.6 Absolute Granulocytes (1.4 - 6.5 /CUMM) 4.5 6.3 Absolute Lymphocytes (1.2 - 3.4 /CUMM) 2.1 1.6 Absolute Monocytes (0.10 - 0.60 /CUMM) 0.5 0.4 Absolute Eosinophils (0.0 - 0.7 /CUMM) 0.1 0.1 Absolute Basophils (0.0 - 0.2 /CUMM) 0.1 0 Assessment/Plan Assessment/Plan This is a 51 year old male s/p right below knee amputation on 09/14/2017, postoperative day 0. - pain control: increased percocet, IV morphine PRN. 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 Molina to contact Harry in regards to postoperative prosthetic - Remainder of care per primary team
[2017-09-14 16:30] VITALS: BP 148/86
--- NOTE | 2017-09-14 16:55 | Operative Report ---
Operative/Inv Procedure Report Surgery Date: 09/14/17 Name of Procedure: Right Below Knee Amputation Pre-Operative Diagnosis: Diabetic foot infection with PAD Post-Operative Diagnosis: Same Estimated Blood Loss: less than 50ml Surgeon/Heel Seat Fitter: Nicko Jimenez MD Anesthesia: general endotracheal tube Complications: None Condition: Stable to PACU Operative Indication: 51-year-old male with a history of a diabetic foot infection and a nonhealing right-sided wound. This has been ongoing and recurrent and refractory to antibiotics, oxygen therapy and interventional vascular care. He also has a Charcot foot deformity. A long discussion and multiple opinions were obtained prior to intervention. He consented to right below-knee amputation. Operative/Procedure Note Note: Patient laid supine and brought to the operating room. The right below-knee site was marked and from the tibial tuberosity. Using a 15 blade and Bovie electrocautery and sharp dissection was carried down through the skin and subcutaneous tissue. The fascia was encountered. It was transected. The tibia was isolated and periosteal elevator used to clear the tissue. The fibula was then transected with a bone cutter. The tibia was transected with a Gigli saw. The anterior tibial, posterior tibial and peroneal artery were sequentially ligated with a silk suture. A tourniquet was applied for approximately 3-5 minutes. The wound was copiously irrigated. Hemostasis was achieved with spray thrombin and Bovie electrocautery. The muscle flap was then fashioned and the specimen transected and passed off the field. Attention was turned to closure. Interrupted Vicryl sutures were used to close the fascia. Nylon sutures and skin alexei were used to close the skin. The wound was then dressed with Xeroform, gauze and Kerlix and Yann. The patient tolerated the procedure well.
[2017-09-14 23:10] VITALS: BP 157/88
[2017-09-15 06:54] VITALS: BP 135/76
[2017-09-15 08:33] LABS: ABSOLUTE BASOPHIL COUNT 0 /CUMM (0.0-0.2); ABSOLUTE EOSINOPHIL COUNT 0 /CUMM (0.0-0.7); ABSOLUTE GRANULOCYTE CT 9.8 /CUMM (1.4-6.5); EOSINOPHIL % 0 % (0-5); MEAN CORPUSCULAR VOLUME 86.9 FL (80.0-94.0)
--- NOTE | 2017-09-15 08:43 | PN- Vascular Surgery ---
Subjective Subjective: Pain improved compared to yesterday, located above the right knee and reports phantom pain. Is requesting to go home with services once stable for discharge. Objective Vital Signs and I&Os Vital Signs Date Time Temp Pulse Resp B/P B/P Pulse O2 O2 Flow FiO2 Mean Ox Delivery Rate 09/15 1018 78 130/72 09/15 0654 98.5 78 18 135/76 96 Room Air 09/14 2310 98.5 82 20 157/88 97 Room Air 09/14 1630 97.8 85 18 148/86 95 Room Air Intake & Output 09/15 1600 09/15 0800 09/15 0000 09/14 1600 09/14 0800 09/14 0000 Intake Total 370 1130 600 490 Output Total 1700 650 700 650 Balance -1330 480 -700 -50 490 Intake, IV 250 530 600 10 Intake, Oral 120 600 0 480 Number 0 0 0 Bowel Movements Output, Urine 1700 650 700 650 Physical Exam: Gen - awake an alert in nad Ext - RLE dressing with gopal c/d/i, knee immoblizer in place, compartment soft, warm and well perfused, LLE is cool with no pt signal and faint dp signal, nontender Current Medications: Current Medications Sig/Marty Start time Last Medication Dose Route Stop Time Status Admin Aspirin 325 MG DAILY 09/15 1000 AC 09/15 PO 1017 Aspirin 325 MG DAILY 09/10 1000 DC 09/13 PO 1054 Atorvastatin Calcium 80 MG 1700 09/14 1700 AC 09/14 PO 1614 Atorvastatin Calcium 80 MG 1700 08/31 1700 DC 09/13 PO 1823 Bisacodyl 10 MG ONCE ONE 09/15 0830 DC 09/15 ME 09/15 0831 0852 Ceftriaxone Sodium 1,000 MG DAILY 09/15 1600 AC IV 09/15 1601 Clopidogrel Bisulfate 75 MG DAILY 09/15 1000 AC 09/15 PO 1018 Clopidogrel Bisulfate 75 MG DAILY 09/07 1000 DC 09/14 PO 0917 Dextrose/Sodium 1,000 ML Q13H 09/15 0015 CAN Chloride IV Dextrose/Sodium 1,000 ML Q13H 09/13 2215 DC 09/13 Chloride IV 09/15 0014 2306 Docusate Sodium 100 MG TID 09/15 1600 AC PO Docusate Sodium 100 MG BID 09/14 2200 DC 09/15 PO 1017 Docusate Sodium 100 MG BID 09/02 1523 DC 09/13 PO 2214 Duloxetine HCl 90 MG DAILY 09/15 1000 AC 09/15 PO 1018 Duloxetine HCl 90 MG DAILY 09/08 1000 DC 09/14 PO 0914 Famotidine 20 MG DAILY 09/15 1000 AC 09/15 PO 1018 Famotidine 20 MG DAILY 09/03 1341 DC 09/14 PO 0914 Heparin Sodium 5,000 UNIT Q8 09/14 1400 AC 09/15 (Porcine) SC 0517 Heparin Sodium 5,000 UNIT Q8 08/30 2200 DC 09/13 (Porcine) SC 2216 Hydromorphone HCl 2 MG ONCE ONE 09/15 0100 DC 09/15 PO 09/15 0101 0104 Hydromorphone HCl 0.8 MG ONCE ONE 09/14 1830 DC 09/14 IV 09/14 183 1832 Insulin Aspart 0 TIDAC 09/14 1700 AC 09/15 SC 0811 Insulin Detemir 12 UNITS BID 09/14 2200 AC 09/15 SC 1017 Insulin Detemir 12 UNITS BID 08/30 2200 DC 09/13 SC 2215 Insulin Human Regular 0 Q6 09/14 1800 CAN SC Insulin Human Regular 0 Q6 09/14 0600 DC 09/14 SC 0552 Ketorolac 30 MG .STK-MED ONE 09/14 1332 DC Tromethamine IM 09/14 1333 Melatonin 5 MG AT BEDTIME 09/14 2200 AC 09/14 PO 2107 Melatonin 5 MG AT BEDTIME 09/10 2200 DC 09/13 PO 2215 Metoprolol Succinate 25 MG DAILY 09/15 1000 AC 09/15 PO 1018 Metoprolol Succinate 25 MG DAILY 08/31 1000 DC 09/14 PO 0914 Midazolam HCl 2 MG .STK-MED ONE 09/14 1332 DC IM 09/14 1333 Morphine Sulfate 4 MG Q4 HRS NEEDED PRN 09/15 0945 AC 09/15 IV 0944 Morphine Sulfate 4 MG Q3P PRN 09/14 1400 DC 09/15 IV 0652 Morphine Sulfate 4 MG Q3P PRN 09/01 0915 DC 09/14 IV 0553 Ondansetron HCl 4 MG Q6P PRN 09/14 1400 AC IV Ondansetron HCl 4 MG Q6P PRN 08/31 1215 DC 08/31 IV 1243 Oxycodone HCl 10 MG Q4P PRN 09/15 0945 AC PO Oxycodone/ 1 TAB Q4P PRN 09/14 1515 DC Acetaminophen PO Oxycodone/ 2 TAB Q5 PRN 09/14 1500 DC 09/15 Acetaminophen PO 0523 Oxycodone/ 1 TAB Q6P PRN 09/14 1400 DC Acetaminophen PO Oxycodone/ 2 TAB Q6P PRN 09/14 1400 DC Acetaminophen PO Oxycodone/ 2 TAB Q6P PRN 09/04 1845 DC 09/14 Acetaminophen PO 0732 Oxycodone/ 1 TAB Q6P PRN 09/04 1830 DC Acetaminophen PO Polyethylene Glycol 17 GM DAILY 09/15 1000 AC 09/15 PO 1016 Polyethylene Glycol 17 GM AT BEDTIME 09/14 2200 AC 09/14 PO 2108 Polyethylene Glycol 17 GM DAILY 09/02 1523 DC 09/13 PO 1052 Polyethylene Glycol 17 GM AT BEDTIME 08/30 2200 DC 09/13 PO 2214 Pregabalin 100 MG BID 09/14 2200 AC 09/15 PO 1017 Pregabalin 100 MG BID 08/30 2200 DC 09/14 PO 0921 Senna/Docusate Sodium 2 TAB AT BEDTIME 09/14 2200 AC 09/14 PO 2107 Senna/Docusate Sodium 2 TAB AT BEDTIME 08/30 2200 DC 09/13 PO 2214 Tramadol HCl 50 MG Q6P PRN 09/15 0945 AC 09/15 PO 1027 Vancomycin HCl 1,250 MG Q12H 09/15 0530 DC 09/15 Sodium Chloride 250 ML IV 09/15 0629 0517 Vancomycin HCl 1,250 MG Q12 09/14 1600 CAN IV 09/15 0401 Vancomycin HCl 1,250 MG Q12H 09/14 1600 DC 09/14 Sodium Chloride 250 ML IV 09/15 0459 1731 Results Last 48 Hours of Labs: Laboratory Tests 09/15 09/14 0721 0530 Chemistry Sodium (137 - 145 mmol/L) 138 140 Potassium (3.5 - 5.1 mmol/L) 5.1 4.4 Chloride (98 - 107 mmol/L) 100 101 Carbon Dioxide (22 - 30 mmol/L) 26 27 Anion Gap (5 - 16) 12 12 BUN (9 - 20 mg/dL) 20 21 H Creatinine (0.7 - 1.2 mg/dL) 0.8 1.0 Estimated GFR (>60 ml/min) > 60 > 60 BUN/Creatinine Ratio (7 - 25 %) 25.0 21.0 Hematology CBC w Diff NO MAN DIFF REQ NO MAN DIFF REQ WBC (4.8 - 10.8 /CUMM) 11.9 H 7.3 RBC (4.70 - 6.10 /CUMM) 3.17 L 3.42 L Hgb (14.0 - 18.0 G/DL) 9.1 L 9.9 L Hct (42 - 52 %) 27.5 L 29.9 L MCV (80.0 - 94.0 FL) 86.9 87.3 MCH (27.0 - 31.0 PG) 28.9 28.8 MCHC (33.0 - 37.0 G/DL) 33.3 33.0 RDW (11.5 - 14.5 %) 15.9 H 15.2 H Plt Count (130 - 400 /CUMM) 417 H 380 MPV (7.4 - 10.4 FL) 9.5 9.4 Gran % (42.2 - 75.2 %) 81.7 H 62.4 Lymphocytes % (20.5 - 51.1 %) 12.8 L 28.4 Monocytes % (1.7 - 9.3 %) 5.4 6.8 Eosinophils % (0 - 5 %) 0 1.5 Basophils % (0.0 - 2.0 %) 0.1 0.9 Absolute Granulocytes (1.4 - 6.5 /CUMM) 9.8 H 4.5 Absolute Lymphocytes (1.2 - 3.4 /CUMM) 1.5 2.1 Absolute Monocytes (0.10 - 0.60 /CUMM) 0.6 0.5 Absolute Eosinophils (0.0 - 0.7 /CUMM) 0 0.1 Absolute Basophils (0.0 - 0.2 /CUMM) 0 0.1 Assessment/Plan Assessment/Plan 51 M with PAD who is POD 1 s/p right below knee amputation Cont pain regimen, recommend adding long acting analgesic and morphine for breakthrough Cont ada diet Cont asa/plavix OOB w/ PT - NWB to RLE Cont to monitor LLE conservatively, consider imaging only if patient complains of pain Dressing change Wednesday by surgical team Dr. Jimenez to contact Ld Teacher in regards to postoperative prosthetic Anticipate d/c to STR All other medical management per primary team D/w Core Measures Venous Thromboembolism VTE Risk Factors Age>40 No Mechanical VTE Prophylaxis d/t N/A MechProphylax Ordered No VTE Pharm Prophylaxis d/t Surgical Contraindication
[2017-09-15 08:56] LABS: ABSOLUTE LYMPH COUNT 1.5 /CUMM (1.2-3.4); ABSOLUTE MONOCYTE COUNT 0.6 /CUMM (0.10-0.60); BASOPHIL % 0.1 % (0.0-2.0); GRANULOCYTE % 81.7 % (42.2-75.2); HEMATOCRIT 27.5 % (42-52); MEAN CORPUSCULAR HGB 28.9 PG (27.0-31.0); MEAN CORPUSCULAR HGB CONC 33.3 G/DL (33.0-37.0); MEAN PLATELET VOLUME 9.5 FL (7.4-10.4); PLATELET COUNT 417 /CUMM (130-400); RBC DISTRIBUTION WIDTH 15.9 % (11.5-14.5); RED BLOOD CELL CT 3.17 /CUMM (4.70-6.10)
[2017-09-15 09:12] LABS: WHITE BLOOD CELL COUNT 11.9 /CUMM (4.8-10.8)
--- NOTE | 2017-09-15 09:44 | PN- Housestaff ---
Marco SIMONS,[facility] 09/15/17 0943: Subjective Follow-up For: S/P r BKA Subjective: seen and examined. s/p BKA POD 1. complains of pain. pain medication adjusted, roxicodone 10mg q4, ultram q6 and morphine for breakthrough. last BM 5 days ago will work with PT for discaharge planning Review of Systems Constitutional: Reports: see HPI. Objective Last 24 Hrs of Vital Signs/I&O Vital Signs Date Time Temp Pulse Resp B/P B/P Pulse O2 O2 Flow FiO2 Mean Ox Delivery Rate 09/15 0654 98.5 78 18 135/76 96 Room Air 09/14 2310 98.5 82 20 157/88 97 Room Air 09/14 1630 97.8 85 18 148/86 95 Room Air Intake & Output 09/15 1600 09/15 0800 09/15 0000 Intake Total 370 1130 Output Total 1700 650 Balance -1330 480 Intake, IV 250 530 Intake, Oral 120 600 Number 0 Bowel Movements Output, Urine 1700 650 Physical Exam General Appearance: Alert, Oriented X3, Cooperative Lungs: Clear to Auscultation Abdomen: Soft, No Tenderness Neurological: Normal Speech Current Medications: Current Medications Sig/Marty Start time Last Medication Dose Route Stop Time Status Admin Aspirin 325 MG DAILY 09/15 1000 AC PO Aspirin 325 MG DAILY 09/10 1000 DC 09/13 PO 1054 Atorvastatin Calcium 80 MG 1700 09/14 1700 AC 09/14 PO 1614 Atorvastatin Calcium 80 MG 1700 08/31 1700 DC 09/13 PO 1823 Bisacodyl 10 MG ONCE ONE 09/15 0830 DC 09/15 AL 09/15 0831 0852 Ceftriaxone Sodium 1,000 MG DAILY 09/15 1600 AC IV 09/15 1601 Clopidogrel Bisulfate 75 MG DAILY 09/15 1000 AC PO Clopidogrel Bisulfate 75 MG DAILY 09/07 1000 DC 09/14 PO 0917 Dextrose/Sodium 1,000 ML Q13H 09/15 0015 CAN Chloride IV Dextrose/Sodium 1,000 ML Q13H 09/13 2215 DC 09/13 Chloride IV 09/15 0014 2306 Docusate Sodium 100 MG BID 09/14 2200 AC 09/14 PO 2107 Docusate Sodium 100 MG BID 09/02 1523 DC 09/13 PO 2214 Duloxetine HCl 90 MG DAILY 09/15 1000 AC PO Duloxetine HCl 90 MG DAILY 09/08 1000 DC 09/14 PO 0914 Famotidine 20 MG DAILY 09/15 1000 AC PO Famotidine 20 MG DAILY 09/03 1341 DC 09/14 PO 0914 Heparin Sodium 5,000 UNIT Q8 09/14 1400 AC 09/15 (Porcine) SC 0517 Heparin Sodium 5,000 UNIT Q8 08/30 2200 DC 09/13 (Porcine) SC 2216 Hydromorphone HCl 2 MG ONCE ONE 09/15 0100 DC 09/15 PO 09/15 010 0104 Hydromorphone HCl 0.8 MG ONCE ONE 09/14 1830 DC 09/14 IV 09/14 1831 1832 Insulin Aspart 0 TIDAC 09/14 1700 AC 09/15 SC 0811 Insulin Detemir 12 UNITS BID 09/14 2200 AC 09/14 SC 2157 Insulin Detemir 12 UNITS BID 08/30 2200 DC 09/13 SC 2215 Insulin Human Regular 0 Q6 09/14 1800 CAN SC Insulin Human Regular 0 Q6 09/14 0600 DC 09/14 SC 0552 Ketorolac 30 MG .STK-MED ONE 09/14 1332 DC Tromethamine IM 09/14 1333 Melatonin 5 MG AT BEDTIME 09/14 2200 AC 09/14 PO 2107 Melatonin 5 MG AT BEDTIME 09/10 2200 DC 09/13 PO 2215 Metoprolol Succinate 25 MG DAILY 09/15 1000 AC PO Metoprolol Succinate 25 MG DAILY 08/31 1000 DC 09/14 PO 0914 Midazolam HCl 2 MG .STK-MED ONE 09/14 1332 DC IM 09/14 1333 Morphine Sulfate 4 MG Q4 HRS NEEDED PRN 09/15 0945 UNVr 09/15 IV 0944 Morphine Sulfate 4 MG Q3P PRN 09/14 1400 DC 09/15 IV 0652 Morphine Sulfate 4 MG Q3P PRN 09/01 0915 DC 09/14 IV 0553 Ondansetron HCl 4 MG Q6P PRN 09/14 1400 AC IV Ondansetron HCl 4 MG Q6P PRN 08/31 1215 DC 08/31 IV 1243 Oxycodone HCl 10 MG Q4 PRN 09/15 0945 UNVr PO Oxycodone/ 1 TAB Q4P PRN 09/14 1515 DC Acetaminophen PO Oxycodone/ 2 TAB Q5 PRN 09/14 1500 DC 09/15 Acetaminophen PO 0523 Oxycodone/ 1 TAB Q6P PRN 09/14 1400 DC Acetaminophen PO Oxycodone/ 2 TAB Q6P PRN 09/14 1400 DC Acetaminophen PO Oxycodone/ 2 TAB Q6P PRN 09/04 1845 DC 09/14 Acetaminophen PO 0732 Oxycodone/ 1 TAB Q6P PRN 09/04 1830 DC Acetaminophen PO Polyethylene Glycol 17 GM DAILY 09/15 1000 AC PO Polyethylene Glycol 17 GM AT BEDTIME 09/14 2200 AC 09/14 PO 2108 Polyethylene Glycol 17 GM DAILY 09/02 1523 DC 09/13 PO 1052 Polyethylene Glycol 17 GM AT BEDTIME 08/30 2200 DC 09/13 PO 2214 Pregabalin 100 MG BID 09/14 2200 AC 09/14 PO 2107 Pregabalin 100 MG BID 08/30 2200 DC 09/14 PO 0921 Senna/Docusate Sodium 2 TAB AT BEDTIME 09/14 2200 AC 09/14 PO 210 Senna/Docusate Sodium 2 TAB AT BEDTIME 08/30 2200 DC 09/13 PO 2214 Tramadol HCl 50 MG Q6 PRN 09/15 0945 UNVr PO Vancomycin HCl 1,250 MG Q12H 09/15 0530 DC 09/15 Sodium Chloride 250 ML IV 09/15 0629 0517 Vancomycin HCl 1,250 MG Q12 09/14 1600 CAN IV 09/15 0401 Vancomycin HCl 1,250 MG Q12H 09/14 1600 DC 09/14 Sodium Chloride 250 ML IV 09/15 0459 1731 Last 24 Hrs of Lab/Jose A Results Last 24 Hrs of Labs/Mics: Laboratory Tests 09/15/17 0721: Anion Gap 12, Estimated GFR > 60, BUN/Creatinine Ratio 25.0, CBC w Diff NO MAN DIFF REQ, RBC 3.17 L, MCV 86.9, MCH 28.9, MCHC 33.3, RDW 15.9 H, MPV 9.5, Gran % 81.7 H, Lymphocytes % 12.8 L, Monocytes % 5.4, Eosinophils % 0, Basophils % 0.1, Absolute Granulocytes 9.8 H, Absolute Lymphocytes 1.5, Absolute Monocytes 0.6, Absolute Eosinophils 0, Absolute Basophils 0 Assessment/Plan Assessment: Patient is a 51-year-old male with a PMH significant for insulin-dependent diabetes, diabetic neuropathy, CAD status post [place] with PCI and 2 stents placed in 2007, PVD, renal abscess, osteomyelitis with recent toe amputation who was referred to the [facility] ED from Dr. Ortega office for suspicion of osteomyelitis. MRI confirmed diagnosis of osteomyelitis Labs were significant for elevated ESR, leukocytosis, mild hyperglycemia Arterial ultrasound of right lower extremity showed SFA stenosis increased significantly compared to the previous study of April 2017 He is being treated evaluate for following conditions #Right Foot Osteomyelitis s/p BKA POD 1 -ID, vascular surgery, podiatry on board -Patient remained afebrile, WBC count eleveated, thrombocytosis likely reactive after surgery -Continue to monitor Off abx -PT eval #Acute respiratory failure; resolved. Patient had episode of shortness of breath on 09/07 and desaturation to 84% he was put on 2 L and has been titrated down to room air now. CTA was negative for PE chest x-ray showed pulmonary congestion he is status post 20 mg of IV Lasix #CAD- no cardiac symptoms and troponin negative. Was seen by Cardiology last month. Benefits of surgery outweigh risk based on RCRI. -Dr. Hurley on board -Continue usual meds (Metoprolol, etc.) -Continue Plavix and Asprin #DM -Hold Metformin, continue insulin sliding scale. -Blood sugar running in adequate range #Chronic medical conditions Neuropathy, hyperlipidemia Continue Lyrica, Duloxetine and Percocet prn, Atorvastatin. Diabetic diet/ALPS and heparin subcutaneous/ Full code Problem List: 1. Osteomyelitis of right foot Pain Ratin Pain Location: R leg Pain Goal: Pain 4 or less Pain Plan: prn Tomorrow's Labs & Rationales: mady Joe MD,Jamia 09/15/17 1052: Attending MD Review Statement Attending Statement Attending MD Statement: examined this patient, discuss w/resident/PA/DIRECTOR OF NUCLEAR MEDICINE, agreed w/resident/PA/DIRECTOR OF NUCLEAR MEDICINE, reviewed EMR data (avail), discussed with nursing, discussed with case mgmt, amended to note Attending Assessment/Plan: Patient seen and examined. He underwent right BKA yesterday with no reported complications. No issues overnight. Continue to complain of right lower extremity pain. He is afebrile hemodynamically stable. Laboratory data shows mild leukocytosis likely reactive following surgery yesterday. On examination he has intact surgical dressing over the right stump. His left lower extremity is cool to touch. Recommendations: -We will optimize pain regimen. Discontinue Percocet. Begin patient oxycodone 10 mg every 4 hours as needed pain. Utilize Ultram in addition for added pain control if needed. -No further need for antibiotic therapy at this time. -Follow-up with the vascular surgery service regarding his left lower extremity. CT angiogram done during this admission revealed mild degenerative disease of the distal right superficial femoral artery and occlusion of a portion of the left popliteal artery. -Vascular surgery service is planning for further dressing change on Wednesday. Patient may be discharged following this. Will follow up with the physical therapy service regarding disposition
--- NOTE | 2017-09-15 10:11 | PN- Infect Dx ---
Subjective Subjective: Afebrile. He complains of pain in the right leg but is already ambulating in the hallways. Objective Last 24 Hrs of Vital Signs/I&O Vital Signs Date Time Temp Pulse Resp B/P B/P Pulse O2 O2 Flow FiO2 Mean Ox Delivery Rate 09/15 0654 98.5 78 18 135/76 96 Room Air 09/14 2310 98.5 82 20 157/88 97 Room Air 09/14 1630 97.8 85 18 148/86 95 Room Air Intake & Output 09/15 1600 09/15 0800 09/15 0000 Intake Total 370 1130 Output Total 1700 650 Balance -1330 480 Intake, IV 250 530 Intake, Oral 120 600 Number 0 Bowel Movements Output, Urine 1700 650 Physical Exam Other Physical Findings: He appears in mild discomfort Extremities right leg dressing intact Results Last 24 Hours of Lab Results: Laboratory Tests 09/15 0721 Chemistry Sodium (137 - 145 mmol/L) 138 Potassium (3.5 - 5.1 mmol/L) 5.1 Chloride (98 - 107 mmol/L) 100 Carbon Dioxide (22 - 30 mmol/L) 26 Anion Gap (5 - 16) 12 BUN (9 - 20 mg/dL) 20 Creatinine (0.7 - 1.2 mg/dL) 0.8 Estimated GFR (>60 ml/min) > 60 BUN/Creatinine Ratio (7 - 25 %) 25.0 Hematology CBC w Diff NO MAN DIFF REQ WBC (4.8 - 10.8 /CUMM) 11.9 H RBC (4.70 - 6.10 /CUMM) 3.17 L Hgb (14.0 - 18.0 G/DL) 9.1 L Hct (42 - 52 %) 27.5 L MCV (80.0 - 94.0 FL) 86.9 MCH (27.0 - 31.0 PG) 28.9 MCHC (33.0 - 37.0 G/DL) 33.3 RDW (11.5 - 14.5 %) 15.9 H Plt Count (130 - 400 /CUMM) 417 H MPV (7.4 - 10.4 FL) 9.5 Gran % (42.2 - 75.2 %) 81.7 H Lymphocytes % (20.5 - 51.1 %) 12.8 L Monocytes % (1.7 - 9.3 %) 5.4 Eosinophils % (0 - 5 %) 0 Basophils % (0.0 - 2.0 %) 0.1 Absolute Granulocytes (1.4 - 6.5 /CUMM) 9.8 H Absolute Lymphocytes (1.2 - 3.4 /CUMM) 1.5 Absolute Monocytes (0.10 - 0.60 /CUMM) 0.6 Absolute Eosinophils (0.0 - 0.7 /CUMM) 0 Absolute Basophils (0.0 - 0.2 /CUMM) 0 Last 24 Hours of Jose A Results: No new cultures Assessment/Plan ID Impression: Stable, status post right BKA yesterday for progressive osteomyelitis of the right foot and a nonhealing wound on the lateral aspect, with temperatures remaining normal off antibiotics. His white blood cell count is increased today , likely postoperative in nature. Suggestion: 1. Continue to follow off antibiotics
[2017-09-15 14:20] VITALS: BP 130/80
--- NOTE | 2017-09-15 17:50 | PN- Vascular Surgery ---
Surgical Brief Attending Note Brief Attending Note: VASCULAR ATTENDING NOTE: Pt. is now POD #1 s/p R. BKA. Mild discomfort. PE: AF/VSS Ext: Leg dressing c/d/i A/P Cont. medical care Dressing change 09/17 Heel preotection L. foot Keep R. leg elevated on 1 pillow to decrease edema Loss Control Manager prosthetics notified
[2017-09-15 22:16] VITALS: BP 118/62
[2017-09-16 06:22] VITALS: BP 116/60
--- NOTE | 2017-09-16 09:09 | PN- Housestaff ---
See Addendum Marco SIMONS,[facility] 09/16/17 0908: Subjective Follow-up For: R JARRETT Subjective: Seen and examined. On plain not well controlled. Patient was evaluated by vascular surgery yesterday regarding cold lower extremity. Patient will follow- up with vascular surgery outpatient to undergo ultrasound. For now we are going adjust patient pain medication and will aid dressing change by vascular. Anticipated discharge for tomorrow a.m. Review of Systems Constitutional: Reports: see HPI. Objective Last 24 Hrs of Vital Signs/I&O Vital Signs Date Time Temp Pulse Resp B/P B/P Pulse O2 O2 Flow FiO2 Mean Ox Delivery Rate 09/16 0950 76 128/76 09/16 0622 97.8 74 18 116/60 97 09/15 2216 99.0 78 20 118/62 92 Room Air 09/15 1420 98.9 78 20 130/80 96 Room Air Intake & Output 09/16 1600 09/16 0800 09/16 0000 Intake Total 520 1000 Output Total 400 Balance 520 600 Intake, IV 40 40 Intake, Oral 480 960 Number 0 0 Bowel Movements Output, Urine 400 Physical Exam General Appearance: Alert, Oriented X3, Cooperative Cardiovascular: Normal S1, Normal S2 Lungs: Clear to Auscultation Abdomen: Normal Bowel Sounds, Soft, No Tenderness Neurological: Normal Speech Extremities: R BKA L lower extremity cool to touch Current Medications: Current Medications Sig/Marty Start time Last Medication Dose Route Stop Time Status Admin Aspirin 325 MG DAILY 09/15 1000 AC 09/16 PO 0947 Atorvastatin Calcium 80 MG 1700 09/14 1700 AC 09/15 PO 1553 Ceftriaxone Sodium 1,000 MG DAILY 09/15 1600 DC 09/15 IV 09/15 1601 1557 Clopidogrel Bisulfate 75 MG DAILY 09/15 1000 AC 09/16 PO 0950 Diphenhydramine HCl 25 MG ONCE ONE 09/15 2300 DC 09/15 PO 09/15 2301 2312 Docusate Sodium 100 MG TID 09/15 1600 AC 09/16 PO 0948 Duloxetine HCl 90 MG DAILY 09/15 1000 AC 09/16 PO 0947 Famotidine 20 MG DAILY 09/15 1000 AC 09/16 PO 0949 Heparin Sodium 5,000 UNIT Q8 09/14 1400 AC 09/16 (Porcine) SC 0518 Insulin Aspart 0 TIDAC 09/14 1700 AC 09/16 SC 1208 Insulin Detemir 12 UNITS BID 09/14 2200 AC 09/16 SC 0945 Melatonin 5 MG AT BEDTIME 09/14 2200 AC 09/16 PO 0117 Metoprolol Succinate 25 MG DAILY 09/15 1000 AC 09/16 PO 0950 Morphine Sulfate 2 MG ONCE ONE 09/16 1045 DC 09/16 IV 09/16 1046 1053 Morphine Sulfate 4 MG Q4-6 PRN PRN 09/16 0930 AC IV Morphine Sulfate 4 MG Q4 HRS NEEDED PRN 09/15 0945 DC 09/16 IV 0736 Ondansetron HCl 4 MG Q6P PRN 09/14 1400 AC IV Oxycodone HCl 10 MG Q4P PRN 09/15 0945 AC 09/16 PO 0910 Patient Medication 1 ED ONE ONE 09/16 1130 DC Teaching ED 09/16 1131 Polyethylene Glycol 17 GM DAILY 09/15 1000 AC 09/16 PO 0949 Polyethylene Glycol 17 GM AT BEDTIME 09/14 2200 AC 09/14 PO 2108 Pregabalin 100 MG BID 09/14 2200 AC 09/16 PO 0946 Senna/Docusate Sodium 2 TAB AT BEDTIME 09/14 2200 AC 09/15 PO 2208 Tramadol HCl 100 MG Q6P PRN 09/16 0930 AC 09/16 PO 1207 Tramadol HCl 50 MG Q6P PRN 09/15 0945 DC 09/16 PO 0617 Assessment/Plan Assessment: Patient is a 51-year-old male with a PMH significant for insulin-dependent diabetes, diabetic neuropathy, CAD status post [place] with PCI and 2 stents placed in 2007, PVD, renal abscess, osteomyelitis with recent toe amputation who was referred to the [facility] ED from Dr. Ortega office for suspicion of osteomyelitis. MRI confirmed diagnosis of osteomyelitis Labs were significant for elevated ESR, leukocytosis, mild hyperglycemia Arterial ultrasound of right lower extremity showed SFA stenosis increased significantly compared to the previous study of April 2017 He is being treated evaluate for following conditions #Right Foot Osteomyelitis s/p BKA POD 1 -ID, vascular surgery, podiatry on board -Patient remained afebrile, WBC count eleveated, thrombocytosis likely reactive after surgery -Continue to monitor Off abx -PT eval, clear to go home with home health services -Pain control has been issued we are going to increase Ultram 50 MG to 100mg. -Consider adding OxyContin 10 saline of IV- #Acute respiratory failure; resolved. Patient had episode of shortness of breath on 4/ and desaturation to 84% he was put on 2 L and has been titrated down to room air now. CTA was negative for PE chest x-ray showed pulmonary congestion he is status post 20 mg of IV Lasix #CAD- no cardiac symptoms and troponin negative. Was seen by Cardiology last month. Benefits of surgery outweigh risk based on RCRI. -Dr. Hurley on board -Continue usual meds (Metoprolol, etc.) -Continue Plavix and Asprin #Hx of PVD Patient's left lower extremity was positive on examination he has history of PVD. Patient is going to follow-up with Dr. hummel for left lower extremity USG as outpt #DM -Hold Metformin, continue insulin sliding scale. -Blood sugar running in adequate range #Chronic medical conditions Neuropathy, hyperlipidemia Continue Lyrica, Duloxetine and Percocet prn, Atorvastatin. Diabetic diet/ALPS and heparin subcutaneous/ Full code Problem List: 1. Osteomyelitis of right foot Pain Ratin Pain Location: R BKA Pain Goal: Pain 4 or less Pain Plan: prn Tomorrow's Labs & Rationales: none Heath SIMONS,Jamia 09/16/17 1153: Attending MD Review Statement Attending Statement Attending MD Statement: examined this patient, discuss w/resident/PA/COMMERCIAL REAL ESTATE ATTORNEY, agreed w/resident/PA/COMMERCIAL REAL ESTATE ATTORNEY, reviewed EMR data (avail), discussed with nursing, discussed with case mgmt, amended to note Attending Assessment/Plan: Patient seen and examined. No events overnight reported by nursing staff. Lying in bed. Continues complain of pain at surgical site. He does report relief with current regimen however he continues to require intravenous morphine for pain control. On examination he has intact dressing over the right stump. He is ambulating independently with use of walker. His left lower extremity remains cool to touch. He has been evaluated by the surgical service and they will continue monitoring his left lower extremity conservatively and follow-up with imaging studies as needed in the outpatient setting. He will also be seen by the surgical service tomorrow for dressing change of the right stump. If there are no concerns following dressing change tomorrow he may be discharged home as recommended by the surgical service. Will repeat CBC and serum chemistry in a.m. if there is a change in his clinical status.
--- NOTE | 2017-09-16 11:21 | PN- Vascular Surgery ---
Subjective Subjective: Patient reports pain which is located above the right knee and phantom pain which is uncontrolled with current pain regimen. Offer no other complaints. Objective Vital Signs and I&Os Vital Signs Date Time Temp Pulse Resp B/P B/P Pulse O2 O2 Flow FiO2 Mean Ox Delivery Rate 09/16 0950 76 128/76 09/16 0622 97.8 74 18 116/60 97 09/15 2216 99.0 78 20 118/62 92 Room Air 09/15 1420 98.9 78 20 130/80 96 Room Air Intake & Output 09/16 1600 09/16 0800 09/16 0000 09/15 1600 09/15 0800 09/15 0000 Intake Total 520 1000 199 029 9177 Output Total 713 941 1586 650 Balance 520 480 Intake, IV 40 40 250 530 Intake, Oral 480 960 800 120 600 Number 0 0 1 0 Bowel Movements Output, Urine 391 688 5554 650 Physical Exam: Gen - Sitting in chair awake an alert in nad Ext - RLE dressing with gopal c/d/i, compartment soft, warm and well perfused, LLE is warm, left foot cool to touch, nontender to palpation Current Medications: Current Medications Sig/Marty Start time Last Medication Dose Route Stop Time Status Admin Aspirin 325 MG DAILY 09/15 1000 AC 09/16 PO 0947 Atorvastatin Calcium 80 MG 1700 09/14 1700 AC 09/15 PO 1553 Ceftriaxone Sodium 1,000 MG DAILY 09/15 1600 DC 09/15 IV 09/15 1601 1557 Clopidogrel Bisulfate 75 MG DAILY 09/15 1000 AC 09/16 PO 0950 Diphenhydramine HCl 25 MG ONCE ONE 09/15 2300 DC 09/15 PO 09/15 2301 2312 Docusate Sodium 100 MG TID 09/15 1600 AC 09/16 PO 0948 Duloxetine HCl 90 MG DAILY 09/15 1000 AC 09/16 PO 0947 Famotidine 20 MG DAILY 09/15 1000 AC 09/16 PO 0949 Heparin Sodium 5,000 UNIT Q8 09/14 1400 AC 09/16 (Porcine) SC 0518 Insulin Aspart 0 TIDAC 09/14 1700 AC 09/16 SC 0841 Insulin Detemir 12 UNITS BID 09/14 2200 AC 09/16 SC 0945 Melatonin 5 MG AT BEDTIME 09/14 2200 AC 09/16 PO 0117 Metoprolol Succinate 25 MG DAILY 09/15 1000 AC 09/16 PO 0950 Morphine Sulfate 2 MG ONCE ONE 09/16 1045 DC 09/16 IV 09/16 1046 1053 Morphine Sulfate 4 MG Q4-6 PRN PRN 09/16 0930 AC IV Morphine Sulfate 4 MG Q4 HRS NEEDED PRN 09/15 0945 DC 09/16 IV 0736 Ondansetron HCl 4 MG Q6P PRN 09/14 1400 AC IV Oxycodone HCl 10 MG Q4P PRN 09/15 0945 AC 09/16 PO 0910 Polyethylene Glycol 17 GM DAILY 09/15 1000 AC 09/16 PO 0949 Polyethylene Glycol 17 GM AT BEDTIME 09/14 2199 AC 09/14 PO 2108 Pregabalin 100 MG BID 09/14 2199 AC 09/16 PO 0946 Senna/Docusate Sodium 2 TAB AT BEDTIME 09/14 2199 AC 09/15 PO 2208 Tramadol HCl 100 MG Q6P PRN 09/16 0830 AC PO Tramadol HCl 50 MG Q6P PRN 09/15 0845 DC 09/16 PO 0617 Results Last 48 Hours of Labs: Laboratory Tests 09/15 07 Chemistry Sodium (137 - 145 mmol/L) 138 Potassium (3.5 - 5.1 mmol/L) 5.1 Chloride (98 - 107 mmol/L) 100 Carbon Dioxide (22 - 30 mmol/L) 26 Anion Gap (5 - 16) 12 BUN (9 - 20 mg/dL) 20 Creatinine (0.7 - 1.2 mg/dL) 0.8 Estimated GFR (>60 ml/min) > 60 BUN/Creatinine Ratio (7 - 25 %) 25.0 Hematology CBC w Diff NO MAN DIFF REQ WBC (4.8 - 10.8 /CUMM) 11.9 H RBC (4.70 - 6.10 /CUMM) 3.17 L Hgb (14.0 - 18.0 G/DL) 9.1 L Hct (42 - 52 %) 27.5 L MCV (80.0 - 94.0 FL) 86.9 MCH (27.0 - 31.0 PG) 28.9 MCHC (33.0 - 37.0 G/DL) 33.3 RDW (11.5 - 14.5 %) 15.9 H Plt Count (130 - 400 /CUMM) 417 H MPV (7.4 - 10.4 FL) 9.5 Gran % (42.2 - 75.2 %) 81.7 H Lymphocytes % (20.5 - 51.1 %) 12.8 L Monocytes % (1.7 - 9.3 %) 5.4 Eosinophils % (0 - 5 %) 0 Basophils % (0.0 - 2.0 %) 0.1 Absolute Granulocytes (1.4 - 6.5 /CUMM) 9.8 H Absolute Lymphocytes (1.2 - 3.4 /CUMM) 1.5 Absolute Monocytes (0.10 - 0.60 /CUMM) 0.6 Absolute Eosinophils (0.0 - 0.7 /CUMM) 0 Absolute Basophils (0.0 - 0.2 /CUMM) 0 Assessment/Plan Assessment/Plan 51 M with PAD who is POD 2 s/p right below knee amputation with poorly controlled pain Recommend adding long acting analgesic (oxycotin) and short acting analgesic ( oxycodone) in order to wean off IV Morphine Cont ada diet Cont asa/plavix OOB w/ PT - NWB to RLE Keep R leg elevated on a pillow for edema Heal protection for L foot Dressing change tomorrow by surgical team Steam Pipe [employer] contacted for prosthetic All other medical management per primary team Will d/w Core Measures Venous Thromboembolism VTE Risk Factors Age>40 No Mechanical VTE Prophylaxis d/t N/A MechProphylax Ordered No VTE Pharm Prophylaxis d/t Surgical Contraindication
[2017-09-16 14:41] VITALS: BP 112/60
[2017-09-16] MEDS ORDERED: SENNA PLUS TAB1 EACH PO (16:50)
[2017-09-16] MEDS ORDERED: TRAMADOL HCL50 M1 PO (16:50)
[2017-09-16] MEDS ORDERED: OXYCONTIN10 M1 PO (16:50)
[2017-09-16] MEDS ORDERED: OXYCODONE HCL10 M2 PO (16:50)
[2017-09-16] MEDS ORDERED: CYMBALTA30 M1 PO (16:51)
[2017-09-16 21:24] VITALS: BP 148/64
[2017-09-17 06:34] VITALS: BP 136/75
--- NOTE | 2017-09-17 07:56 | PN- Student ---
Mack Hernandez 09/17/17 0743: Subjective Subjective: pt states he feels well, no overnight events. pain well controlled. ambulating with PT, voiding sponataniously. Objective Objective: Vital Signs Date Time Temp Pulse Resp B/P B/P Pulse O2 O2 Flow FiO2 Mean Ox Delivery Rate 09/17 0634 98.4 76 20 136/75 97 Room Air 09/16 2124 98.8 89 16 148/64 98 Room Air 09/16 1441 98.1 75 18 112/60 96 Room Air 09/16 0950 76 128/76 Intake & Output 09/17 0800 09/17 0000 09/16 1600 Intake Total 120 480 500 Output Total 650 Balance -530 480 500 Intake, IV 0 Intake, Oral 120 480 500 Number 0 Bowel Movements Output, Urine 650 General: resting comfortably, NAD, actively participated in exam RLE: dressing changed, dressing CDI, incision CDI without surrounding erythema or drainage. sutures and alexei in place. mild tenderness over incision. moderate contraction of knee Assessment/Plan Assessment: 51 y/o male, PMH DM and PVD, POD#3 s/p Right BKA. recovering well post-op, pain well controlled on current regiment. progressing with PT. Plan: continue current pain management ppx: asa/plavix diet: CC3 ambulate with PT plan for d/c once able to use stairs with PT daily dressing changes with VNA upon d/c streching exercises at home for contracture Clare Vela 09/17/17 1257: Resident Review Statement Resident Statement: examined this patient Other Findings: Agree with above ARTIE-S note. Minimal pain to right leg stump. On exam, no drainage or erythema noted to staple/suture line. No edema noted. AVSS A: POD #3 s/p right BKA Plan: D/C to STR. Daily dry dressing changes. [facility] prothetics have evaluated patient and will fit for prosthesis once feasible.
--- NOTE | 2017-09-17 08:17 | PN- Housestaff ---
Marco SIMONS,Yadi 09/17/17 0817: Subjective Follow-up For: Right foot osteomyelitis status post BKA Subjective: Seen and examined. Resting comfortably. He reports short-term relief with pain medication. Patient is hemodynamically stable and afebrile. He is stable to be discharged home. Will be discharged with home health service. His prostatic will be delivered at home. Patient has been extensively counseled to follow-up with vascular surgery. will probably need left lower extremity ultrasound. Review of Systems Constitutional: Reports: see HPI. Objective Last 24 Hrs of Vital Signs/I&O Vital Signs Date Time Temp Pulse Resp B/P B/P Pulse O2 O2 Flow FiO2 Mean Ox Delivery Rate 09/17 0634 98.4 76 20 136/75 97 Room Air 09/16 2124 98.8 89 16 148/64 98 Room Air 09/16 1441 98.1 75 18 112/60 96 Room Air Intake & Output 09/17 1600 09/17 0800 09/17 0000 Intake Total 120 480 Output Total 650 Balance -530 480 Intake, Oral 120 480 Output, Urine 650 Physical Exam General Appearance: Alert, Oriented X3, Cooperative Cardiovascular: Normal S1, Normal S2 Lungs: Clear to Auscultation Abdomen: Normal Bowel Sounds, Soft, No Tenderness Neurological: Normal Speech Current Medications: Current Medications Sig/Marty Start time Last Medication Dose Route Stop Time Status Admin Aspirin 325 MG DAILY 09/15 1000 DCD 09/17 PO 0846 Atorvastatin Calcium 80 MG 1700 09/14 1700 DCD 09/16 PO 1608 Clopidogrel Bisulfate 75 MG DAILY 09/15 1000 DCD 09/17 PO 0846 Docusate Sodium 100 MG TID 09/15 1600 DCD 09/17 PO 0846 Duloxetine HCl 90 MG DAILY 09/15 1000 DCD 09/17 PO 0846 Famotidine 20 MG DAILY 09/15 1000 DCD 09/17 PO 0846 Heparin Sodium 5,000 UNIT Q8 09/14 1400 DCD 09/17 (Porcine) SC 0500 Insulin Aspart 0 TIDAC 09/14 1700 DCD 09/16 SC 1208 Insulin Detemir 12 UNITS BID 09/14 2200 DCD 09/17 SC 0845 Melatonin 5 MG AT BEDTIME 09/14 2200 DCD 09/16 PO 2057 Metoprolol Succinate 25 MG DAILY 09/15 1000 DCD 09/17 PO 0846 Morphine Sulfate 4 MG Q4-6 PRN PRN 09/16 0930 DC IV Ondansetron HCl 4 MG Q6P PRN 09/14 1400 DCD IV Oxycodone HCl 10 MG Q12H 09/17 0400 DCD 09/17 PO 0500 Oxycodone HCl 10 MG Q12 09/16 1422 DC 09/16 PO 1607 Oxycodone HCl 10 MG Q4P PRN 09/15 0945 DCD 09/17 PO 1203 Polyethylene Glycol 17 GM DAILY 09/15 1000 DCD 09/16 PO 0949 Polyethylene Glycol 17 GM AT BEDTIME 09/14 2200 DCD 09/16 PO 2057 Pregabalin 100 MG BID 09/14 2200 DCD 09/17 PO 0845 Senna/Docusate Sodium 2 TAB AT BEDTIME 09/14 2200 DCD 09/16 PO 205 Tramadol HCl 100 MG Q6P PRN 09/16 0930 DCD 09/17 PO 0845 Assessment/Plan Assessment: Patient is a 51-year-old male with a PMH significant for insulin-dependent diabetes, diabetic neuropathy, CAD status post IA with PCI and 2 stents placed in 2007, PVD, renal abscess, osteomyelitis with recent toe amputation who was referred to the [facility] ED from Dr. Ortega office for suspicion of osteomyelitis. MRI confirmed diagnosis of osteomyelitis Labs were significant for elevated ESR, leukocytosis, mild hyperglycemia Arterial ultrasound of right lower extremity showed SFA stenosis increased significantly compared to the previous study of April 2017 He is being treated evaluate for following conditions #Right Foot Osteomyelitis s/p BKA -ID, vascular surgery, podiatry on board -Patient remained afebrile, WBC count eleveated, thrombocytosis likely reactive after surgery -Continue to monitor Off abx -PT eval, clear to go home with home health services -We have checked CT TEACHING ARTIST, he was receiving oxycodone 5 mg being prescribed by patient's firer retort secondary to chronic nonhealing ulcer on right foot. Last prescription was on 08/24/2017 for 30 pills. Patient recently underwent right BKA. We are going to prescribe him 20 pills of oxycodone 4-6 hours, OxyContin 10 mg twice a day, ultram 100 mg every 4-6 hours to last for 5days #Acute respiratory failure; resolved. Patient had episode of shortness of breath on 4/3 and desaturation to 84% he was put on 2 L and has been titrated down to room air now. CTA was negative for PE chest x-ray showed pulmonary congestion he is status post 20 mg of IV Lasix #CAD- no cardiac symptoms and troponin negative. Was seen by Cardiology last month. Benefits of surgery outweigh risk based on RCRI. -Dr. Hurley on board -Continue usual meds (Metoprolol, etc.) -Continue Plavix and Asprin #Hx of PVD Patient's left lower extremity was positive on examination he has history of PVD. Patient is going to follow-up with Dr. hummel for left lower extremity USG as outpt #DM -Hold Metformin, continue insulin sliding scale. -Blood sugar running in adequate range #Chronic medical conditions Neuropathy, hyperlipidemia Continue Lyrica, Duloxetine and Percocet prn, Atorvastatin. Diabetic diet/ALPS and heparin subcutaneous/ Full code Problem List: 1. Osteomyelitis of right foot Pain Ratin Pain Location: R BKA Pain Goal: Pain 4 or less Pain Plan: prn Tomorrow's Labs & Rationales: none Heath SIMONS,Jamia 09/17/17 1228: Attending MD Review Statement Attending Statement Attending MD Statement: examined this patient, discuss w/resident/PA/ORTHOPEDIC RADIOLOGIC TECHNOLOGIST, agreed w/resident/PA/ORTHOPEDIC RADIOLOGIC TECHNOLOGIST, reviewed EMR data (avail), discussed with nursing, discussed with case mgmt, amended to note Attending Assessment/Plan: Patient seen and examined. Resting comfortably and not in acute distress. No issues overnight by nursing staff. Continues to complain of pain in the right lower extremity. Admits relief with use of current analgesic regimen. He is afebrile. He is hemodynamically stable. He is medically stable to be discharged today. He he will follow-up with his podiatry and vascular surgery service as an outpatient. Has been instructed that he needs to follow-up with the vascular surgery service regarding monitoring and long-term management of the peripheral vascular disease of his left lower extremity. He verbalized understanding.
[2017-09-17] MEDS ORDERED: TRAMADOL HCL50 M1 PO (10:08)
[2017-09-17] MEDS ORDERED: OXYCODONE HCL10 M2 PO (10:08)
[2017-09-17] MEDS ORDERED: OXYCONTIN10 M1 PO (10:08)
[2017-09-17] MEDS ORDERED: FAMOTIDINE20 M1 PO (10:11)
[2017-09-17] MEDS ORDERED: MIRALAX119 GM PO (10:11)
[2017-09-17] MEDS ORDERED: CYMBALTA30 M1 PO (10:11)
[2017-09-17] MEDS ORDERED: SENNA PLUS TAB1 EACH PO (10:11)
[2017-09-17] MEDS ORDERED: DOCUSATE SODIU100 M3 PO (10:11)
--- NOTE | 2017-09-17 10:39 | PN- Psychiatry ---
Assessment/Plan Impression: Ronn had a right BKA on 09/14/17, and is sitting in his chair with his leg elevated. He reports he is feeling better, emotionally, than he thought he would. He reports 7/10 pain, and feels he is getting enough pain medication, except it wears off soon after it is administered. He is forward-looking and goal oriented. He is eager to go home and to begin work with PT, OT, the VNA wound care, and especially a visit from a man who also has had a LLE amputation, and will help him adjust. The patient has been thinking about new ways to do things. He is looking forward to seeing his children and grandchildren. He is agreeable to come to an intake appointment at [facility]. Suggestion: 1. Continue duloxetine 90 mg PO daily, which the patient takes for neuropathic pain as well as depression and anxiety. 2. Continue melatonin 5 mg PO before bedtime. 3. The patient has an intake appointment at Outpatient Psychiatry at [address] [place] [address], on October 27, at 5:15 PM with Genevieve. He has been given a card with this information, and asked to bring his photo ID and insurance card. The intake will last approximately 90 minutes. Thank you for this consult. Psychiatry is signing off. Subjective Subjective: Alert and oriented. Calmly sitting in his chair, after a right below the knee amputation on 09/14/17. Depression "good" 4-510. Denies hopelessness, helplessness. He feels worthless sometimes, but not at present. He has guilty feelings Anxiety 0/10 1010 is the worst He denies suicidal or homicidal ideation, when asked if he has thoughts of hurting himself or anyone else. "I already hurt myself," with a smile. Review of Systems Neurological/Psychological: Reports: depressed. Objective Last 24 Hrs of Vital Signs/I&O Vital Signs Date Time Temp Pulse Resp B/P B/P Pulse O2 O2 Flow FiO2 Mean Ox Delivery Rate 09/17 0634 98.4 76 20 136/75 97 Room Air 09/16 2124 98.8 89 16 148/64 98 Room Air 09/16 1441 98.1 75 18 112/60 96 Room Air Intake & Output 09/17 1600 09/17 0800 09/17 0000 Intake Total 120 480 Output Total 650 Balance -530 480 Intake, Oral 120 480 Output, Urine 650 Physical Exam: Not performed Physical Exam General Appearance: no apparent distress, alert, awake Neurologic/Psychiatric: awake, alert, oriented x 3 Current Medications: Current Medications Sig/Marty Start time Last Medication Dose Route Stop Time Status Admin Aspirin 325 MG DAILY 09/15 1000 AC 09/17 PO 0846 Atorvastatin Calcium 80 MG 1700 09/14 1700 AC 09/16 PO 1608 Clopidogrel Bisulfate 75 MG DAILY 09/15 1000 AC 09/17 PO 0846 Docusate Sodium 100 MG TID 09/15 1600 AC 09/17 PO 0846 Duloxetine HCl 90 MG DAILY 09/15 1000 AC 09/17 PO 0846 Famotidine 20 MG DAILY 09/15 1000 AC 09/17 PO 0846 Heparin Sodium 5,000 UNIT Q8 09/14 1400 AC 09/17 (Porcine) SC 0500 Insulin Aspart 0 TIDAC 09/14 1700 AC 09/16 SC 1208 Insulin Detemir 12 UNITS BID 09/14 2200 AC 09/17 SC 0845 Melatonin 5 MG AT BEDTIME 09/14 2200 AC 09/16 PO 205 Metoprolol Succinate 25 MG DAILY 09/15 1000 AC 09/17 PO 0846 Morphine Sulfate 2 MG ONCE ONE 09/16 1045 DC 09/16 IV 09/16 1046 1053 Morphine Sulfate 4 MG Q4-6 PRN PRN 09/16 0930 DC IV Ondansetron HCl 4 MG Q6P PRN 09/14 1400 AC IV Oxycodone HCl 10 MG Q12H 09/17 0400 AC 09/17 PO 0500 Oxycodone HCl 10 MG Q12 09/16 1422 DC 09/16 PO 1607 Oxycodone HCl 10 MG Q4P PRN 09/15 0945 AC 09/17 PO 0207 Patient Medication 1 ED ONE ONE 09/16 1130 DC Teaching ED 09/16 1131 Polyethylene Glycol 17 GM DAILY 09/15 1000 AC 09/16 PO 0949 Polyethylene Glycol 17 GM AT BEDTIME 09/14 2200 AC 09/16 PO 205 Pregabalin 100 MG BID 09/14 2200 AC 09/17 PO 0845 Senna/Docusate Sodium 2 TAB AT BEDTIME 09/140 AC 09/16 PO 205 Tramadol HCl 100 MG Q6P PRN 09/16 0930 AC 09/17 PO 0845 Results Last 24 Hrs of Labs/Mics: Laboratory Tests 09/15 0721 Chemistry Sodium (137 - 145 mmol/L) 138 Potassium (3.5 - 5.1 mmol/L) 5.1 Chloride (98 - 107 mmol/L) 100 Carbon Dioxide (22 - 30 mmol/L) 26 Anion Gap (5 - 16) 12 BUN (9 - 20 mg/dL) 20 Creatinine (0.7 - 1.2 mg/dL) 0.8 Estimated GFR (>60 ml/min) > 60 BUN/Creatinine Ratio (7 - 25 %) 25.0 Hematology CBC w Diff NO MAN DIFF REQ WBC (4.8 - 10.8 /CUMM) 11.9 H RBC (4.70 - 6.10 /CUMM) 3.17 L Hgb (14.0 - 18.0 G/DL) 9.1 L Hct (42 - 52 %) 27.5 L MCV (80.0 - 94.0 FL) 86.9 MCH (27.0 - 31.0 PG) 28.9 MCHC (33.0 - 37.0 G/DL) 33.3 RDW (11.5 - 14.5 %) 15.9 H Plt Count (130 - 400 /CUMM) 417 H MPV (7.4 - 10.4 FL) 9.5 Gran % (42.2 - 75.2 %) 81.7 H Lymphocytes % (20.5 - 51.1 %) 12.8 L Monocytes % (1.7 - 9.3 %) 5.4 Eosinophils % (0 - 5 %) 0 Basophils % (0.0 - 2.0 %) 0.1 Absolute Granulocytes (1.4 - 6.5 /CUMM) 9.8 H Absolute Lymphocytes (1.2 - 3.4 /CUMM) 1.5 Absolute Monocytes (0.10 - 0.60 /CUMM) 0.6 Absolute Eosinophils (0.0 - 0.7 /CUMM) 0 Absolute Basophils (0.0 - 0.2 /CUMM) 0
== END 2017-09-17 13:10 | disposition home health service (06) | DRG 239 ==
LOC: ERH 13:00 → ERHI 16:26 → 2NB 16:26 → ENRESERV 18:01 → ENTRNSPT 18:25 → EDTRNSPTSTS 19:04 → EDTRNSPT 19:04 → 2NB 19:08 → CMPTRNSPT 19:33 → 2NB 21:32 → ENTRNSPT 09-06 16:05 → EDTRNSPTSTS 09-06 16:17 → EDTRNSPT 09-06 16:17 → CMPTRNSPT 09-06 16:37 → ENTRNSPT 09-10 09:00 → EDTRNSPT 09-10 09:05 → EDTRNSPTSTS 09-10 09:05 → CMPTRNSPT 09-10 09:31 → ENTRNSPT 09-14 14:03 → EDTRNSPT 09-14 14:30 → EDTRNSPTSTS 09-14 14:30 → CMPTRNSPT 09-14 14:44 → ENPENDDIS 09-17 09:22 → ENTRNSPT 09-17 12:49 → EDTRNSPTSTS 09-17 12:59 → EDTRNSPT 09-17 12:59 → 2NB 09-17 13:10 → CMPTRNSPT 09-17 13:28
PROVIDERS: Internal Medicine; Physician Assistant; Physician Assistant Surgical; Student in an Organized Health Care Education/Training Program
PROC: 047K3DZ Dilation of Right Femoral Artery with Intraluminal Device, Percutaneous Approach (ICD-10-PCS; 2017-09-06)
PROC: 047P341 Dilation of Right Anterior Tibial Artery with Drug-eluting Intraluminal Device, using Drug-Coated Balloon, Percutaneous Approach (ICD-10-PCS; 2017-09-06)
PROC: B41D1ZZ Fluoroscopy of Aorta and Bilateral Lower Extremity Arteries using Low Osmolar Contrast (ICD-10-PCS; 2017-09-06)
PROC: 0JBQ0ZX Excision of Right Foot Subcutaneous Tissue and Fascia, Open Approach, Diagnostic (ICD-10-PCS; 2017-09-10)
PROC: 0QBL0ZX Excision of Right Tarsal, Open Approach, Diagnostic (ICD-10-PCS; 2017-09-10)
PROC: 0Y6H0Z3 Detachment at Right Lower Leg, Low, Open Approach (ICD-10-PCS; principal; 2017-09-14)
DX: E11.51 Type 2 diabetes mellitus with diabetic peripheral angiopathy without gangrene (principal); N15.1 Renal and perinephric abscess; J96.01 Acute respiratory failure with hypoxia; M86.171 Other acute osteomyelitis, right ankle and foot; E11.40 Type 2 diabetes mellitus with diabetic neuropathy, unspecified; E11.69 Type 2 diabetes mellitus with other specified complication; Z79.4 Long term (current) use of insulin; I25.2 Old myocardial infarction; I25.10 Atherosclerotic heart disease of native coronary artery without angina pectoris; Z98.61 Coronary angioplasty status; Z88.2 Allergy status to sulfonamides; Z88.8 Allergy status to other drugs, medicaments and biological substances; Z79.82 Long term (current) use of aspirin; Z79.891 Long term (current) use of opiate analgesic; E11.65 Type 2 diabetes mellitus with hyperglycemia; E11.621 Type 2 diabetes mellitus with foot ulcer; L97.514 Non-pressure chronic ulcer of other part of right foot with necrosis of bone; E78.5 Hyperlipidemia, unspecified; D64.9 Anemia, unspecified; F17.210 Nicotine dependence, cigarettes, uncomplicated; F32.9 Major depressive disorder, single episode, unspecified; F43.20 Adjustment disorder, unspecified; B95.7 Other staphylococcus as the cause of diseases classified elsewhere
CPT/HCPCS: 2NBP; 75657; 87070; 87075; 87184; 36415; 36592; 71046; 73590-RT; 82436; 87040; 87147; 87449; 87450; 88307; 93005; 93010; 96374; 96375; 97110-GO; 97116-GO; 97161-GP; 97530-GO; 99232; 99291; C1725; C1760; C2623; J0131; J0690; J0696; J1644; J1815; J1885; J1940; J2001; J2270; J2405; J2550; J3370; J3490; J7040; J7042; J7060; Q9967

== ENCOUNTER 2017-10-10 02:05 | Emergency (ER) | payer OTHER ==
[~2017-10-10] VITALS: Ht 177.8 cm; Wt 86.2 kg
[~2017-10-10 02:05] MED LIST changes: +CEFTRIAXONE2 G2 IV; +CYMBALTA30 M1 PO; +DOCUSATE SODIU100 M3 PO; +FAMOTIDINE20 M1 PO; +OXYCODONE HCL10 M2 PO; +OXYCODONE HCL5 M1 PO; +OXYCONTIN10 M1 PO; +TRAMADOL HCL50 M1 PO; +VALIUM5 M2 PO; +ZOFRAN4 M2 PO
--- NOTE | 2017-10-10 03:07 | ED UPPER/LOWER EXTREMITY COMPL ---
History of Present Illness General Chief Complaint: General Adult Stated Complaint: OUT OF PAIN MEDS Source: patient Exam Limitations: no limitations Vital Signs & Intake/Output Vital Signs & Intake/Output Vital Signs Date Time Temp Pulse Resp B/P B/P Pulse O2 O2 Flow FiO2 Mean Ox Delivery Rate 10/10 0234 96.8 91 16 127/78 99 Room Air Room Air Allergies Coded Allergies: sulfamethoxazole (From BACTRIM) (VOMITING 08/30/17) trimethoprim (From BACTRIM) (VOMITING 08/30/17) Reconcile Medications Aspirin (Aspirin*) 81 MG TAB.CHEW 1 TAB PO DAILY Heart Health Atorvastatin Calcium 80 MG TABLET 1 TAB PO 1700 HEART . Clopidogrel Bisulfate (Plavix) 75 MG TABLET 1 TAB PO DAILY Hx of DVT ( Reported) Diazepam (Valium) 5 MG TABLET 1 TAB PO BID MUSCLE SPASMS Duloxetine Hydrochloride (Cymbalta) 30 MG CAPSULE.DR 3 TAB PO DAILY mental health . Famotidine 20 MG TABLET 1 TAB PO DAILY PRN HEARTBURN . Insulin Aspart (Novolog) 100 UNIT/ML VIAL 0 SC TIDAC/HS DM . Insulin Detemir (Levemir) 100 UNIT/1 ML VIAL 24 UNITS SC DAILY Diabetes FOLLOW UP WITH DR. AREVALO. Metformin HCl 500 MG TABLET 2 TAB PO BID DIABETES (Reported) Metoprolol Succ XL (Toprol XL) 25 MG TAB 1 TAB PO DAILY HEART . Oxycodone HCl 5 MG TABLET 1 TAB PO 4XDP PAIN CONTROL (Reported) Oxycodone HCl 5 MG TABLET 1-2 TAB PO TID PRN pain sixteen...[id number] Pregabalin (Lyrica) 100 MG CAPSULE 1 CAP PO BID PAIN CONTROL (Reported) Triage Note: 51YO MALE TO TRIAGE W/CO PAIN TO R LEG--HAD BK AMPUTATION 1 MONTH AGO. STATES" HE RAN OUT OF PAIN MEDS AND IS ON WAITING LIST FOR THE PAIN CLINIC" LIST FOR PAIN CLINIC Triage Nurses Notes Reviewed? yes Onset: Gradual Duration: day(s):, waxing and waning Timing: recent history Severity: mild Pain/Injury Location: Right: Thigh. Method of Injury: s/p surgical amputation HPI: 51 yo gentleman s/p BKA with prolonged healing, chronic pain, presents with pain in right leg stump. He notes he ran out of his pain medications 3days ago, has been taking ibuprofen , without much effect. He notes no fever, chills, nausea, vomiting, diarrhea. His VNA changed the dressing of his surgical wound earlier without problem. He is otherwise well. Past History Travel History Traveled to [place] past 21 day No Medical History Any Pertinent Medical History? see below for history Neurological: NONE EENT: NONE Cardiovascular: CAD (status post stents), myocardial infarction, PVD Respiratory: NONE Gastrointestinal: NONE Hepatic: NONE Renal: RENAL ABSCESS PYELONEPRHTIS Musculoskeletal: osteoarthritis, CARPAL TUNNEL L SIDE RIB FX rotator cuff injury Psychiatric: NONE Endocrine: diabetes Blood Disorders: NONE Cancer(s): NONE History of MRSA: Yes History of VRE: No History of CDIFF: No Surgical History Surgical History: rotator cuff surgery with acromioplasty and glenohumeral joint debridement on the left status post balloon angioplasty of the left leg s/p amputation of the 4th and 5th toes Psychosocial History Who do you live with Spouse Services at Home Nursing What is your primary language Sami Tobacco Use: Current Daily Use Daily Tobacco Use Amount/Type: => 5 Cigarettes daily Family History Family History, If Any: MOTHER Heart attack Hx Contributory? No Review of Systems Review of Systems Constitutional: Reports: no symptoms. EENTM: Reports: no symptoms. Respiratory: Reports: no symptoms. Cardiovascular: Reports: no symptoms. Gastrointestinal/Abdominal: Reports: no symptoms. Genitourinary: Reports: no symptoms. Musculoskeletal: Reports: no symptoms. Skin: Reports: no symptoms. Neurological/Psychological: Reports: no symptoms. Hematologic/Endocrine: Reports: no symptoms. Immunological: Reports: no symptoms. All Other Systems: Reviewed and Negative Physical Exam Physical Exam General Appearance: well developed/nourished, mild distress Head: atraumatic Neck: normal inspection, supple, full range of motion Back: normal inspection Leg Right: bka stump with mild oozing blood without focal tenderness or sign of infection. Progress Differential Diagnosis: post-op pain vs other. Plan of Care: Current Medications Sig/Marty Start time Last Medication Dose Stop Time Status Admin Morphine Sulfate 6 MG ONCE ONE 10/10 314 AC (MORPHINE SULFATE) 10/11 315 Departure Departure Disposition: HOME OR SELF CARE Condition: Stable Clinical Impression Primary Impression: Chronic pain Secondary Impressions: Post-op pain Referrals: Joni SIMONS,Elijah Rodriguez (PCP/Family) Departure Forms: Customer Survey General Discharge Information Prescriptions: Current Visit Scripts Oxycodone HCl 1-2 TAB PO TID PRN pain #16 TAB sixteen...[id number] Comments dressing change per RN, pt given supportive medications, close follow up advised... pt has appt with pain management.
[2017-10-10] MEDS ORDERED: OXYCODONE HCL5 M1 PO (03:08)
[2017-10-10 03:37] VITALS: BP 136/74
== END 2017-10-10 03:50 ==
LOC: ERH 02:05
DX: G89.29 Other chronic pain (principal); G89.18 Other acute postprocedural pain
CPT/HCPCS: 96374

== ENCOUNTER 2017-11-02 01:15 | Inpatient (IN) | payer OTHER ==
[~2017-11-02] VITALS: Ht 177.8 cm; Wt 78.9 kg
--- NOTE | 2017-11-02 12:16 | Operative Report ---
Operative/Inv Procedure Report Surgery Date: 11/02/17 Name of Procedure: Revision of right BKA, excisional debridement through muscle, washout and VAC ( vacum assisted closure) Pre-Operative Diagnosis: Necrosis of right BKA site with possible infection Post-Operative Diagnosis: Same Estimated Blood Loss: less than 50ml Surgeon/Label Rewinder: Nicko Jimenez MD Anesthesia: local monitored anesthesi Complications: None Condition: Stable to PACU Operative Indication: 52-year-old male with a history of peripheral arterial disease, smoking and below-knee amputation approximately 3+ weeks ago. This past week and a half he' s noted increasing drainage and periwound erythema. He was started on by mouth antibiotics but necrosis has been noted at the wound site. Decision was made to proceed with debridement, tissue culture and admission due to progression of his wound with cellulitis and necrosis. A tissue culture was sent prior to administration of antibiotics. Operative/Procedure Note Note: Patient is brought to the operating room and laid supine on the table. After adequate anesthesia, IV lines, was held in accordance with [facility] policy. The right below-knee necrotic amputation site was prepped with Betadine gel prep. Approximately 15 mL of lidocaine were infiltrated into the wound. The necrosis around the wound site was excised with Metzenbaum scissors and a curette. All nonviable tissue was excised and passed off the field. A tissue culture was sent prior to administration of antibiotics. Approximately several centimeters of necrotic tissue was excised. The wound dimensions increased in depth by 0.5 mm. No active purulence was noted although there is periwound erythema consistent with mild cellulitis. The wound was then pulse irrigated with 1.5 L of saline. Hemostasis was achieved with Bovie electrocautery and Tran compression. A wound VAC was then applied to the wound with a gauze bridge to protect the intervening skin. The patient tolerated the procedure well. He will be admitted due to the necrosis in the wound and the need for IV antibiotics. Findings: See above
[2017-11-02 15:15] VITALS: BP 110/70
--- NOTE | 2017-11-02 15:18 | Admission Core Measures ---
Acute Coronary Syndrome (CM) ACS Core Measures Acute Coronary Syndrome Diagnosis No Congestive Heart Failure (NEW) CHF Core Measures Congestive Heart Failure Diagnosis No Cerebrovascular Accident (NEW) CVA Core Measures CVA/TIA Diagnosis No Venous Thromboembolism VTE Core Kelly (View Protocol) VTE Risk Factors Surgery No Mechanical VTE Prophylaxis d/t N/A MechProphylax Ordered No VTE Pharm Prophylaxis d/t NA PharmProphylax ordered Problem List As ranked by this Provider includes Assessment & Plan 1. Necrosis of surgical wound HOME MEDS Home Med List Atorvastatin Calcium 80 MG TABLET 1 TAB PO 1700 HEART Clopidogrel Bisulfate (Plavix) 75 MG TABLET 1 TAB PO DAILY Hx of DVT ( Reported) Duloxetine Hydrochloride (Cymbalta) 30 MG CAPSULE.DR 3 TAB PO DAILY mental health Famotidine 20 MG TABLET 1 TAB PO DAILY PRN HEARTBURN Insulin Aspart (Novolog) 100 UNIT/ML VIAL 0 SC TIDAC/HS DM Insulin Detemir (Levemir) 100 UNIT/1 ML VIAL 24 UNITS SC DAILY Diabetes Metoprolol Succ XL (Toprol XL) 25 MG TAB 1 TAB PO DAILY HEART Oxycodone HCl 5 MG TABLET 1 TAB PO 4XDP PAIN CONTROL (Reported) Oxycodone HCl 5 MG TABLET 1-2 TAB PO TID PRN pain Pregabalin (Lyrica) 100 MG CAPSULE 1 CAP PO BID PAIN CONTROL (Reported)
--- NOTE | 2017-11-02 15:22 | PN- General Surgery ---
Subjective Subjective: poc s/p debridement of left bka stump(bka 7 weks ago) resting comfortably deneis cp, sob, no n+v with liquid wound vac in place left stump appreciate endocrine consult Objective Vital Signs and I&Os Vital Signs Date Time Temp Pulse Resp B/P B/P Pulse O2 O2 Flow FiO2 Mean Ox Delivery Rate 11/02 1515 98.5 68 18 110/70 98 Intake & Output 11/02 1600 11/02 0811/02 0000 11/01 1600 11/01 0811/01 0000 Intake Total Output Total Balance Patient 190 lb Weight Weight Bed scale Measurement Method Physical Exam: cv: rrr lungs; clear abd: soft, +bs ext: left stump drsg dry wound vac in place nad functioning vac with minimal drainage Assessment/Plan Assessment/Plan vascular stable plan iv abx - pending OR wound cx hep sq ok resume plavix oob in am with pt to chair Core Measures Venous Thromboembolism VTE Risk Factors Surgery No Mechanical VTE Prophylaxis d/t N/A MechProphylax Ordered No VTE Pharm Prophylaxis d/t NA PharmProphylax ordered
--- NOTE | 2017-11-02 15:50 | Cons- Endocrinology ---
General Information and HPI Consulting Request Date of Consult: 11/02/17 Requested By: surgical team Reason for Consult: management of diabetes type 2. 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 He was admitted for necrosis of right BKA site. Patient underwent the revision of right BKA, excisional debridement , washout and VAC placement. He is in PACU and his repeat FSG was 156. At home, he was on Levemir 24 units daily at bedtime, Novolog coverage before meals according to the scale ( FSG 80-150, 4 units; FSG 151-200, 6 units; etc) His repeat HbA1c was 7.1% in 10/2017. Allergies/Medications Allergies: Coded Allergies: sulfamethoxazole (From BACTRIM) (VOMITING 08/30/17) trimethoprim (From BACTRIM) (VOMITING 08/30/17) Home Med List: Atorvastatin Calcium 80 MG TABLET 1 TAB PO 1700 HEART . Clopidogrel Bisulfate (Plavix) 75 MG TABLET 1 TAB PO DAILY Hx of DVT ( Reported) Duloxetine Hydrochloride (Cymbalta) 30 MG CAPSULE. 3 TAB PO DAILY mental health . Famotidine 20 MG TABLET 1 TAB PO DAILY PRN HEARTBURN . Insulin Aspart (Novolog) 100 UNIT/ML VIAL 0 SC TIDAC/HS DM . Insulin Detemir (Levemir) 100 UNIT/1 ML VIAL 24 UNITS SC DAILY Diabetes FOLLOW UP WITH DR. AREVALO. Metoprolol Succ XL (Toprol XL) 25 MG TAB 1 TAB PO DAILY HEART . Oxycodone HCl 5 MG TABLET 1 TAB PO 4XDP PAIN CONTROL (Reported) Oxycodone HCl 5 MG TABLET 1-2 TAB PO TID PRN pain sixteen...[id number] Pregabalin (Lyrica) 100 MG CAPSULE 1 CAP PO BID PAIN CONTROL (Reported) Review of Systems Review of Systems Constitutional: Reports: see HPI. Cardiovascular: Denies: chest pain. Respiratory: Denies: short of breath. GI: Denies: abdominal pain. Musculoskeletal: Reports: see HPI. Hematologic/Endocrine: Denies: polyuria, polydipsia. Past History Medical History Blood Transfusion Hx: No Neurological: NONE EENT: NONE Cardiovascular: CAD (status post stents), myocardial infarction, PVD Respiratory: NONE Gastrointestinal: NONE Hepatic: NONE Renal: RENAL ABSCESS PYELONEPRHTIS Musculoskeletal: osteoarthritis, CARPAL TUNNEL L SIDE RIB FX rotator cuff injury Psychiatric: NONE Endocrine: diabetes Blood Disorders: NONE Cancer(s): NONE Surgical History Surgical History: rotator cuff surgery with acromioplasty and glenohumeral joint debridement on the left status post balloon angioplasty of the left leg s/p amputation of the 4th and 5th toes Family History Relations & Conditions If Any: MOTHER Heart attack Psychosocial History Where Do You Live? Home Services at Home: Nursing Smoking Status: Current Everyday Smoker Functional Ability ADLs Independent: dressing, eating, toileting, bathing. Ambulation: independent IADLs Independent: shopping, housework, finances, food prep, telephone, transportation , medication admin. Exam & Diagnostic Data Last 24 Hrs of Vital Signs/I&O Vital Signs Date Time Temp Pulse Resp B/P B/P Pulse O2 O2 Flow FiO2 Mean Ox Delivery Rate 11/02 1515 98.5 68 18 110/70 98 Intake & Output 11/02 1600 11/02 0800 11/02 0000 Intake Total Output Total Balance Patient 190 lb Weight Weight Bed scale Measurement Method Physical Exam General Appearance: no apparent distress Neck: normal inspection Respiratory: lungs clear Cardiovascular: regular rate/rhythm Gastrointestinal: soft, non-tender Extremities: s/p right BKA Assessment/Plan Assessment/Plan Patient is a 52-year-old male with past medical history significant for uncontrolled diabetes type 2, history of diabetic neuropathy, CAD status post [place] s/p stents placement, history of renal abscess complicated by MSSA bacteremia ( 2016), 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 He was admitted for necrosis of right BKA site. Patient underwent the revision of right BKA, excisional debridement , washout and VAC placement. DM management: 1. Levemir 24 units daily at bedtime; 2. Novolog coverage before meals and Novolog coverage at bedtime; detail see the inpatient DM orders; 3. monitor FSGs. will follow. Inpatient Diabetes Orders Before Each Meal: Bolus Insulin: Novolog < 80 mg/dl: no coverage 80-100 mg/dl: 3 units 101-120 mg/dl: 3 units 121-150 mg/dl: 3 units 151-200 mg/dl: 5 units 201-250 mg/dl: 7 units 251-300 mg/dl: 9 units 301-350 mg/dl: 11 units 351-400 mg/dl: 13 units > 400 mg/dl: 15 units Bedtime: Bolus Insulin: Novolog < 80 mg/dl: no coverage 80-100 mg/dl: no coverage 101-120 mg/dl: no coverage 121-150 mg/dl: no coverage 151-200 mg/dl: no coverage 201-250 mg/dl: no coverage 251-300 mg/dl: 2 units 301-350 mg/dl: 3 units 351-400 mg/dl: 4 units > 400 mg/dl: 5 units Consult Acknowledgment - Thank you for your consult request.
[2017-11-02 18:18] VITALS: BP 134/80
[2017-11-02 20:30] VITALS: BP 110/70
[2017-11-02 22:00] VITALS: BP 114/68
[2017-11-03 02:11] VITALS: BP 118/70
[2017-11-03 06:32] VITALS: BP 126/70
--- NOTE | 2017-11-03 06:55 | PN- Vascular Surgery ---
Subjective Subjective: POD#1 S/P RIGHT BKA STUMP DEBRIDEMENT W/VAC PLACEMENT NO MAJOR ISSUES OVERNGHT SOME THROBBING RIGHT STUMP PAIN CONTROLLED WITH PO PAIN MEDS DENIES CP, SOB, NO N+V WITH DIET APPRECIATE ENDOCRINE CONSULT/ORDERS Objective Vital Signs and I&Os Vital Signs Date Time Temp Pulse Resp B/P B/P Pulse O2 O2 Flow FiO2 Mean Ox Delivery Rate 11/03 0632 98.3 68 20 126/70 96 Room Air 11/03 0211 97.9 68 20 118/70 96 Room Air 11/03 0000 Room Air 11/02 2200 98.3 62 20 114/68 96 Room Air 11/02 2030 98.7 67 20 110/70 97 Room Air 11/02 1818 98.2 86 20 134/80 96 Room Air 11/02 1515 98.5 68 18 110/70 98 Intake & Output 11/03 0800 11/03 0000 11/02 1600 11/02 0800 11/02 0000 11/01 1600 Intake Total 150 Output Total 360 1250 Balance -360 -1100 Intake, IV 150 Output, 0 Drainage Output, Urine 360 1250 Patient 174 lb 190 lb Weight Weight Bed scale Measurement Method Physical Exam: CV: RRR LUNGS: CLEAR ABD: SOFT, +BS EXT: RIGHT STUMP DRSG DRY MINIMAL DRAINAGE IN WOUND VAC LEFT DISTAL CMS INTACT Assessment/Plan Assessment/Plan VASCUALR STABLE PLAN OOB TO CHAIR WITH PT DRSG/VAC CHANGE PER DR PEDERSEN WILL DISCUSS WITH ATTENDING Core Measures Venous Thromboembolism VTE Risk Factors Surgery No Mechanical VTE Prophylaxis d/t N/A MechProphylax Ordered No VTE Pharm Prophylaxis d/t NA PharmProphylax ordered
[2017-11-03 11:54] VITALS: BP 110/80
[2017-11-03 13:46] VITALS: BP 102/60
--- NOTE | 2017-11-03 14:01 | PN- Diabetes ---
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 He was admitted for necrosis of right BKA site. Patient underwent the revision of right BKA, excisional debridement , washout and VAC placement. He was put on Levemir 24 units daily at bedtime, Novolog coverage before meals and Novolog coverage at bedtime; Before Each Meal: Bolus Insulin: Novolog < 80 mg/dl: no coverage 80-100 mg/dl: 3 units 101-120 mg/dl: 3 units 121-150 mg/dl: 3 units 151-200 mg/dl: 5 units 201-250 mg/dl: 7 units 251-300 mg/dl: 9 units 301-350 mg/dl: 11 units 351-400 mg/dl: 13 units > 400 mg/dl: 15 units Bedtime: Bolus Insulin: Novolog < 80 mg/dl: no coverage 80-100 mg/dl: no coverage 101-120 mg/dl: no coverage 121-150 mg/dl: no coverage 151-200 mg/dl: no coverage 201-250 mg/dl: no coverage 251-300 mg/dl: 2 units 301-350 mg/dl: 3 units 351-400 mg/dl: 4 units > 400 mg/dl: 5 units His FSGs were 106, 179, 111 and 166. Plan: continue the current insulin regimen for now. monitor FSGs. will follow. Subjective Subjective: He feels okay. Objective Last 24 Hrs of Vital Signs/I&O Vital Signs Date Time Temp Pulse Resp B/P B/P Pulse O2 O2 Flow FiO2 Mean Ox Delivery Rate 11/03 1346 98.2 64 18 102/60 97 11/03 1154 98.1 66 18 110/80 96 11/03 0909 68 126/70 11/03 0632 98.3 68 20 126/70 96 Room Air 11/03 0211 97.9 68 20 118/70 96 Room Air 11/03 0000 Room Air 11/02 2200 98.3 62 20 114/68 96 Room Air 11/02 2030 98.7 67 20 110/70 97 Room Air 11/02 1818 98.2 86 20 134/80 96 Room Air 11/02 1515 98.5 68 18 110/70 98 Intake & Output 11/03 1600 11/03 0800 11/03 0000 Intake Total 500 300 150 Output Total 384 648 5977 Balance 200 -535 -1100 Intake, IV 300 150 Intake, Oral 500 Number 0 Bowel Movements Output, 0 Drainage Output, Urine [phone] Patient 174 lb Weight
[2017-11-03 21:59] VITALS: BP 122/76
[2017-11-04 07:00] VITALS: BP 130/70
--- NOTE | 2017-11-04 08:37 | PN- Diabetes ---
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 He was admitted for necrosis of right BKA site. Patient underwent the revision of right BKA, excisional debridement , washout and VAC placement. He was put on Levemir 24 units daily at bedtime, Novolog coverage before meals and Novolog coverage at bedtime. His FSGs were 111, 166, 142 and 147. Plan: continue the current insulin regimen. monitor FSGs. will follow. Subjective Subjective: He feels okay. Objective Last 24 Hrs of Vital Signs/I&O Vital Signs Date Time Temp Pulse Resp B/P B/P Pulse O2 O2 Flow FiO2 Mean Ox Delivery Rate 11/04 0700 98.4 71 18 130/70 97 Room Air 11/03 2159 98.3 73 18 122/76 97 11/03 1346 98.2 64 18 102/60 97 11/03 1154 98.1 66 18 110/80 96 11/03 0909 68 126/70 Intake & Output 11/04 1600 11/04 0800 11/04 0000 Intake Total 120 200 Output Total 375 Balance 120 -175 Intake, Oral 120 200 Output, Urine 375
--- NOTE | 2017-11-04 09:46 | PN- General Surgery ---
Subjective Subjective: Pt. feels well. He wants to go home. No issues over night Objective Vital Signs and I&Os Vital Signs Date Time Temp Pulse Resp B/P B/P Pulse O2 O2 Flow FiO2 Mean Ox Delivery Rate 11/04 0852 98.4 71 18 130/70 11/04 0700 98.4 71 18 130/70 97 Room Air 11/03 2159 98.3 73 18 122/76 97 11/03 1346 98.2 64 18 102/60 97 11/03 1154 98.1 66 18 110/80 96 Intake & Output 11/04 1600 11/04 0800 11/04 0000 11/03 1600 11/03 0800 11/03 0000 Intake Total 822 257 0084 300 150 Output Total 375 9121 588 9121 Balance 120 -175 600 -535 -1100 Intake, IV 400 300 150 Intake, Oral [phone] Number 0 Bowel Movements Output, 0 Drainage Output, Urine 375 4603 396 7324 Patient 174 lb Weight Alert, oriented, looks comfortable. Heart regular Lungs clear Abdomen benign R BKA vac. in place/with dressing on is intact, dry, good motion at knee level. Assessment/Plan Assessment/Plan s/p R BKA revision POD#2 Stable. Pain controlled with Oxycodone Cx with staph, preliminary. On IV Unasyn Will discuss with surgeon in regards of wound vac change schedule BS stable Will discuss with surgeon timing of re-initiation of Plavix. Will check CBC for today. I anticipate d/c home with vac. within 24 hrs Core Measures Venous Thromboembolism VTE Risk Factors Surgery No Mechanical VTE Prophylaxis d/t N/A MechProphylax Ordered No VTE Pharm Prophylaxis d/t NA PharmProphylax ordered
[2017-11-04 11:40] LABS: ABSOLUTE BASOPHIL COUNT 0 /CUMM (0.0-0.2); ABSOLUTE EOSINOPHIL COUNT 0.1 /CUMM (0.0-0.7); ABSOLUTE GRANULOCYTE CT 6.7 /CUMM (1.4-6.5); ABSOLUTE LYMPH COUNT 1.6 /CUMM (1.2-3.4); ABSOLUTE MONOCYTE COUNT 0.3 /CUMM (0.10-0.60); BASOPHIL % 0.3 % (0.0-2.0); EOSINOPHIL % 1.2 % (0-5); GRANULOCYTE % 76.6 % (42.2-75.2); MEAN CORPUSCULAR HGB 28.6 PG (27.0-31.0); MEAN CORPUSCULAR HGB CONC 32.9 G/DL (33.0-37.0); MEAN CORPUSCULAR VOLUME 86.9 FL (80.0-94.0); MEAN PLATELET VOLUME 9.7 FL (7.4-10.4); PLATELET COUNT 281 /CUMM (130-400); RBC DISTRIBUTION WIDTH 16.8 % (11.5-14.5); RED BLOOD CELL CT 4.37 /CUMM (4.70-6.10); WHITE BLOOD CELL COUNT 8.8 /CUMM (4.8-10.8)
[2017-11-04 14:32] VITALS: BP 114/60
--- NOTE | 2017-11-04 15:09 | Cons- Infect Disease ---
General Information and HPI Consulting Request Date of Consult: 11/04/17 Requested By: Nicko Jimenez MD Reason for Consult: Surgical site infection status post right BKA Source of Information: patient, family, old records History of Present Illness: This is a 52-year-old male with a history of coronary artery disease, status post stents, diabetes, peripheral vascular disease, status post right BKA 2 months prior to admission for a nonhealing wound of the right foot despite several courses of antibiotics and hyperbaric oxygen, with his postop course complicated by constant pain, serosanguineous drainage upon removal of the sutures, and necrosis of the skin, treated with Augmentin over the past 3 weeks, admitted on November 02 for revision of the right BKA, with excisional debridement through the muscle, and placement of a wound VAC, with Cefazolin prophylaxis. He has been afebrile since admission. The OR culture, labeled deep tissue from the right BKA site, was reported positive today for MRSA and diphtheroids. He continues to complain of pain and is currently receiving morphine. He offers no other complaints at this time. Allergies/Medications Allergies: Coded Allergies: sulfamethoxazole (From BACTRIM) (VOMITING 08/30/17) trimethoprim (From BACTRIM) (VOMITING 08/30/17) Home Med List: Atorvastatin Calcium 80 MG TABLET 1 TAB PO 1700 HEART . Clopidogrel Bisulfate (Plavix) 75 MG TABLET 1 TAB PO DAILY Hx of DVT ( Reported) Duloxetine Hydrochloride (Cymbalta) 30 MG CAPSULE.DR 3 TAB PO DAILY mental health . Famotidine 20 MG TABLET 1 TAB PO DAILY PRN HEARTBURN . Insulin Aspart (Novolog) 100 UNIT/ML VIAL 0 SC TIDAC/HS DM . Insulin Detemir (Levemir) 100 UNIT/1 ML VIAL 24 UNITS SC DAILY Diabetes FOLLOW UP WITH DR. AREVALO. Metoprolol Succ XL (Toprol XL) 25 MG TAB 1 TAB PO DAILY HEART . Oxycodone HCl 5 MG TABLET 1 TAB PO 4XDP PAIN CONTROL (Reported) Oxycodone HCl 5 MG TABLET 1-2 TAB PO TID PRN pain sixteen...[id number] Pregabalin (Lyrica) 100 MG CAPSULE 1 CAP PO BID PAIN CONTROL (Reported) Past History Medical History Blood Transfusion Hx: No Neurological: NONE EENT: NONE Cardiovascular: CAD (status post stents), myocardial infarction, PVD Respiratory: NONE Gastrointestinal: NONE Hepatic: NONE Renal: RENAL ABSCESS PYELONEPRHTIS Musculoskeletal: osteoarthritis, CARPAL TUNNEL L SIDE RIB FX rotator cuff injury Psychiatric: NONE Endocrine: diabetes Blood Disorders: NONE Cancer(s): NONE History of MRSA: Yes History of VRE: No History of CDIFF: No Isolation History: Contact Surgical History Surgical History: rotator cuff surgery with acromioplasty and glenohumeral joint debridement on the left status post balloon angioplasty of the left leg, s/p right BKA 09/14/17 Family History Relations & Conditions If Any: MOTHER Heart attack Psychosocial History Where Do You Live? Home Services at Home: Nursing Smoking Status: Current Everyday Smoker Functional Ability ADLs Independent: dressing, eating, toileting, bathing. Ambulation: independent IADLs Independent: shopping, housework, finances, food prep, telephone, transportation , medication admin. Review of Systems Review of Systems All Other Systems: Reviewed and Negative Exam & Diagnostic Data Last 24 Hrs of Vital Signs/I&O Vital Signs Date Time Temp Pulse Resp B/P B/P Pulse O2 O2 Flow FiO2 Mean Ox Delivery Rate 11/04 1432 97.5 69 18 114/60 96 Room Air 11/04 0852 98.4 71 18 130/70 11/04 0700 98.4 71 18 130/70 97 Room Air 11/03 2159 98.3 73 18 122/76 97 Intake & Output 11/04 1600 11/04 0800 11/04 0000 Intake Total 120 200 Output Total 600 375 Balance -600 120 -175 Intake, Oral 120 200 Output, Urine 600 375 Physical Exam Other Physical Findings: He is awake and alert in no acute distress. He is afebrile. Skin reveals no rash. HEENT exam is negative. Neck is supple with no adenopathy. Lungs are clear. Heart regular rhythm with no murmur. Abdomen is soft, nontender with positive bowel sounds. Back no CVA tenderness. Extremities right BKA dressing intact, with wound VAC in place. Neuro is without focality. Last 24 Hours of Lab Results: Laboratory Tests 11/04 1045 Hematology CBC w Diff NO MAN DIFF REQ WBC (4.8 - 10.8 /CUMM) 8.8 RBC (4.70 - 6.10 /CUMM) 4.37 L Hgb (14.0 - 18.0 G/DL) 12.5 L Hct (42 - 52 %) 38.0 L MCV (80.0 - 94.0 FL) 86.9 MCH (27.0 - 31.0 PG) 28.6 MCHC (33.0 - 37.0 G/DL) 32.9 L RDW (11.5 - 14.5 %) 16.8 H Plt Count (130 - 400 /CUMM) 281 MPV (7.4 - 10.4 FL) 9.7 Gran % (42.2 - 75.2 %) 76.6 H Lymphocytes % (20.5 - 51.1 %) 18.1 L Monocytes % (1.7 - 9.3 %) 3.8 Eosinophils % (0 - 5 %) 1.2 Basophils % (0.0 - 2.0 %) 0.3 Absolute Granulocytes (1.4 - 6.5 /CUMM) 6.7 H Absolute Lymphocytes (1.2 - 3.4 /CUMM) 1.6 Absolute Monocytes (0.10 - 0.60 /CUMM) 0.3 Absolute Eosinophils (0.0 - 0.7 /CUMM) 0.1 Absolute Basophils (0.0 - 0.2 /CUMM) 0 Last 24 Hours of Jose A Results: OR culture November 02 labeled deep tissue right BKA site positive for MRSA sensitive to Tetracycline, Bactrim and Vancomycin and diphtheroids Assessment/Plan Assessment/Plan Impression: This is a 52-year-old male with a history of diabetes, peripheral vascular disease, status post right BKA 2 months prior to admission for a nonhealing wound of the right foot, with his postop course complicated by constant pain, serosanguineous drainage upon removal of the sutures, and necrosis of the skin, treated with Augmentin over the past 3 weeks, admitted on November 02 for revision of the right BKA, with excisional debridement through the muscle. His clinical picture is consistent with a surgical site infection secondary to the right BKA, which was done 7 weeks prior to admission. The extent of this infection is not clear and, though the debridement was only through the muscle, the possibility of underlying osteomyelitis must be considered. This would have implications with regard to the route and duration of antibiotics; therefore further evaluation for this would be helpful. An MRI may be difficult to interpret given his recent surgery, but a plain x-ray will likely be negative. Suggestion: 1. MRI of the right leg 2. Would continue to follow off antibiotics pending above Consult Acknowledgment - Thank you for your consult request.
[2017-11-04 21:38] VITALS: BP 132/72
[2017-11-05 06:00] VITALS: BP 122/64
[2017-11-05 08:11] VITALS: BP 122/64
[2017-11-05 11:11] LABS: ABSOLUTE BASOPHIL COUNT 0 /CUMM (0.0-0.2); ABSOLUTE EOSINOPHIL COUNT 0.2 /CUMM (0.0-0.7); ABSOLUTE GRANULOCYTE CT 6.5 /CUMM (1.4-6.5); ABSOLUTE LYMPH COUNT 1.5 /CUMM (1.2-3.4); ABSOLUTE MONOCYTE COUNT 0.5 /CUMM (0.10-0.60); BASOPHIL % 0.4 % (0.0-2.0); EOSINOPHIL % 1.8 % (0-5); GRANULOCYTE % 75.5 % (42.2-75.2); MEAN CORPUSCULAR HGB 28.8 PG (27.0-31.0); MEAN CORPUSCULAR HGB CONC 33.2 G/DL (33.0-37.0); MEAN CORPUSCULAR VOLUME 86.6 FL (80.0-94.0); MEAN PLATELET VOLUME 9.8 FL (7.4-10.4); PLATELET COUNT 258 /CUMM (130-400); RBC DISTRIBUTION WIDTH 16.5 % (11.5-14.5); RED BLOOD CELL CT 4.04 /CUMM (4.70-6.10); WHITE BLOOD CELL COUNT 8.7 /CUMM (4.8-10.8)
--- NOTE | 2017-11-05 11:21 | Patient Discharge Instructions ---
Discharge Instructions General Discharge Information You were seen/treated for: wound ischemia, s/p right bka 7 weeks ago You had these procedures: wound debridement and application of wound vac Watch for these problems: purulent wound drainage, increased redness around wound, temp>101.5 Other wound care: tamara vac changes by vna Diet Continue normal diet: Yes Recommended Diet: Diabetic Activity Other activity limits: keep right leg elevated on pillows Acute Coronary Syndrome Inclusion Criteria At DC or during hospital stay patient has or had the following: ACS DIAGNOSIS No Discharge Core Measures Meds if any: Prescribed or Continued at Discharge Meds if any: NOT Prescribed or Continued at Discharge Congestive Heart Failure Inclusion Criteria At DC or during hospital stay patient has or had the following: CHF DIAGNOSIS No Discharge Core Measures Meds if any: Prescribed or Continued at Discharge Meds if any: NOT Prescribed or Continued at Discharge Cerebrovascular accident Inclusion Criteria At DC or during hospital stay patient has or had the following: CVA/TIA Diagnosis No Discharge Core Measures Meds if any: Prescribed or Continued at Discharge Meds if any: NOT Prescribed or Continued at Discharge Venous thromboembolism Inclusion Criteria VTE Diagnosis No VTE Type NONE VTE Confirmed by (Test) NONE Discharge Core Measures - Per Current guidelines, there needs to be overlap - treatment for the first 5 days of Warfarin therapy. - If discharged on Warfarin prior to 5 days of - overlap therapy, the patient will need to be - assessed for post discharge needs including - *Post discharge parental anticoagulation - *Warfarin and/or parental anticoagulation education - *Follow up date to check INR post discharge At least 5 days overlap therapy as Inpatient No Meds if any: Prescribed or Continued at Discharge Note: Overlap Therapy is Warfarin and Anticoagulant Meds if any: NOT Prescribed or Continued at Discharge
[2017-11-05] MEDS ORDERED: OXYCODONE HCL5 M1 PO (11:24)
--- NOTE | 2017-11-05 11:32 | PN- Infect Dx ---
Subjective Subjective: Afebrile. He feels well with pain under control Objective Last 24 Hrs of Vital Signs/I&O Vital Signs Date Time Temp Pulse Resp B/P B/P Pulse O2 O2 Flow FiO2 Mean Ox Delivery Rate 11/05 0811 97.5 64 16 122/64 11/05 0600 97.5 64 16 122/64 97 Room Air 11/04 2138 98.2 68 16 132/72 97 Room Air 11/04 1432 97.5 69 18 114/60 96 Room Air Intake & Output 11/05 1600 11/05 0800 11/05 0000 Intake Total 430 280 Output Total 1100 400 Balance -1100 30 280 Intake, IV 250 100 Intake, Oral 180 180 Output, Urine 1100 400 Patient 174 lb Weight Physical Exam Other Physical Findings: He appears comfortable in no acute distress Extremities right leg dressing intact, with wound VAC in place Results Last 24 Hours of Lab Results: Laboratory Tests 11/05 1010 Chemistry Sodium (137 - 145 mmol/L) 137 Potassium (3.5 - 5.1 mmol/L) 5.0 Chloride (98 - 107 mmol/L) 101 Carbon Dioxide (22 - 30 mmol/L) 26 Anion Gap (5 - 16) 11 BUN (9 - 20 mg/dL) 21 H Creatinine (0.7 - 1.2 mg/dL) 0.8 Estimated GFR (>60 ml/min) > 60 BUN/Creatinine Ratio (7 - 25 %) 26.3 H Hematology CBC w Diff NO MAN DIFF REQ WBC (4.8 - 10.8 /CUMM) 8.7 RBC (4.70 - 6.10 /CUMM) 4.04 L Hgb (14.0 - 18.0 G/DL) 11.6 L Hct (42 - 52 %) 35.0 L MCV (80.0 - 94.0 FL) 86.6 MCH (27.0 - 31.0 PG) 28.8 MCHC (33.0 - 37.0 G/DL) 33.2 RDW (11.5 - 14.5 %) 16.5 H Plt Count (130 - 400 /CUMM) 258 MPV (7.4 - 10.4 FL) 9.8 Gran % (42.2 - 75.2 %) 75.5 H Lymphocytes % (20.5 - 51.1 %) 17.1 L Monocytes % (1.7 - 9.3 %) 5.2 Eosinophils % (0 - 5 %) 1.8 Basophils % (0.0 - 2.0 %) 0.4 Absolute Granulocytes (1.4 - 6.5 /CUMM) 6.5 Absolute Lymphocytes (1.2 - 3.4 /CUMM) 1.5 Absolute Monocytes (0.10 - 0.60 /CUMM) 0.5 Absolute Eosinophils (0.0 - 0.7 /CUMM) 0.2 Absolute Basophils (0.0 - 0.2 /CUMM) 0 Last 24 Hours of Jose A Results: No new cultures Assessment/Plan ID Impression: Stable, with temperatures and white blood cell count normal, on Vancomycin, begun yesterday for a presumed soft tissue infection of the right BKA stump, status post excisional debridement through the muscle 3 days ago, with his OR culture positive for MRSA and diphtheroids. Though osteomyelitis remains a concern, further imaging, for example with MRI, was not pursued as it was felt that it might be difficult to interpret in view of his recent surgery. The diphtheroids likely represents a contaminant and, therefore, should not require treatment. Suggestion: 1. Discontinue Vancomycin upon discharge and begin Doxycycline 100 mg p.o. every 12 hours for 1 week
--- NOTE | 2017-11-05 11:57 | PN- Diabetes ---
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 He was admitted for necrosis of right BKA site. Patient underwent the revision of right BKA, excisional debridement , washout and VAC placement. He was put on Levemir 24 units daily at bedtime, Novolog coverage before meals and Novolog coverage at bedtime. His FSGs were 137, 156, 150, 166 and 169. Plan: continue the current insulin regimen for now; monitor FSGs. will follow. Subjective Subjective: He feels okay. Objective Last 24 Hrs of Vital Signs/I&O Laboratory Tests 11/05 1010 Chemistry Sodium (137 - 145 mmol/L) 137 Potassium (3.5 - 5.1 mmol/L) 5.0 Chloride (98 - 107 mmol/L) 101 Carbon Dioxide (22 - 30 mmol/L) 26 Anion Gap (5 - 16) 11 BUN (9 - 20 mg/dL) 21 H Creatinine (0.7 - 1.2 mg/dL) 0.8 Estimated GFR (>60 ml/min) > 60 BUN/Creatinine Ratio (7 - 25 %) 26.3 H Hematology CBC w Diff NO MAN DIFF REQ WBC (4.8 - 10.8 /CUMM) 8.7 RBC (4.70 - 6.10 /CUMM) 4.04 L Hgb (14.0 - 18.0 G/DL) 11.6 L Hct (42 - 52 %) 35.0 L MCV (80.0 - 94.0 FL) 86.6 MCH (27.0 - 31.0 PG) 28.8 MCHC (33.0 - 37.0 G/DL) 33.2 RDW (11.5 - 14.5 %) 16.5 H Plt Count (130 - 400 /CUMM) 258 MPV (7.4 - 10.4 FL) 9.8 Gran % (42.2 - 75.2 %) 75.5 H Lymphocytes % (20.5 - 51.1 %) 17.1 L Monocytes % (1.7 - 9.3 %) 5.2 Eosinophils % (0 - 5 %) 1.8 Basophils % (0.0 - 2.0 %) 0.4 Absolute Granulocytes (1.4 - 6.5 /CUMM) 6.5 Absolute Lymphocytes (1.2 - 3.4 /CUMM) 1.5 Absolute Monocytes (0.10 - 0.60 /CUMM) 0.5 Absolute Eosinophils (0.0 - 0.7 /CUMM) 0.2 Absolute Basophils (0.0 - 0.2 /CUMM) 0 Vital Signs Date Time Temp Pulse Resp B/P B/P Pulse O2 O2 Flow FiO2 Mean Ox Delivery Rate 11/05 0811 97.5 64 16 122/64 11/05 0600 97.5 64 16 122/64 97 Room Air 11/04 2138 98.2 68 16 132/72 97 Room Air 11/04 1432 97.5 69 18 114/60 96 Room Air Intake & Output 11/05 1600 11/05 0800 11/05 0000 Intake Total 430 280 Output Total 1100 400 Balance -1100 30 280 Intake, IV 250 100 Intake, Oral 180 180 Output, Urine 1100 400 Patient 174 lb Weight
[2017-11-05] MEDS ORDERED: DOXYCYCLINE HY100 M4 PO (12:24)
--- NOTE | 2017-11-05 12:40 | Discharge Summary ---
Visit Information Visit Dates Admission Date: 11/02/17 Discharge Date: 11/05/17 Hospital Course Course Attending Physician: Nicko Jimenez MD Primary Care Physician: Joni SIMONS,Elijah Rodriguez Consulting Request: Consulting Specialty: Endocrinology Consulting Physician: Dr. lujan Reason for Consult: diabetic management Hospital Course: Mr. Claros 62-year-old male with past medical history of IDDM, status post right BKA several weeks ago, was taken to the operating room for right BKA stump wound ischemia. He underwent debridement by Dr. Jimenez. He tolerated the procedure well and was transferred to the floor. He was evaluated during his stay by Dr. lujan for diabetic management. He was also seen by infectious disease who recommended post discharge antibiotics for 1 week. His wound VAC was removed today and a dry dressing was applied. The expectation of visiting nurses to see him tomorrow a.m. for application of wound VAC. Allergies: Coded Allergies: sulfamethoxazole (From BACTRIM) (VOMITING 08/30/17) trimethoprim (From BACTRIM) (VOMITING 08/30/17) Significant Procedures: Right BKA stump debridement with application of wound VAC Disposition Summary Disposition Principal Diagnosis: Otherwise unremarkable stump wound ischemia Additional Diagnosis: None Discharge Disposition: home health services Discharge Instructions General Discharge Information Code Status: Full Code Patient's Diet: Diabetic diet Patient's Activity: May be out of bed to chair but when supine right stump should be elevated Follow-Up Instructions/Appts: Follow-up with Dr. parry in 2 weeks. Call for appointment for follow-up and wound center. Medications at Discharge Discharge Medications: Continue taking these medications: Pregabalin (Lyrica) 100 MG CAPSULE 1 Capsule ORAL TWICE DAILY Comments: Last Taken: 09/17/17 Time: 0845 am Clopidogrel Bisulfate (Plavix) 75 MG TABLET 1 Tablet ORAL DAILY Comments: Last Taken: 09/17/17 Time: 0845 am Insulin Detemir (Levemir) 100 UNIT/1 ML VIAL 24 Units Inject into fatty tissue DAILY Qty = 1 Instructions: FOLLOW UP WITH DR. AREVALO. Comments: Last Taken: 09/17/17 Time: 0845 am Insulin Aspart (Novolog) 100 UNIT/ML VIAL 0 Inject into fatty tissue BEFORE MEALS AND AT BEDTIME Qty = 1 Instructions: . Comments: Blood sugars Insulin SS Before Meals >80 none 80-150 4 units 151-200 5 units 201-250 6 units 251-300 8 units 301-350 10 units 351-400 12 units >400 14 units CAll DOCTOR Blood sugar Insulin SS bedtime >80 0 units 80-150 0 units 151-200 0 units 201-250 2 units 251-300 3 units 301-350 4 units 351-400 5 units >400 6 units Call DOCTOR Last Taken: 09/16/17 Time: 12:00 pm Metoprolol Succ XL (Toprol XL) 25 MG TAB 1 Tablet ORAL DAILY Qty = 30 Instructions: . Comments: Last Taken: 09/17/17 Time: 0845 am Atorvastatin Calcium (Atorvastatin Calcium) 80 MG TABLET 1 Tablet ORAL 5 PM Qty = 30 Instructions: . Comments: Last Taken: 09/16/17 Time: 4:00 pm Duloxetine Hydrochloride (Cymbalta) 30 MG CAPSULE.DR 3 Tablet ORAL DAILY Qty = 30 Instructions: . Comments: Last Taken: 09/17/17 Time: 0845 am Famotidine (Famotidine) 20 MG TABLET 1 Tablet ORAL DAILY as needed for HEARTBURN Qty = 10 Instructions: . Comments: Last Taken: 09/17/17 Time: 0845 am Start taking the following new medications: Oxycodone HCl (Oxycodone HCl) 5 MG TABLET 1-2 Tablet ORAL EVERY 4-6 HOURS NEEDED as needed for PAIN SCALE 4-6 ( MODERATE) Qty = 36 No Refills Doxycycline Hyclate (Doxycycline Hyclate) 100 MG TABLET 1 Tablet ORAL TWICE DAILY Qty = 14 No Refills Copies To: Tony SIMONS,Nicko
== END 2017-11-05 13:40 | disposition home health service (06) | DRG 502 ==
LOC: STS 01:15 → 2NA 12:30 → PACUH 12:30 → ENRESERV 12:51 → ENTRNSPT 13:13 → EDTRNSPTSTS 13:31 → CMPTRNSPT 13:49 → 2NA 14:20 → ENPENDDIS 11-05 12:43 → 2NA 11-05 13:40
PROVIDERS: Nurse Practitioner; Physician Assistant Surgical
PROC: 0KBS0ZZ Excision of Right Lower Leg Muscle, Open Approach (ICD-10-PCS; principal; 2017-11-02)
DX: T87.43 Infection of amputation stump, right lower extremity (principal); T87.53 Necrosis of amputation stump, right lower extremity; E11.51 Type 2 diabetes mellitus with diabetic peripheral angiopathy without gangrene; E11.42 Type 2 diabetes mellitus with diabetic polyneuropathy; I25.10 Atherosclerotic heart disease of native coronary artery without angina pectoris; Y83.8 Other surgical procedures as the cause of abnormal reaction of the patient, or of later complication, without mention of misadventure at the time of the procedure; I25.2 Old myocardial infarction; Z88.8 Allergy status to other drugs, medicaments and biological substances; F17.200 Nicotine dependence, unspecified, uncomplicated; Z79.4 Long term (current) use of insulin
CPT/HCPCS: 2NAP; 87070; 87075; 87184; 36415; 36592; 82436; 87071; 87147; J0131; J0690; J1644; J2001; J3370; J7040